=== PATIENT | male | born 1990 | race Caucasian/White ===

== ENCOUNTER → 2020-01-04 11:13 | Outpatient (BNVA) | payer OTHER, SELFPAY | PROVIDERS: Visit Provider Internal Medicine | DX: F11.20 Opioid dependence, uncomplicated (principal); F14.90 Cocaine use, unspecified, uncomplicated | CPT/HCPCS: 80305; 99212 ==

== ENCOUNTER 2020-01-07 09:15 | Outpatient (REF) | payer OTHER, SELFPAY | END 2020-01-07 09:16 | disposition home or self-care (01) | LOC: HO.LAB 09:15 | PROVIDERS: PCP Internal Medicine; Visit Provider Internal Medicine | DX: Z20.828 Contact with and (suspected) exposure to other viral communicable diseases (principal) | CPT/HCPCS: 87635 ==

== ENCOUNTER → 2020-01-11 14:03 | Outpatient (BNVA) | payer OTHER, SELFPAY | PROVIDERS: Visit Provider Internal Medicine | DX: F11.99 Opioid use, unspecified with unspecified opioid-induced disorder (principal) | CPT/HCPCS: 99211 ==

== ENCOUNTER → 2020-01-27 13:25 | Outpatient (BNVA) | payer OTHER, SELFPAY | PROVIDERS: Visit Provider Internal Medicine | DX: F11.99 Opioid use, unspecified with unspecified opioid-induced disorder (principal) | CPT/HCPCS: 80305; 99211; Q9992 ==

== ENCOUNTER → 2020-02-24 11:02 | Outpatient (BNVA) | payer OTHER, SELFPAY | PROVIDERS: Visit Provider Internal Medicine | DX: F11.99 Opioid use, unspecified with unspecified opioid-induced disorder (principal) | CPT/HCPCS: 80305; 96372; 99211; Q9992 ==

== ENCOUNTER 2020-03-09 15:05 | Outpatient (REF) | payer OTHER, SELFPAY | END 2020-03-09 15:06 | disposition home or self-care (01) | LOC: HO.LAB 15:05 | PROVIDERS: Visit Provider Internal Medicine | DX: Z20.828 Contact with and (suspected) exposure to other viral communicable diseases (principal) | CPT/HCPCS: C9803; U0003 ==

== ENCOUNTER → 2020-03-19 11:03 | Outpatient (BNVA) | payer OTHER, SELFPAY | PROVIDERS: Visit Provider Internal Medicine | DX: F11.99 Opioid use, unspecified with unspecified opioid-induced disorder (principal); M54.9 Dorsalgia, unspecified | CPT/HCPCS: 99211 ==

== ENCOUNTER → 2020-03-22 11:44 | Outpatient (BNVA) | payer OTHER, SELFPAY | PROVIDERS: Visit Provider Internal Medicine | DX: F11.99 Opioid use, unspecified with unspecified opioid-induced disorder (principal); Z51.81 Encounter for therapeutic drug level monitoring | CPT/HCPCS: 80305; 96372; Q9991 ==

== ENCOUNTER → 2020-04-17 11:25 | Outpatient (BNVA) | payer OTHER, SELFPAY | PROVIDERS: PCP Internal Medicine; Visit Provider Internal Medicine | DX: F11.99 Opioid use, unspecified with unspecified opioid-induced disorder (principal) | CPT/HCPCS: 80305; 96372; 99212 ==

== ENCOUNTER 2020-04-23 12:41 | Outpatient (REF) | payer OTHER, SELFPAY | END 2020-04-23 12:42 | disposition home or self-care (01) | LOC: HO.LAB 12:41 | PROVIDERS: Visit Provider Internal Medicine | DX: Z20.822 Contact with and (suspected) exposure to COVID-19 (principal) | CPT/HCPCS: 36415; C9803; U0003; U0005 ==

== ENCOUNTER → 2020-05-17 15:46 | Outpatient (BNVA) | payer OTHER, SELFPAY | PROVIDERS: Visit Provider Nurse Practitioner Psychiatric/Mental Health | DX: F11.99 Opioid use, unspecified with unspecified opioid-induced disorder (principal); Z51.81 Encounter for therapeutic drug level monitoring | CPT/HCPCS: 80305; 96372; 99211; Q9991 ==

== ENCOUNTER → 2020-06-14 15:44 | Outpatient (BNVA) | payer OTHER, SELFPAY | PROVIDERS: Visit Provider Nurse Practitioner Psychiatric/Mental Health | DX: F11.99 Opioid use, unspecified with unspecified opioid-induced disorder (principal); Z51.81 Encounter for therapeutic drug level monitoring | CPT/HCPCS: 80305; 96372; 99212; Q9991 ==

== ENCOUNTER → 2020-07-16 15:51 | Outpatient (BNVA) | payer OTHER, SELFPAY | PROVIDERS: Visit Provider Internal Medicine | DX: F11.99 Opioid use, unspecified with unspecified opioid-induced disorder (principal); Z51.81 Encounter for therapeutic drug level monitoring | CPT/HCPCS: 80305; 96372; 99212 ==

== ENCOUNTER 2020-09-22 03:50 | Emergency (ER) | payer OTHER, SELFPAY ==
[2020-09-22 03:52] VITALS: BP 150/72; PULSE 110; RESP 16; TEMP 36.4; O2SAT 95; BMI 24.3
[2020-09-22 05:50] VITALS: BP 112/79; PULSE 81; RESP 18; TEMP 36.5; O2SAT 97
--- NOTE | 2020-09-22 06:14 | ED.EAR ---
HPI - Ear Problem General Chief complaint: Ear Problems Stated complaint: ear infection Time Seen by Provider: 09/22/20 06:14 Source: patient Mode of arrival: ambulatory History of Present Illness HPI Narrative: 30-year-old male who presents with complaints of right ear pain that started yesterday morning and are not associated with fever, chills, but patient is having a mild headache but denies any sore throat. He states he does clean his ears with Q-tips but otherwise denies any trauma or swimming. Related Data Previous Rx's Medication Instructions Recorded nicotine 14 mg/24 hr daily 1 patch TRANSDERMAL Q24H #28 ea 03/22/20 transdermal patch buprenorphine 100 mg/0.5 mL 100 mg SUBCUT Q4W 28 Days #0.5 ml 07/16/20 solution,exten.rel.subcutaneous syringe Allergies Allergy/AdvReac Type Severity Reaction Status Date / Time No Known Allergies Allergy Verified 09/22/20 03:52 [No Known Allergies*] Review of Systems Review of Systems: Pertinent positives and negatives as stated in HPI 10 point review of systems is otherwise negative. PMFSH Past Medical History Source: nursing notes reviewed Medical History Opioid use disorder Social History Social History Advance Directives: No Advance Directives Information Provided: No Physical Exam Vital Signs: Vital Signs: Last Vital Signs Temp 97.7 F 09/22/20 05:50 Pulse 81 09/22/20 05:50 Resp 18 09/22/20 05:50 BP 112/79 09/22/20 05:50 Pulse Ox 97 09/22/20 05:50 Body Mass Index 24.3 VITAL SIGNS: Reviewed. GENERAL: Well developed, well nourished, in no acute distress. HEAD: Normocephalic/atraumatic EYES: PERRLA, EOMI intact without pain, no nystagmus EARS: Ext canals without abnormality, LEFT TM non-bulging and non-erythematous, RIGHT - clearly soft cerumen within the canal likely abutting TM no erythema or purulence noted NOSE: Nares patent bilateral OROPHARYNX: no oral lesions noted, posterior pharynx clear and non-erythematous without noted tonsillar enlargement/erythema/exudates NECK: Supple, no adenopathy LUNGS: Normal breath sounds. No adventitious sounds or accessory muscle use. SpO2<97> CARDIOVASCULAR: Regular rate and rhythm without noted murmurs ABDOMEN: Soft, non-tender, non-distended with bowel sounds. SKIN: Inspection of the skin reveals no rashes NEUROLOGIC: Alert and oriented x 4. Course Course Course Narrative: 30-year-old male with history and clinical presentation consistent with mild cerumen impaction of the right ear. Patient discharged with instructions to aggressively utilize [id number] Debrox and to stop using Q-tips. Discharge Plan Discharge Clinical Impression: Impacted cerumen of right ear Patient Disposition: Home, Self-Care Additional Instructions: 1. recommend [id number] Debrox, this is available in every [facility], please use as directed on the outside packaging for earwax removal on the right. 2. please avoid using Q-tips when possible. Return to the ER for acute worsening of symptoms. Prescriptions: No Action nicotine 14 mg/24 hr patch 24 hour 1 patch transdermal Q24H Qty: 28 RF: 2 Sublocade 100 mg/0.5 mL solution, extended rel syringe 100 mg subcut Q4W 28 Days Qty: 0.5 RF: 5 Referrals: Leonel Romero MD [Primary Care Provider] - 2 days
== END 2020-09-22 06:29 | disposition home or self-care (01) ==
PROVIDERS: Emergency Provider Student in an Organized Health Care Education/Training Program; PCP Internal Medicine
DX: H61.21 Impacted cerumen, right ear (principal)
CPT/HCPCS: 99282; 99283

== ENCOUNTER 2020-09-27 21:59 | Emergency (ER) | payer OTHER, SELFPAY ==
[2020-09-27 22:13] VITALS: BP 115/75; PULSE 117; RESP 16; TEMP 36.4; O2SAT 97; BMI 24.3
--- NOTE | 2020-09-27 23:34 | ED_ITS ---
HPI - Ear Problem General Chief complaint: Ear Problems Stated complaint: ear pain Time Seen by Provider: 09/27/20 22:47 Source: patient Mode of arrival: ambulatory History of Present Illness HPI Narrative: 30-year-old male with a past medical history of opiate abuse disorder presenting to the ED complaining of continued right-sided ear pain /muffling x5 days. Patient admits was recently seen and treated in the ED on 09/22 diagnosed with cerumen impaction has been using OTC medication without relief. Denies fever, chills, drainage from the ear, sore throat Complaint: ear pain Location: right ear Related Data Previous Rx's Medication Instructions Recorded nicotine 14 mg/24 hr daily 1 patch TRANSDERMAL Q24H #28 ea 03/22/20 transdermal patch buprenorphine 100 mg/0.5 mL 100 mg SUBCUT Q4W 28 Days #0.5 ml 07/16/20 solution,exten.rel.subcutaneous syringe Allergies Allergy/AdvReac Type Severity Reaction Status Date / Time No Known Allergies Allergy Verified 09/27/20 22:13 [No Known Allergies*] Review of Systems Review of Systems: Constitutional: No Fever, No Chills ENT/Mouth: + Ear Pain, No Nasal Congestion, No Sinus Pain, No Hoarseness, No sore throat, No Rhinorrhea Cardiovascular: No Chest Pain, No SOB Respiratory: No Cough, No Wheezing Gastrointestinal: No Nausea, No Vomiting Musculoskeletal: No joint pain Skin: No Skin Lesions, No rash Yes all other systems are reviewed and are negative PMFSH Past Medical History Attestation statement: The following information was validated with the patient. Medical History Opioid use disorder Social History Social History Advance Directives: No Advance Directives Information Provided: No Physical Exam Vital Signs: Vital Signs: Last Vital Signs Temp 97.6 F 09/27/20 22:13 Pulse 117 H 09/27/20 22:13 Resp 16 09/27/20 22:13 BP 115/75 09/27/20 22:13 Pulse Ox 97 09/27/20 22:13 Body Mass Index 24.3 Const: General: cooperative, healthy appearing and no acute distress Orientation/consciousness: patient oriented x3 Limitations: no limitations HENMT: Other: cerumen cleared with irrigation, TM WNL Head: Yes normal to inspection Ears: hearing grossly normal bilaterally, TM's normal bilaterally, mastoids normal and unable to visualize TM on the right ( due to cerumen impaction) General nose exam: Normal external nose present and Normal nares present Face and sinus: Yes normal facial exam Mouth: Normal oral and pal atal mucosa present Throat: Yes posterior oropharynx normal, Yes tonsils normal, Yes uvula midline, No peritonsillar mass and No uvular edema Eyes: General: appearance normal, both eyes and all related structures EOM: EOMs intact bilaterally Neck: Neck: Yes normal visual inspection and Yes no lymphadenopathy Resp: Effort & Inspection: normal respiratory effort and not labored Cardio: Rate: regular rate Skin: Rashes: no rashes Wounds: no wounds Neuro: General: patient oriented x3 Gait exam (Neuro): Normal gait present Extrem: General: Yes normal to inspection Procedures Ear Wax Removal Right Ear: Cerumenolytic Used: 5-10% Sodium Bicarb solution Results: Re-examined: cerumen removed completely TM Examination: TM(s) intact, normal appearance Ear Canal Exam: atraumatic Patient Tolerated Procedure: well Complications: no problems Technique: ear canal irrigated MDM - Ear MDM Narrative Medical decision making narrative: 30-year-old male with a past medical history of opiate abuse disorder presenting to the ED complaining of continued right- sided ear pain /muffling x5 days. On exam cerumen impaction noted and cleared with irrigation, patient is nontoxic appearing, reports symptomatic improvement, TM without active infection Discharge Plan Discharge Clinical Impression: Cerumen impaction Qualifiers: Laterality: right Qualified Code(s): H61.21 - Impacted cerumen, right ear Patient Disposition: Home, Self-Care Instructions: Earache (ED) Additional Instructions: you had ear wax impacted in her ear that was removed with irrigation today follow-up with her primary care doctor If her symptoms persist or worsen, he developed drainage from the ear, fever, hearing loss please return to the ED take Tylenol and Motrin for pain Prescriptions: No Action nicotine 14 mg/24 hr patch 24 hour 1 patch transdermal Q24H Qty: 28 RF: 2 Sublocade 100 mg/0.5 mL solution, extended rel syringe 100 mg subcut Q4W 28 Days Qty: 0.5 RF: 5 Referrals: Leonel Romero MD [Primary Care Provider] - 2 days Stand Alone Forms: Work/School Release
[2020-09-27 23:41] VITALS: PULSE 90; RESP 18; O2SAT 100
--- NOTE | 2020-09-27 23:41 | PC.NURSE ---
PT EAR FLUSHED OUT PER MIRNA BEST LARGE BALL OF WAX REMOVED. PT STATES HE CAN HEAR AFTER EAR FLUSHED.
== END 2020-09-27 23:43 | disposition home or self-care (01) ==
PROVIDERS: Emergency Provider Emergency Medicine; PCP Internal Medicine
DX: H61.21 Impacted cerumen, right ear (principal); H92.01 Otalgia, right ear; F11.10 Opioid abuse, uncomplicated
CPT/HCPCS: 99282; 99283

== ENCOUNTER 2020-11-18 21:02 | Emergency (ER) | payer OTHER, SELFPAY ==
[2020-11-18 21:54] VITALS: BP 126/73; PULSE 78; RESP 18; TEMP 36.6; O2SAT 98; BMI 24.3
--- NOTE | 2020-11-18 23:45 | ED.GENADULT ---
HPI - General Adult General Chief complaint: General Medical Stated complaint: shoulder and back pain Time Seen by Provider: 11/18/20 23:45 Source: patient Mode of arrival: ambulatory History of Present Illness HPI narrative: 30-year-old male who reports that he was lifting a heavy item and strained his lower back. He denies any urinary symptoms and denies any radiation of pain into either lower extremity, groin numbness, or bowel/bladder dysfunction. In addition, he denies any fevers, chills. Related Data Previous Rx's Medication Instructions Recorded nicotine 14 mg/24 hr daily 1 patch TRANSDERMAL Q24H #28 ea 03/22/20 transdermal patch buprenorphine 100 mg/0.5 mL 100 mg SUBCUT Q4W 28 Days #0.5 ml 07/16/20 solution,exten.rel.subcutaneous syringe (Sublocade) Allergies Allergy/AdvReac Type Severity Reaction Status Date / Time No Known Allergies Allergy Verified 11/18/20 21:53 [No Known Allergies*] Review of Systems Review of Systems: Pertinent positives and negatives as stated in HPI 10 point review systems otherwise negative. PMFSH Past Medical History Source: nursing notes reviewed Medical History Opioid use disorder Social History Social History Advance Directives: No Advance Directives Information Provided: No Physical Exam Vital Signs: Vital Signs: Last Vital Signs Temp 97.9 F 11/18/20 21:54 Pulse 78 11/18/20 21:54 Resp 18 11/18/20 21:54 BP 126/73 11/18/20 21:54 Pulse Ox 98 11/18/20 21:54 Body Mass Index 24.3 VITAL SIGNS: Reviewed. GENERAL: Well developed, well nourished, in no acute distress. HEAD: Normocephalic/atraumatic EYES: PERRLA, EOMI OROPHARYNX: no oral lesions noted, posterior pharynx clear LUNGS: Normal breath sounds. No adventitious sounds or accessory muscle use. SpO2<98> CARDIOVASCULAR: Regular rate and rhythm without noted murmurs ABDOMEN: Soft, non-tender, non-distended with bowel sounds. MUSCULOSKELETAL: No tenderness, deformities, or effusions noted on gross inspection, no midline vertebral tenderness EXTREMITIES: No cyanosis, clubbing or edema. SKIN: Inspection of the skin reveals no rashes NEUROLOGIC: Alert and oriented x 4. Strength and sensation to light touch were grossly intact x 4. Course Course Course Narrative: 30-year-old male with back strain without evidence of neurologic defects and no suspicion for infection. Patient was provided with combination analgesics as well as a lidocaine patch. Discharge Plan Discharge Clinical Impression: Back pain Patient Disposition: Home, Self-Care Instructions: Lower Back Exercises (ED), Back Pain (ED) Additional Instructions: 1. Tylenol 1000 mg, orally, every 6 hours as needed for pain control. Do not exceed 4000 mg within 24 hours. 2. Ibuprofen 400 mg, orally with milk or food, every 6 hours as needed for pain control. 3. Lidocaine patch, these are available [id number] at every [employer] and should be applied to maximal area of tenderness as directed on the outside packaging. 4. Follow-up with your primary care provider in the next 2-3 days for re-evaluation. Return to the ER for acute worsening of symptoms. Prescriptions: No Action nicotine 14 mg/24 hr patch 24 hour 1 patch transdermal Q24H Qty: 28 RF: 2 Sublocade 100 mg/0.5 mL solution, extended rel syringe 100 mg subcut Q4W 28 Days Qty: 0.5 RF: 5 Referrals: Leonel Romero MD [Primary Care Provider] - 2 days Stand Alone Forms: Work/School Release
[2020-11-18] MEDS: Acetaminophen 325 MG TABLET 975 MG PO (23:59)
[2020-11-18] MEDS: Ibuprofen 400 MG TABLET PO (23:59)
[2020-11-19] MEDS: Lidocaine 4 % Patch ADH..PATCH 1 PATCH TRANSDERMA (00:02)
== END 2020-11-19 00:04 | disposition home or self-care (01) ==
PROVIDERS: Emergency Provider Student in an Organized Health Care Education/Training Program; PCP Internal Medicine
DX: M54.5 Low back pain (principal)
CPT/HCPCS: 99283

== ENCOUNTER → 2020-12-20 15:32 | Outpatient (BNVA) | payer OTHER, SELFPAY | PROVIDERS: Visit Provider Nurse Practitioner Psychiatric/Mental Health | DX: F11.90 Opioid use, unspecified, uncomplicated (principal) | CPT/HCPCS: 80305; 99212 ==

== ENCOUNTER → 2020-12-27 16:01 | Outpatient (BNVA) | payer OTHER, SELFPAY | PROVIDERS: Visit Provider Nurse Practitioner Psychiatric/Mental Health | DX: Z51.81 Encounter for therapeutic drug level monitoring (principal); F11.90 Opioid use, unspecified, uncomplicated | CPT/HCPCS: 80305; 99212 ==

== ENCOUNTER 2021-01-07 13:47 | Emergency (ER) | payer OTHER, SELFPAY ==
[2021-01-07 13:55] VITALS: BP 114/73; PULSE 87; RESP 18; TEMP 36.7; O2SAT 99; BMI 24.3
--- NOTE | 2021-01-07 13:55 | ED.BACK ---
HPI - Back Pain/Injury General Chief Complaint: Back Pain/Injury Stated Complaint: back inj (work related) Time Seen by Provider: 01/07/21 13:54 Source: patient Mode of arrival: ambulatory Limitations: no limitations History of Present Illness HPI Narrative: 31 yo male previously healthy here with low back pain after lifting some heavy today. NO radiation. No numbness in the groin. No bowel or bladder incontinence. No previous injury. Ambulatory. No fevers, chills. This occurred at work. Related Data Previous Rx's Medication Instructions Recorded nicotine 14 mg/24 hr daily 1 patch TRANSDERMAL Q24H #28 ea 03/22/20 transdermal patch buprenorphine 8 mg-naloxone 2 mg 1 film SUBLINGUAL BID #28 ea 12/27/20 sublingual film (Suboxone) cyclobenzaprine 10 mg tablet 10 mg PO TID PRN #10 tab 01/07/21 ibuprofen 600 mg tablet 600 mg PO Q8H PRN #20 tab 01/07/21 lidocaine 5 % topical patch 1 patch TOPICAL DAILY #15 ea 01/07/21 (Lidoderm) Allergies Allergy/AdvReac Type Severity Reaction Status Date / Time No Known Allergies Allergy Verified 12/27/20 16:13 [No Known Allergies*] Review of Systems Review of Systems: Yes all other systems are reviewed and are negative Constitutional: Constitutional: Reports no additional constitutional complaints, Denies body ache(s), Denies chills, Denies fever(s), Denies headache(s) and Denies weakness Eyes: Eyes: Reports no additional eye complaints and Denies change in vision ENT: Reports system reviewed and no additional complaints, except as documented, Denies dizziness, Denies headache(s), Denies nasal congestion, Denies nasal discharge and Denies neck pain Cardiovascular: Cardiovascular: Reports no additional cardiovascular complaints, Denies chest pain, Denies leg edema and Denies dyspnea Respiratory: Respiratory: Reports no additional respiratory complaints, Denies cough and Denies dyspnea Gastrointestinal: Gastrointestinal: Reports no additional gastrointestinal complaints, Denies abdominal pain, Denies diarrhea, Denies nausea and Denies vomiting Genitourinary: Genitourinary: Denies urinary incontinence Musculoskeletal: Musculoskeletal: Reports no additional musculoskeletal complaints, Reports back pain, Denies arthralgias, Denies joint swelling, Denies neck pain, Denies numbness and Denies tingling Integumentary/Breasts: Skin/Breast: Reports system reviewed and no additional complaints, except as docu and Denies rash Neurologic: Denies Abnormal speech present, Denies dizziness, Denies headache(s), Denies numbness, Denies tingling and Denies weakness PMFSH Past Medical History Attestation statement: The following information was validated with the patient. Source: old records reviewed and nursing notes reviewed Medical History Opioid use disorder Social History Social History Advance Directives: No Advance Directives Information Provided: Yes Physical Exam Vital Signs: Vital Signs: Last Vital Signs Temp 98.1 F 01/07/21 13:55 Pulse 87 01/07/21 13:55 Resp 18 01/07/21 13:55 BP 114/73 01/07/21 13:55 Pulse Ox 99 01/07/21 13:55 Body Mass Index 24.3 Const: General: cooperative, healthy appearing, comfortable and no acute distress Orientation/consciousness: patient oriented x3 Limitations: no limitations HENMT: Head: Yes normal to inspection Ears: hearing grossly normal bilaterally General nose exam: Normal external nose present Face and sinus: Yes normal facial exam Mouth: Normal oral and palatal mucosa present Throat: Yes posterior oropharynx normal Eyes: General: appearance normal, both eyes and all related structures Pupils: Equal, round and reactive pupils present Neck: Neck: Yes normal visual inspection Chest: Chest palpation & inspection: normal inspection of the chest Resp: Effort & Inspection: normal respiratory effort Auscultation: clear to auscultation bilaterally Cardio: Rate: regular rate Rhythm: regular rhythm Peripheral pulses: Peripheral pulses 2+ throughout GI: Inspection: Yes normal to inspection Palpation (GI): Soft to palpation and nontender Auscultation: normal bowel sounds Back/Spine/Pelvis: Other: NO midline tenderness/step off or deformities Pain to bilateral lumbar paraspinal area, worsened with flexion/extension of lumbar spine. Thoracic/Lumbar Spine: thoracic and lumbar spine normal to inspection Skin: General skin exam: no rashes or lesions noted Neuro: General: patient oriented x3, no focal motor deficits and normal sensation to monofilament Cranial nerves: Yes CN's II-XII intact bilaterally and Yes Equal, round and reactive pupils present Cognition (Neuro): normal cognition Speech: No Abnormal speech present Gait exam (Neuro): Normal gait present Motor exam (neuro): 5/5 motor strength present throughout Sensory Exam: Normal double simultaneous stimulation for sensation Deep tendon reflexes (DTR's): Right patellar reflex intensity grade: 2+ and Left patellar reflex intensity grade: 2+ Extrem: General: Yes normal to inspection and Yes full ROM Course Course Course Narrative: Low BP after lifting a heavy object at work. No neuro deficits or red flag symptoms. NO midline tenderness no imaging not needed. Likely strain. Will send patient home with NSAID, low dose muscle relaxant and lidoderm patches with follow up with work connection. Reviewed worrisome signs.symptoms with patient and when to seek additional care. comfortable with discharge home. MDM - Back Pain/Injury Medical Records Attestation: I reviewed the patient's medical records. Lab Data Attestation: I reviewed the patient's lab results. Discharge Plan Discharge Clinical Impression: Lumbar strain Patient Disposition: Home, Self-Care Instructions: Low Back Strain (ED), Acute Low Back Pain (ED), Lower Back Exercises (ED) Additional Instructions: Heat or ice Gentle stretching Follow-up with work connection [phone] NO heavy lifting or bending Prescriptions: New lidocaine [Lidoderm] 5 % adhesive patch,medicated 1 patch topical DAILY Qty: 15 RF: 0 cyclobenzaprine 10 mg tablet 10 mg PO TID PRN (Reason: muscle spasm) Qty: 10 RF: 0 ibuprofen 600 mg tablet 600 mg PO Q8H PRN (Reason: pain) Qty: 20 RF: 0 No Action nicotine 14 mg/24 hr patch 24 hour 1 patch transdermal Q24H Qty: 28 RF: 2 buprenorphine-naloxone [Suboxone] 8-2 mg film 1 film sublingual BID Qty: 28 RF: 0 Referrals: ED Physician,Generic [Physician] - 2 days Stand Alone Forms: Work/School Release Interventions: ED Discharge Assessment Last Done: 01/07/21 14:01
== END 2021-01-07 14:12 | disposition home or self-care (01) ==
LOC: HO.ED 14:04
PROVIDERS: Emergency Provider Student in an Organized Health Care Education/Training Program; PCP Internal Medicine
DX: M54.50 Low back pain, unspecified (principal); Z79.899 Other long term (current) drug therapy
CPT/HCPCS: 99282

== ENCOUNTER → 2021-01-11 10:35 | Outpatient (BNVA) | payer OTHER, SELFPAY | PROVIDERS: PCP Internal Medicine; Visit Provider Physician Assistant | DX: S39.012A Strain of muscle, fascia and tendon of lower back, initial encounter (principal); X58.XXXA Exposure to other specified factors, initial encounter | CPT/HCPCS: 99203 ==

== ENCOUNTER → 2021-01-14 13:33 | Outpatient (BNVA) | payer OTHER, SELFPAY | PROVIDERS: PCP Internal Medicine; Visit Provider Physician Assistant Medical | DX: S39.012A Strain of muscle, fascia and tendon of lower back, initial encounter (principal); X58.XXXA Exposure to other specified factors, initial encounter | CPT/HCPCS: 99213 ==

== ENCOUNTER → 2021-01-31 14:35 | Outpatient (BNVA) | payer OTHER, SELFPAY | PROVIDERS: PCP Internal Medicine; Visit Provider Physician Assistant | DX: S39.012D Strain of muscle, fascia and tendon of lower back, subsequent encounter (principal); X58.XXXD Exposure to other specified factors, subsequent encounter | CPT/HCPCS: 99213 ==

== ENCOUNTER → 2021-02-18 10:13 | Outpatient (BNVA) | payer OTHER, SELFPAY | PROVIDERS: PCP Internal Medicine; Visit Provider Internal Medicine | DX: Z51.81 Encounter for therapeutic drug level monitoring (principal); F11.90 Opioid use, unspecified, uncomplicated | CPT/HCPCS: 80305; 99212 ==

== ENCOUNTER → 2021-02-21 10:23 | Outpatient (BNVA) | payer OTHER, SELFPAY | PROVIDERS: PCP Internal Medicine; Visit Provider Nurse Practitioner Psychiatric/Mental Health | DX: Z51.81 Encounter for therapeutic drug level monitoring (principal); F11.90 Opioid use, unspecified, uncomplicated | CPT/HCPCS: 80305; 99212 ==

== ENCOUNTER 2021-03-06 07:00 | Outpatient (REF) | payer OTHER, SELFPAY ==
[2021-03-06 09:09] LABS: Alanine Aminotransferase 15 U/L (0-40); Albumin Level 4.2 g/dL (3.5-5.0); Alkaline Phosphatase 53 U/L (39-117); Anion Gap 11 (12-20); Aspartate Amino Transferase 19 U/L (5-37); Bilirubin Total 0.5 mg/dL (0.0-1.0); Blood Urea Nitrogen 17 mg/dL (9-16); Calcium 9.6 mg/dL (8.4-10.2); Carbon Dioxide 30 mmol/L (22-29); Chloride 104 mmol/L (96-108); Estimated Glomerular Filt Rate > 60; Glucose Random 91 mg/dL (60-115); Potassium 3.9 mmol/L (3.3-5.1); Sodium 141 mmol/L (135-145); Total Protein 6.7 g/dL (6.5-8.0)
== END 2021-03-06 07:01 | disposition home or self-care (01) ==
LOC: HO.LAB 07:00
PROVIDERS: PCP Internal Medicine; Visit Provider Nurse Practitioner Psychiatric/Mental Health
DX: Z79.899 Other long term (current) drug therapy (principal)
CPT/HCPCS: 36415; 80053

== ENCOUNTER → 2021-03-07 16:23 | Outpatient (BNVA) | payer OTHER, SELFPAY | PROVIDERS: PCP Internal Medicine; Visit Provider Nurse Practitioner Psychiatric/Mental Health | DX: Z51.81 Encounter for therapeutic drug level monitoring (principal); F11.288 Opioid dependence with other opioid-induced disorder | CPT/HCPCS: 80305; 99211 ==

== ENCOUNTER 2021-03-18 08:22 | Inpatient (IN) | payer OTHER, SELFPAY ==
[2021-03-18 08:33] VITALS: BP 121/77; PULSE 70; RESP 16; TEMP 36.9; O2SAT 98; BMI 24.2
--- NOTE | 2021-03-18 08:52 | ED_ITS ---
HPI - Psych General Chief Complaint: Psychiatric Symptoms Stated Complaint: Crisis Time Seen by Provider: 03/18/21 08:47 Source: patient Mode of arrival: ambulatory Limitations: no limitations History of Present Illness MD complaint: suicidal ideation and feels depressed Onset (ago): day(s) (few) Duration: getting worse History of same: Yes Relieving factors: none Exacerbating factors: drug use Context: recent drug abuse Associated psychiatric symptoms: depression and suicidal ideation Associated symptoms: denies other symptoms Treatments prior to arrival: none If self harm: admits thoughts of self harm Related Data Previous Rx's Medication Instructions Recorded nicotine 14 mg/24 hr daily 1 patch TRANSDERMAL Q24H #28 ea 03/22/20 transdermal patch cyclobenzaprine 10 mg tablet 10 mg PO TID PRN #10 tab 01/07/21 ibuprofen 600 mg tablet 600 mg PO Q8H PRN #20 tab 01/07/21 lidocaine 5 % topical patch 1 patch TOPICAL DAILY #15 ea 01/07/21 (Lidoderm) sennosides 8.6 mg tablet (senna) 8.6 mg PO DAILY PRN #30 tab 02/21/21 buprenorphine 8 mg-naloxone 2 mg 2 film SUBLINGUAL DAILY 14 Days 03/07/21 sublingual film (Suboxone) #28 ea clonidine HCl 0.1 mg tablet 0.1 mg PO BID PRN #30 tab 03/07/21 Allergies Allergy/AdvReac Type Severity Reaction Status Date / Time No Known Allergies Allergy Verified 02/18/21 10:31 [No Known Allergies*] Review of Systems Review of Systems: Constitutional : No Fever, No Chills ENT/Mouth : No Ear Pain, No Nasal Congestion, No sore throat Eyes: No Eye Pain, No Swelling, No Redness Cardiovascular : No Chest Pain, No SOB Respiratory : No Cough, No Sputum, No Dyspnea Gastrointestinal : No Nausea, No Vomiting, No Diarrhea, No Hematochezia, No Melena Genitourinary : No Dysuria, No Urinary Frequency, No Hematuria Musculoskeletal : No Myalgias Skin : No Skin Lesions, No rash Neuro : No Weakness, No Numbness, No Paresthesias, No Dizziness, No Headache Psych : positive Anxiety, positive Depression, positive SI no HI Heme/Lymph: No Lymphadenopathy Endocrine : No Polyuria, No Polydipsia All other systems reviewed and are negative [facility] Past Medical History Attestation statement: The following information was validated with the patient. Medical History Opioid use disorder Social History Social History (Updated 03/18/21 @ 09:36 by Marguerite Gutiérrez DO) Patient Tobacco Use Status: Current everyday Tobacco user Use of substances other than those prescribed or required for medical reasons: Yes Substance Use Type: Crack/Cocaine, Marijuana and Opiates Substance Use Frequency: Chronic Longstanding Last Used Substance: Hours (ago) Advance Directives: No Advance Directives Information Provided: No Physical Exam Vital Signs: Vital Signs: Last Vital Signs Temp 98.4 F 03/18/21 08:33 Pulse 70 03/18/21 08:33 Resp 16 03/18/21 08:33 BP 121/77 03/18/21 08:33 Pulse Ox 98 03/18/21 08:33 BMI result Body Mass Index 24.2 Appearance: Alert. Oriented X3. No acute distress. Tearful Eyes: Pupils equal, round and reactive to light. ENT: Pharynx normal. Neck: Normal inspection. Neck supple. CVS: Normal heart rate and rhythm. Pulses normal. Respiratory: No respiratory distress. Breath sounds normal. Abdomen: Soft and nontender. Skin: Skin warm and dry. Normal skin color. Normal skin turgor. Extremities: No lower extremity edema. No calf ttp Neuro: Oriented X 3. No motor deficit. No sensory deficit. CN2-12 intact. Course Course Course Narrative: Physician observation started at 1011am Patient placed in physician observation because the patient needed more time for BHN to assess him and determine need for inpatient care. At the time observation was started the patient's vitals were stable, patient is alert and oriented but slightly anxious, Neuro: nonfocal, CV RRR, Lungs clear admit to inpatient MDM - Psych MDM Narrative Medical decision making narrative: 31 yo male with hx of substance abuse just relapsed - at this time reports SI will need labs, BHN consult Lab Data Result diagrams: 03/18/21 09:07 03/18/21 09:07 Labs: Lab Results 03/18/21 03/18/21 03/18/21 Range/Units 09:07 09:07 09:07 WBC 10.6 (4.8-10.8) X10*3/uL RBC 3.75 L (4.60-5.80) X10*6/uL Hgb 11.6 L (14.0-18.0) g/dl Hct 34.8 L (42.0-52.0) % MCV 92.8 (80.0-98.0) fL MCH 30.9 (27.0-33.0) pg MCHC 33.3 (31.0-36.0) g/dl RDW 13.0 (11.0-16.0) % Plt Count 228 (160-400) X10*3/uL MPV 9.6 (9.4-12.4) fL Immature Gran % (Auto) 0.3 (0.0-0.4) % Neut % (Auto) 63.1 (45-73) % Lymph % (Auto) 28.8 (20-40) % [place] % (Auto) 6.5 (2-11) % Eos % (Auto) 0.9 (0-4) % Baso % (Auto) 0.4 (0-2) % Lymph # (Auto) 3.1 (1.2-4.9) X10*3/uL [place] # (Auto) 0.7 (0.1-1.2) X10*3/uL Eos # (Auto) 0.1 (0.0-0.4) X10*3/uL Baso # (Auto) 0.0 (0.0-0.2) X10*3/uL Abs Immat Gran (auto) 0.03 (0.00-0.03) X10*3/uL Absolute Neuts (auto) 6.7 (2.0-8.3) x10*3/uL Absolute Nucleated RBC 0.000 (0.0-0.012) X10*3/uL Nucleated RBC % (auto) 0.0 (0.0-0.2) /100WBC Sodium 139 (135-145) mmol/L Potassium 3.3 (3.3-5.1) mmol/L Chloride 102 (96-108) mmol/L Carbon Dioxide 30 H (22-29) mmol/L Anion Gap 10 L (12-20) BUN 14 (9-16) mg/dL Creatinine 0.80 (0.5-1.4) mg/dL Estim Creat Clear Calc 118.5 Estimated GFR > 60 Random Glucose 170 H D (60-115) mg/dL Calcium 9.4 (8.4-10.2) mg/dL Total Bilirubin 0.7 (0.0-1.0) mg/dL Direct Bilirubin 0.5 (0.0-0.5) mg/dL AST 18 (5-37) U/L ALT 15 (0-40) U/L Alkaline Phosphatase 48 (39-117) U/L Total Protein 6.8 (6.5-8.0) g/dL Albumin 4.3 (3.5-5.0) g/dL Urine Opiates Screen (Not Detect) Urine Fentanyl Screen (Not Detect) Ur Barbiturates Screen (Not Detect) Ur Phencyclidine Scrn (Not Detect) Ur Amphetamines Screen (Not Detect) U Benzodiazepines Scrn (Not Detect) Urine Cocaine Screen (Not Detect) U Marijuana (THC) Screen (Not Detect) COVID-19 (TIKA) Negative (Negative) COVID-19 Clin Com See Note 03/18/21 Range/Units 09:16 WBC (4.8-10.8) X10*3/uL RBC (4.60-5.80) X10*6/uL Hgb (14.0-18.0) g/dl Hct (42.0-52.0) % MCV (80.0-98.0) fL MCH (27.0-33.0) pg MCHC (31.0-36.0) g/dl RDW (11.0-16.0) % Plt Count (160-400) X10*3/uL MPV (9.4-12.4) fL Immature Gran % (Auto) (0.0-0.4) % Neut % (Auto) (45-73) % Lymph % (Auto) (20-40) % [place] % (Auto) (2-11) % Eos % (Auto) (0-4) % Baso % (Auto) (0-2) % Lymph # (Auto) (1.2-4.9) X10*3/uL [place] # (Auto) (0.1-1.2) X10*3/uL Eos # (Auto) (0.0-0.4) X10*3/uL Baso # (Auto) (0.0-0.2) X10*3/uL Abs Immat Gran (auto) (0.00-0.03) X10*3/uL Absolute Neuts (auto) (2.0-8.3) x10*3/uL Absolute Nucleated RBC (0.0-0.012) X10*3/uL Nucleated RBC % (auto) (0.0-0.2) /100WBC Sodium (135-145) mmol/L Potassium (3.3-5.1) mmol/L Chloride (96-108) mmol/L Carbon Dioxide (22-29) mmol/L Anion Gap (12-20) BUN (9-16) mg/dL Creatinine (0.5-1.4) mg/dL Estim Creat Clear Calc Estimated GFR Random Glucose (60-115) mg/dL Calcium (8.4-10.2) mg/dL Total Bilirubin (0.0-1.0) mg/dL Direct Bilirubin (0.0-0.5) mg/dL AST (5-37) U/L ALT (0-40) U/L Alkaline Phosphatase (39-117) U/L Total Protein (6.5-8.0) g/dL Albumin (3.5-5.0) g/dL Urine Opiates Screen POSITIVE H (Not Detect) Urine Fentanyl Screen POSITIVE H (Not Detect) Ur Barbiturates Screen Not Detected (Not Detect) Ur Phencyclidine Scrn Not Detected (Not Detect) Ur Amphetamines Screen Not Detected (Not Detect) U Benzodiazepines Scrn Not Detected (Not Detect) Urine Cocaine Screen POSITIVE H (Not Detect) U Marijuana (THC) Screen POSITIVE H (Not Detect) COVID-19 (TIKA) (Negative) COVID-19 Clin Com Discharge Plan Discharge Clinical Impression: Depression Qualifiers: Depression Type: unspecified Qualified Code(s): F32.A - Depression, unspecified Prescriptions: No Action buprenorphine-naloxone [Suboxone] 8-2 mg film 2 film sublingual DAILY 14 Days Qty: 28 RF: 0 clonidine HCl 0.1 mg tablet 0.1 mg PO BID PRN (Reason: anxiety) Qty: 30 RF: 0 lidocaine [Lidoderm] 5 % adhesive patch,medicated 1 patch topical DAILY Qty: 15 RF: 0 cyclobenzaprine 10 mg tablet 10 mg PO TID PRN (Reason: muscle spasm) Qty: 10 RF: 0 ibuprofen 600 mg tablet 600 mg PO Q8H PRN (Reason: pain) Qty: 20 RF: 0 nicotine 14 mg/24 hr patch 24 hour 1 patch transdermal Q24H Qty: 28 RF: 2 sennosides [senna] 8.6 mg tablet 8.6 mg PO DAILY PRN (Reason: constipation) Qty: 30 RF: 1
[2021-03-18 09:12] LABS: MANUAL DIFF FLAG NO
[2021-03-18 09:13] LABS: Basophils Percent Auto 0.4 % (0-2); Eosinophils Absolute Auto 0.1 X10*3/uL (0.0-0.4); Eosinophils Percent Auto 0.9 % (0-4); Hematocrit 34.8 % (42.0-52.0); Hemoglobin 11.6 g/dl (14.0-18.0); Imm Gran Abs Auto 0.03 X10*3/uL (0.00-0.03); Imm Gran Pct Auto 0.3 % (0.0-0.4); Lymphocytes Absolute Auto 3.1 X10*3/uL (1.2-4.9); Lymphocytes Percent Auto 28.8 % (20-40); Mean Corpuscular HGB Conc 33.3 g/dl (31.0-36.0); Mean Corpuscular Hemoglobin 30.9 pg (27.0-33.0); Mean Corpuscular Volume 92.8 fL (80.0-98.0); Mean Platelet Volume 9.6 fL (9.4-12.4); Monocytes Absolute Auto 0.7 X10*3/uL (0.1-1.2); Monocytes Percent Auto 6.5 % (2-11); Neutrophils Absolute Auto 6.7 x10*3/uL (2.0-8.3); Neutrophils Percent Auto 63.1 % (45-73); Platelet Count 228 X10*3/uL (160-400); Red Blood Count 3.75 X10*6/uL (4.60-5.80); White Blood Count 10.6 X10*3/uL (4.8-10.8)
--- NOTE | 2021-03-18 09:24 | PC.NURSE ---
pt states he lives with his girlfriend, things have been getting more stressful day by day and he cannot deal with it anymore. he reports having SI but no plan, he denies HI. pt states he came in to the ED to get help. he reports he went through the same thing about 2 years ago. N consult submitted. [place] continue to monitor.
[2021-03-18 09:27] LABS: Alanine Aminotransferase 15 U/L (0-40); Albumin Level 4.3 g/dL (3.5-5.0); Alkaline Phosphatase 48 U/L (39-117); Anion Gap 10 (12-20); Aspartate Amino Transferase 18 U/L (5-37); Bilirubin Direct 0.5 mg/dL (0.0-0.5); Bilirubin Total 0.7 mg/dL (0.0-1.0); Blood Urea Nitrogen 14 mg/dL (9-16); Calcium 9.4 mg/dL (8.4-10.2); Carbon Dioxide 30 mmol/L (22-29); Chloride 102 mmol/L (96-108); Creatinine Clr Calc Pharmacy 118.5; Estimated Glomerular Filt Rate > 60; Glucose Random 170 mg/dL (60-115); Potassium 3.3 mmol/L (3.3-5.1); Sodium 139 mmol/L (135-145); Total Protein 6.8 g/dL (6.5-8.0)
[2021-03-18 09:30] LABS: COVID-19 Test Negative (Negative)
[2021-03-18 09:47] LABS: Amphetamine Screen Urine Not Detected (Not Detect); Barbiturates, Urine Not Detected (Not Detect); Benzodiazepines Screen Urine Not Detected (Not Detect); Cannabinoid Screen Urine POSITIVE (Not Detect); Cocaine Screen Urine POSITIVE (Not Detect); Fentanyl, urine POSITIVE (Not Detect); Opiate Screen Urine POSITIVE (Not Detect); Phencyclidine Screen Urine Not Detected (Not Detect)
--- NOTE | 2021-03-18 10:24 | PC.NURSE ---
BHN currently at bedside. pt noted to be interacting with N personnel. will continue to monitor.
[2021-03-18] MEDS: LORazepam 1 MG TABLET 2 MG PO (11:06)
--- NOTE | 2021-03-18 11:14 | PC.NURSE ---
pt in room crying. offered med for anxiety. med given as documented. pt's sister (Keturah [phone]) called to check on pt, pt aware. sister's number shared with [facility] personnel per pt and sister's requests. will continue to monitor.
--- NOTE | 2021-03-18 12:50 | PC.NURSE ---
pt in room resting quietly, no complaints. will continue to monitor with frequent check-in.
[2021-03-18 17:00] VITALS: BP 104/68; PULSE 55; RESP 16; TEMP 36.8; O2SAT 100
--- NOTE | 2021-03-18 23:10 | PC.NURSE ---
Patient currently in his room, calm and quiet, snacking and hydrating, RN to RN report completed with M5, EKG completed result unremarkable pending M5 admission, will continue to monitor.
[2021-03-19 00:30] VITALS: BP 123/68; PULSE 76; RESP 16; TEMP 36.6; O2SAT 99
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
[2021-03-19 06:41] VITALS: BP 108/71; PULSE 60; RESP 16; TEMP 36.6; O2SAT 99
[2021-03-19 08:44] LABS: MANUAL DIFF FLAG NO
[2021-03-19 08:47] LABS: Basophils Percent Auto 0.6 % (0-2); Eosinophils Absolute Auto 0.2 X10*3/uL (0.0-0.4); Eosinophils Percent Auto 2.5 % (0-4); Hematocrit 33.6 % (42.0-52.0); Hemoglobin 11.4 g/dl (14.0-18.0); Imm Gran Abs Auto 0.03 X10*3/uL (0.00-0.03); Imm Gran Pct Auto 0.4 % (0.0-0.4); Lymphocytes Absolute Auto 2.4 X10*3/uL (1.2-4.9); Lymphocytes Percent Auto 35.1 % (20-40); Mean Corpuscular HGB Conc 33.9 g/dl (31.0-36.0); Mean Corpuscular Hemoglobin 31.6 pg (27.0-33.0); Mean Corpuscular Volume 93.1 fL (80.0-98.0); Mean Platelet Volume 10.1 fL (9.4-12.4); Monocytes Absolute Auto 0.5 X10*3/uL (0.1-1.2); Monocytes Percent Auto 7.6 % (2-11); Neutrophils Absolute Auto 3.7 x10*3/uL (2.0-8.3); Neutrophils Percent Auto 53.8 % (45-73); Platelet Count 223 X10*3/uL (160-400); Red Blood Count 3.61 X10*6/uL (4.60-5.80); Red Cell Distribution Width 13.2 % (11.0-16.0); White Blood Count 6.8 X10*3/uL (4.8-10.8)
[2021-03-19] MEDS: Nicotine 14 MG PATCH.TD24 TRANSDERMA (09:04)
[2021-03-19 09:16] LABS: Alanine Aminotransferase 11 U/L (0-40); Albumin Level 3.6 g/dL (3.5-5.0); Alkaline Phosphatase 39 U/L (39-117); Anion Gap 9 (12-20); Aspartate Amino Transferase 12 U/L (5-37); Bilirubin Total 0.5 mg/dL (0.0-1.0); Blood Urea Nitrogen 14 mg/dL (9-16); Calcium 9.2 mg/dL (8.4-10.2); Carbon Dioxide 29 mmol/L (22-29); Chloride 108 mmol/L (96-108); Creatinine Clr Calc Pharmacy 128.1; Estimated Glomerular Filt Rate > 60; Glucose Fasting 106 mg/dL (60-99); Potassium 3.9 mmol/L (3.3-5.1); Sodium 142 mmol/L (135-145); Total Protein 5.6 g/dL (6.5-8.0)
[2021-03-19] MEDS: LORazepam 1 MG TABLET 2 MG PO ×3 (09:24→22:07)
[2021-03-19 09:31] LABS: TSH reflex Free T4 0.08 uIU/mL (0.32-4.0)
[2021-03-19 09:56] LABS: Folate 11.9 ng/mL (> or = 4.0); Vitamin B12 246 pg/mL (200-900)
[2021-03-19 10:11] LABS: Free T4 (Free Thyroxine) 1.05 ng/dL (0.71-1.85)
[2021-03-19 12:00] VITALS: BP 134/82; PULSE 105
[2021-03-19 16:00] VITALS: BP 137/78; PULSE 111
[2021-03-19 16:21] VITALS: BP 137/78; PULSE 111
[2021-03-19] MEDS: cloNIDine HCL 0.1 MG TABLET PO (16:21)
--- NOTE | 2021-03-19 16:46 | PC.NURSE ---
Pt submitted a Three Day Notice on Thursday03/19/2021 up on Thursday03/25/2021.
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
[2021-03-19 20:00] VITALS: BP 113/59; PULSE 76; RESP 17; TEMP 36.6; O2SAT 97
[2021-03-19] MEDS: Mirtazapine 15 MG TABLET PO (20:02)
[2021-03-19] MEDS: traZODone HCL 50 MG TABLET PO ×2 (20:02→22:07)
[2021-03-19] MEDS: Sennosides 8.6 MG TABLET PO (20:02)
[2021-03-19] MEDS: QUEtiapine Fumarate 50 MG TABLET PO (22:47)
[2021-03-20] MEDS: hydrOXYzine HCL 25 MG TABLET PO (00:33)
[2021-03-20 01:22] VITALS: BP 117/67; PULSE 117
[2021-03-20] MEDS: cloNIDine HCL 0.1 MG TABLET PO ×2 (01:22→20:49)
[2021-03-20 01:24] VITALS: BP 117/67; PULSE 117; RESP 20
[2021-03-20] MEDS: methADONE HCl 5 MG TABLET 10 MG PO (02:55)
--- NOTE | 2021-03-20 05:13 | PC.NURSE ---
Pt. took HS medications at 2001 including trazodone 50mg PRN. Pt. got out of bed at 2199 and reported feeling anxious and restless legs. Pt. requested and received repeat trazodone 50mg and ativan 2mg at 2206. Pt. was visible in hallway pacing. He was tearful at times. Pt. reported increased anxiety due to inability to sleep. Pt. took seroquel 50mg at 2246. Pt. was allowed to sit in kitchen until 2344. Pt. continue to complain that he wouldn't be able to sleep. Pt. requested and received hydroxyzine 25mg at 003. Pt. in and out of room and pacing in hallway. Around 19 pt. became agitated and slapped the wall at the end of the hallway with his hand and slammed the door of his room. Pt. took clonidine 0.1mg at 0122. Pt. was encouraged to lie down and allow medications to take effect. Pt. came back out around 020. He reported frustration and difficulty coping with withdrawal. Symptoms include anxiety, agitation, elevated HR (125, 117), and restless legs. Pt. reported the only thing that would help is methadone. Dr. Baig was notified at 0226. Pt. received a one time dose of methadone 10mg at 0255. Prior to the medication pt. took a shower. Pt. was allowed to sleep in room 505 after taking methadone. Pt. appears to be asleep on safety checks since about 309.
[2021-03-20 08:49] LABS: Estimated Average Glucose 105 mg/dL; Hemoglobin A1C 104.7439 umol/L; Hemoglobin A1c % 5.3 %
--- NOTE | 2021-03-20 09:00 | ECG_ITS ---
Test Reason : med prep Blood Pressure : / mmHG Vent. Rate : 080 BPM Atrial Rate : 080 BPM P-R Int : 122 ms QRS Dur : 104 ms QT Int : 384 ms P-R-T Axes : 067 076 045 degrees QTc Int : 442 ms Normal sinus rhythm Nonspecific T wave abnormality Abnormal ECG When compared with ECG of 18-MAR-2021 23:01, Nonspecific T wave abnormality now evident in Inferior leads Referred By: Noemi Gamez Electronically Signed By:Silvano Fry
[2021-03-20 09:12] LABS: Cholesterol 117 mg/dL; HDL Cholesterol 36 mg/dL; LDL Cholesterol Calculated 67 mg/dl; Triglycerides 73 mg/dL
[2021-03-20] MEDS: Ferrous Sulfate 324 MG TABLET.DR PO (09:24)
[2021-03-20] MEDS: Multivitamin TABLET 1 TAB PO (09:24)
[2021-03-20] MEDS: Nicotine 14 MG PATCH.TD24 TRANSDERMA (09:24)
[2021-03-20 09:35] LABS: Thyroid Stimulating Hormone 0.05 uIU/mL (0.32-4.0)
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
[2021-03-20] MEDS: LORazepam 1 MG TABLET 2 MG PO (14:27)
[2021-03-20] MEDS: QUEtiapine Fumarate 50 MG TABLET PO ×2 (14:27→20:42)
[2021-03-20] MEDS: Buprenorphine/Naloxone 2/0.5mg FILM 1 FILM SUBLINGUAL ×2 (14:27→20:25)
[2021-03-20] MEDS: Nicotine Polacrilex 2 MG GUM 4 MG BUCCAL ×2 (16:11→20:43)
[2021-03-20 20:00] VITALS: BP 138/64; PULSE 124; TEMP 37.1; O2SAT 99
[2021-03-20 20:49] VITALS: BP 111/67; PULSE 99
[2021-03-21 06:24] VITALS: BP 106/59; PULSE 66; RESP 18; TEMP 36.4; O2SAT 100
[2021-03-21] MEDS: Ferrous Sulfate 324 MG TABLET.DR PO (09:10)
[2021-03-21] MEDS: Multivitamin TABLET 1 TAB PO (09:10)
[2021-03-21] MEDS: Nicotine 14 MG PATCH.TD24 TRANSDERMA (09:10)
[2021-03-21] MEDS: LORazepam 1 MG TABLET 2 MG PO (09:16)
--- NOTE | 2021-03-21 11:26 | PM.PSYDC ---
DS: Providers Provider Date of Service: 03/18/21 Date of admission: 03/18/21 23:08 Date of discharge: 03/18/21 Primary care physician: Leonel Romero MD Admitting clinician: Noemi Gamez Attending physician on admission: Raman aBig Consults: 03/19/21 11:55 Addiction Medicine Routine Consulting Provider: Cara Moss Reason for consultation: Pt wanting to re-start Suboxone Rx. Hx [facility] pt. he reports Has provider been notified: No Attending physician on discharge: Raman Baig Discharging clinician: Noemi Gamez DS: Diagnosis Discharge Diagnosis (1) Severe recurrent major depression with psychotic features: (2) Opioid use disorder, severe, dependence: Status: Acute (3) Cocaine use disorder: Status: Acute (4) Cannabis use disorder, severe, dependence: Status: Acute DS: Medications Discharge Medications Home Medications: Home Medications Medication Instructions Recorded Confirmed buprenorphine 8 mg-naloxone 2 mg 1 strip SUBLINGUAL BID 03/18/21 03/18/21 sublingual film (Suboxone) clonidine HCl 0.1 mg tablet 1 tab PO BID 03/18/21 03/18/21 sennosides 8.6 mg tablet (senna) 8.6 mg PO BEDTIME 03/18/21 03/18/21 Previous Rx's Medication Instructions Recorded ferrous sulfate 324 mg (65 mg 324 mg PO DAILY #30 tab 03/21/21 iron) tablet,delayed release multivitamin (Daily-Echo) 1 tab PO DAILY #30 tab 03/21/21 quetiapine 50 mg tablet 50 mg PO BEDTIME #30 tab 03/21/21 Mental Status Exam Mental Status Exam Patient Appearance: Appropriate Patient Orientation: Person, Place, Time and Situation Level of Consciousness: Alert Patient Behavior: Appropriate, Talkative, Cooperative and Good Eye Contact Mood Description: Calm Affect Description: Calm Patient Cognition Impaired: No Ability to Follow Directions: Good Speech Pattern: Spontaneous Speech Memory Description: Intact Hallucinations: None Delusions: Not Present Thought Process: Intact and Goal Oriented Thought Content: positive for Intact and positive for Goal Oriented Depressive Symptoms: Thoughts of /Suicide (denies) Judgement: Good Data Data Completed and Pending Completed studies during hospitalization [Text1]: 03/18/21 03/18/21 03/18/21 09:07 09:07 09:07 WBC 10.6 RBC 3.75 L Hgb 11.6 L Hct 34.8 L MCV 92.8 MCH 30.9 MCHC 33.3 RDW 13.0 Plt Count 228 MPV 9.6 Immature Gran % (Auto) 0.3 Neut % (Auto) 63.1 Lymph % (Auto) 28.8 [place] % (Auto) 6.5 Eos % (Auto) 0.9 Baso % (Auto) 0.4 Lymph # (Auto) 3.1 [place] # (Auto) 0.7 Eos # (Auto) 0.1 Baso # (Auto) 0.0 Abs Immat Gran (auto) 0.03 Absolute Neuts (auto) 6.7 Absolute Nucleated RBC 0.000 Nucleated RBC % (auto) 0.0 Sodium 139 Potassium 3.3 Chloride 102 Carbon Dioxide 30 H Anion Gap 10 L BUN 14 Creatinine 0.80 Estim Creat Clear Calc 118.5 Estimated GFR > 60 Random Glucose 170 H D Fasting Glucose Estimat Average Glucose Hemoglobin A1c % Calcium 9.4 Total Bilirubin 0.7 Direct Bilirubin 0.5 AST 18 ALT 15 Alkaline Phosphatase 48 Total Protein 6.8 Albumin 4.3 Triglycerides Cholesterol LDL Cholesterol, Calc HDL Cholesterol Vitamin B12 Folate TSH Free T4 Urine Opiates Screen Urine Fentanyl Screen Ur Barbiturates Screen Ur Phencyclidine Scrn Ur Amphetamines Screen U Benzodiazepines Scrn Urine Cocaine Screen U Marijuana (THC) Screen COVID-19 (TIKA) Negative COVID-19 Clin Com See Note 03/18/21 03/19/21 03/19/21 09:16 08:10 08:10 WBC 6.8 RBC 3.61 L Hgb 11.4 L Hct 33.6 L MCV 93.1 MCH 31.6 MCHC 33.9 RDW 13.2 Plt Count 223 MPV 10.1 Immature Gran % (Auto) 0.4 Neut % (Auto) 53.8 Lymph % (Auto) 35.1 [place] % (Auto) 7.6 Eos % (Auto) 2.5 Baso % (Auto) 0.6 Lymph # (Auto) 2.4 [place] # (Auto) 0.5 Eos # (Auto) 0.2 Baso # (Auto) 0.0 Abs Immat Gran (auto) 0.03 Absolute Neuts (auto) 3.7 Absolute Nucleated RBC 0.000 Nucleated RBC % (auto) 0.0 Sodium 142 Potassium 3.9 Chloride 108 Carbon Dioxide 29 Anion Gap 9 L BUN 14 Creatinine 0.74 Estim Creat Clear Calc 128.1 Estimated GFR > 60 Random Glucose Fasting Glucose 106 H Estimat Average Glucose Hemoglobin A1c % Calcium 9.2 Total Bilirubin 0.5 Direct Bilirubin AST 12 ALT 11 Alkaline Phosphatase 39 Total Protein 5.6 L Albumin 3.6 Triglycerides Cholesterol LDL Cholesterol, Calc HDL Cholesterol Vitamin B12 Folate TSH 0.08 L Free T4 1.05 Urine Opiates Screen POSITIVE H Urine Fentanyl Screen POSITIVE H Ur Barbiturates Screen Not Detected Ur Phencyclidine Scrn Not Detected Ur Amphetamines Screen Not Detected U Benzodiazepines Scrn Not Detected Urine Cocaine Screen POSITIVE H U Marijuana (THC) Screen POSITIVE H COVID-19 (TIKA) COVID-19 [employer] Com 03/19/21 03/20/21 03/20/21 08:10 08:04 08:04 WBC RBC Hgb Hct MCV MCH MCHC RDW Plt Count MPV Immature Gran % (Auto) Neut % (Auto) Lymph % (Auto) [place] % (Auto) Eos % (Auto) Baso % (Auto) Lymph # (Auto) [place] # (Auto) Eos # (Auto) Baso # (Auto) Abs Immat Gran (auto) Absolute Neuts (auto) Absolute Nucleated RBC Nucleated RBC % (auto) Sodium Potassium Chloride Carbon Dioxide Anion Gap BUN Creatinine Estim Creat Clear Calc Estimated GFR Random Glucose Fasting Glucose Estimat Average Glucose 105 Hemoglobin A1c % 5.3 Calcium Total Bilirubin Direct Bilirubin AST ALT Alkaline Phosphatase Total Protein Albumin Triglycerides 73 Cholesterol 117 LDL Cholesterol, Calc 67 HDL Cholesterol 36 Vitamin B12 246 Folate 11.9 TSH 0.05 L Free T4 Urine Opiates Screen Urine Fentanyl Screen Ur Barbiturates Screen Ur Phencyclidine Scrn Ur Amphetamines Screen U Benzodiazepines Scrn Urine Cocaine Screen U Marijuana (THC) Screen COVID-19 (TIKA) COVID-19 Clin Com DS: Summary Hospital Course Hospital Course: Admission to adult psychiatry to address symptoms of mood disorder, PTSD, Opiate and Cocaine use disorders. Care plan, medication regime and out patient plan of care prior to admission were reviewed. Education was provided regarding management of symptoms, medications and side effects. Nursing, addiction medicine and social service worked with Solomon on collateral contacts, care planning, education regarding symptom management, medications and discharge planning. Seroquel was initiated. Remeron was trialed, however, pt did not find it helpful so it was discontinued. Solomon will return to the [facility] for medication monitoring Time spent discussing smoking cessation with patient: 3 to 10 minutes Status at Discharge Functional status at discharge: independent ambulation Overall status at discharge: patient is back to baseline Time Spent with Patient Time attestation: Total time spent providing and/or coordinating discharge services: 35 Time spent: Greater than 30 minutes Discharge Plan Discharge Patient Disposition: Home, Self-Care Discharge Diagnosis: Recurrent major depression with psychosis Opioid, Cocaine, Cannabis Use Disorder Suboxone Maintenance Therapy Referrals: Suboxone: Cara Moss ([facility]) [Other] - 03/21/21 4:15 pm () Liang Singh (therapy) [Other] - 03/25/21 2:00 pm (This appointment is in-office at the above location. If you miss the appointment, your future appointments will be cancelled) Wilda Fuentes (psychiatric medication evaluation) [Other] - 04/16/21 2:20 pm (This appointment is in-office) Wilda Fuentes (psychiatric medication management) [Other] - 05/16/21 1:40 pm (This appointment is in-office) Leonel Romero MD [Primary Care Provider] - 1 Week Discharge Medications: New multivitamin [Daily-Echo] Tablet 1 tab PO DAILY Qty: 30 0RF quetiapine 50 mg Tablet 50 mg PO BEDTIME Qty: 30 0RF ferrous sulfate 324 mg (65 mg iron) Tablet,Delayed Release (Dr/Ec) 324 mg PO DAILY Qty: 30 0RF Continued sennosides [senna] 8.6 mg tablet 8.6 mg PO BEDTIME 0RF clonidine HCl 0.1 mg tablet 1 tab PO BID 0RF No Action nicotine (polacrilex) 2 mg Gum 4 mg buccal Q2H PRN (Reason: Nicotine Cravings) 30 Days Qty: 300 0RF sertraline 100 mg Tablet 100 mg PO DAILY 30 Days Qty: 30 0RF trazodone 100 mg Tablet 100 mg PO BEDTIME 30 Days Qty: 30 0RF buprenorphine-naloxone [Suboxone] 8-2 mg film 1 film sublingual BID 14 Days Qty: 28 0RF Discharge Orders: Discharge Order (Routine); Ordered 03/21/21 Ordered By: Noemi Gamez Diet: advance to usual diet Activity on Discharge: As tolerated Stand Alone Forms: Patient Portal Discharge page, Community Support Care Plan Goals: Mood stabilization Sobriety Health Concerns: Recurrent major depression with psychotic features Opioid Use Disorder-currently on Suboxone therapy Cocaine Use Disorder Cannabis Use Disorder Plan of Treatment: Attend scheduled appointments Take medications as directed Assessment: non-suicidal, non-psychotic Solomon has declined antidepressant therapy. He will meet with [facility] Team for medication mgt on 04/16/21. We will continue Seroquel 50 mg at bedtime. Discharge Date/Time: 03/21/21 13:15
[2021-03-21] MEDS: Nicotine Polacrilex 2 MG GUM 4 MG BUCCAL (12:05)
[2021-03-21] MEDS: QUEtiapine Fumarate 50 MG TABLET PO (12:05)
== END 2021-03-21 13:15 | disposition home or self-care (01) | DRG 751 ==
LOC: HO.ED 21:27 → HO.PM5 23:11
PROVIDERS: Admitting Provider Psychiatry & Neurology Psychiatry; Emergency Provider Emergency Medicine; PCP Internal Medicine; Visit Provider Clinical Nurse Specialist Psychiatric/Mental Health, Adult
DX: F33.3 Major depressive disorder, recurrent, severe with psychotic symptoms (principal); R45.851 Suicidal ideations; F11.20 Opioid dependence, uncomplicated; F17.210 Nicotine dependence, cigarettes, uncomplicated; Z71.6 Tobacco abuse counseling; F14.10 Cocaine abuse, uncomplicated; F12.20 Cannabis dependence, uncomplicated; Z20.822 Contact with and (suspected) exposure to COVID-19; Z79.899 Other long term (current) drug therapy
CPT/HCPCS: 36415; 80048; 80053; 80061; 80076; 80307; 82607; 82746; 83036; 84439; 84443; 85025; 87635; 93005; 99285

== ENCOUNTER → 2021-03-21 13:17 | Outpatient (BNVA) | payer OTHER, SELFPAY | PROVIDERS: Visit Provider Nurse Practitioner Psychiatric/Mental Health | DX: Z51.81 Encounter for therapeutic drug level monitoring (principal); F11.20 Opioid dependence, uncomplicated | CPT/HCPCS: 80305; 99212 ==

== ENCOUNTER 2021-03-30 04:15 | Inpatient (IN) | payer OTHER, SELFPAY ==
--- NOTE | 2021-03-30 | ECG_ITS ---
Test Reason : medical clearance Blood Pressure : / mmHG Vent. Rate : 062 BPM Atrial Rate : 062 BPM P-R Int : 110 ms QRS Dur : 102 ms QT Int : 410 ms P-R-T Axes : 052 057 029 degrees QTc Int : 416 ms Sinus rhythm with short UT Otherwise normal ECG When compared with ECG of 20-MAR-2021 11:49, Nonspecific T wave abnormality no longer evident in Lateral leads Referred By: Meagan Reeves Electronically Signed By:SONAL MARTÍNEZ MD
[2021-03-30 04:27] VITALS: BP 128/71; PULSE 87; RESP 16; TEMP 36.1; O2SAT 98; BMI 21.2
--- NOTE | 2021-03-30 05:18 | PC.NURSE ---
[facility] referral completed/confirmed, patient will be evaluated in the first shift, patient calm and quiet, no distress observed/reported, will continue to monitor
[2021-03-30 05:20] LABS: COVID-19 Test Negative (Negative)
[2021-03-30 05:21] LABS: Amphetamine Screen Urine Not Detected (Not Detect); Barbiturates, Urine Not Detected (Not Detect); Benzodiazepines Screen Urine Not Detected (Not Detect); Cannabinoid Screen Urine POSITIVE (Not Detect); Cocaine Screen Urine POSITIVE (Not Detect); Fentanyl, urine POSITIVE (Not Detect); Opiate Screen Urine POSITIVE (Not Detect); Phencyclidine Screen Urine Not Detected (Not Detect)
--- NOTE | 2021-03-30 05:48 | ED_ITS ---
HPI - Psych General Chief Complaint: Psychiatric Symptoms Stated Complaint: Crisis Time Seen by Provider: 03/30/21 05:48 Source: patient Mode of arrival: ambulatory History of Present Illness HPI Narrative: 31-year-old male with history of recurrent major depressive with psychotic features, but also polysubstance use and states that he last use illicit drugs approximately 2 hours ago. Patient states that he has plans to kill himself by using a knife and cutting his jugular. Related Data Home Medications Medication Instructions Recorded Confirmed clonidine HCl 0.1 mg tablet 1 tab PO BID 03/18/21 03/30/21 sennosides 8.6 mg tablet (senna) 8.6 mg PO BEDTIME 03/18/21 03/30/21 Previous Rx's Medication Instructions Recorded buprenorphine 8 mg-naloxone 2 mg 1 film SUBLINGUAL BID #28 ea 03/21/21 sublingual film (Suboxone) ferrous sulfate 324 mg (65 mg 324 mg PO DAILY #30 tab 03/21/21 iron) tablet,delayed release multivitamin (Daily-Echo) 1 tab PO DAILY #30 tab 03/21/21 quetiapine 50 mg tablet 50 mg PO BEDTIME #30 tab 03/21/21 Allergies Allergy/AdvReac Type Severity Reaction Status Date / Time No Known Allergies Allergy Verified 02/18/21 10:31 [No Known Allergies*] Review of Systems Review of Systems: Pertinent positives and negatives as stated in HPI 10 point review systems is otherwise negative. [facility] Past Medical History Source: nursing notes reviewed Medical History Opioid use disorder Social History Social History Household Members: Family Household Members Other:: Mother and Sister Housing: Apartment Do you presently have visiting nurse or other home services: No Unable to assess alcohol history related to: Unknown Patient Tobacco Use Status: Current everyday Tobacco user Tobacco use type: Cigarette Cigarettes Per Day: 12 Second Hand Smoke Exposure: Yes Substance Use Type: Crack/Cocaine, Heroin, Marijuana, Opiates, Painkillers and Prescription Drugs Advance Directives: No service: No Sexual orientation: Did not discuss Physical Exam Vital Signs: Vital Signs: Last Vital Signs Temp 97.0 F 03/30/21 04:27 Pulse 87 03/30/21 04:27 Resp 16 03/30/21 04:27 BP 128/71 03/30/21 04:27 Pulse Ox 98 03/30/21 04:27 BMI result Body Mass Index 21.2 VITAL SIGNS: Reviewed. GENERAL: Well developed, well nourished, in no acute distress. HEAD: Normocephalic/atraumatic EYES: PERRLA, EOMI LUNGS: Normal breath sounds. No adventitious sounds or accessory muscle use. SpO2<98> CARDIOVASCULAR: Regular rate and rhythm without noted murmurs ABDOMEN: Soft, non-tender, non-distended with bowel sounds. MUSCULOSKELETAL: No tenderness, deformities, or effusions noted on gross inspection. EXTREMITIES: No cyanosis, clubbing or edema. SKIN: Inspection of the skin reveals no rashes NEUROLOGIC: Alert and oriented x 4. Strength and sensation to light touch were grossly intact x 4, cranial nerves 2-12 grossly intact. PSYCH: Depressed affect Course Course Course Narrative: 31-year-old male with history and clinical presentation consistent with suicidal ideation with history of major depressive disorder and also under the influence of illicit drugs. Patient is otherwise medically cleared for evaluation by [facility]. Physician observation started at [ [id number] ]. Patient placed in physician observation because the patient needed more time for evaluation by the be havioral team. At the time observation was started the patient's vital signs were stable, patient is alert and oriented but slightly agitated, neuro: Nonfocal, CV RRR, lungs clear MDM - Psych Lab Data Labs: Lab Results 03/30/21 03/30/21 Range/Units 04:44 04:58 Urine Opiates Screen POSITIVE H (Not Detect) Urine Fentanyl Screen POSITIVE H (Not Detect) Ur Barbiturates Screen Not Detected (Not Detect) Ur Phencyclidine Scrn Not Detected (Not Detect) Ur Amphetamines Screen Not Detected (Not Detect) U Benzodiazepines Scrn Not Detected (Not Detect) Urine Cocaine Screen POSITIVE H (Not Detect) U Marijuana (THC) Screen POSITIVE H (Not Detect) COVID-19 (TIKA) Negative (Negative) COVID-19 Clin Com See Note Discharge Plan Discharge Clinical Impression: Opioid use disorder, Cocaine use disorder, Suicidal ideation, Depression Patient Disposition: Still a Patient Prescriptions: No Action sennosides [senna] 8.6 mg tablet 8.6 mg PO BEDTIME RF: 0 clonidine HCl 0.1 mg tablet 1 tab PO BID RF: 0 multivitamin [Daily-Echo] Tablet 1 tab PO DAILY Qty: 30 RF: 0 quetiapine 50 mg Tablet 50 mg PO BEDTIME Qty: 30 RF: 0 ferrous sulfate 324 mg (65 mg iron) Tablet,Delayed Release (Dr/Ec) 324 mg PO DAILY Qty: 30 RF: 0 buprenorphine-naloxone [Suboxone] 8-2 mg film 1 film sublingual BID Qty: 28 RF: 0
--- NOTE | 2021-03-30 07:09 | PC.NURSE ---
patient appears to remain at rest at present respirations are even and unlabored, patient appears in no distress
[2021-03-30 13:37] LABS: MANUAL DIFF FLAG NO
[2021-03-30 13:39] LABS: Basophils Percent Auto 0.4 % (0-2); Eosinophils Absolute Auto 0.1 X10*3/uL (0.0-0.4); Eosinophils Percent Auto 1.9 % (0-4); Hematocrit 38.9 % (42.0-52.0); Imm Gran Abs Auto 0.02 X10*3/uL (0.00-0.03); Imm Gran Pct Auto 0.3 % (0.0-0.4); Lymphocytes Absolute Auto 2.2 X10*3/uL (1.2-4.9); Lymphocytes Percent Auto 29.1 % (20-40); Mean Corpuscular HGB Conc 33.4 g/dl (31.0-36.0); Mean Corpuscular Hemoglobin 30.9 pg (27.0-33.0); Mean Corpuscular Volume 92.4 fL (80.0-98.0); Mean Platelet Volume 9.7 fL (9.4-12.4); Monocytes Absolute Auto 0.6 X10*3/uL (0.1-1.2); Monocytes Percent Auto 8.5 % (2-11); Neutrophils Absolute Auto 4.5 x10*3/uL (2.0-8.3); Neutrophils Percent Auto 59.8 % (45-73); Platelet Count 229 X10*3/uL (160-400); Red Blood Count 4.21 X10*6/uL (4.60-5.80); Red Cell Distribution Width 13.1 % (11.0-16.0); White Blood Count 7.4 X10*3/uL (4.8-10.8)
[2021-03-30 13:54] LABS: Alanine Aminotransferase 12 U/L (0-40); Albumin Level 4.3 g/dL (3.5-5.0); Alkaline Phosphatase 57 U/L (39-117); Anion Gap 10 (12-20); Aspartate Amino Transferase 17 U/L (5-37); Bilirubin Total 0.8 mg/dL (0.0-1.0); Blood Urea Nitrogen 14 mg/dL (9-16); Calcium 9.6 mg/dL (8.4-10.2); Carbon Dioxide 28 mmol/L (22-29); Chloride 103 mmol/L (96-108); Creatinine Clr Calc Pharmacy 109.7; Estimated Glomerular Filt Rate > 60; Glucose Random 143 mg/dL (60-115); Potassium 4.1 mmol/L (3.3-5.1); Sodium 137 mmol/L (135-145); Total Protein 7.2 g/dL (6.5-8.0)
[2021-03-30 17:57] VITALS: BP 97/76; PULSE 60; TEMP 37.2; O2SAT 99
--- NOTE | 2021-03-30 22:42 | PC.NURSE ---
Patient resting comfortably in bed. Aware of plan of care to be a bed search.
[2021-03-31 08:35] VITALS: BP 120/75; PULSE 73; TEMP 36.9; O2SAT 97
--- NOTE | 2021-03-31 09:14 | PC.NURSE ---
pt states he is detoxing from herion last used yesterday. pt states he is feeling pain and anxiouse.
--- NOTE | 2021-03-31 09:48 | PC.NURSE ---
care team aware of pts need for medications. pt is known to the care team and he will address the medications with the provider.
[2021-03-31] MEDS: Buprenorphine/Naloxone 2/0.5mg FILM 0.5 FILM SUBLINGUAL (10:00)
[2021-03-31 11:56] LABS: COVID-19 Test Negative (Negative)
--- NOTE | 2021-03-31 12:14 | PC.NURSE ---
Pt alert and oriented x4, cooperative. Pt frustrated at this time, stating he has back pain from the bed he is on in ER [facility]. Report given to Keyla.
[2021-03-31 12:20] VITALS: BP 130/76; PULSE 80; RESP 18; TEMP 36.3; O2SAT 96
[2021-03-31] MEDS: Acetaminophen 325 MG TABLET 650 MG PO (12:37)
--- NOTE | 2021-03-31 12:39 | MHC.RECOVSUP ---
Recovery Support note: Patient is a 31 year old Surinamese speaking male who presented to [facility] ED due to SI. While awaiting an inpatient psychiatric bed, patient began to experience withdrawal symptoms. Patient has been on Suboxone in the recent past and is connected with the [facility]. This advertising writer met with patient to discuss withdrawal symptoms and Suboxone initiation. Patient reports using two hours prior to presenting to [facility] ED. Patient is interested in restarting Suboxone however expressed concern that he would experience precipitated withdrawal. Patient was given 1mg of Suboxone and reported improvement in withdrawal symptoms. Patient has been admitted to [facility]. Discussed case with patient's RN, ED provider and Cara Moss NP.
[2021-03-31] MEDS: LORazepam 1 MG TABLET PO (13:06)
[2021-03-31] MEDS: Buprenorphine/Naloxone 8/2 mg FILM 1 FILM SUBLINGUAL ×2 (13:12→20:41)
[2021-03-31 14:40] VITALS: BP 120/61; PULSE 67
[2021-03-31] MEDS: cloNIDine HCL 0.1 MG TABLET PO ×2 (14:53→20:39)
[2021-03-31] MEDS: QUEtiapine Fumarate 50 MG TABLET PO ×2 (14:54→20:39)
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
[2021-03-31 20:15] VITALS: BP 112/61; PULSE 77; RESP 18; TEMP 37.1; O2SAT 94
[2021-03-31] MEDS: hydrOXYzine HCL 25 MG TABLET PO (20:39)
[2021-04-01] MEDS: Multivitamin TABLET 1 TAB PO (10:08)
[2021-04-01] MEDS: Buprenorphine/Naloxone 8/2 mg FILM 1 FILM SUBLINGUAL ×2 (10:08→20:30)
[2021-04-01] MEDS: Ferrous Sulfate 324 MG TABLET.DR PO (10:08)
[2021-04-01] MEDS: cloNIDine HCL 0.1 MG TABLET PO ×2 (10:08→20:30)
[2021-04-01 10:10] VITALS: BP 107/60; PULSE 84; RESP 15; TEMP 37; O2SAT 99
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
--- NOTE | 2021-04-01 15:01 | MHC.CLN ---
NUTRITION PATIENT REPORTS THAT CURRENT APPETITE IS GOOD. OFFERED ENSURE AND PATIENT WOULD LIKE TID. SUPPLEMENT PROVIDES 1050 KCAL, 60 G PROTEIN. UNSURE OF WEIGHT LOSS. HX OF DRUG ABUSE AND HOMELESSNESS. ANOREXIA PER MEDICAL RECORD. UNABLE TO PHYSICALLY ASSESS FOR MALNUTRITION SINCE PATIENT RESTING.
[2021-04-01 18:00] VITALS: BP 112/62; PULSE 67; RESP 18; TEMP 36.7; O2SAT 98
[2021-04-01] MEDS: hydrOXYzine HCL 50 MG TABLET PO (18:30)
[2021-04-01] MEDS: Nicotine Polacrilex 2 MG GUM 4 MG BUCCAL (18:31)
[2021-04-01] MEDS: QUEtiapine Fumarate 50 MG TABLET PO (20:30)
[2021-04-01] MEDS: traZODone HCL 50 MG TABLET PO (20:30)
[2021-04-01] MEDS: hydrOXYzine HCL 25 MG TABLET PO (20:35)
[2021-04-02] MEDS: Ferrous Sulfate 324 MG TABLET.DR PO (08:31)
[2021-04-02] MEDS: Buprenorphine/Naloxone 8/2 mg FILM 1 FILM SUBLINGUAL ×2 (08:31→21:58)
[2021-04-02] MEDS: Multivitamin TABLET 1 TAB PO (08:31)
[2021-04-02] MEDS: hydrOXYzine HCL 50 MG TABLET PO ×2 (08:31→15:03)
[2021-04-02 08:38] VITALS: BP 91/50; PULSE 50; RESP 16; TEMP 36.6; O2SAT 99
--- NOTE | 2021-04-02 11:29 | P.PNPSI_ITS ---
Subjective Subjective Date of Service: 04/02/21 Reason For Visit: SI Interim History: pt reports that since meeting yesterday his head has been abuzz with thoughts which have been causing him increased anxiety and depression. he attributes that to that he did not sleep well last night. discuss increasing HS seroquel with PRNs moving forward. denies SI. MD encouraged pt to be more act malgorzata in the milieu, to be engaged and keep his mind occupied. pt acknowledges the suggestion. no other complaints or requests. denies being in withdrawal currently. per staff, and and dep 12/30. isolative. sleep and appetite good. out a bit more last evening. BP 91/50 and P 50 so clonidine held this morning. Mental Status Exam Mental Status Exam Narrative: appropriately groomed, in hospital attire in bed. cooperative. no PMA/PMR. speech nml in rate, amount, loudness, tone, latency. thoughts linear and logical. affect constricted, normo-intense, non-labile. mood depressed and anxious. denies SI. no HI/AVH expressed. Diagnostics Vital Signs (24Hr): Vital Signs - 24 hr 04/01/21 18:00 04/02/21 08:38 Temperature 98.0 F 97.9 F Pulse Rate 67 50 Respiratory Rate 18 16 Blood Pressure 112/62 91/50 L Pulse Oximetry 98 99 BMI result Body Mass Index 21.2 Labs Results: 03/30/21 13:33 03/30/21 13:32 Labs: Laboratory Results - last 48 hr 03/31/21 11:38 COVID-19 ([facility]) Negative COVID-19 Clin Com See Note Medications Medications Current Medications Acetaminophen (Acetaminophen 325 Mg Tablet) 650 mg PO Q6H PRN PRN Reason: Headache/Pain Mild Scale (1-3) Last Admin: 03/31/21 12:37 Dose: 650 mg Documented by: Al Hydroxide/Mg Hydroxide (Magnesium Hydrox/Alum Hydrox 30 Ml Oral.Susp) 30 ml PO Q6H PRN PRN Reason: Heartburn/Nausea Buprenorphine/Naloxone (Buprenorphine/Naloxone 8/2 Mg Film) 1 film SUBLINGUAL BID [facility] Last Admin: 04/02/21 08:31 Dose: 1 film Documented by: Clonidine HCl (Clonidine Hcl 0.1 Mg Tablet) 0.1 mg PO BID [facility]; Protocol Last Admin: 04/02/21 10:23 Dose: Not Given Documented by: Clonidine HCl (Clonidine Hcl 0.1 Mg Tablet) 0.1 mg PO Q4H PRN; Protocol PRN Reason: severe anxiety Last Admin: 03/31/21 14:53 Dose: 0.1 mg Documented by: Ferrous Sulfate (Ferrous Sulfate 324 Mg Tablet.) 324 mg PO DAILY [facility] Last Admin: 04/02/21 08:31 Dose: 324 mg Documented by: Hydroxyzine HCl (Hydroxyzine Hcl 25 Mg Tablet) 25 mg PO BEDTIME PRN PRN Reason: Anxiety Last Admin: 04/01/21 20:35 Dose: 25 mg Documented by: Hydroxyzine HCl (Hydroxyzine Hcl 50 Mg Tablet) 50 mg PO Q6H PRN PRN Reason: Anxiety Last Admin: 04/02/21 08:31 Dose: 50 mg Documented by: Magnesium Hydroxide (Milk Of Magnesia 30 Ml Oral.Susp) 30 ml PO DAILY PRN PRN Reason: Constipation Multivitamins/Vitamin C (Multivitamin Tablet) 1 tab PO DAILY [facility] Last Admin: 04/02/21 08:31 Dose: 1 tab Documented by: Nicotine (Nicotine 21 Mg Patch.Td24) 21 mg TRANSDERMA DAILY [facility] Last Admin: 04/02/21 08:32 Dose: Not Given Documented by: Nicotine Polacrilex (Nicotine Polacrilex 2 Mg Gum) 4 mg BUCCAL Q2H PRN PRN Reason: Nicotine Cravings Last Admin: 04/01/21 18:31 Dose: 4 mg Documented by: Quetiapine Fumarate (Quetiapine Fumarate 50 Mg Tablet) 50 mg PO Q4H PRN PRN Reason: severe anxiety Senna (Sennosides 8.6 Mg Tablet) 8.6 mg PO BEDTIME [facility] Last Admin: 04/01/21 23:02 Dose: Not Given Documented by: Trazodone HCl (Trazodone Hcl 50 Mg Tablet) 50 mg PO BEDTIME PRN PRN Reason: Insomnia Last Admin: 04/01/21 20:30 Dose: 50 mg Documented by: Allergies Allergies Allergy/AdvReac Type Severity Reaction Status Date / Time No Known Allergies Allergy Verified 02/18/21 10:31 [No Known Allergies*] Assessment & Plan Assessment & Plan (1) Suicidal ideation: Status: Acute Code(s): R45.851 - Suicidal ideations Assessment and Plan: resolved (2) Opioid use disorder, severe, dependence: Status: Acute Code(s): F11.20 - Opioid dependence, uncomplicated Assessment and Plan: not feeling in withdrawal anymore. continue suboxone. refer to outpt clinic on discharge. (3) Severe recurrent major depression with psychotic features: Status: Acute Code(s): F33.3 - Major depressive disorder, recurrent, severe with psychotic symptoms Assessment and Plan: increase HS seroquel to 100 mg with repeat as of 04/02. no severe mood complaints currently. (4) Cocaine use disorder: Status: Acute Code(s): F14.10 - Cocaine abuse, uncomplicated Assessment and Plan: abstain Assessment and Plan: seroquel dosing at HS increased to 100 mg with repeat x1. begin dispo planning. I spent minutes with the patient and/or on the patient floor today, g reater than?50% of which was spent counseling/coordinating care. Reason for contiued inpatient stay Substantial Risk for: inability to function and rapid decompensation
[2021-04-02] MEDS: QUEtiapine Fumarate 50 MG TABLET PO ×2 (11:40→17:46)
[2021-04-02] MEDS: Nicotine Polacrilex 2 MG GUM 4 MG BUCCAL ×3 (11:41→20:17)
[2021-04-02 21:54] VITALS: BP 127/77; PULSE 80; TEMP 36.9; O2SAT 98
[2021-04-02] MEDS: QUEtiapine Fumarate 100 MG TABLET PO (21:57)
[2021-04-02] MEDS: hydrOXYzine HCL 25 MG TABLET PO (21:57)
[2021-04-02] MEDS: cloNIDine HCL 0.1 MG TABLET PO (21:57)
[2021-04-03 06:00] VITALS: BP 94/62; PULSE 68; RESP 16; TEMP 36.6; O2SAT 100
[2021-04-03] MEDS: Buprenorphine/Naloxone 8/2 mg FILM 1 FILM SUBLINGUAL ×2 (08:08→13:14)
[2021-04-03] MEDS: Ferrous Sulfate 324 MG TABLET.DR PO (08:08)
[2021-04-03] MEDS: cloNIDine HCL 0.1 MG TABLET PO ×2 (08:08→21:52)
[2021-04-03] MEDS: Multivitamin TABLET 1 TAB PO (08:08)
[2021-04-03] MEDS: QUEtiapine Fumarate 50 MG TABLET PO ×2 (11:36→17:37)
[2021-04-03] MEDS: Nicotine Polacrilex 2 MG GUM 4 MG BUCCAL (12:09)
[2021-04-03] MEDS: Sertraline HCL 50 MG TABLET PO (12:11)
[2021-04-03] MEDS: hydrOXYzine HCL 50 MG TABLET PO (13:14)
--- NOTE | 2021-04-03 13:58 | P.PNPSI_ITS ---
Subjective Subjective Date of Service: 04/03/21 Reason For Visit: SI Interim History: pt reports medically and drug withdrawal kelsey he feels fine. no cravings, no withdrawal. he has been having lots of ruminative thoughts about mistakes he's made due to his drug use and has been experiencing a lot of guilt. he relates carla it is his ex-GF's birthday tomorrow, and he has been thinking a lot about her and how he sabotaged the relationship. believes he suffers from depression in general, definitely more so than anxiety. R/B of SSRIs discussed, including delayed ejaculation, and pt agreeable to start zoloft 50 mg daily. no other questions or complaints. per staff, easily engaged. no SI. dep/anx. withdrawn. took seroquel 50 mg PORN yesterday with desired effect. no craving, no urges. more visible in milieu as day progressed. anx/dep 12/30. med and meal compliant. Mental Status Exam Mental Status Exam Narrative: appropriately groomed, in hospital attire seated in milieu. cooperative. no PMA/PMR. speech nml in rate, amount, loudness, tone, latency. thoughts linear and logical. affect constricted, normo-intense, non-labile. mood depressed. no SI/HI/AVH expressed. Diagnostics Vital Signs (24Hr): Vital Signs - 24 hr 04/02/21 21:54 04/03/21 06:00 Temperature 98.4 F 97.8 F Pulse Rate 80 68 Respiratory Rate 16 Blood Pressure 127/77 94/62 Pulse Oximetry 98 100 BMI result Body Mass Index 21.2 Labs Results: 03/30/21 13:33 03/30/21 13:32 Medications Medications Current Medications Acetaminophen (Acetaminophen 325 Mg Tablet) 650 mg PO Q6H PRN PRN Reason: Headache/Pain Mild Scale (1-3) Last Admin: 03/31/21 12:37 Dose: 650 mg Documented by: Al Hydroxide/Mg Hydroxide (Magnesium Hydrox/Alum Hydrox 30 Ml Oral.Susp) 30 ml PO Q6H PRN PRN Reason: Heartburn/Nausea Buprenorphine/Naloxone (Buprenorphine/Naloxone 8/2 Mg Film) 1 film SUBLINGUAL BID@0800,1300 [facility] Last Admin: 04/03/21 13:14 Dose: 1 film Documented by: Clonidine HCl (Clonidine Hcl 0.1 Mg Tablet) 0.1 mg PO BID [facility]; Protocol Last Admin: 04/03/21 08:08 Dose: 0.1 mg Documented by: Clonidine HCl (Clonidine Hcl 0.1 Mg Tablet) 0.1 mg PO Q4H PRN; Protocol PRN Reason: severe anxiety Last Admin: 03/31/21 14:53 Dose: 0.1 mg Documented by: Ferrous Sulfate (Ferrous Sulfate 324 Mg Tablet.) 324 mg PO DAILY [facility] Last Admin: 04/03/21 08:08 Dose: 324 mg Documented by: Hydroxyzine HCl (Hydroxyzine Hcl 25 Mg Tablet) 25 mg PO BEDTIME PRN PRN Reason: Anxiety Last Admin: 04/02/21 21:57 Dose: 25 mg Documented by: Hydroxyzine HCl (Hydroxyzine Hcl 50 Mg Tablet) 50 mg PO Q6H PRN PRN Reason: Anxiety Last Admin: 04/03/21 13:14 Dose: 50 mg Documented by: Magnesium Hydroxide (Milk Of Magnesia 30 Ml Oral.Susp) 30 ml PO DAILY PRN PRN Reason: Constipation Multivitamins/Vitamin C (Multivitamin Tablet) 1 tab PO DAILY [facility] Last Admin: 04/03/21 08:08 Dose: 1 tab Documented by: Nicotine (Nicotine 21 Mg Patch.Td24) 21 mg TRANSDERMA DAILY [facility] Last Admin: 04/03/21 10:38 Dose: Not Given Documented by: Nicotine Polacrilex (Nicotine Polacrilex 2 Mg Gum) 4 mg BUCCAL Q2H PRN PRN Reason: Nicotine Cravings Last Admin: 04/03/21 12:09 Dose: 4 mg Documented by: Quetiapine Fumarate (Quetiapine Fumarate 50 Mg Tablet) 50 mg PO Q4H PRN PRN Reason: severe anxiety Last Admin: 04/03/21 11:36 Dose: 50 mg Documented by: Quetiapine Fumarate (Quetiapine Fumarate 100 Mg Tablet) 100 mg PO BEDTIME [facility] Last Admin: 04/02/21 21:57 Dose: 100 mg Documented by: Quetiapine Fumarate (Quetiapine Fumarate 100 Mg Tablet) 100 mg PO BEDTIME PRN PRN Reason: insomnia Senna (Sennosides 8.6 Mg Tablet) 8.6 mg PO BEDTIME [facility] Last Admin: 04/02/21 22:00 Dose: Not Given Documented by: Sertraline HCl (Sertraline Hcl 50 Mg Tablet) 50 mg PO DAILY [facility] Last Admin: 04/03/21 12:11 Dose: 50 mg Documented by: Allergies Allergies Allergy/AdvReac Type Severity Reaction Status Date / Time No Known Allergies Allergy Verified 02/18/21 10:31 [No Known Allergies*] Assessment & Plan Assessment & Plan (1) Suicidal ideation: Status: Acute Code(s): R45.851 - Suicidal ideations Assessment and Plan: resolved (2) Opioid use disorder, severe, dependence: Status: Acute Code(s): F11.20 - Opioid dependence, uncomplicated Assessment and Plan: not feeling in withdrawal anymore. continue suboxone. refer to outpt clinic on discharge. (3) Severe recurrent major depression with psychotic features: Status: Acute Code(s): F33.3 - Major depressive disorder, recurrent, severe with psychotic symptoms Assessment and Plan: increased HS seroquel to 100 mg with repeat as of 04/02, for insomnia. 04/03 pt c/o prolonged depression, sertraline 50 mg daily started 04/03. (4) Cocaine use disorder: Status: Acute Code(s): F14.10 - Cocaine abuse, uncomplicated Assessment and Plan: abstain Assessment and Plan: seroquel dosing at HS increased to 100 mg with repeat x1. begin dispo planning. I spent minutes with the patient and/or on the patient floor today, greater than?50% of which was spent counseling/coordinating care. Reason for contiued inpatient stay Substantial Risk for: inability to function and rapid decompensation
[2021-04-03] MEDS: QUEtiapine Fumarate 100 MG TABLET PO ×2 (21:51→23:23)
[2021-04-03] MEDS: hydrOXYzine HCL 25 MG TABLET PO (21:51)
[2021-04-03 21:55] VITALS: BP 123/65; PULSE 86; TEMP 36.6; O2SAT 97
[2021-04-04] MEDS: QUEtiapine Fumarate 50 MG TABLET PO ×3 (01:23→23:12)
[2021-04-04] MEDS: hydrOXYzine HCL 50 MG TABLET PO ×2 (01:23→16:08)
[2021-04-04 06:00] VITALS: BP 104/60; PULSE 77; RESP 16; TEMP 36.6; O2SAT 99
[2021-04-04] MEDS: Ferrous Sulfate 324 MG TABLET.DR PO (08:19)
[2021-04-04] MEDS: cloNIDine HCL 0.1 MG TABLET PO ×2 (08:19→21:47)
[2021-04-04] MEDS: Buprenorphine/Naloxone 8/2 mg FILM 1 FILM SUBLINGUAL ×2 (08:19→12:38)
[2021-04-04] MEDS: Sertraline HCL 50 MG TABLET PO (08:19)
[2021-04-04] MEDS: Multivitamin TABLET 1 TAB PO (08:20)
--- NOTE | 2021-04-04 12:58 | P.PNPSI_ITS ---
Subjective Subjective Date of Service: 04/04/21 Reason For Visit: SI Interim History: pt seen in his room late morning, stated he was just waking up. requested to use trazodone at HS rather than the seroquel, as he feels too groggy and sedated in the morning after taking seroquel. pt agrees to trial of trazodone 100 mg [facility] and 100 mg PRN at HS. asks to keep seroquel 50 mg PRN for agitation, as that has been helpful. denies SI, states he is feeling quite depressed. he is wondering when sertraline will start working. pt is educated it could take some weeks. per staff, isolative, withdrawn. eating well. 11/30 anx, 09/01 dep reported yesterday. denies SI/HI/AVH. lots of napping. had seroquel and hydroxyzine and slept after. briefly up at 0200. Mental Status Exam Mental Status Exam Narrative: appropriately groomed, in hospital attire lying in bed cooperative. no PMA/PMR. speech nml in rate, amount, loudness, tone, latency. thoughts linear and logical. affect constricted, normo-intense, non-labile. mood depressed. no SI. no HI/AVH expressed. Diagnostics Vital Signs (24Hr): Vital Signs - 24 hr 04/03/21 21:55 04/04/21 06:00 Temperature 97.8 F 97.9 F Pulse Rate 86 77 Respiratory Rate 16 Blood Pressure 123/65 104/60 Pulse Oximetry 97 99 BMI result Body Mass Index 21.2 Labs Results: 03/30/21 13:33 03/30/21 13:32 Medications Medications Current Medications Acetaminophen (Acetaminophen 325 Mg Tablet) 650 mg PO Q6H PRN PRN Reason: Headache/Pain Mild Scale (1-3) Last Admin: 03/31/21 12:37 Dose: 650 mg Documented by: Al Hydroxide/Mg Hydroxide (Magnesium Hydrox/Alum Hydrox 30 Ml Oral.Susp) 30 ml PO Q6H PRN PRN Reason: Heartburn/Nausea Buprenorphine/Naloxone (Buprenorphine/Naloxone 8/2 Mg Film) 1 film SUBLINGUAL BID@0800,1300 [facility] Last Admin: 04/04/21 12:38 Dose: 1 film Documented by: Clonidine HCl (Clonidine Hcl 0.1 Mg Tablet) 0.1 mg PO BID [facility]; Protocol Last Admin: 04/04/21 08:19 Dose: 0.1 mg Documented by: Clonidine HCl (Clonidine Hcl 0.1 Mg Tablet) 0.1 mg PO Q4H PRN; Protocol PRN Reason: severe anxiety Last Admin: 03/31/21 14:53 Dose: 0.1 mg Documented by: Ferrous Sulfate (Ferrous Sulfate 324 Mg Tablet.) 324 mg PO DAILY [facility] Last Admin: 04/04/21 08:19 Dose: 324 mg Documented by: Hydroxyzine HCl (Hydroxyzine Hcl 25 Mg Tablet) 25 mg PO BEDTIME PRN PRN Reason: Anxiety Last Admin: 04/03/21 21:51 Dose: 25 mg Documented by: Hydroxyzine HCl (Hydroxyzine Hcl 50 Mg Tablet) 50 mg PO Q6H PRN PRN Reason: Anxiety Last Admin: 04/04/21 01:23 Dose: 50 mg Documented by: Magnesium Hydroxide (Milk Of Magnesia 30 Ml Oral.Susp) 30 ml PO DAILY PRN PRN Reason: Constipation Multivitamins/Vitamin C (Multivitamin Tablet) 1 tab PO DAILY [facility] Last Admin: 04/04/21 08:20 Dose: 1 tab Documented by: Nicotine (Nicotine 21 Mg Patch.Td24) 21 mg TRANSDERMA DAILY [facility] Last Admin: 04/04/21 08:20 Dose: Not Given Documented by: Nicotine Polacrilex (Nicotine Polacrilex 2 Mg Gum) 4 mg BUCCAL Q2H PRN PRN Reason: Nicotine Cravings Last Admin: 04/03/21 12:09 Dose: 4 mg Documented by: Quetiapine Fumarate (Quetiapine Fumarate 50 Mg Tablet) 50 mg PO Q4H PRN PRN Reason: severe anxiety Last Admin: 04/04/21 12:38 Dose: 50 mg Documented by: Senna (Sennosides 8.6 Mg Tablet) 8.6 mg PO BEDTIME [facility] Last Admin: 04/03/21 21:53 Dose: Not Given Documented by: Sertraline HCl (Sertraline Hcl 50 Mg Tablet) 50 mg PO DAILY [facility] Last Admin: 04/04/21 08:19 Dose: 50 mg Documented by: Trazodone HCl (Trazodone Hcl 100 Mg Tablet) 100 mg PO BEDTIME [facility] Trazodone HCl (Trazodone Hcl 100 Mg Tablet) 100 mg PO BEDTIME PRN PRN Reason: insomnia Allergies Allergies Allergy/AdvReac Type Severity Reaction Status Date / Time No Known Allergies Allergy Verified 02/18/21 10:31 [No Known Allergies*] Assessment & Plan Assessment & Plan (1) Suicidal ideation: Status: Acute Code(s): R45.851 - Suicidal ideations Assessment and Plan: resolved (2) Opioid use disorder, severe, dependence: Status: Acute Code(s): F11.20 - Opioid dependence, uncomplicated Assessment and Plan: not feeling in withdrawal anymore. continue suboxone. refer to outpt clinic on discharge. (3) Severe recurrent major depression with psychotic features: Status: Acute Code(s): F33.3 - Major depressive disorder, recurrent, severe with psychotic symptoms Assessment and Plan: increased HS seroquel to 100 mg with repeat as of 04/02, for insomnia. 04/03 pt c/o prolonged depression, sertraline 50 mg daily started 04/03. 04/04 c/o oversedation in the morning with seroquel. requesting change to trazodone at HS. trazodone 100 QHS MR x1 ordered. (4) Cocaine use disorder: Status: Acute Code(s): F14.10 - Cocaine abuse, uncomplicated Assessment and Plan: abstain Assessment and Plan: trazodone 100 QHS MR x1 ordered. begin dispo planning. I spent minutes with the patient and/or on the patient floor today, greater than?50% of which was spent counseling/coordinating care. Reason for contiued inpatient stay Substantial Risk for: harm to self
[2021-04-04 13:20] VITALS: BMI 23.9
[2021-04-04 13:28] VITALS: BMI 23.9
--- NOTE | 2021-04-04 13:29 | MHC.CLN ---
requested re-weight due to fluctuating admission weights pt at risk for malnutrition following
[2021-04-04] MEDS: Nicotine Polacrilex 2 MG GUM 4 MG BUCCAL ×2 (16:08→21:47)
[2021-04-04] MEDS: Sennosides 8.6 MG TABLET PO (21:47)
[2021-04-04] MEDS: traZODone HCL 100 MG TABLET PO ×2 (21:47→23:12)
[2021-04-04] MEDS: hydrOXYzine HCL 25 MG TABLET PO (21:47)
[2021-04-04 21:49] VITALS: BP 120/67; PULSE 76; TEMP 36.9; O2SAT 98
[2021-04-05 08:57] VITALS: BP 111/60; PULSE 73; RESP 18; TEMP 36.7; O2SAT 99
[2021-04-05] MEDS: Multivitamin TABLET 1 TAB PO (08:58)
[2021-04-05] MEDS: Sertraline HCL 50 MG TABLET PO (08:58)
[2021-04-05] MEDS: Ferrous Sulfate 324 MG TABLET.DR PO (08:58)
[2021-04-05] MEDS: Buprenorphine/Naloxone 8/2 mg FILM 1 FILM SUBLINGUAL ×2 (08:58→14:33)
[2021-04-05] MEDS: cloNIDine HCL 0.1 MG TABLET PO ×2 (08:59→21:40)
[2021-04-05] MEDS: hydrOXYzine HCL 50 MG TABLET PO (12:20)
[2021-04-05] MEDS: Nicotine Polacrilex 2 MG GUM 4 MG BUCCAL ×3 (12:20→23:07)
--- NOTE | 2021-04-05 12:40 | HO.PSYCHPN ---
Subjective Subjective Date of Service: 04/05/21 Reason For Visit: SI Interim History: pt reports he slept OK with med changes, but he did have to take the second trazodone 100 and then a seroquel 50 on top of that. states his mood and clinical condition haven't really changed appreciable from yesterday. agreeable to increase the zoloft to 100 mg now. he was advised that it may take several weeks for the medication to be terribly helpful and that this was a suitable dose to give some weeks to work. pt reports he is depressed and denies SI. per staff, no SI. pleasant but depressed. c/o insomnia. napping during the day. 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 slept after 11 pm. Mental Status Exam Mental Status Exam Narrative: appropriately groomed, in hospital attire lying in bed cooperative. no PMA/PMR. speech nml in rate, amount, loudness, tone, latency. thoughts linear and logical. affect constricted, normo-intense, non-labile. mood depressed. no SI. no HI/AVH expressed. Diagnostics Vital Signs (24Hr): Vital Signs - 24 hr 04/04/21 21:49 04/05/21 08:57 Temperature 98.5 F 98.0 F Pulse Rate 76 73 Respiratory Rate 18 Blood Pressure 120/67 111/60 Pulse Oximetry 98 99 BMI result Body Mass Index 23.9 Labs Results: 03/30/21 13:33 03/30/21 13:32 Medications Medications Current Medications Acetaminophen (Acetaminophen 325 Mg Tablet) 650 mg PO Q6H PRN PRN Reason: Headache/Pain Mild Scale (1-3) Last Admin: 03/31/21 12:37 Dose: 650 mg Documented by: Al Hydroxide/Mg Hydroxide (Magnesium Hydrox/Alum Hydrox 30 Ml Oral.Susp) 30 ml PO Q6H PRN PRN Reason: Heartburn/Nausea Buprenorphine/Naloxone (Buprenorphine/Naloxone 8/2 Mg Film) 1 film SUBLINGUAL BID@0800,1300 [facility] Last Admin: 04/05/21 08:58 Dose: 1 film Documented by: Clonidine HCl (Clonidine Hcl 0.1 Mg Tablet) 0.1 mg PO BID [facility]; Protocol Last Admin: 04/05/21 08:59 Dose: 0.1 mg Documented by: Clonidine HCl (Clonidine Hcl 0.1 Mg Tablet) 0.1 mg PO Q4H PRN; Protocol PRN Reason: severe anxiety Last Admin: 03/31/21 14:53 Dose: 0.1 mg Documented by: Ferrous Sulfate (Ferrous Sulfate 324 Mg Tablet.) 324 mg PO DAILY [facility] Last Admin: 04/05/21 08:58 Dose: 324 mg Documented by: Hydroxyzine HCl (Hydroxyzine Hcl 25 Mg Tablet) 25 mg PO BEDTIME PRN PRN Reason: Anxiety Last Admin: 04/04/21 21:47 Dose: 25 mg Documented by: Hydroxyzine HCl (Hydroxyzine Hcl 50 Mg Tablet) 50 mg PO Q6H PRN PRN Reason: Anxiety Last Admin: 04/05/21 12:20 Dose: 50 mg Documented by: Magnesium Hydroxide (Milk Of Magnesia 30 Ml Oral.Susp) 30 ml PO DAILY PRN PRN Reason: Constipation Multivitamins/Vitamin C (Multivitamin Tablet) 1 tab PO DAILY [facility] Last Admin: 04/05/21 08:58 Dose: 1 tab Documented by: Nicotine (Nicotine 21 Mg Patch.Td24) 21 mg TRANSDERMA DAILY [facility] Last Admin: 04/05/21 12:22 Dose: Not Given Documented by: Nicotine Polacrilex (Nicotine Polacrilex 2 Mg Gum) 4 mg BUCCAL Q2H PRN PRN Reason: Nicotine Cravings Last Admin: 04/05/21 12:20 Dose: 4 mg Documented by: Quetiapine Fumarate (Quetiapine Fumarate 50 Mg Tablet) 50 mg PO Q4H PRN PRN Reason: severe anxiety Last Admin: 04/04/21 23:12 Dose: 50 mg Documented by: Senna (Sennosides 8.6 Mg Tablet) 8.6 mg PO BEDTIME [facility] Last Admin: 04/04/21 21:47 Dose: 8.6 mg Documented by: Sertraline HCl (Sertraline Hcl 50 Mg Tablet) 50 mg PO DAILY [facility] Last Admin: 04/05/21 08:58 Dose: 50 mg Documented by: Trazodone HCl (Trazodone Hcl 100 Mg Tablet) 100 mg PO BEDTIME [facility] Last Admin: 04/04/21 21:47 Dose: 100 mg Documented by: Trazodone HCl (Trazodone Hcl 100 Mg Tablet) 100 mg PO BEDTIME PRN PRN Reason: insomnia Last Admin: 04/04/21 23:12 Dose: 100 mg Documented by: Allergies Allergies Allergy/AdvReac Type Severity Reaction Status Date / Time No Known Allergies Allergy Verified 02/18/21 10:31 [No Known Allergies*] Assessment & Plan Assessment & Plan (1) Suicidal ideation: Status: Acute Code(s): R45.851 - Suicidal ideations Assessment and Plan: resolved (2) Opioid use disorder, severe, dependence: Status: Acute Code(s): F11.20 - Opioid dependence, uncomplicated Assessment and Plan: not feeling in withdrawal anymore. continue suboxone. refer to outpt clinic on discharge. (3) Severe recurrent major depression with psychotic features: Status: Acute Code(s): F33.3 - Major depressive disorder, recurrent, severe with psychotic symptoms Assessment and Plan: increased HS seroquel to 100 mg with repeat as of 04/02, for insomnia. 04/03 pt c/o prolonged depression, sertraline 50 mg daily started 04/03. 04/04 c/o oversedation in the morning with seroquel. requesting change to trazodone at HS. trazodone 100 QHS MR x1 ordered. 04/06 sertraline increased from 50 mg daily to 100 mg daily. (4) Cocaine use disorder: Status: Acute Code(s): F14.10 - Cocaine abuse, uncomplicated Assessment and Plan: abstain Assessment and Plan: trazodone 100 QHS MR x1 ordered. zoloft 100 mg daily ordered. begin dispo planning. I spent minutes with the patient and/or on the patient floor today, greater than?50% of which was spent counseling/coordinating care. Reason for contiued inpatient stay Substantial Risk for: harm to self, inability to function and rapid decompensation
[2021-04-05] MEDS: QUEtiapine Fumarate 50 MG TABLET PO ×2 (14:59→23:07)
[2021-04-05 18:00] VITALS: BP 114/61; PULSE 79; RESP 18; TEMP 37.2; O2SAT 99
[2021-04-05] MEDS: Sennosides 8.6 MG TABLET PO (21:40)
[2021-04-05] MEDS: traZODone HCL 100 MG TABLET PO ×2 (21:41→23:07)
[2021-04-05] MEDS: hydrOXYzine HCL 25 MG TABLET PO (21:44)
[2021-04-06 06:00] VITALS: BP 101/50; PULSE 67; RESP 16; TEMP 36.4; O2SAT 97
--- NOTE | 2021-04-06 08:18 | P.PNPSI_ITS ---
Subjective Subjective Date of Service: 04/06/21 Reason For Visit: SI Subjective Notes: Conditional Voluntary Interim History: Patient was seen and discussed in rounds. Records and treatment plan and labs were reviewed. He is pleasant and engaged. Eating and sleeping adequately. He is interactive with others. Continues to have some anxiety and depression. No SI. Recent medical changes discussed and he denies any side effects. He is aware that the antidepressant may take a while to show benefits. No changes were made today and current regimen was reviewed and maintained Review of Systems Review of Systems Yes all other systems are reviewed and are negative Mental Status Exam Mental Status Exam Narrative: MSE: He is alert, oriented and pleasant. Normal speech. Moderate eye contact. Appropriate affect. No acute signs. No signs of psychosis. No SI/HI. Cognitively intact. Judgment is intact Diagnostics Vital Signs (24Hr): Vital Signs - 24 hr 04/05/21 08:57 04/05/21 18:00 Temperature 98.0 F 99 F Pulse Rate 73 79 Respiratory Rate 18 18 Blood Pressure 111/60 114/61 Pulse Oximetry 99 99 BMI result Body Mass Index 23.9 Labs Results: 03/30/21 13:33 03/30/21 13:32 Medications Medications Current Medications Acetaminophen (Acetaminophen 325 Mg Tablet) 650 mg PO Q6H PRN PRN Reason: Headache/Pain Mild Scale (1-3) Last Admin: 03/31/21 12:37 Dose: 650 mg Documented by: Al Hydroxide/Mg Hydroxide (Magnesium Hydrox/Alum Hydrox 30 Ml Oral.Susp) 30 ml PO Q6H PRN PRN Reason: Heartburn/Nausea Buprenorphine/Naloxone (Buprenorphine/Naloxone 8/2 Mg Film) 1 film SUBLINGUAL BID@0800,1300 [facility] Last Admin: 04/05/21 14:33 Dose: 1 film Documented by: Clonidine HCl (Clonidine Hcl 0.1 Mg Tablet) 0.1 mg PO BID [facility]; Protocol Last Admin: 04/05/21 21:40 Dose: 0.1 mg Documented by: Clonidine HCl (Clonidine Hcl 0.1 Mg Tablet) 0.1 mg PO Q4H PRN; Protocol PRN Reason: severe anxiety Last Admin: 03/31/21 14:53 Dose: 0.1 mg Documented by: Ferrous Sulfate (Ferrous Sulfate 324 Mg Tablet.) 324 mg PO DAILY [facility] Last Admin: 04/05/21 08:58 Dose: 324 mg Documented by: Hydroxyzine HCl (Hydroxyzine Hcl 25 Mg Tablet) 25 mg PO BEDTIME PRN PRN Reason: Anxiety Last Admin: 04/05/21 21:44 Dose: 25 mg Documented by: Hydroxyzine HCl (Hydroxyzine Hcl 50 Mg Tablet) 50 mg PO Q6H PRN PRN Reason: Anxiety Last Admin: 04/05/21 12:20 Dose: 50 mg Documented by: Magnesium Hydroxide (Milk Of Magnesia 30 Ml Oral.Susp) 30 ml PO DAILY PRN PRN Reason: Constipation Multivitamins/Vitamin C (Multivitamin Tablet) 1 tab PO DAILY [facility] Last Admin: 04/05/21 08:58 Dose: 1 tab Documented by: Nicotine (Nicotine 21 Mg Patch.Td24) 21 mg TRANSDERMA DAILY [facility] Last Admin: 04/05/21 12:22 Dose: Not Given Documented by: Nicotine Polacrilex (Nicotine Polacrilex 2 Mg Gum) 4 mg BUCCAL Q2H PRN PRN Reason: Nicotine Cravings Last Admin: 04/05/21 23:07 Dose: 4 mg Documented by: Quetiapine Fumarate (Quetiapine Fumarate 50 Mg Tablet) 50 mg PO Q4H PRN PRN Reason: severe anxiety Last Admin: 04/05/21 23:07 Dose: 50 mg Documented by: Senna (Sennosides 8.6 Mg Tablet) 8.6 mg PO BEDTIME [facility] Last Admin: 04/05/21 21:40 Dose: 8.6 mg Documented by: Sertraline HCl (Sertraline Hcl 100 Mg Tablet) 100 mg PO DAILY [facility] Trazodone HCl (Trazodone Hcl 100 Mg Tablet) 100 mg PO BEDTIME [facility] Last Admin: 04/05/21 21:41 Dose: 100 mg Documented by: Trazodone HCl (Trazodone Hcl 100 Mg Tablet) 100 mg PO BEDTIME PRN PRN Reason: insomnia Last Admin: 04/05/21 23:07 Dose: 100 mg Documented by: Allergies Allergies Allergy/AdvReac Type Severity Reaction Status Date / Time No Known Allergies Allergy Verified 02/18/21 10:31 [No Known Allergies*] Assessment & Plan Assessment & Plan (1) Suicidal ideation: Status: Acute Code(s): R45.851 - Suicidal ideations Assessment and Plan: resolved (2) Opioid use disorder, severe, dependence: Status: Acute Code(s): F11.20 - Opioid dependence, uncomplicated Assessment and Plan: not feeling in withdrawal anymore. continue suboxone. refer to outpt clinic on discharge. (3) Severe recurrent major depression with psychotic features: Status: Acute Code(s): F33.3 - Major depressive disorder, recurrent, severe with psychotic symptoms Assessment and Plan: increased HS seroquel to 100 mg with repeat as of 04/02, for insomnia. 04/03 pt c/o prolonged depression, sertraline 50 mg daily started 04/03. 04/04 c/o oversedation in the morning with seroquel. requesting change to trazodone at HS. trazodone 100 QHS MR x1 ordered. 04/06 sertraline increased from 50 mg daily to 100 mg daily. 04/06/2021 Continue current regimen and plans with no changes today (4) Cocaine use disorder: Status: Acute Code(s): F14.10 - Cocaine abuse, uncomplicated Assessment and Plan: abstain Assessment and Plan: trazodone 100 QHS MR x1 ordered. zoloft 100 mg daily ordered. begin dispo planning. I spent minutes with the patient and/or on the patient floor today, greater than?50% of which was spent counseling/coordinating care. Reason for contiued inpatient stay Substantial Risk for: other
[2021-04-06] MEDS: Ferrous Sulfate 324 MG TABLET.DR PO (09:36)
[2021-04-06] MEDS: Sertraline HCL 100 MG TABLET PO (09:36)
[2021-04-06] MEDS: Multivitamin TABLET 1 TAB PO (09:36)
[2021-04-06] MEDS: Buprenorphine/Naloxone 8/2 mg FILM 1 FILM SUBLINGUAL ×2 (09:36→13:33)
[2021-04-06] MEDS: cloNIDine HCL 0.1 MG TABLET PO ×2 (09:37→22:43)
[2021-04-06] MEDS: QUEtiapine Fumarate 50 MG TABLET PO ×3 (09:39→23:31)
[2021-04-06] MEDS: Nicotine Polacrilex 2 MG GUM 4 MG BUCCAL ×5 (09:39→23:07)
[2021-04-06] MEDS: Magnesium Hydrox/Alum Hydrox 30 ML ORAL.SUSP PO (11:32)
[2021-04-06] MEDS: hydrOXYzine HCL 50 MG TABLET PO ×2 (13:33→20:27)
[2021-04-06 18:00] VITALS: BP 119/57; PULSE 86; RESP 18; TEMP 37; O2SAT 98
[2021-04-06] MEDS: traZODone HCL 100 MG TABLET PO ×2 (22:42→23:31)
[2021-04-06] MEDS: Sennosides 8.6 MG TABLET PO (22:42)
[2021-04-06] MEDS: hydrOXYzine HCL 25 MG TABLET PO (22:42)
--- NOTE | 2021-04-07 08:41 | HO.PSYCHPN ---
Subjective Subjective Date of Service: 04/07/21 Reason For Visit: SI Subjective Notes: Conditional Voluntary Medical Problems Affecting Mental Status: No Interim History: Patient was seen in rounds and discussed. Records and plans reviewed. He continues to be doing well and has been showing signs of improvement. He has been eating adequately but sleeping has been problematic. Medication Compliance: Yes Side effects from medications: No Diagnostics Vital Signs (24Hr): Vital Signs - 24 hr 04/06/21 18:00 Temperature 98.6 F Pulse Rate 86 Respiratory Rate 18 Blood Pressure 119/57 L Pulse Oximetry 98 BMI result Body Mass Index 23.9 Labs Results: 03/30/21 13:33 03/30/21 13:32 Medications Medications Current Medications Acetaminophen (Acetaminophen 325 Mg Tablet) 650 mg PO Q6H PRN PRN Reason: Headache/Pain Mild Scale (1-3) Last Admin: 03/31/21 12:37 Dose: 650 mg Documented by: Al Hydroxide/Mg Hydroxide (Magnesium Hydrox/Alum Hydrox 30 Ml Oral.Susp) 30 ml PO Q6H PRN PRN Reason: Heartburn/Nausea Last Admin: 04/06/21 11:32 Dose: 30 ml Documented by: Buprenorphine/Naloxone (Buprenorphine/Naloxone 8/2 Mg Film) 1 film SUBLINGUAL BID@0800,1300 [facility] Last Admin: 04/06/21 13:33 Dose: 1 film Documented by: Clonidine HCl (Clonidine Hcl 0.1 Mg Tablet) 0.1 mg PO BID [facility]; Protocol Last Admin: 04/06/21 22:43 Dose: 0.1 mg Documented by: Clonidine HCl (Clonidine Hcl 0.1 Mg Tablet) 0.1 mg PO Q4H PRN; Protocol PRN Reason: severe anxiety Last Admin: 03/31/21 14:53 Dose: 0.1 mg Documented by: Ferrous Sulfate (Ferrous Sulfate 324 Mg Tablet.) 324 mg PO DAILY [facility] Last Admin: 04/06/21 09:36 Dose: 324 mg Documented by: Hydroxyzine HCl (Hydroxyzine Hcl 25 Mg Tablet) 25 mg PO BEDTIME PRN PRN Reason: Anxiety Last Admin: 04/06/21 22:42 Dose: 25 mg Documented by: Hydroxyzine HCl (Hydroxyzine Hcl 50 Mg Tablet) 50 mg PO Q6H PRN PRN Reason: Anxiety Last Admin: 04/06/21 20:27 Dose: 50 mg Documented by: Magnesium Hydroxide (Milk Of Magnesia 30 Ml Oral.Susp) 30 ml PO DAILY PRN PRN Reason: Constipation Multivitamins/Vitamin C (Multivitamin Tablet) 1 tab PO DAILY [facility] Last Admin: 04/06/21 09:36 Dose: 1 tab Documented by: Nicotine (Nicotine 21 Mg Patch.Td24) 21 mg TRANSDERMA DAILY [facility] Last Admin: 04/06/21 10:26 Dose: Not Given Documented by: Nicotine Polacrilex (Nicotine Polacrilex 2 Mg Gum) 4 mg BUCCAL Q2H PRN PRN Reason: Nicotine Cravings Last Admin: 04/06/21 23:07 Dose: 4 mg Documented by: Quetiapine Fumarate (Quetiapine Fumarate 50 Mg Tablet) 50 mg PO Q4H PRN PRN Reason: severe anxiety Last Admin: 04/06/21 23:31 Dose: 50 mg Documented by: Senna (Sennosides 8.6 Mg Tablet) 8.6 mg PO BEDTIME [facility] Last Admin: 04/06/21 22:42 Dose: 8.6 mg Documented by: Sertraline HCl (Sertraline Hcl 100 Mg Tablet) 100 mg PO DAILY [facility] Last Admin: 04/06/21 09:36 Dose: 100 mg Documented by: Trazodone HCl (Trazodone Hcl 100 Mg Tablet) 100 mg PO BEDTIME [facility] Last Admin: 04/06/21 22:42 Dose: 100 mg Documented by: Trazodone HCl (Trazodone Hcl 100 Mg Tablet) 100 mg PO BEDTIME PRN PRN Reason: insomnia Last Admin: 04/06/21 23:31 Dose: 100 mg Documented by: Allergies Allergies Allergy/AdvReac Type Severity Reaction Status Date / Time No Known Allergies Allergy Verified 02/18/21 10:31 [No Known Allergies*] Assessment & Plan Assessment & Plan (1) Suicidal ideation: Status: Acute Code(s): R45.851 - Suicidal ideations Assessment and Plan: resolved (2) Opioid use disorder, severe, dependence: Status: Acute Code(s): F11.20 - Opioid dependence, uncomplicated Assessment and Plan: not feeling in withdrawal anymore. continue suboxone. refer to outpt clinic on discharge. (3) Severe recurrent major depression with psychotic features: Status: Acute Code(s): F33.3 - Major depressive disorder, recurrent, severe with psychotic symptoms Assessment and Plan: increased HS seroquel to 100 mg with repeat as of 04/02, for insomnia. 04/03 pt c/o prolonged depression, sertraline 50 mg daily started 04/03. 04/04 c/o oversedation in the morning with seroquel. requesting change to trazodone at HS. trazodone 100 QHS MR x1 ordered. 04/06 sertraline increased from 50 mg daily to 100 mg daily. 04/06/2021 Continue current regimen and plans with no changes today (4) Cocaine use disorder: Status: Acute Code(s): F14.10 - Cocaine abuse, uncomplicated Assessment and Plan: abstain Assessment and Plan: trazodone 100 QHS MR x1 ordered. zoloft 100 mg daily ordered. begin dispo planning. I spent minutes with the patient and/or on the patient floor today, greater than?50% of which was spent counseling/coordinating care.
--- NOTE | 2021-04-07 08:46 | HO.PSYCHPN ---
Subjective Subjective Reason For Visit: SI Diagnostics Vital Signs (24Hr): Vital Signs - 24 hr 04/06/21 18:00 Temperature 98.6 F Pulse Rate 86 Respiratory Rate 18 Blood Pressure 119/57 L Pulse Oximetry 98 BMI result Body Mass Index 23.9 Labs Results: 03/30/21 13:33 03/30/21 13:32 Medications Medications Current Medications Acetaminophen (Acetaminophen 325 Mg Tablet) 650 mg PO Q6H PRN PRN Reason: Headache/Pain Mild Scale (1-3) Last Admin: 03/31/21 12:37 Dose: 650 mg Documented by: Al Hydroxide/Mg Hydroxide (Magnesium Hydrox/Alum Hydrox 30 Ml Oral.Susp) 30 ml PO Q6H PRN PRN Reason: Heartburn/Nausea Last Admin: 04/06/21 11:32 Dose: 30 ml Documented by: Buprenorphine/Naloxone (Buprenorphine/Naloxone 8/2 Mg Film) 1 film SUBLINGUAL BID@0800,1300 [facility] Last Admin: 04/06/21 13:33 Dose: 1 film Documented by: Clonidine HCl (Clonidine Hcl 0.1 Mg Tablet) 0.1 mg PO BID [facility]; Protocol Last Admin: 04/06/21 22:43 Dose: 0.1 mg Documented by: Clonidine HCl (Clonidine Hcl 0.1 Mg Tablet) 0.1 mg PO Q4H PRN; Protocol PRN Reason: severe anxiety Last Admin: 03/31/21 14:53 Dose: 0.1 mg Documented by: Ferrous Sulfate (Ferrous Sulfate 324 Mg Tablet.) 324 mg PO DAILY [facility] Last Admin: 04/06/21 09:36 Dose: 324 mg Documented by: Hydroxyzine HCl (Hydroxyzine Hcl 25 Mg Tablet) 25 mg PO BEDTIME PRN PRN Reason: Anxiety Last Admin: 04/06/21 22:42 Dose: 25 mg Documented by: Hydroxyzine HCl (Hydroxyzine Hcl 50 Mg Tablet) 50 mg PO Q6H PRN PRN Reason: Anxiety Last Admin: 04/06/21 20:27 Dose: 50 mg Documented by: Magnesium Hydroxide (Milk Of Magnesia 30 Ml Oral.Susp) 30 ml PO DAILY PRN PRN Reason: Constipation Multivitamins/Vitamin C (Multivitamin Tablet) 1 tab PO DAILY [facility] Last Admin: 04/06/21 09:36 Dose: 1 tab Documented by: Nicotine (Nicotine 21 Mg Patch.Td24) 21 mg TRANSDERMA DAILY [facility] Last Admin: 04/06/21 10:26 Dose: Not Given Documented by: Nicotine Polacrilex (Nicotine Polacrilex 2 Mg Gum) 4 mg BUCCAL Q2H PRN PRN Reason: Nicotine Cravings Last Admin: 04/06/21 23:07 Dose: 4 mg Documented by: Quetiapine Fumarate (Quetiapine Fumarate 50 Mg Tablet) 50 mg PO Q4H PRN PRN Reason: severe anxiety Last Admin: 04/06/21 23:31 Dose: 50 mg Documented by: Senna (Sennosides 8.6 Mg Tablet) 8.6 mg PO BEDTIME [facility] Last Admin: 04/06/21 22:42 Dose: 8.6 mg Documented by: Sertraline HCl (Sertraline Hcl 100 Mg Tablet) 100 mg PO DAILY [facility] Last Admin: 04/06/21 09:36 Dose: 100 mg Documented by: Trazodone HCl (Trazodone Hcl 100 Mg Tablet) 100 mg PO BEDTIME [facility] Last Admin: 04/06/21 22:42 Dose: 100 mg Documented by: Trazodone HCl (Trazodone Hcl 100 Mg Tablet) 100 mg PO BEDTIME PRN PRN Reason: insomnia Last Admin: 04/06/21 23:31 Dose: 100 mg Documented by: Allergies Allergies Allergy/AdvReac Type Severity Reaction Status Date / Time No Known Allergies Allergy Verified 02/18/21 10:31 [No Known Allergies*] Assessment & Plan Assessment & Plan (1) Suicidal ideation: Status: Acute Code(s): R45.851 - Suicidal ideations Assessment and Plan: resolved (2) Opioid use disorder, severe, dependence: Status: Acute Code(s): F11.20 - Opioid dependence, uncomplicated Assessment and Plan: not feeling in withdrawal anymore. continue suboxone. refer to outpt clinic on discharge. (3) Severe recurrent major depression with psychotic features: Status: Acute Code(s): F33.3 - Major depressive disorder, recurrent, severe with psychotic symptoms Assessment and Plan: increased HS seroquel to 100 mg with repeat as of 04/02, for insomnia. 04/03 pt c/o prolonged depression, sertraline 50 mg daily started 04/03. 04/04 c/o oversedation in the morning with seroquel. requesting change to trazodone at HS. trazodone 100 QHS MR x1 ordered. 04/06 sertraline increased from 50 mg daily to 100 mg daily. 04/06/2021 Continue current regimen and plans with no changes today (4) Cocaine use disorder: Status: Acute Code(s): F14.10 - Cocaine abuse, uncomplicated Assessment and Plan: abstain Assessment and Plan: trazodone 100 QHS MR x1 ordered. zoloft 100 mg daily ordered. begin dispo planning. I spent minutes with the patient and/or on the patient floor today, greater than?50% of which was spent counseling/coordinating care.
--- NOTE | 2021-04-07 08:48 | HO.PSYCHPN ---
Subjective Subjective Date of Service: 04/07/21 Reason For Visit: SI Subjective Notes: Conditional Voluntary Medical Problems Affecting Mental Status: No Interim History: Patient was seen and discussed in rounds today. Records were reviewed. He has been doing much better in showing signs of improvement. He is awaiting for program to be discharged to. Eating adequately but sleeping has been problematic even with medications including, Seroquel, trazodone. I will increase his Seroquel to 150 mg q.h.s.. I initially wanted to stop the nighttime trazodone but he would like to stay with it for now and to review it tomorrow with Dr. Armendariz. No complaints or side effects otherwise. No other changes were made Medication Compliance: Yes Side effects from medications: No Review of Systems Review of Systems Except for sleep Yes all other systems are reviewed and are negative Diagnostics Vital Signs (24Hr): Vital Signs - 24 hr 04/06/21 18:00 Temperature 98.6 F Pulse Rate 86 Respiratory Rate 18 Blood Pressure 119/57 L Pulse Oximetry 98 BMI result Body Mass Index 23.9 Labs Results: 03/30/21 13:33 03/30/21 13:32 Medications Medications Current Medications Acetaminophen (Acetaminophen 325 Mg Tablet) 650 mg PO Q6H PRN PRN Reason: Headache/Pain Mild Scale (1-3) Last Admin: 03/31/21 12:37 Dose: 650 mg Documented by: Al Hydroxide/Mg Hydroxide (Magnesium Hydrox/Alum Hydrox 30 Ml Oral.Susp) 30 ml PO Q6H PRN PRN Reason: Heartburn/Nausea Last Admin: 04/06/21 11:32 Dose: 30 ml Documented by: Buprenorphine/Naloxone (Buprenorphine/Naloxone 8/2 Mg Film) 1 film SUBLINGUAL BID@0800,1300 [facility] Last Admin: 04/06/21 13:33 Dose: 1 film Documented by: Clonidine HCl (Clonidine Hcl 0.1 Mg Tablet) 0.1 mg PO BID [facility]; Protocol Last Admin: 04/06/21 22:43 Dose: 0.1 mg Documented by: Clonidine HCl (Clonidine Hcl 0.1 Mg Tablet) 0.1 mg PO Q4H PRN; Protocol PRN Reason: severe anxiety Last Admin: 03/31/21 14:53 Dose: 0.1 mg Documented by: Ferrous Sulfate (Ferrous Sulfate 324 Mg Tablet.) 324 mg PO DAILY [facility] Last Admin: 04/06/21 09:36 Dose: 324 mg Documented by: Hydroxyzine HCl (Hydroxyzine Hcl 25 Mg Tablet) 25 mg PO BEDTIME PRN PRN Reason: Anxiety Last Admin: 04/06/21 22:42 Dose: 25 mg Documented by: Hydroxyzine HCl (Hydroxyzine Hcl 50 Mg Tablet) 50 mg PO Q6H PRN PRN Reason: Anxiety Last Admin: 04/06/21 20:27 Dose: 50 mg Documented by: Magnesium Hydroxide (Milk Of Magnesia 30 Ml Oral.Susp) 30 ml PO DAILY PRN PRN Reason: Constipation Multivitamins/Vitamin C (Multivitamin Tablet) 1 tab PO DAILY [facility] Last Admin: 04/06/21 09:36 Dose: 1 tab Documented by: Nicotine (Nicotine 21 Mg Patch.Td24) 21 mg TRANSDERMA DAILY [facility] Last Admin: 04/06/21 10:26 Dose: Not Given Documented by: Nicotine Polacrilex (Nicotine Polacrilex 2 Mg Gum) 4 mg BUCCAL Q2H PRN PRN Reason: Nicotine Cravings Last Admin: 04/06/21 23:07 Dose: 4 mg Documented by: Quetiapine Fumarate (Quetiapine Fumarate 50 Mg Tablet) 50 mg PO Q4H PRN PRN Reason: severe anxiety Last Admin: 04/06/21 23:31 Dose: 50 mg Documented by: Senna (Sennosides 8.6 Mg Tablet) 8.6 mg PO BEDTIME [facility] Last Admin: 04/06/21 22:42 Dose: 8.6 mg Documented by: Sertraline HCl (Sertraline Hcl 100 Mg Tablet) 100 mg PO DAILY [facility] Last Admin: 04/06/21 09:36 Dose: 100 mg Documented by: Trazodone HCl (Trazodone Hcl 100 Mg Tablet) 100 mg PO BEDTIME [facility] Last Admin: 04/06/21 22:42 Dose: 100 mg Documented by: Trazodone HCl (Trazodone Hcl 100 Mg Tablet) 100 mg PO BEDTIME PRN PRN Reason: insomnia Last Admin: 04/06/21 23:31 Dose: 100 mg Documented by: Allergies Allergies Allergy/AdvReac Type Severity Reaction Status Date / Time No Known Allergies Allergy Verified 02/18/21 10:31 [No Known Allergies*] Assessment & Plan Assessment & Plan (1) Suicidal ideation: Status: Acute Code(s): R45.851 - Suicidal ideations Assessment and Plan: resolved (2) Opioid use disorder, severe, dependence: Status: Acute Code(s): F11.20 - Opioid dependence, uncomplicated Assessment and Plan: not feeling in withdrawal anymore. continue suboxone. refer to outpt clinic on discharge. (3) Severe recurrent major depression with psychotic features: Status: Acute Code(s): F33.3 - Major depressive disorder, recurrent, severe with psychotic symptoms Assessment and Plan: increased HS seroquel to 100 mg with repeat as of 04/02, for insomnia. 04/03 pt c/o prolonged depression, sertraline 50 mg daily started 04/03. 04/04 c/o oversedation in the morning with seroquel. requesting change to trazodone at HS. trazodone 100 QHS MR x1 ordered. 04/06 sertraline increased from 50 mg daily to 100 mg daily. 04/06/2021 Continue current regimen and plans with no changes today 04/07/21 Continue current regimen and plans with Seroquel 150 mg q.h.s. (4) Cocaine use disorder: Status: Acute Code(s): F14.10 - Cocaine abuse, uncomplicated Assessment and Plan: abstain Assessment and Plan: trazodone 100 QHS MR x1 ordered. zoloft 100 mg daily ordered. begin dispo planning. I spent minutes with the patient and/or on the patient floor today, greater than?50% of which was spent counseling/coordinating care. Reason for contiued inpatient stay Substantial Risk for: other
[2021-04-07 09:00] VITALS: BP 119/64; PULSE 80; RESP 16; TEMP 36.8; O2SAT 98
[2021-04-07] MEDS: Nicotine Polacrilex 2 MG GUM 4 MG BUCCAL ×7 (09:33→23:01)
[2021-04-07] MEDS: Sertraline HCL 100 MG TABLET PO (09:34)
[2021-04-07] MEDS: hydrOXYzine HCL 50 MG TABLET PO ×3 (09:34→22:50)
[2021-04-07] MEDS: Multivitamin TABLET 1 TAB PO (09:34)
[2021-04-07] MEDS: Ferrous Sulfate 324 MG TABLET.DR PO (09:34)
[2021-04-07] MEDS: Buprenorphine/Naloxone 8/2 mg FILM 1 FILM SUBLINGUAL ×2 (09:34→13:58)
[2021-04-07] MEDS: cloNIDine HCL 0.1 MG TABLET PO ×2 (09:41→22:44)
[2021-04-07 10:58] LABS: IDNOW Serial# 55D5AD1C
[2021-04-07 10:59] LABS: COVID-19 Test Negative (Negative)
[2021-04-07] MEDS: QUEtiapine Fumarate 50 MG TABLET PO ×2 (11:21→18:47)
[2021-04-07] MEDS: Throat Lozenge, Medicated LOZENGE 1 LOZENGE MUCOUS MEM (15:41)
[2021-04-07 18:00] VITALS: BP 132/60; PULSE 85; RESP 18; TEMP 36.6; O2SAT 98
[2021-04-07] MEDS: traZODone HCL 100 MG TABLET PO (22:43)
[2021-04-07] MEDS: Sennosides 8.6 MG TABLET PO (22:43)
[2021-04-07] MEDS: QUEtiapine Fumarate 50 MG TABLET 150 MG PO (22:43)
[2021-04-07] MEDS: hydrOXYzine HCL 25 MG TABLET PO (22:50)
--- NOTE | 2021-04-08 11:14 | HO.PSYCHPN ---
Subjective Subjective Date of Service: 04/08/21 Reason For Visit: SI Subjective Notes: Conditional Voluntary Interim History: Pt reports feeling depressed. He denies SI/HI. He reports not wanting to use substances anymore. He reports fiance gave him tough love and he was homeless for 2 weeks. He reports he wants to continue suboxone, no residential substance use treatment programs as he reports I have other things to do. He reports improved sleep with higher dose of seroquel and trazodone. Per nursing, pt visible in the unit, social with select peers, no behavioral concerns. Medication Compliance: Yes Side effects from medications: No Diagnostics Vital Signs (24Hr): Vital Signs - 24 hr 04/07/21 18:00 04/08/21 11:34 04/08/21 12:24 Temperature 97.9 F 98.3 F Pulse Rate 85 84 105 H Respiratory Rate 18 16 Blood Pressure 132/60 105/51 L 102/61 Pulse Oximetry 98 95 BMI result Body Mass Index 23.9 Labs Results: 03/30/21 13:33 03/30/21 13:32 Labs: Laboratory Results - last 48 hr 04/07/21 10:12 COVID-19 ([facility]) Negative COVID-19 Clin Com See Note Medications Medications Current Medications Acetaminophen (Acetaminophen 325 Mg Tablet) 650 mg PO Q6H PRN PRN Reason: Headache/Pain Mild Scale (1-3) Last Admin: 03/31/21 12:37 Dose: 650 mg Documented by: Al Hydroxide/Mg Hydroxide (Magnesium Hydrox/Alum Hydrox 30 Ml Oral.Susp) 30 ml PO Q6H PRN PRN Reason: Heartburn/Nausea Last Admin: 04/06/21 11:32 Dose: 30 ml Documented by: Benzocaine (Throat Lozenge, Medicated Lozenge) 1 lozenge MUCOUS MEM Q2H PRN PRN Reason: Sore Throat Last Admin: 04/07/21 15:41 Dose: 1 lozenge Documented by: Buprenorphine/Naloxone (Buprenorphine/Naloxone 8/2 Mg Film) 1 film SUBLINGUAL BID@0800,1300 [facility] Last Admin: 04/08/21 11:37 Dose: 1 film Documented by: Clonidine HCl (Clonidine Hcl 0.1 Mg Tablet) 0.1 mg PO BID [facility]; Protocol Last Admin: 04/08/21 11:40 Dose: Not Given Documented by: Clonidine HCl (Clonidine Hcl 0.1 Mg Tablet) 0.1 mg PO Q4H PRN; Protocol PRN Reason: severe anxiety Last Admin: 04/08/21 12:29 Dose: 0.1 mg Documented by: Ferrous Sulfate (Ferrous Sulfate 324 Mg Tablet.) 324 mg PO DAILY [facility] Last Admin: 04/08/21 11:37 Dose: 324 mg Documented by: Hydroxyzine HCl (Hydroxyzine Hcl 25 Mg Tablet) 25 mg PO BEDTIME PRN PRN Reason: Anxiety Last Admin: 04/07/21 22:50 Dose: 25 mg Documented by: Hydroxyzine HCl (Hydroxyzine Hcl 50 Mg Tablet) 50 mg PO Q6H PRN PRN Reason: Anxiety Last Admin: 04/08/21 12:29 Dose: 50 mg Documented by: Magnesium Hydroxide (Milk Of Magnesia 30 Ml Oral.Susp) 30 ml PO DAILY PRN PRN Reason: Constipation Multivitamins/Vitamin C (Multivitamin Tablet) 1 tab PO DAILY [facility] Last Admin: 04/08/21 11:35 Dose: 1 tab Documented by: Nicotine (Nicotine 21 Mg Patch.Td24) 21 mg TRANSDERMA DAILY [facility] Last Admin: 04/08/21 11:38 Dose: Not Given Documented by: Nicotine Polacrilex (Nicotine Polacrilex 2 Mg Gum) 4 mg BUCCAL Q2H PRN PRN Reason: Nicotine Cravings Last Admin: 04/08/21 12:35 Dose: 4 mg Documented by: Quetiapine Fumarate (Quetiapine Fumarate 50 Mg Tablet) 50 mg PO Q4H PRN PRN Reason: severe anxiety Last Admin: 04/07/21 18:47 Dose: 50 mg Documented by: Quetiapine Fumarate (Quetiapine Fumarate 50 Mg Tablet) 150 mg PO BEDTIME [facility] Last Admin: 04/07/21 22:43 Dose: 150 mg Documented by: Senna (Sennosides 8.6 Mg Tablet) 8.6 mg PO BEDTIME [facility] Last Admin: 04/07/21 22:43 Dose: 8.6 mg Documented by: Sertraline HCl (Sertraline Hcl 100 Mg Tablet) 100 mg PO DAILY [facility] Last Admin: 04/08/21 11:35 Dose: 100 mg Documented by: Trazodone HCl (Trazodone Hcl 100 Mg Tablet) 100 mg PO BEDTIME [facility] Last Admin: 04/07/21 22:43 Dose: 100 mg Documented by: Trazodone HCl (Trazodone Hcl 100 Mg Tablet) 100 mg PO BEDTIME PRN PRN Reason: insomnia Last Admin: 04/06/21 23:31 Dose: 100 mg Documented by: Allergies Allergies Allergy/AdvReac Type Severity Reaction Status Date / Time No Known Allergies Allergy Verified 02/18/21 10:31 [No Known Allergies*] Assessment & Plan Assessment & Plan (1) Suicidal ideation: Status: Acute Code(s): R45.851 - Suicidal ideations Assessment and Plan: resolved (2) Opioid use disorder, severe, dependence: Status: Acute Code(s): F11.20 - Opioid dependence, uncomplicated Assessment and Plan: not feeling in withdrawal anymore. continue suboxone. refer to outpt clinic on discharge. (3) Severe recurrent major depression with psychotic features: Status: Acute Code(s): F33.3 - Major depressive disorder, recurrent, severe with psychotic symptoms Assessment and Plan: increased HS seroquel to 100 mg with repeat as of 04/02, for insomnia. 04/03 pt c/o prolonged depression, sertraline 50 mg daily started 04/03. 04/04 c/o oversedation in the morning with seroquel. requesting change to trazodone at HS. trazodone 100 QHS MR x1 ordered. 04/06 sertraline increased from 50 mg daily to 100 mg daily. 04/06/2021 Continue current regimen and plans with no changes today 04/07/21 Continue current regimen and plans with Seroquel 150 mg q.h.s. 04/08- continue current medications, depressed, no SI/HI. improved sleep with seroquel and trazodone. (4) Cocaine use disorder: Status: Acute Code(s): F14.10 - Cocaine abuse, uncomplicated Assessment and Plan: abstain Assessment and Plan: trazodone 100 QHS MR x1 ordered. zoloft 100 mg daily ordered. begin dispo planning. I spent minutes with the patient and/or on the patient floor today, greater than?50% of which was spent counseling/coordinating care. Reason for contiued inpatient stay Substantial Risk for: harm to self
[2021-04-08 11:34] VITALS: BP 105/51; PULSE 84; RESP 16; TEMP 36.8; O2SAT 95
[2021-04-08] MEDS: Sertraline HCL 100 MG TABLET PO (11:35)
[2021-04-08] MEDS: Multivitamin TABLET 1 TAB PO (11:35)
[2021-04-08] MEDS: Buprenorphine/Naloxone 8/2 mg FILM 1 FILM SUBLINGUAL ×2 (11:37→15:55)
[2021-04-08] MEDS: Ferrous Sulfate 324 MG TABLET.DR PO (11:37)
[2021-04-08 12:24] VITALS: BP 102/61; PULSE 105
[2021-04-08] MEDS: hydrOXYzine HCL 50 MG TABLET PO ×2 (12:29→19:33)
[2021-04-08] MEDS: cloNIDine HCL 0.1 MG TABLET PO ×2 (12:29→22:32)
[2021-04-08] MEDS: Nicotine Polacrilex 2 MG GUM 4 MG BUCCAL ×5 (12:35→22:09)
[2021-04-08] MEDS: QUEtiapine Fumarate 50 MG TABLET PO ×2 (14:59→19:33)
[2021-04-08 18:00] VITALS: BP 110/56; PULSE 96; RESP 16; TEMP 36.7; O2SAT 97
[2021-04-08] MEDS: traZODone HCL 100 MG TABLET PO (22:32)
[2021-04-08] MEDS: QUEtiapine Fumarate 50 MG TABLET 150 MG PO (22:32)
[2021-04-08] MEDS: Sennosides 8.6 MG TABLET PO (22:33)
[2021-04-09 10:17] VITALS: BP 116/64; PULSE 82; RESP 16; TEMP 36.8; O2SAT 98
[2021-04-09] MEDS: Multivitamin TABLET 1 TAB PO (10:17)
[2021-04-09] MEDS: Ferrous Sulfate 324 MG TABLET.DR PO (10:18)
[2021-04-09] MEDS: Sertraline HCL 100 MG TABLET PO (10:18)
[2021-04-09] MEDS: cloNIDine HCL 0.1 MG TABLET PO ×2 (10:18→23:09)
[2021-04-09] MEDS: Buprenorphine/Naloxone 8/2 mg FILM 1 FILM SUBLINGUAL ×2 (10:18→15:33)
[2021-04-09] MEDS: Nicotine Polacrilex 2 MG GUM 4 MG BUCCAL ×6 (11:11→23:08)
[2021-04-09] MEDS: hydrOXYzine HCL 50 MG TABLET PO ×2 (11:13→19:02)
[2021-04-09] MEDS: QUEtiapine Fumarate 50 MG TABLET PO ×3 (11:13→20:22)
--- NOTE | 2021-04-09 17:51 | P.PNPSI_ITS ---
Subjective Subjective Date of Service: 04/09/21 Reason For Visit: SI Interim History: pt states he is feeling kind of suicidal. he adds, i heard y'all trying to discharge me this week. i'm not ready. he reports he is having drug dreams and he is concerned about what will happen if he leaves the hospital. [facility] today and states he will pursue trying to get into their program. he reports he is depressed. he woke up suicidal today. per staff, anx 3, dep3 yesterday. sad re not seeing his kids. not ready to discharge. future-oriented. concerned about relapse. pleasant. visible in milieu. slept about 8 hours. doesn't want rehab. Mental Status Exam Mental Status Exam Narrative: appropriately groomed, in hospital attire seated milieu. no PMA/PMR. speech nml in rate, amount, loudness, tone, latency. thoughts linear and logical. affect constricted, normo-intense, non-labile. mood depressed. + SI. no HI/AVH expressed. Diagnostics Vital Signs (24Hr): Vital Signs - 24 hr 04/08/21 18:00 04/09/21 10:17 Temperature 98.0 F 98.3 F Pulse Rate 96 82 Respiratory Rate 16 16 Blood Pressure 110/56 L 116/64 Pulse Oximetry 97 98 BMI result Body Mass Index 23.9 Labs Results: 03/30/21 13:33 03/30/21 13:32 Medications Medications Current Medications Acetaminophen (Acetaminophen 325 Mg Tablet) 650 mg PO Q6H PRN PRN Reason: Headache/Pain Mild Scale (1-3) Last Admin: 03/31/21 12:37 Dose: 650 mg Documented by: Al Hydroxide/Mg Hydroxide (Magnesium Hydrox/Alum Hydrox 30 Ml Oral.Susp) 30 ml PO Q6H PRN PRN Reason: Heartburn/Nausea Last Admin: 04/06/21 11:32 Dose: 30 ml Documented by: Benzocaine (Throat Lozenge, Medicated Lozenge) 1 lozenge MUCOUS MEM Q2H PRN PRN Reason: Sore Throat Last Admin: 04/07/21 15:41 Dose: 1 lozenge Documented by: Buprenorphine/Naloxone (Buprenorphine/Naloxone 8/2 Mg Film) 1 film SUBLINGUAL BID@0800,1300 [facility] Last Admin: 04/09/21 15:33 Dose: 1 film Documented by: Clonidine HCl (Clonidine Hcl 0.1 Mg Tablet) 0.1 mg PO BID [facility]; Protocol Last Admin: 04/09/21 10:18 Dose: 0.1 mg Documented by: Clonidine HCl (Clonidine Hcl 0.1 Mg Tablet) 0.1 mg PO Q4H PRN; Protocol PRN Reason: severe anxiety Last Admin: 04/08/21 12:29 Dose: 0.1 mg Documented by: Ferrous Sulfate (Ferrous Sulfate 324 Mg Tablet.) 324 mg PO DAILY [facility] Last Admin: 04/09/21 10:18 Dose: 324 mg Documented by: Hydroxyzine HCl (Hydroxyzine Hcl 25 Mg Tablet) 25 mg PO BEDTIME PRN PRN Reason: Anxiety Last Admin: 04/07/21 22:50 Dose: 25 mg Documented by: Hydroxyzine HCl (Hydroxyzine Hcl 50 Mg Tablet) 50 mg PO Q6H PRN PRN Reason: Anxiety Last Admin: 04/09/21 11:13 Dose: 50 mg Documented by: Magnesium Hydroxide (Milk Of Magnesia 30 Ml Oral.Susp) 30 ml PO DAILY PRN PRN Reason: Constipation Multivitamins/Vitamin C (Multivitamin Tablet) 1 tab PO DAILY [facility] Last Admin: 04/09/21 10:17 Dose: 1 tab Documented by: Nicotine (Nicotine 21 Mg Patch.Td24) 21 mg TRANSDERMA DAILY [facility] Last Admin: 04/09/21 10:20 Dose: Not Given Documented by: Nicotine Polacrilex (Nicotine Polacrilex 2 Mg Gum) 4 mg BUCCAL Q2H PRN PRN Reason: Nicotine Cravings Last Admin: 04/09/21 16:16 Dose: 4 mg Documented by: Quetiapine Fumarate (Quetiapine Fumarate 50 Mg Tablet) 50 mg PO Q4H PRN PRN Reason: severe anxiety Last Admin: 04/09/21 16:16 Dose: 50 mg Documented by: Quetiapine Fumarate (Quetiapine Fumarate 50 Mg Tablet) 150 mg PO BEDTIME [facility] Last Admin: 04/08/21 22:32 Dose: 150 mg Documented by: Senna (Sennosides 8.6 Mg Tablet) 8.6 mg PO BEDTIME [facility] Last Admin: 04/08/21 22:33 Dose: 8.6 mg Documented by: Sertraline HCl (Sertraline Hcl 100 Mg Tablet) 100 mg PO DAILY [facility] Last Admin: 04/09/21 10:18 Dose: 100 mg Documented by: Trazodone HCl (Trazodone Hcl 100 Mg Tablet) 100 mg PO BEDTIME [facility] Last Admin: 04/08/21 22:32 Dose: 100 mg Documented by: Trazodone HCl (Trazodone Hcl 100 Mg Tablet) 100 mg PO BEDTIME PRN PRN Reason: insomnia Last Admin: 04/06/21 23:31 Dose: 100 mg Documented by: Allergies Allergies Allergy/AdvReac Type Severity Reaction Status Date / Time No Known Allergies Allergy Verified 02/18/21 10:31 [No Known Allergies*] Assessment & Plan Assessment & Plan (1) Suicidal ideation: Status: Acute Code(s): R45.851 - Suicidal ideations Assessment and Plan: resolved (2) Opioid use disorder, severe, dependence: Status: Acute Code(s): F11.20 - Opioid dependence, uncomplicated Assessment and Plan: not feeling in withdrawal anymore. continue suboxone. refer to outpt clinic on discharge. (3) Severe recurrent major depression with psychotic features: Status: Acute Code(s): F33.3 - Major depressive disorder, recurrent, severe with psychotic symptoms Assessment and Plan: increased HS seroquel to 100 mg with repeat as of 04/02, for insomnia. 04/03 pt c/o prolonged depression, sertraline 50 mg daily started 04/03. 04/04 c/o oversedation in the morning with seroquel. requesting change to tra zodone at HS. trazodone 100 QHS MR x1 ordered. 04/06 sertraline increased from 50 mg daily to 100 mg daily. 04/06/2021 Continue current regimen and plans with no changes today 04/07/21 Continue current regimen and plans with Seroquel 150 mg q.h.s. 04/08- continue current medications, depressed, no SI/HI. improved sleep with seroquel and trazodone. 04/09 - SI returns. looking into [facility] options. (4) Cocaine use disorder: Status: Acute Code(s): F14.10 - Cocaine abuse, uncomplicated Assessment and Plan: abstain Assessment and Plan: trazodone 100 QHS MR x1 ordered. seroquel 150 QHS. zoloft 100 mg daily ordered. begin dispo planning. I spent minutes with the patient and/or on the patient floor today, greater than?50% of which was spent counseling/coordinating care. Reason for contiued inpatient stay Substantial Risk for: harm to self and rapid decompensation
[2021-04-09 23:03] VITALS: BP 118/60; PULSE 74; RESP 14; TEMP 37.1; O2SAT 96
[2021-04-09] MEDS: QUEtiapine Fumarate 50 MG TABLET 150 MG PO (23:08)
[2021-04-09] MEDS: traZODone HCL 100 MG TABLET PO (23:09)
[2021-04-09] MEDS: Sennosides 8.6 MG TABLET PO (23:09)
[2021-04-10] MEDS: hydrOXYzine HCL 25 MG TABLET PO ×2 (00:08→20:56)
[2021-04-10 09:20] VITALS: BP 101/54; PULSE 79; RESP 16; TEMP 36.7; O2SAT 97
[2021-04-10] MEDS: cloNIDine HCL 0.1 MG TABLET PO ×2 (10:02→22:48)
[2021-04-10] MEDS: Sertraline HCL 100 MG TABLET PO (10:02)
[2021-04-10] MEDS: Ferrous Sulfate 324 MG TABLET.DR PO (10:02)
[2021-04-10] MEDS: Multivitamin TABLET 1 TAB PO (10:03)
[2021-04-10] MEDS: Buprenorphine/Naloxone 8/2 mg FILM 1 FILM SUBLINGUAL ×2 (10:03→13:48)
[2021-04-10] MEDS: hydrOXYzine HCL 50 MG TABLET PO (13:47)
[2021-04-10] MEDS: QUEtiapine Fumarate 50 MG TABLET PO ×3 (13:47→23:39)
[2021-04-10] MEDS: Nicotine Polacrilex 2 MG GUM 4 MG BUCCAL ×4 (14:52→22:53)
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
[2021-04-10 18:00] VITALS: BP 104/58; PULSE 87; RESP 18; TEMP 36.7; O2SAT 97
[2021-04-10] MEDS: QUEtiapine Fumarate 50 MG TABLET 150 MG PO (22:48)
[2021-04-10] MEDS: traZODone HCL 100 MG TABLET PO (22:48)
[2021-04-10] MEDS: Sennosides 8.6 MG TABLET PO (22:49)
[2021-04-11 11:00] VITALS: BP 113/55; PULSE 80; RESP 16; TEMP 36.7; O2SAT 98
[2021-04-11] MEDS: Multivitamin TABLET 1 TAB PO (11:11)
[2021-04-11] MEDS: cloNIDine HCL 0.1 MG TABLET PO ×2 (11:11→22:46)
[2021-04-11] MEDS: Sertraline HCL 100 MG TABLET PO (11:11)
[2021-04-11] MEDS: Ferrous Sulfate 324 MG TABLET.DR PO (11:11)
[2021-04-11] MEDS: QUEtiapine Fumarate 50 MG TABLET PO ×2 (11:48→16:59)
[2021-04-11] MEDS: hydrOXYzine HCL 50 MG TABLET PO (11:48)
[2021-04-11] MEDS: Buprenorphine/Naloxone 8/2 mg FILM 1 FILM SUBLINGUAL ×2 (11:48→15:33)
[2021-04-11] MEDS: Nicotine Polacrilex 2 MG GUM 4 MG BUCCAL ×4 (12:04→22:50)
--- NOTE | 2021-04-11 14:45 | PC.NURSE ---
Dr. Armendariz authorized late administration of Suboxone due to late administration this morning.
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
[2021-04-11] MEDS: Benzocaine 20 % Oral Gel 9 GM TUBE 1 APPL MUCOUS MEM (16:10)
[2021-04-11 22:30] VITALS: BP 108/62; PULSE 100; TEMP 36.7; O2SAT 95
[2021-04-11] MEDS: QUEtiapine Fumarate 100 MG TABLET PO (22:47)
[2021-04-11] MEDS: traZODone HCL 100 MG TABLET PO (22:47)
[2021-04-11] MEDS: Sennosides 8.6 MG TABLET PO (22:47)
[2021-04-12 10:28] VITALS: BP 112/73; PULSE 95; RESP 16; TEMP 36.9; O2SAT 97
[2021-04-12] MEDS: Ferrous Sulfate 324 MG TABLET.DR PO (10:29)
[2021-04-12] MEDS: cloNIDine HCL 0.1 MG TABLET PO ×2 (10:29→22:38)
[2021-04-12] MEDS: Sertraline HCL 100 MG TABLET PO (10:29)
[2021-04-12] MEDS: Multivitamin TABLET 1 TAB PO (10:29)
[2021-04-12] MEDS: Buprenorphine/Naloxone 8/2 mg FILM 1 FILM SUBLINGUAL ×2 (10:30→14:53)
[2021-04-12] MEDS: Nicotine Polacrilex 2 MG GUM 4 MG BUCCAL ×6 (11:01→22:39)
[2021-04-12] MEDS: hydrOXYzine HCL 50 MG TABLET PO (12:11)
[2021-04-12] MEDS: QUEtiapine Fumarate 50 MG TABLET PO ×2 (12:11→16:41)
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
[2021-04-12] MEDS: QUEtiapine Fumarate 100 MG TABLET PO (22:38)
[2021-04-12] MEDS: Sennosides 8.6 MG TABLET PO (22:38)
[2021-04-12] MEDS: traZODone HCL 100 MG TABLET PO (22:38)
[2021-04-12] MEDS: hydrOXYzine HCL 25 MG TABLET PO (22:38)
[2021-04-12 22:40] VITALS: BP 106/57; PULSE 89; TEMP 37.2; O2SAT 97
[2021-04-13] MEDS: QUEtiapine Fumarate 50 MG TABLET PO ×4 (00:01→23:52)
[2021-04-13 09:08] VITALS: BP 118/63; PULSE 73; RESP 18; TEMP 36.4; O2SAT 98
[2021-04-13] MEDS: cloNIDine HCL 0.1 MG TABLET PO ×2 (10:19→22:23)
[2021-04-13] MEDS: Multivitamin TABLET 1 TAB PO (10:20)
[2021-04-13] MEDS: Sertraline HCL 100 MG TABLET PO (10:20)
[2021-04-13] MEDS: Buprenorphine/Naloxone 8/2 mg FILM 1 FILM SUBLINGUAL ×2 (10:20→13:24)
[2021-04-13] MEDS: Ferrous Sulfate 324 MG TABLET.DR PO (10:20)
[2021-04-13] MEDS: Nicotine Polacrilex 2 MG GUM 4 MG BUCCAL ×4 (11:08→22:24)
[2021-04-13] MEDS: hydrOXYzine HCL 50 MG TABLET PO (12:12)
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
[2021-04-13 20:17] VITALS: BP 100/60; PULSE 86; TEMP 36.7; O2SAT 98
[2021-04-13] MEDS: traZODone HCL 100 MG TABLET PO (22:23)
[2021-04-13] MEDS: Sennosides 8.6 MG TABLET PO (22:23)
[2021-04-13] MEDS: hydrOXYzine HCL 25 MG TABLET PO (22:23)
[2021-04-13] MEDS: QUEtiapine Fumarate 100 MG TABLET PO (22:25)
[2021-04-13 22:27] VITALS: BP 106/63; PULSE 77; O2SAT 98
[2021-04-14 10:35] VITALS: BP 108/61; PULSE 86; RESP 15; TEMP 36.6; O2SAT 99
[2021-04-14] MEDS: Multivitamin TABLET 1 TAB PO (10:37)
[2021-04-14] MEDS: cloNIDine HCL 0.1 MG TABLET PO ×2 (10:37→21:34)
[2021-04-14] MEDS: Buprenorphine/Naloxone 8/2 mg FILM 1 FILM SUBLINGUAL ×2 (10:37→14:58)
[2021-04-14] MEDS: Ferrous Sulfate 324 MG TABLET.DR PO (10:38)
[2021-04-14] MEDS: Sertraline HCL 100 MG TABLET PO (10:38)
[2021-04-14] MEDS: Nicotine Polacrilex 2 MG GUM 4 MG BUCCAL ×5 (11:11→21:34)
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
[2021-04-14] MEDS: hydrOXYzine HCL 50 MG TABLET PO ×2 (12:03→18:40)
[2021-04-14] MEDS: QUEtiapine Fumarate 50 MG TABLET PO ×2 (12:03→16:36)
[2021-04-14 18:00] VITALS: BP 101/70; PULSE 101; RESP 18; TEMP 36.6; O2SAT 96
[2021-04-14] MEDS: traZODone HCL 100 MG TABLET PO (21:34)
[2021-04-14] MEDS: QUEtiapine Fumarate 100 MG TABLET PO (21:34)
[2021-04-14] MEDS: Sennosides 8.6 MG TABLET PO (21:34)
[2021-04-15 06:00] VITALS: BP 106/56; PULSE 63; TEMP 36.5; O2SAT 99
[2021-04-15] MEDS: Sertraline HCL 100 MG TABLET PO (09:50)
[2021-04-15] MEDS: Multivitamin TABLET 1 TAB PO (09:50)
[2021-04-15] MEDS: cloNIDine HCL 0.1 MG TABLET PO ×2 (09:50→22:28)
[2021-04-15] MEDS: Buprenorphine/Naloxone 8/2 mg FILM 1 FILM SUBLINGUAL ×2 (09:50→14:18)
[2021-04-15] MEDS: Ferrous Sulfate 324 MG TABLET.DR PO (09:50)
[2021-04-15] MEDS: Nicotine Polacrilex 2 MG GUM 4 MG BUCCAL ×6 (10:45→21:19)
[2021-04-15] MEDS: hydrOXYzine HCL 50 MG TABLET PO ×2 (12:19→18:22)
[2021-04-15] MEDS: QUEtiapine Fumarate 50 MG TABLET PO ×3 (12:19→23:34)
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
[2021-04-15 18:00] VITALS: BP 106/56; PULSE 93; TEMP 36.8; O2SAT 93
[2021-04-15] MEDS: traZODone HCL 100 MG TABLET PO ×2 (22:28→23:34)
[2021-04-15] MEDS: Sennosides 8.6 MG TABLET PO (22:28)
[2021-04-15] MEDS: QUEtiapine Fumarate 100 MG TABLET PO (22:28)
[2021-04-15 22:30] VITALS: BP 112/60; PULSE 85; RESP 16; TEMP 37; O2SAT 95
[2021-04-16 10:00] VITALS: BP 95/54; PULSE 73; RESP 16; TEMP 36.8; O2SAT 97
[2021-04-16] MEDS: Multivitamin TABLET 1 TAB PO (11:06)
[2021-04-16] MEDS: Sertraline HCL 100 MG TABLET PO (11:06)
[2021-04-16] MEDS: cloNIDine HCL 0.1 MG TABLET PO ×2 (11:06→22:25)
[2021-04-16] MEDS: Ferrous Sulfate 324 MG TABLET.DR PO (11:06)
[2021-04-16] MEDS: Buprenorphine/Naloxone 8/2 mg FILM 1 FILM SUBLINGUAL ×2 (11:06→15:29)
[2021-04-16] MEDS: Nicotine Polacrilex 2 MG GUM 4 MG BUCCAL ×4 (11:59→18:27)
[2021-04-16] MEDS: QUEtiapine Fumarate 50 MG TABLET PO ×3 (12:00→22:25)
[2021-04-16] MEDS: hydrOXYzine HCL 50 MG TABLET PO ×2 (12:00→18:26)
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
[2021-04-16 22:20] VITALS: BP 109/60; PULSE 98; TEMP 36.8; O2SAT 97
[2021-04-16] MEDS: Sennosides 8.6 MG TABLET PO (22:24)
[2021-04-16] MEDS: traZODone HCL 100 MG TABLET PO (22:25)
[2021-04-17 09:13] VITALS: BP 110/57; PULSE 76; RESP 16; TEMP 36.7; O2SAT 98
[2021-04-17] MEDS: cloNIDine HCL 0.1 MG TABLET PO (09:15)
[2021-04-17] MEDS: Multivitamin TABLET 1 TAB PO (09:15)
[2021-04-17] MEDS: Sertraline HCL 100 MG TABLET PO (09:15)
[2021-04-17] MEDS: Ferrous Sulfate 324 MG TABLET.DR PO (09:15)
[2021-04-17] MEDS: Buprenorphine/Naloxone 8/2 mg FILM 1 FILM SUBLINGUAL (10:09)
[2021-04-17] MEDS: Nicotine Polacrilex 2 MG GUM 4 MG BUCCAL ×2 (10:43→12:40)
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
[2021-04-17] MEDS: QUEtiapine Fumarate 50 MG TABLET PO (12:07)
[2021-04-17] MEDS: hydrOXYzine HCL 50 MG TABLET PO (12:07)
--- NOTE | 2021-04-17 12:29 | PC.NURSE ---
PT asked to speak with RN, states that he feels very unsafe with discharge plan reporting that he would feel safer if discharged on thursday due to his cousin being home at that time. PT states that he hid a knife outside the hospital and will slash himself right outside . PT states he has spoken with his insurance company and does not believe that insurance is the reason he is being discharged. PT states he feels like if discharged he will harm himself. PT unable to think of anything that would keep him safe at this time. Provider aware of pt's statements.
--- NOTE | 2021-04-17 13:37 | PC.NURSE ---
Pt aware of discharge. Pt coninutes to report SI with plan, provider and administration aware. States he wants his suboxone appointment in two weeks instead of tomorrow due to his work schedule. All discharge instructions discussed, al questions answered. PT aware of therapy appointment today and all other follow up appointments. PT declined lyft to appointment today stating he will walk. Belongings returned. PT ambulated off unit with steady gait.
== END 2021-04-17 13:39 | disposition home or self-care (01) | DRG 751 ==
LOC: HO.ED 07:15 → HO.PADLT16 03-31 11:23
PROVIDERS: Physician Assistant; Psychiatry & Neurology Psychiatry; Admitting Provider Psychiatry & Neurology Psychiatry; Emergency Provider Student in an Organized Health Care Education/Training Program; PCP Family Medicine; Visit Provider Psychiatry & Neurology Psychiatry
DX: F33.3 Major depressive disorder, recurrent, severe with psychotic symptoms (principal); R45.851 Suicidal ideations; F11.20 Opioid dependence, uncomplicated; F14.10 Cocaine abuse, uncomplicated; F17.210 Nicotine dependence, cigarettes, uncomplicated; Z20.822 Contact with and (suspected) exposure to COVID-19; Z71.6 Tobacco abuse counseling; Z79.899 Other long term (current) drug therapy
CPT/HCPCS: 36415; 80053; 80307; 85025; 87635; 93005; 99285

== ENCOUNTER 2021-04-17 14:34 | Emergency (ER) | payer OTHER, SELFPAY ==
[2021-04-17 14:37] VITALS: BP 134/68; PULSE 98; RESP 16; TEMP 37.4; O2SAT 98; BMI 22.8
--- NOTE | 2021-04-17 15:02 | ED_ITS ---
HPI - Psych General Chief Complaint: Psychiatric Symptoms Stated Complaint: crisis Time Seen by Provider: 04/17/21 15:02 Source: patient Mode of arrival: ambulatory Limitations: no limitations History of Present Illness HPI Narrative: 31-year-old male past medical history significant for major depression, opiate use disorder, cocaine use disorder presenting to the emergency department with suicidal ideation without a plan. Patient tells me that he was recently discharged from here to a friend's house and he does not feel like he is safe at his friend's house. He tells me that he would feel safe going to his cousin's house however his cousin is not home until tomorrow. Patient tells me the reason why he does not feel safe is because all his friends use drugs and he does not want to use drugs. Patient denies visual, auditory and tactile hallucinations. Patient tells me that since he has been discharge she has not had any drugs, alcohol or tobacco. He tells me he feels unsafe and suicidal at his friend's house however, at this time he is feeling a little bit better because he feels safe here. He denies medical complaints at this time. MD complaint: suicidal ideation Onset (ago): day(s) (1) Duration: constant History of same: Yes Relieving factors: none Exacerbating factors: none Associated psychiatric symptoms: depression and suicidal ideation Associated symptoms: denies other symptoms Treatments prior to arrival: none If self harm: admits thoughts of self harm Related Data Home Medications Medication Instructions Recorded Confirmed clonidine HCl 0.1 mg tablet 1 tab PO BID 03/18/21 03/30/21 sennosides 8.6 mg tablet (senna) 8.6 mg PO BEDTIME 03/18/21 03/30/21 Previous Rx's Medication Instructions Recorded ferrous sulfate 324 mg (65 mg 324 mg PO DAILY #30 tab 03/21/21 iron) tablet,delayed release multivitamin (Daily-Echo) 1 tab PO DAILY #30 tab 03/21/21 quetiapine 50 mg tablet 50 mg PO BEDTIME #30 tab 03/21/21 buprenorphine 8 mg-naloxone 2 mg 1 film SUBLINGUAL BID 1 Days #2 ea 04/17/21 sublingual film (Suboxone) nicotine (polacrilex) 2 mg gum 4 mg BUCCAL Q2H PRN 30 Days #300 ea 04/17/21 sertraline 100 mg tablet 100 mg PO DAILY 30 Days #30 tab 04/17/21 trazodone 100 mg tablet 100 mg PO BEDTIME 30 Days #30 tab 04/17/21 Allergies Allergy/AdvReac Type Severity Reaction Status Date / Time No Known Allergies Allergy Verified 04/17/21 14:39 [No Known Allergies*] Review of Systems Verdana 4l Review of Systems: Verdana 4d Verdana 4d Constitutional : No Fever, No Chills ENT/Mouth : No sore throat, No Rhinorrhea Eyes: No Eye Pain, No Swelling, No Redness Cardiovascular : No Chest Pain, No SOB Respiratory : No Cough, No Sputum Gastrointestinal : No Nausea, No Vomiting,, No Diarrhea, No abdominal Pain Genitourinary : No Dysuria, No Hematuria Musculoskeletal : No joint pain, No Myalgias, No Joint Swelling Skin : No Skin Lesions, No rash Neuro : No Weakness, No Numbness Psych : No Anxiety, No Depression, + SI No HI/AH/VH All other systems reviewed and are negative Yes all other systems are reviewed and are negative [facility] Past Medical History Attestation statement: The following information was validated with the patient. Source: old records reviewed and nursing notes reviewed Medical History Opioid use disorder Social History Social History Household Members: Family Household Members Other:: Mother and Sister Housing: Apartment Do you presently have visiting nurse or other home services: No Unable to assess alcohol history related to: Refusing to respond Patient Tobacco Use Status: Current everyday Tobacco user Tobacco use type: Cigarette Cigarette Packs Per Day: 1 Cigarettes Per Day: 20.0 Second Hand Smoke Exposure: No Substance Use Type: Crack/Cocaine, Heroin, Marijuana and Opiates Advance Directives: No Advance Directives Information Provided: No service: No Sexual orientation: Straight/Heterosexual Physical Exam Verdana 4l Vital Signs: Verdana 4d Verdana 4d Vital Signs: Verdana 4d Verdana 4Bd Last Vital Signs Verdana 4d 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 Oriented X3.? No acute distress.? Head: Normocephalic, atraumatic, no step-offs or deformities Eyes: Pupils equal, round and reactive to light.? ENT: Pharynx normal.? Neck: Normal inspection.? Neck supple.? CVS: Normal heart rate and rhythm.? Pulses normal.? Respiratory: No respiratory distress.? Breath sounds normal.? Abdomen: Soft and nontender.? Skin: Skin warm and dry.? Normal skin color.? Normal skin turgor.? Extremities: No lower extremity edema.? No calf ttp. 5/5 strength to bilateral upper and lower extremities Back: No midline tenderness, no C-spine tenderness, full range of motion, no CVA tenderness bilaterally Neuro: Oriented X 3.? No motor deficit.? No sensory deficit. CN 2 -12 intact Course Reevaluation(s) Reevaluation #1: No acute changes on laboratory studies. Clara from the care team tells me patient will be discharged to the living room, he should follow up with all his outpatient providers. I agree with this plan. Comfortable with discharge. Time: 16:17 MDM - Psych MDM Narrative Medical decision making narrative: 1504 31 yo m pmhx opiate use d/o, MDD presents to ED w/ suicidal ideation w/o a plan. D/c from [facility] today he was there from 03/19/22- today at 11:52am. It looks like patient was discharged home on nicotine patches, sertraline and trazodone. He feels unsafe at his friend's house because they all use drugs any feel suicidal there. No medical complaints. PE benign Plan- basic labs, covid, ballard, ethanol Medical Records Attestation: I reviewed the patient's medical records. Lab Data Attestation: I reviewed the patient's lab results. Result diagrams: 04/17/21 15:36 04/17/21 15:36 Labs: Lab Results 04/17/21 04/17/21 04/17/21 Range/Units 15:36 15:36 15:36 WBC 10.2 (4.8-10.8) X10*3/uL RBC 3.80 L (4.60-5.80) X10*6/uL Hgb 12.0 L (14.0-18.0) g/dl Hct 35.3 L (42.0-52.0) % MCV 92.9 (80.0-98.0) fL MCH 31.6 (27.0-33.0) pg MCHC 34.0 (31.0-36.0) g/dl RDW 13.4 (11.0-16.0) % Plt Count 234 (160-400) X10*3/uL MPV 9.8 (9.4-12.4) fL Immature Gran % (Auto) 0.3 (0.0-0.4) % Neut % (Auto) 73.5 H (45-73) % Lymph % (Auto) 18.1 L (20-40) % [place] % (Auto) 6.4 (2-11) % Eos % (Auto) 1.4 (0-4) % Baso % (Auto) 0.3 (0-2) % Lymph # (Auto) 1.8 (1.2-4.9) X10*3/uL [place] # (Auto) 0.7 (0.1-1.2) X10*3/uL Eos # (Auto) 0.1 (0.0-0.4) X10*3/uL Baso # (Auto) 0.0 (0.0-0.2) X10*3/uL Abs Immat Gran (auto) 0.03 (0.00-0.03) X10*3/uL Absolute Neuts (auto) 7.5 (2.0-8.3) x10*3/uL Absolute Nucleated RBC 0.000 (0.0-0.012) X10*3/uL Nucleated RBC % (auto) 0.0 (0.0-0.2) /100WBC Sodium 138 (135-145) mmol/L Potassium 3.8 (3.3-5.1) mmol/L Chloride 101 (96-108) mmol/L Carbon Dioxide 28 (22-29) mmol/L Anion Gap 13 (12-20) BUN 21 H (9-16) mg/dL Creatinine 0.76 (0.5-1.4) mg/dL Estim Creat Clear Calc 133.0 Estimated GFR > 60 Random Glucose 122 H (60-115) mg/dL Calcium 9.8 (8.4-10.2) mg/dL Magnesium 1.8 (1.6-2.6) mg/dL Total Bilirubin 0.2 (0.0-1.0) mg/dL AST 26 D (5-37) U/L ALT 47 H (0-40) U/L Alkaline Phosphatase 59 (39-117) U/L Total Protein 6.9 (6.5-8.0) g/dL Albumin 4.0 (3.5-5.0) g/dL Urine Opiates Screen (Not Detect) Urine Fentanyl Screen (Not Detect) Ur Barbiturates Screen (Not Detect) Ur Phencyclidine Scrn (Not Detect) Ur Amphetamines Screen (Not Detect) U Benzodiazepines Scrn (Not Detect) Urine Cocaine Screen (Not Detect) U Marijuana (THC) Screen (Not Detect) Ethyl Alcohol mg/dL COVID-19 (TIKA) Negative (Negative) COVID-19 Clin Com See Note 04/17/21 04/17/21 Range/Units 15:36 15:49 WBC (4.8-10.8) X10*3/uL RBC (4.60-5.80) X10*6/uL Hgb (14.0-18.0) g/dl Hct (42.0-52.0) % MCV (80.0-98.0) fL MCH (27.0-33.0) pg MCHC (31.0-36.0) g/dl RDW (11.0-16.0) % Plt Count (160-400) X10*3/uL MPV (9.4-12.4) fL Immature Gran % (Auto) (0.0-0.4) % Neut % (Auto) (45-73) % Lymph % (Auto) (20-40) % [place] % (Auto) (2-11) % Eos % (Auto) (0-4) % Baso % (Auto) (0-2) % Lymph # (Auto) (1.2-4.9) X10*3/uL [place] # (Auto) (0.1-1.2) X10*3/uL Eos # (Auto) (0.0-0.4) X10*3/uL Baso # (Auto) (0.0-0.2) X10*3/uL Abs Immat Gran (auto) (0.00-0.03) X10*3/uL Absolute Neuts (auto) (2.0-8.3) x10*3/uL Absolute Nucleated RBC (0.0-0.012) X10*3/uL Nucleated RBC % (auto) (0.0-0.2) /100WBC Sodium (135-145) mmol/L Potassium (3.3-5.1) mmol/L Chloride (96-108) mmol/L Carbon Dioxide (22-29) mmol/L Anion Gap (12-20) BUN (9-16) mg/dL Creatinine (0.5-1.4) mg/dL Estim Creat Clear Calc Estimated GFR Random Glucose (60-115) mg/dL Calcium (8.4-10.2) mg/dL Magnesium (1.6-2.6) mg/dL Total Bilirubin (0.0-1.0) mg/dL AST (5-37) U/L ALT (0-40) U/L Alkaline Phosphatase (39-117) U/L Total Protein (6.5-8.0) g/dL Albumin (3.5-5.0) g/dL Urine Opiates Screen Not Detected (Not Detect) Urine Fentanyl Screen POSITIVE H (Not Detect) Ur Barbiturates Screen Not Detected (Not Detect) Ur Phencyclidine Scrn Not Detected (Not Detect) Ur Amphetamines Screen Not Detected (Not Detect) U Benzodiazepines Scrn Not Detected (Not Detect) Urine Cocaine Screen Not Detected (Not Detect) U Marijuana (THC) Screen Not Detected (Not Detect) Ethyl Alcohol < 10 mg/dL COVID-19 (TIKA) (Negative) COVID-19 Clin Com Critical Care Time Critical Care Time Critical Care Time: No Discharge Plan Discharge Clinical Impression: Acute anxiety, Depression Patient Disposition: Xfer Other Transfer Details: Patient will be going to the living room. Additional Instructions: Take your medications as prescribed. If you were prescribed antibiotics today, it is important that you take your medication to their entirety, do not skip any doses, do not finish them early. Follow-up with your primary care provider this week. Return to the emergency department with new or worsening symptoms. In case of emergency call 911 Prescriptions: No Action nicotine (polacrilex) 2 mg Gum 4 mg buccal Q2H PRN (Reason: Nicotine Cravings) 30 Days Qty: 300 0RF sertraline 100 mg Tablet 100 mg PO DAILY 30 Days Qty: 30 0RF trazodone 100 mg Tablet 100 mg PO BEDTIME 30 Days Qty: 30 0RF buprenorphine-naloxone [Suboxone] 8-2 mg film 1 film sublingual BID 1 Days Qty: 2 0RF sennosides [senna] 8.6 mg tablet 8.6 mg PO BEDTIME 0RF clonidine HCl 0.1 mg tablet 1 tab PO BID 0RF multivitamin [Daily-Echo] Tablet 1 tab PO DAILY Qty: 30 0RF quetiapine 50 mg Tablet 50 mg PO BEDTIME Qty: 30 0RF ferrous sulfate 324 mg (65 mg iron) Tablet,Delayed Release (Dr/Ec) 324 mg PO DAILY Qty: 30 0RF Referrals: Dilma Queen MD [Primary Care Provider] - 2 days Stand Alone Forms: Work/School Release
[2021-04-17 15:43] LABS: MANUAL DIFF FLAG NO
[2021-04-17 15:44] LABS: Basophils Percent Auto 0.3 % (0-2); Eosinophils Absolute Auto 0.1 X10*3/uL (0.0-0.4); Eosinophils Percent Auto 1.4 % (0-4); Hematocrit 35.3 % (42.0-52.0); Imm Gran Abs Auto 0.03 X10*3/uL (0.00-0.03); Imm Gran Pct Auto 0.3 % (0.0-0.4); Lymphocytes Absolute Auto 1.8 X10*3/uL (1.2-4.9); Lymphocytes Percent Auto 18.1 % (20-40); Mean Corpuscular Hemoglobin 31.6 pg (27.0-33.0); Mean Corpuscular Volume 92.9 fL (80.0-98.0); Mean Platelet Volume 9.8 fL (9.4-12.4); Monocytes Absolute Auto 0.7 X10*3/uL (0.1-1.2); Monocytes Percent Auto 6.4 % (2-11); Neutrophils Absolute Auto 7.5 x10*3/uL (2.0-8.3); Neutrophils Percent Auto 73.5 % (45-73); Platelet Count 234 X10*3/uL (160-400); Red Cell Distribution Width 13.4 % (11.0-16.0); White Blood Count 10.2 X10*3/uL (4.8-10.8)
[2021-04-17 15:59] LABS: COVID-19 Test Negative (Negative); Ethanol < 10 mg/dL; IDNOW Serial# 9DD0AD1C
[2021-04-17 16:01] LABS: Alanine Aminotransferase 47 U/L (0-40); Alkaline Phosphatase 59 U/L (39-117); Anion Gap 13 (12-20); Aspartate Amino Transferase 26 U/L (5-37); Bilirubin Total 0.2 mg/dL (0.0-1.0); Blood Urea Nitrogen 21 mg/dL (9-16); Calcium 9.8 mg/dL (8.4-10.2); Carbon Dioxide 28 mmol/L (22-29); Chloride 101 mmol/L (96-108); Estimated Glomerular Filt Rate > 60; Glucose Random 122 mg/dL (60-115); Magnesium 1.8 mg/dL (1.6-2.6); Potassium 3.8 mmol/L (3.3-5.1); Sodium 138 mmol/L (135-145); Total Protein 6.9 g/dL (6.5-8.0)
[2021-04-17 16:14] LABS: Amphetamine Screen Urine Not Detected (Not Detect); Appearance Urine CLEAR; Barbiturates, Urine Not Detected (Not Detect); Benzodiazepines Screen Urine Not Detected (Not Detect); Cannabinoid Screen Urine Not Detected (Not Detect); Cocaine Screen Urine Not Detected (Not Detect); Color Urine YELLOW; Fentanyl, urine POSITIVE (Not Detect); Glucose Urine UA NEG (NEG); Leukocyte Esterase Urine NEG (NEG); Nitrite Urine NEG (NEG); Opiate Screen Urine Not Detected (Not Detect); Phencyclidine Screen Urine Not Detected (Not Detect); Specific Gravity - Urine <= 1.005 (1.005-1.025); UACC Culture Trigger NO; Urine Blood 3+ (NEG); Urine Ketones NEG (NEG); Urine Protein NEG (NEG-TRACE)
--- NOTE | 2021-04-17 16:22 | MHC.CARE ---
CARE Team spoke with Dr. Armendariz regarding Pt being discharged today from [facility]. Dr. Armendariz is agreement with plan for Pt to be discharged from the ED and would not benefit from a IPL[facility] admission. CARE Team spoke with MIRNA Hernandez who is in agreement with plan for discharge.
[2021-04-17 17:09] LABS: Squamous Epithelial Cell Urine 1+ /LPF; WBC Urine 0-2 /HPF (0-4)
== END 2021-04-17 17:42 | disposition other institution (70) ==
PROVIDERS: Physician Assistant; Emergency Provider Emergency Medicine; PCP Family Medicine
DX: F41.9 Anxiety disorder, unspecified (principal); F32.9 Major depressive disorder, single episode, unspecified; R45.851 Suicidal ideations; Z20.822 Contact with and (suspected) exposure to COVID-19; F17.200 Nicotine dependence, unspecified, uncomplicated; F11.20 Opioid dependence, uncomplicated; Z79.899 Other long term (current) drug therapy
CPT/HCPCS: 36415; 80053; 80307; 81001; 81003; 82077; 83735; 85025; 87635; 99283; 99284

== ENCOUNTER → 2021-04-18 10:19 | Outpatient (BNVA) | payer OTHER, SELFPAY | PROVIDERS: PCP Family Medicine; Visit Provider Nurse Practitioner Psychiatric/Mental Health | DX: F11.20 Opioid dependence, uncomplicated (principal) | CPT/HCPCS: 80305; 99212 ==

== ENCOUNTER → 2021-05-02 11:47 | Outpatient (BNVA) | payer OTHER, SELFPAY | PROVIDERS: PCP Family Medicine; Visit Provider Nurse Practitioner Psychiatric/Mental Health | DX: Z51.81 Encounter for therapeutic drug level monitoring (principal); F11.20 Opioid dependence, uncomplicated | CPT/HCPCS: 80305; 99212 ==

== ENCOUNTER 2021-05-07 05:45 | Inpatient (IN) | payer OTHER, SELFPAY ==
[2021-05-07 05:55] VITALS: BP 110/57; PULSE 82; RESP 16; TEMP 36.9; O2SAT 98; BMI 22.0
[2021-05-07 06:00] VITALS: BP 120/71; PULSE 80; RESP 16; TEMP 35.4; O2SAT 99
--- NOTE | 2021-05-07 06:33 | ED_ITS ---
HPI - Psych General Chief Complaint: Psychiatric Symptoms Stated Complaint: crisis Time Seen by Provider: 05/07/21 06:33 Source: patient and old records reviewed Mode of arrival: ambulatory Limitations: no limitations History of Present Illness MD complaint: suicidal ideation and feels depressed Onset (ago): day(s) Duration: getting worse History of same: Yes Relieving factors: none Exacerbating factors: drug use Context: recent drug abuse, not taking psychiatric medications and significant life stressor (homeless) Associated psychiatric symptoms: depression and suicidal ideation Associated symptoms: denies other symptoms Treatments prior to arrival: none If self harm: admits thoughts of self harm and has plan Related Data Home Medications Medication Instructions Recorded Confirmed clonidine HCl 0.1 mg tablet 1 tab PO BID 03/18/21 03/30/21 sennosides 8.6 mg tablet (senna) 8.6 mg PO BEDTIME 03/18/21 03/30/21 Previous Rx's Medication Instructions Recorded ferrous sulfate 324 mg (65 mg 324 mg PO DAILY #30 tab 03/21/21 iron) tablet,delayed release multivitamin (Daily-Echo) 1 tab PO DAILY #30 tab 03/21/21 quetiapine 50 mg tablet 50 mg PO BEDTIME #30 tab 03/21/21 nicotine (polacrilex) 2 mg gum 4 mg BUCCAL Q2H PRN 30 Days #300 ea 04/17/21 sertraline 100 mg tablet 100 mg PO DAILY 30 Days #30 tab 04/17/21 trazodone 100 mg tablet 100 mg PO BEDTIME 30 Days #30 tab 04/17/21 buprenorphine 8 mg-naloxone 2 mg 1 film SUBLINGUAL BID 21 Days #42 05/02/21 sublingual film (Suboxone) ea Allergies Allergy/AdvReac Type Severity Reaction Status Date / Time No Known Allergies Allergy Verified 05/02/21 11:48 [No Known Allergies*] Review of Systems Review of Systems: Constitutional : No Fever, No Chills ENT/Mouth : No Ear Pain, No Nasal Congestion, No sore throat Eyes: No Eye Pain, No Swelling, No Redness Cardiovascular : No Chest Pain, No SOB Respiratory : No Cough, No Sputum, No Dyspnea Gastrointestinal : No Nausea, No Vomiting, No Diarrhea, No Hematochezia, No Melena Genitourinary : No Dysuria, No Urinary Frequency, No Hematuria Musculoskeletal : No Myalgias Skin : No Skin Lesions, No rash Neuro : No Weakness, No Numbness, No Paresthesias, No Dizziness, No Headache Psych : positive Anxiety, positive Depression, positive SI no HI Heme/Lymph: No Lymphadenopathy Endocrine : No Polyuria, No Polydipsia All other systems reviewed and are negative [facility] Past Medical History Attestation statement: The following information was validated with the patient. Medical History Opioid use disorder Severe recurrent major depression with psychotic features Suicidal ideation Social History Social History Household Members: Family Household Members Other:: Mother and Sister Housing: Apartment Do you presently have visiting nurse or other home services: No Unable to assess alcohol history related to: Refusing to respond Patient Tobacco Use Status: Current everyday Tobacco user Tobacco use type: Cigarette Cigarette Packs Per Day: 1 Cigarettes Per Day: 20.0 Second Hand Smoke Exposure: No Substance Use Type: Crack/Cocaine, Heroin, Marijuana and Opiates Advance Directives: No service: No Sexual orientation: Straight/Heterosexual Physical Exam Vital Signs: Vital Signs: Last Vital Signs Temp 95.7 F L 05/07/21 06:00 Pulse 80 05/07/21 06:00 Resp 16 05/07/21 06:00 BP 120/71 05/07/21 06:00 Pulse Ox 99 05/07/21 06:00 BMI result Body Mass Index 22.0 Appearance: Alert. Oriented X3. No acute distress. Calm and cooperative, but appears slightly under the influence Eyes: Pupils equal, round and reactive to light. ENT: Pharynx normal. Neck: Normal inspection. Neck supple. CVS: Normal heart rate and rhythm. Pulses normal. Respiratory: No respiratory distress. Breath sounds normal. Abdomen: Soft and nontender. Skin: Skin warm and dry. Normal skin color. Normal skin turgor. Extremities: No lower extremity edema. No calf ttp Neuro: Oriented X 3. No motor deficit. No sensory deficit. Cn2-12 intact Course Course Course Narrative: Physician observation started at 1036am Patient placed in physician observation because the patient needed more time for BHN to assess the need for psych admission. At the time observation was started the patient's vitals were stab le, patient is alert and oriented but slightly agitated, Neuro: nonfocal, CV RRR, Lungs clear MDM - Psych MDM Narrative Medical decision making narrative: 31 yo male with substance abuse and mental health issues here with c/o depression and SI at this time no medical complaints will obtain labs and N consult. Lab Data Result diagrams: 05/07/21 07:35 05/07/21 07:35 Labs: Lab Results 05/07/21 05/07/21 05/07/21 Range/Units 06:03 07:35 07:35 WBC 14.6 H (4.8-10.8) X10*3/uL RBC 3.95 L (4.60-5.80) X10*6/uL Hgb 12.3 L (14.0-18.0) g/dl Hct 36.2 L (42.0-52.0) % MCV 91.6 (80.0-98.0) fL MCH 31.1 (27.0-33.0) pg MCHC 34.0 (31.0-36.0) g/dl RDW 13.2 (11.0-16.0) % Plt Count 195 (160-400) X10*3/uL MPV 9.7 (9.4-12.4) fL Immature Gran % (Auto) 0.2 (0.0-0.4) % Neut % (Auto) 81.1 H (45-73) % Lymph % (Auto) 11.8 L (20-40) % [place] % (Auto) 6.1 (2-11) % Eos % (Auto) 0.5 (0-4) % Baso % (Auto) 0.3 (0-2) % Lymph # (Auto) 1.7 (1.2-4.9) X10*3/uL [place] # (Auto) 0.9 (0.1-1.2) X10*3/uL Eos # (Auto) 0.1 (0.0-0.4) X10*3/uL Baso # (Auto) 0.0 (0.0-0.2) X10*3/uL Abs Immat Gran (auto) 0.03 (0.00-0.03) X10*3/uL Absolute Neuts (auto) 11.9 H (2.0-8.3) x10*3/uL Absolute Nucleated RBC 0.000 (0.0-0.012) X10*3/uL Nucleated RBC % (auto) 0.0 (0.0-0.2) /100WBC Sodium 136 (135-145) mmol/L Potassium 3.4 (3.3-5.1) mmol/L Chloride 97 (96-108) mmol/L Carbon Dioxide 32 H (22-29) mmol/L Anion Gap 10 L (12-20) BUN 12 (9-16) mg/dL Creatinine 0.73 (0.5-1.4) mg/dL Estim Creat Clear Calc 133.8 Estimated GFR > 60 Random Glucose 156 H (60-115) mg/dL Calcium 9.8 (8.4-10.2) mg/dL Total Bilirubin 1.2 H (0.0-1.0) mg/dL Direct Bilirubin 0.6 H (0.0-0.5) mg/dL AST 23 (5-37) U/L ALT 12 (0-40) U/L Alkaline Phosphatase 55 (39-117) U/L Total Protein 7.3 (6.5-8.0) g/dL Albumin 4.5 (3.5-5.0) g/dL Urine Opiates Screen (Not Detect) Urine Fentanyl Screen (Not Detect) Ur Barbiturates Screen (Not Detect) Ur Phencyclidine Scrn (Not Detect) Ur Amphetamines Screen (Not Detect) U Benzodiazepines Scrn (Not Detect) Urine Cocaine Screen (Not Detect) U Marijuana (THC) Screen (Not Detect) COVID-19 (TIKA) Negative (Negative) COVID-19 Clin Com See Note 05/07/21 Range/Units 14:23 WBC (4.8-10.8) X10*3/uL RBC (4.60-5.80) X10*6/uL Hgb (14.0-18.0) g/dl Hct (42.0-52.0) % MCV (80.0-98.0) fL MCH (27.0-33.0) pg MCHC (31.0-36.0) g/dl RDW (11.0-16.0) % Plt Count (160-400) X10*3/uL MPV (9.4-12.4) fL Immature Gran % (Auto) (0.0-0.4) % Neut % (Auto) (45-73) % Lymph % (Auto) (20-40) % [place] % (Auto) (2-11) % Eos % (Auto) (0-4) % Baso % (Auto) (0-2) % Lymph # (Auto) (1.2-4.9) X10*3/uL [place] # (Auto) (0.1-1.2) X10*3/uL Eos # (Auto) (0.0-0.4) X10*3/uL Baso # (Auto) (0.0-0.2) X10*3/uL Abs Immat Gran (auto) (0.00-0.03) X10*3/uL Absolute Neuts (auto) (2.0-8.3) x10*3/uL Absolute Nucleated RBC (0.0-0.012) X10*3/uL Nucleated RBC % (auto) (0.0-0.2) /100WBC Sodium (135-145) mmol/L Potassium (3.3-5.1) mmol/L Chloride (96-108) mmol/L Carbon Dioxide (22-29) mmol/L Anion Gap (12-20) BUN (9-16) mg/dL Creatinine (0.5-1.4) mg/dL Estim Creat Clear Calc Estimated GFR Random Glucose (60-115) mg/dL Calcium (8.4-10.2) mg/dL Total Bilirubin (0.0-1.0) mg/dL Direct Bilirubin (0.0-0.5) mg/dL AST (5-37) U/L ALT (0-40) U/L Alkaline Phosphatase (39-117) U/L Total Protein (6.5-8.0) g/dL Albumin (3.5-5.0) g/dL Urine Opiates Screen POSITIVE H (Not Detect) Urine Fentanyl Screen POSITIVE H (Not Detect) Ur Barbiturates Screen Not Detected (Not Detect) Ur Phencyclidine Scrn Not Detected (Not Detect) Ur Amphetamines Screen Not Detected (Not Detect) U Benzodiazepines Scrn Not Detected (Not Detect) Urine Cocaine Screen POSITIVE H (Not Detect) U Marijuana (THC) Screen POSITIVE H (Not Detect) COVID-19 (TIKA) (Negative) COVID-19 Clin Com Discharge Plan Discharge Clinical Impression: Depression Qualifiers: Depression Type: unspecified Qualified Code(s): F32.A - Depression, unspecified Patient Disposition: Still a Patient Prescriptions: No Action nicotine (polacrilex) 2 mg Gum 4 mg buccal Q2H PRN (Reason: Nicotine Cravings) 30 Days Qty: 300 0RF sertraline 100 mg Tablet 100 mg PO DAILY 30 Days Qty: 30 0RF trazodone 100 mg Tablet 100 mg PO BEDTIME 30 Days Qty: 30 0RF sennosides [senna] 8.6 mg tablet 8.6 mg PO BEDTIME 0RF clonidine HCl 0.1 mg tablet 1 tab PO BID 0RF multivitamin [Daily-Echo] Tablet 1 tab PO DAILY Qty: 30 0RF quetiapine 50 mg Tablet 50 mg PO BEDTIME Qty: 30 0RF ferrous sulfate 324 mg (65 mg iron) Tablet,Delayed Release (Dr/Ec) 324 mg PO DAILY Qty: 30 0RF buprenorphine-naloxone [Suboxone] 8-2 mg film 1 film sublingual BID 21 Days Qty: 42 0RF
[2021-05-07 06:42] LABS: COVID-19 Test Negative (Negative); IDNOW Serial# 9DD0AD1C
--- NOTE | 2021-05-07 07:24 | MHC.CARE ---
Smart sheet submitted at 0700
--- NOTE | 2021-05-07 07:37 | PC.NURSE ---
pt responding to internal stimuli
[2021-05-07 07:39] LABS: MANUAL DIFF FLAG NO
[2021-05-07 07:40] LABS: Basophils Percent Auto 0.3 % (0-2); Eosinophils Absolute Auto 0.1 X10*3/uL (0.0-0.4); Eosinophils Percent Auto 0.5 % (0-4); Hematocrit 36.2 % (42.0-52.0); Hemoglobin 12.3 g/dl (14.0-18.0); Imm Gran Abs Auto 0.03 X10*3/uL (0.00-0.03); Imm Gran Pct Auto 0.2 % (0.0-0.4); Lymphocytes Absolute Auto 1.7 X10*3/uL (1.2-4.9); Lymphocytes Percent Auto 11.8 % (20-40); Mean Corpuscular Hemoglobin 31.1 pg (27.0-33.0); Mean Corpuscular Volume 91.6 fL (80.0-98.0); Mean Platelet Volume 9.7 fL (9.4-12.4); Monocytes Absolute Auto 0.9 X10*3/uL (0.1-1.2); Monocytes Percent Auto 6.1 % (2-11); Neutrophils Absolute Auto 11.9 x10*3/uL (2.0-8.3); Neutrophils Percent Auto 81.1 % (45-73); Platelet Count 195 X10*3/uL (160-400); Red Blood Count 3.95 X10*6/uL (4.60-5.80); Red Cell Distribution Width 13.2 % (11.0-16.0); White Blood Count 14.6 X10*3/uL (4.8-10.8)
[2021-05-07 08:03] LABS: Alanine Aminotransferase 12 U/L (0-40); Albumin Level 4.5 g/dL (3.5-5.0); Alkaline Phosphatase 55 U/L (39-117); Anion Gap 10 (12-20); Aspartate Amino Transferase 23 U/L (5-37); Bilirubin Direct 0.6 mg/dL (0.0-0.5); Bilirubin Total 1.2 mg/dL (0.0-1.0); Blood Urea Nitrogen 12 mg/dL (9-16); Calcium 9.8 mg/dL (8.4-10.2); Carbon Dioxide 32 mmol/L (22-29); Chloride 97 mmol/L (96-108); Creatinine Clr Calc Pharmacy 133.8; Estimated Glomerular Filt Rate > 60; Glucose Random 156 mg/dL (60-115); Potassium 3.4 mmol/L (3.3-5.1); Sodium 136 mmol/L (135-145); Total Protein 7.3 g/dL (6.5-8.0)
--- NOTE | 2021-05-07 10:08 | PC.NURSE ---
smart sheet sent to [facility]
[2021-05-07 14:53] LABS: Amphetamine Screen Urine Not Detected (Not Detect); Barbiturates, Urine Not Detected (Not Detect); Benzodiazepines Screen Urine Not Detected (Not Detect); Cannabinoid Screen Urine POSITIVE (Not Detect); Cocaine Screen Urine POSITIVE (Not Detect); Fentanyl, urine POSITIVE (Not Detect); Opiate Screen Urine POSITIVE (Not Detect); Phencyclidine Screen Urine Not Detected (Not Detect)
[2021-05-07 15:40] VITALS: BP 112/55; PULSE 59; RESP 14; TEMP 36.2; O2SAT 97
--- NOTE | 2021-05-08 | ECG_ITS ---
Test Reason : CP Blood Pressure : / mmHG Vent. Rate : 053 BPM Atrial Rate : 053 BPM P-R Int : 114 ms QRS Dur : 116 ms QT Int : 446 ms P-R-T Axes : 072 065 043 degrees QTc Int : 418 ms Sinus bradycardia with occasional Premature ventricular complexes Otherwise normal ECG When compared with ECG of 30-MAR-2021 13:15, Premature ventricular complexes are now Present T wave amplitude has decreased in Anterior leads Referred By: Radha Holt Electronically Signed By:SONAL MARTÍNEZ MD
[2021-05-08 06:04] VITALS: BP 108/63; PULSE 55; TEMP 36.9; O2SAT 98
--- NOTE | 2021-05-08 06:34 | PC.NURSE ---
Patient slept through the night, no distress observed/reported, behavior non concerning at this time, med rec completed/provider approved/Mar updated, VSS, disposition per [facility] is section 12 inpatient bed search, will continue to monitor.
--- NOTE | 2021-05-08 07:27 | PC.NURSE ---
patient appears to remain asleep at present respirations are even and unlabored, patient appears in no distress
[2021-05-08] MEDS: Nicotine Polacrilex 2 MG GUM BUCCAL (08:15)
[2021-05-08] MEDS: Sertraline HCL 100 MG TABLET PO (08:15)
[2021-05-08 11:53] LABS: COVID-19 Test Negative (Negative); IDNOW Serial# 55D5AD1C
--- NOTE | 2021-05-08 13:04 | PHA.MEDREC ---
Pharmacy Consult ? Medication Reconciliation RN has completed the medication reconciliation, pharmacy reviewed
[2021-05-08 15:53] VITALS: BP 124/72; PULSE 50; RESP 16; TEMP 37; O2SAT 97
[2021-05-08 18:57] VITALS: BMI 23.8
[2021-05-08] MEDS: Sennosides 8.6 MG TABLET PO (19:42)
[2021-05-08] MEDS: QUEtiapine Fumarate 50 MG TABLET PO (19:42)
[2021-05-08] MEDS: traZODone HCL 100 MG TABLET PO (19:42)
[2021-05-08] MEDS: cloNIDine HCL 0.1 MG TABLET PO (19:43)
--- NOTE | 2021-05-08 21:38 | PC.ADMIT ---
Pt s a 31y/o male admitted on CV for concerns of Suicidal Ideation and Opiate overdose. Pt is alert and oriented X3. VSS. Covid negative and Tox screen positive for Opiates, Fentanyl, Cocaine, Marijuana. Past medical History includes, pulmonary embolism, asthma. Pt is homeless, multiple arrests for Assault and Battery. Pt presents with flat affect and withdrawn but able to make needs known. speech is normal with regular rate tone and rhythm. Pt reports poor sleep and appetite. He has been struggling with housing insecurity and inability to follow through with treatment recommendations on an outpatient basis as a result of his substance use. Poor insight, poor judgement, and poor impulse control. Admision orders obtained.
[2021-05-09] MEDS: Buprenorphine/Naloxone 4/1 mg FILM 1 FILM SUBLINGUAL ×2 (00:02→14:10)
[2021-05-09] MEDS: traZODone HCL 50 MG TABLET PO (01:45)
[2021-05-09] MEDS: hydrOXYzine HCL 25 MG TABLET PO (01:45)
[2021-05-09] MEDS: Acetaminophen 325 MG TABLET 650 MG PO (01:45)
[2021-05-09] MEDS: Sertraline HCL 100 MG TABLET PO (08:17)
[2021-05-09] MEDS: cloNIDine HCL 0.1 MG TABLET PO ×2 (08:18→19:40)
[2021-05-09] MEDS: Ferrous Sulfate 324 MG TABLET.DR PO (08:18)
[2021-05-09] MEDS: Multivitamin TABLET 1 TAB PO (08:18)
[2021-05-09 08:20] VITALS: BP 100/63; PULSE 71; RESP 18; TEMP 37; O2SAT 98
[2021-05-09 14:08] VITALS: PULSE 70
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
[2021-05-09 19:32] VITALS: PULSE 58
[2021-05-09 19:34] VITALS: BP 109/56; PULSE 58
[2021-05-09] MEDS: traZODone HCL 100 MG TABLET PO (19:39)
[2021-05-09] MEDS: Sennosides 8.6 MG TABLET PO (19:40)
[2021-05-09] MEDS: QUEtiapine Fumarate 50 MG TABLET PO (19:40)
[2021-05-10] MEDS: Ferrous Sulfate 324 MG TABLET.DR PO (08:07)
[2021-05-10] MEDS: Multivitamin TABLET 1 TAB PO (08:07)
[2021-05-10] MEDS: Sertraline HCL 50 MG TABLET 150 MG PO (08:07)
[2021-05-10 08:13] VITALS: BP 110/51; PULSE 51; RESP 18; TEMP 36.9; O2SAT 98
[2021-05-10 08:53] LABS: Estimated Average Glucose 103 mg/dL; Hemoglobin A1c % 5.2 %
[2021-05-10 09:01] LABS: Iron 48 mcg/dL (45-160)
[2021-05-10 09:22] LABS: Percent Iron Saturation 16 % (15-50); Total Iron Binding Capacity 293 mcg/dL (228-428); Unsaturated Iron Binding 245 ug/dL
[2021-05-10 09:23] LABS: Thyroid Stimulating Hormone 0.04 uIU/mL (0.32-4.0)
[2021-05-10 10:15] LABS: Folate 16.6 ng/mL (> or = 4.0); Vitamin B12 353 pg/mL (200-900)
[2021-05-10] MEDS: Buprenorphine/Naloxone 4/1 mg FILM 1 FILM SUBLINGUAL ×2 (13:12→14:47)
[2021-05-10] MEDS: hydrOXYzine HCL 25 MG TABLET PO (15:03)
--- NOTE | 2021-05-10 17:36 | P.PNPSI_ITS ---
Subjective Subjective Date of Service: 05/10/21 Reason For Visit: suicide attempt Interim History: Patient seen and discussed with team. Patient evaluated this today and upon interview he asks for ensure TID. Says his sleep is alright. States I need more anxiety pills, denies having panic attacks but says he does not like the unit, had wanted to go back to [facility], feels the unit is too small and feels claustrophobic. Has increased anxiety being around too many people. Says he does not want to get out of bed or go to groups due to anxiety. Will try to go to [facility]. On suboxone from [facility]. Discussed coping skills and encouraged him to shower. In the milieu, patient is safe but isolative in behavior. Denies SI/SIB/HI upon inquiry. Denies irritability or assaultive ideation. Says he feels safe. Medication Compliance: Yes Side effects from medications: No Attending Groups: No Review of Systems Acute medical concerns: No Medical Review of Systems: unchanged Mental Status Exam Mental Status Exam Narrative: Patient Appearance:?Disheveled and Appropriate Patient Orientation:?Person, Place, Time and Situation Level of Consciousness:?Alert Patient Behavior:?Talkative and Good Eye Contact Mood Description:?Depressed Affect Description:?Flat Patient Cognition Impaired:?No Ability to Follow Directions:?Good Speech Pattern:?Spontaneous Speech Memory Description:?Episodic Impaired Hallucinations:?None Delusions:?Paranoid Ideation Thought Process:?Rumination and Goal Oriented (I think I need [facility]) Thought Content:?positive for [place], positive for Circumstantial, positive for Perseveration and positive for Suicidal Ideation Depressive Symptoms:?Increased Anxiety, Diff. Making Decisions, Increased Irritability, Difficulty Sleeping, Changes in Appetite, Loss of Int. in Activity, Feelings of Worthlessness, Hopelessness, Isolating-Friends/Family, Feelings of Guilt, Unhappiness, Increased Fatigue, Thoughts of /Suicide, Low Self Esteem, Loss of Energy and Difficulty Concentrating Judgement:?Fair Diagnostics Vital Signs (24Hr): Vital Signs - 24 hr 05/09/21 19:34 05/10/21 08:13 Temperature 98.4 F Pulse Rate 58 51 Respiratory Rate 18 Blood Pressure 109/56 L 110/51 L Pulse Oximetry 98 BMI result Body Mass Index 23.8 Labs Results: 05/07/21 07:35 05/07/21 07:35 Labs: Laboratory Results - last 48 hr 05/10/21 05/10/21 05/10/21 08:00 08:00 08:00 Estimat Average Glucose 103 Hemoglobin A1c % 5.2 Iron 48 TIBC 293 % Saturation 16 Unsat Iron Binding 245 Vitamin B12 353 Folate 16.6 TSH 0.04 L Medications Medications Current Medications Acetaminophen (Acetaminophen 325 Mg Tablet) 650 mg PO Q6H PRN PRN Reason: Headache/Pain Mild Scale (1-3) Last Admin: 05/09/21 01:45 Dose: 650 mg Documented by: Al Hydroxide/Mg Hydroxide (Magnesium Hydrox/Alum Hydrox 30 Ml Oral.Susp) 30 ml PO Q6H PRN PRN Reason: Heartburn/Nausea Buprenorphine/Naloxone (Buprenorphine/Naloxone 8/2 Mg Film) 1 film SUBLINGUAL ONCE ONE Stop: 05/10/21 20:01 Buprenorphine/Naloxone (Buprenorphine/Naloxone 8/2 Mg Film) 1 film SUBLINGUAL BID [facility] Clonidine HCl (Clonidine Hcl 0.1 Mg Tablet) 0.1 mg PO BID [facility]; Protocol Last Admin: 05/10/21 08:12 Dose: Not Given Documented by: Ferrous Sulfate (Ferrous Sulfate 324 Mg Tablet.Dr) 324 mg PO DAILY [facility] Last Admin: 05/10/21 08:07 Dose: 324 mg Documented by: Hydroxyzine HCl (Hydroxyzine Hcl 25 Mg Tablet) 25 mg PO BEDTIME PRN PRN Reason: Anxiety Last Admin: 05/09/21 01:45 Dose: 25 mg Documented by: Hydroxyzine HCl (Hydroxyzine Hcl 25 Mg Tablet) 25 mg PO Q6H PRN PRN Reason: Anxiety Last Admin: 05/10/21 15:03 Dose: 25 mg Documented by: Magnesium Hydroxide (Milk Of Magnesia 30 Ml Oral.Susp) 30 ml PO DAILY PRN PRN Reason: Constipation Multivitamins/Vitamin C (Multivitamin Tablet) 1 tab PO DAILY [facility] Last Admin: 05/10/21 08:07 Dose: 1 tab Documented by: Nicotine Polacrilex (Nicotine Polacrilex 2 Mg Gum) 2 mg BUCCAL Q2H PRN PRN Reason: nicotine cravings Last Admin: 05/08/21 08:15 Dose: 2 mg Documented by: Quetiapine Fumarate (Quetiapine Fumarate 50 Mg Tablet) 50 mg PO BEDTIME [facility] Last Admin: 05/09/21 19:40 Dose: 50 mg Documented by: Senna (Sennosides 8.6 Mg Tablet) 8.6 mg PO BEDTIME [facility] Last Admin: 05/09/21 19:40 Dose: 8.6 mg Documented by: Sertraline HCl (Sertraline Hcl 50 Mg Tablet) 150 mg PO DAILY [facility] Last Admin: 05/10/21 08:07 Dose: 150 mg Documented by: Trazodone HCl (Trazodone Hcl 100 Mg Tablet) 100 mg PO BEDTIME [facility] Last Admin: 05/09/21 19:39 Dose: 100 mg Documented by: Trazodone HCl (Trazodone Hcl 50 Mg Tablet) 50 mg PO BEDTIME PRN PRN Reason: Insomnia Last Admin: 05/09/21 01:45 Dose: 50 mg Documented by: Allergies Allergies Allergy/AdvReac Type Severity Reaction Status Date / Time No Known Allergies Allergy Verified 05/02/21 11:48 [No Known Allergies*] Assessment & Plan Assessment & Plan (1) Severe recurrent major depression with psychotic features: Status: Acute Code(s): F33.3 - Major depressive disorder, recurrent, severe with psychotic symptoms (2) Opioid use disorder, severe, dependence: Status: Acute Code(s): F11.20 - Opioid dependence, uncomplicated (3) Cocaine use disorder: Status: Acute Code(s): F14.10 - Cocaine abuse, uncomplicated (4) Cannabis use disorder, severe, dependence: Status: Acute Code(s): F12.20 - Cannabis dependence, uncomplicated Plan 31 yo male, history of severe recurrent major depression with psychosis, active SI, opioid use disorder, cocaine use disorder, polysubstance abuse presents with reported suicide attempt via OD which he denies but with active SI. Plan: Continue current regime. Increase Sertraline to 150 mg daily Collateral contacts Case discussed with Cara Moss NP Diagnostics 05/10: No changes to med regimen, will monitor sertraline increase for benefit, continue MAT. Added Ensure TID. I spent minutes with the patient and/or on the patient floor today, gre ater than?50% of which was spent counseling/coordinating care. Reason for contiued inpatient stay Substantial Risk for: rapid decompensation and med/psych decompensation
[2021-05-10 20:35] VITALS: BP 126/56; PULSE 77
[2021-05-10] MEDS: Buprenorphine/Naloxone 8/2 mg FILM 1 FILM SUBLINGUAL (20:46)
[2021-05-10] MEDS: cloNIDine HCL 0.1 MG TABLET PO (20:46)
[2021-05-10] MEDS: QUEtiapine Fumarate 50 MG TABLET PO (20:46)
[2021-05-10] MEDS: Sennosides 8.6 MG TABLET PO (20:46)
[2021-05-10] MEDS: traZODone HCL 100 MG TABLET PO (20:46)
[2021-05-11] MEDS: cloNIDine HCL 0.1 MG TABLET PO ×2 (09:25→21:57)
[2021-05-11] MEDS: Sertraline HCL 50 MG TABLET 150 MG PO (09:25)
[2021-05-11] MEDS: Multivitamin TABLET 1 TAB PO (09:25)
[2021-05-11] MEDS: Buprenorphine/Naloxone 8/2 mg FILM 1 FILM SUBLINGUAL ×2 (09:25→14:07)
[2021-05-11] MEDS: Ferrous Sulfate 324 MG TABLET.DR PO (09:25)
[2021-05-11 09:29] VITALS: BP 102/61; PULSE 63; RESP 16; TEMP 36.8; O2SAT 100
[2021-05-11] MEDS: hydrOXYzine HCL 25 MG TABLET PO (13:47)
[2021-05-11] MEDS: QUEtiapine Fumarate 50 MG TABLET PO (13:47)
[2021-05-11] MEDS: Nicotine Polacrilex 2 MG GUM BUCCAL ×3 (15:13→21:59)
[2021-05-11 16:01] VITALS: BP 98/50; PULSE 67
--- NOTE | 2021-05-11 16:53 | P.PNPSI_ITS ---
Subjective Subjective Date of Service: 05/11/21 Reason For Visit: suicide attempt Subjective Notes: Conditional Voluntary Interim History: minimal engagement with lyric writer today. Reported he was feeling fine. Denied withdrawals. Hopeful around [facility]. Feels that Suboxone is helping with will draw and we discussed scheduling same in the morning and 15:00 rather than later in the afternoon or evening. Sleep okay. No psychosis. No medication concerns. Medication Compliance: Yes Side effects from medications: No Attending Groups: Intermittent Review of Systems Acute medical concerns: No Review of Systems: No withdrawals Mental Status Exam Mental Status Exam Narrative: seen in room. Pleasant. Minimal engagement . Self-care okay. Reported feeling depressed. Affect depressed. Denied current SI. No HI. No agitation. No psychosis. Insight and judgment okay Diagnostics Vital Signs (24Hr): Vital Signs - 24 hr 05/10/21 20:35 05/11/21 09:29 05/11/21 16:01 Temperature 98.2 F Pulse Rate 77 63 67 Respiratory Rate 16 Blood Pressure 126/56 L 102/61 98/50 L Pulse Oximetry 100 BMI result Body Mass Index 23.8 Labs Results: 05/07/21 07:35 05/07/21 07:35 Labs: Laboratory Results - last 48 hr 05/10/21 05/10/21 05/10/21 08:00 08:00 08:00 Estimat Average Glucose 103 Hemoglobin A1c % 5.2 Iron 48 TIBC 293 % Saturation 16 Unsat Iron Binding 245 Vitamin B12 353 Folate 16.6 TSH 0.04 L Medications Medications Current Medications Acetaminophen (Acetaminophen 325 Mg Tablet) 650 mg PO Q6H PRN PRN Reason: Headache/Pain Mild Scale (1-3) Last Admin: 05/09/21 01:45 Dose: 650 mg Documented by: Al Hydroxide/Mg Hydroxide (Magnesium Hydrox/Alum Hydrox 30 Ml Oral.Susp) 30 ml PO Q6H PRN PRN Reason: Heartburn/Nausea Buprenorphine/Naloxone (Buprenorphine/Naloxone 8/2 Mg Film) 1 film SUBLINGUAL BID@0800,1500 [facility] Last Admin: 05/11/21 14:07 Dose: 1 film Documented by: Clonidine HCl (Clonidine Hcl 0.1 Mg Tablet) 0.1 mg PO BID [facility]; Protocol Last Admin: 05/11/21 09:25 Dose: 0.1 mg Documented by: Ferrous Sulfate (Ferrous Sulfate 324 Mg Tablet.) 324 mg PO DAILY [facility] Last Admin: 05/11/21 09:25 Dose: 324 mg Documented by: Hydroxyzine HCl (Hydroxyzine Hcl 25 Mg Tablet) 25 mg PO BEDTIME PRN PRN Reason: Anxiety Last Admin: 05/11/21 13:47 Dose: 25 mg Documented by: Hydroxyzine HCl (Hydroxyzine Hcl 25 Mg Tablet) 25 mg PO Q6H PRN PRN Reason: Anxiety Last Admin: 05/10/21 15:03 Dose: 25 mg Documented by: Magnesium Hydroxide (Milk Of Magnesia 30 Ml Oral.Susp) 30 ml PO DAILY PRN PRN Reason: Constipation Multivitamins/Vitamin C (Multivitamin Tablet) 1 tab PO DAILY [facility] Last Admin: 05/11/21 09:25 Dose: 1 tab Documented by: Nicotine Polacrilex (Nicotine Polacrilex 2 Mg Gum) 2 mg BUCCAL Q2H PRN PRN Reason: nicotine cravings Last Admin: 05/11/21 15:13 Dose: 2 mg Documented by: Quetiapine Fumarate (Quetiapine Fumarate 50 Mg Tablet) 50 mg PO Q6H PRN PRN Reason: anxiety Last Admin: 05/11/21 13:47 Dose: 50 mg Documented by: Senna (Sennosides 8.6 Mg Tablet) 8.6 mg PO BEDTIME [facility] Last Admin: 05/10/21 20:46 Dose: 8.6 mg Documented by: Sertraline HCl (Sertraline Hcl 50 Mg Tablet) 150 mg PO DAILY [facility] Last Admin: 05/11/21 09:25 Dose: 150 mg Documented by: Trazodone HCl (Trazodone Hcl 100 Mg Tablet) 100 mg PO BEDTIME [facility] Last Admin: 05/10/21 20:46 Dose: 100 mg Documented by: Trazodone HCl (Trazodone Hcl 50 Mg Tablet) 50 mg PO BEDTIME PRN PRN Reason: Insomnia Last Admin: 05/09/21 01:45 Dose: 50 mg Documented by: Allergies Allergies Allergy/AdvReac Type Severity Reaction Status Date / Time No Known Allergies Allergy Verified 05/02/21 11:48 [No Known Allergies*] Assessment & Plan Assessment & Plan (1) Severe recurrent major depression with psychotic features: Status: Acute Code(s): F33.3 - Major depressive disorder, recurrent, severe with psychotic symptoms (2) Opioid use disorder, severe, dependence: Status: Acute Code(s): F11.20 - Opioid dependence, uncomplicated (3) Cocaine use disorder: Status: Acute Code(s): F14.10 - Cocaine abuse, uncomplicated (4) Cannabis use disorder, severe, dependence: Status: Acute Code(s): F12.20 - Cannabis dependence, uncomplicated Plan 31 yo male, history of severe recurrent major depression with psychosis, active SI, opioid use disorder, cocaine use disorder, polysubstance abuse presents with reported suicide attempt via OD which he denies but with active SI. Plan: Continue current regime. Increase Sertraline to 150 mg daily Collateral contacts Case discussed with Cara Moss NP Diagnostics 05/10: No changes to med regimen, will monitor sertraline increase for benefit, continue MAT. Added Ensure TID. 05/11: maintain Suboxone. Wants to attend [facility] rehab I spent minutes with the patient and/or on the patient floor today, greater than?50% of which was spent counseling/coordinating care. Reason for contiued inpatient stay Substantial Risk for: harm to self and rapid decompensation
[2021-05-11 21:45] VITALS: BP 116/63; PULSE 75
[2021-05-11] MEDS: Sennosides 8.6 MG TABLET PO (21:57)
[2021-05-11] MEDS: traZODone HCL 100 MG TABLET PO (21:57)
[2021-05-12] MEDS: cloNIDine HCL 0.1 MG TABLET PO ×2 (09:32→21:52)
[2021-05-12] MEDS: Ferrous Sulfate 324 MG TABLET.DR PO (09:33)
[2021-05-12] MEDS: Sertraline HCL 50 MG TABLET 150 MG PO (09:33)
[2021-05-12] MEDS: Buprenorphine/Naloxone 8/2 mg FILM 1 FILM SUBLINGUAL ×2 (09:33→14:57)
[2021-05-12] MEDS: Multivitamin TABLET 1 TAB PO (09:33)
[2021-05-12 09:35] VITALS: BP 109/66; PULSE 61; RESP 16; TEMP 36.7; O2SAT 99
[2021-05-12] MEDS: Nicotine Polacrilex 2 MG GUM BUCCAL ×5 (09:55→22:58)
[2021-05-12] MEDS: hydrOXYzine HCL 25 MG TABLET PO ×2 (10:28→17:31)
[2021-05-12] MEDS: QUEtiapine Fumarate 50 MG TABLET PO ×2 (10:29→17:31)
--- NOTE | 2021-05-12 12:07 | HO.PSYCHPN ---
Subjective Subjective Date of Service: 05/12/21 Reason For Visit: suicide attempt Subjective Notes: Conditional Voluntary Medical Problems Affecting Mental Status: No Interim History: Seen in treatment room. More engaged today. Reports anxiety remained high and hopeful it Zoloft will be helpful. Ports overall cravings are getting less and that he is interested in methadone as he still feels craving on current Suboxone dosing. Reports he would like to talk to primary team around methadone being started and transition into community-based program. Otherwise no withdrawals. Continues to want to attend [facility] rehab. Sleep okay. No psychosis. Medication Compliance: Yes Side effects from medications: No Attending Groups: Yes Review of Systems Acute medical concerns: No Review of Systems Review of Systems Unremarkable Mental Status Exam Mental Status Exam Narrative: seen in room. Pleasant. Minimal engagement . Self-care okay. Reported feeling depressed. Affect depressed. Denied current SI. No HI. No agitation. No psychosis. Insight and judgment okay Diagnostics Vital Signs (24Hr): Vital Signs - 24 hr 05/11/21 16:01 05/11/21 21:45 05/12/21 09:35 Temperature 98.1 F Pulse Rate 67 75 61 Respiratory Rate 16 Blood Pressure 98/50 L 116/63 109/66 Pulse Oximetry 99 BMI result Body Mass Index 23.8 Labs Results: 05/07/21 07:35 05/07/21 07:35 Medications Medications Current Medications Acetaminophen (Acetaminophen 325 Mg Tablet) 650 mg PO Q6H PRN PRN Reason: Headache/Pain Mild Scale (1-3) Last Admin: 05/09/21 01:45 Dose: 650 mg Documented by: Al Hydroxide/Mg Hydroxide (Magnesium Hydrox/Alum Hydrox 30 Ml Oral.Susp) 30 ml PO Q6H PRN PRN Reason: Heartburn/Nausea Buprenorphine/Naloxone (Buprenorphine/Naloxone 8/2 Mg Film) 1 film SUBLINGUAL BID@0800,1500 [facility] Last Admin: 05/12/21 09:33 Dose: 1 film Documented by: Clonidine HCl (Clonidine Hcl 0.1 Mg Tablet) 0.1 mg PO BID [facility]; Protocol Last Admin: 05/12/21 09:32 Dose: 0.1 mg Documented by: Ferrous Sulfate (Ferrous Sulfate 324 Mg Tablet.) 324 mg PO DAILY [facility] Last Admin: 05/12/21 09:33 Dose: 324 mg Documented by: Hydroxyzine HCl (Hydroxyzine Hcl 25 Mg Tablet) 25 mg PO BEDTIME PRN PRN Reason: Anxiety Last Admin: 05/11/21 13:47 Dose: 25 mg Documented by: Hydroxyzine HCl (Hydroxyzine Hcl 25 Mg Tablet) 25 mg PO Q6H PRN PRN Reason: Anxiety Last Admin: 05/12/21 10:28 Dose: 25 mg Documented by: Magnesium Hydroxide (Milk Of Magnesia 30 Ml Oral.Susp) 30 ml PO DAILY PRN PRN Reason: Constipation Multivitamins/Vitamin C (Multivitamin Tablet) 1 tab PO DAILY [facility] Last Admin: 05/12/21 09:33 Dose: 1 tab Documented by: Nicotine Polacrilex (Nicotine Polacrilex 2 Mg Gum) 2 mg BUCCAL Q2H PRN PRN Reason: nicotine cravings Last Admin: 05/12/21 09:55 Dose: 2 mg Documented by: Quetiapine Fumarate (Quetiapine Fumarate 50 Mg Tablet) 50 mg PO Q6H PRN PRN Reason: anxiety Last Admin: 05/12/21 10:29 Dose: 50 mg Documented by: Senna (Sennosides 8.6 Mg Tablet) 8.6 mg PO BEDTIME [facility] Last Admin: 05/11/21 21:57 Dose: 8.6 mg Documented by: Sertraline HCl (Sertraline Hcl 50 Mg Tablet) 150 mg PO DAILY [facility] Last Admin: 05/12/21 09:33 Dose: 150 mg Documented by: Trazodone HCl (Trazodone Hcl 100 Mg Tablet) 100 mg PO BEDTIME [facility] Last Admin: 05/11/21 21:57 Dose: 100 mg Documented by: Trazodone HCl (Trazodone Hcl 50 Mg Tablet) 50 mg PO BEDTIME PRN PRN Reason: Insomnia Last Admin: 05/09/21 01:45 Dose: 50 mg Documented by: Allergies Allergies Allergy/AdvReac Type Severity Reaction Status Date / Time No Known Allergies Allergy Verified 05/02/21 11:48 [No Known Allergies*] Assessment & Plan Assessment & Plan (1) Severe recurrent major depression with psychotic features: Status: Acute Code(s): F33.3 - Major depressive disorder, recurrent, severe with psychotic symptoms (2) Opioid use disorder, severe, dependence: Status: Acute Code(s): F11.20 - Opioid dependence, uncomplicated (3) Cocaine use disorder: Status: Acute Code(s): F14.10 - Cocaine abuse, uncomplicated (4) Cannabis use disorder, severe, dependence: Status: Acute Code(s): F12.20 - Cannabis dependence, uncomplicated Plan 31 yo male, history of severe recurrent major depression with psychosis, active SI, opioid use disorder, cocaine use disorder, polysubstance abuse presents with reported suicide attempt via OD which he denies but with active SI. Plan: Continue current regime. Increase Sertraline to 150 mg daily Collateral contacts Case discussed with Cara Moss NP Diagnostics 05/10: No changes to med regimen, will monitor sertraline increase for benefit, continue MAT. Added Ensure TID. 05/11: maintain Suboxone. Wants to attend [facility] rehab 05/12: Would like to talk with primary team around potential for methadone. I spent minutes with the patient and/or on the patient floor today, greater than?50% of which was spent counseling/coordinating care. Patient educated on: medication risk/benefits Reason for contiued inpatient stay Substantial Risk for: rapid decompensation
--- NOTE | 2021-05-12 16:47 | MHC.RECOVSUP ---
Recovery Support note: This sheet writer met with patient to discuss withdrawal symptoms and Suboxone initiation. Patient reports he is doing well and reports no withdrawal symptoms at the time of consultation. Discussed Suboxone treatment. Patient has an upcoming appointment at the [facility] on 05/23/21. Patient had questions regarding methadone maintenance. Discussed methadone with patient and addressed questions. Discussed case with Xochilt SHEEHAN.
[2021-05-12 21:40] VITALS: BP 113/55; PULSE 78
[2021-05-12] MEDS: traZODone HCL 100 MG TABLET PO (21:52)
[2021-05-12] MEDS: Sennosides 8.6 MG TABLET PO (21:52)
--- NOTE | 2021-05-13 08:56 | HO.PSYCHPN ---
Subjective Subjective Date of Service: 05/13/21 Reason For Visit: suicide attempt Subjective Notes: Conditional Voluntary Medical Problems Affecting Mental Status: No Interim History: Patient was seen and discussed in rounds today. He is doing better and states that the Zoloft has been of some help with his anxiety which has lessened. He is compliant. He states that his appetite is better. No cravings. He is med compliant. Safe on the unit. No complaints or side effects. Eating and sleeping adequately. No changes were made today Review of Systems Review of Systems Yes all other systems are reviewed and are negative Mental Status Exam Mental Status Exam Narrative: In today's visit he is alert, oriented and pleasant. Normal speech. Moderate eye contact. Affect is appropriate and subdued. No signs of psychosis. No active SI. Cognitively intact. Judgment is intact Diagnostics Vital Signs (24Hr): Vital Signs - 24 hr 05/12/21 09:35 05/12/21 21:40 Temperature 98.1 F Pulse Rate 61 78 Respiratory Rate 16 Blood Pressure 109/66 113/55 L Pulse Oximetry 99 BMI result Body Mass Index 23.8 Labs Results: 05/07/21 07:35 05/07/21 07:35 Medications Medications Current Medications Acetaminophen (Acetaminophen 325 Mg Tablet) 650 mg PO Q6H PRN PRN Reason: Headache/Pain Mild Scale (1-3) Last Admin: 05/09/21 01:45 Dose: 650 mg Documented by: Al Hydroxide/Mg Hydroxide (Magnesium Hydrox/Alum Hydrox 30 Ml Oral.Susp) 30 ml PO Q6H PRN PRN Reason: Heartburn/Nausea Buprenorphine/Naloxone (Buprenorphine/Naloxone 8/2 Mg Film) 1 film SUBLINGUAL BID@0800,1500 [facility] Last Admin: 05/12/21 14:57 Dose: 1 film Documented by: Clonidine HCl (Clonidine Hcl 0.1 Mg Tablet) 0.1 mg PO BID [facility]; Protocol Last Admin: 05/12/21 21:52 Dose: 0.1 mg Documented by: Ferrous Sulfate (Ferrous Sulfate 324 Mg Tablet.) 324 mg PO DAILY [facility] Last Admin: 05/12/21 09:33 Dose: 324 mg Documented by: Hydroxyzine HCl (Hydroxyzine Hcl 25 Mg Tablet) 25 mg PO BEDTIME PRN PRN Reason: Anxiety Last Admin: 05/11/21 13:47 Dose: 25 mg Documented by: Hydroxyzine HCl (Hydroxyzine Hcl 25 Mg Tablet) 25 mg PO Q6H PRN PRN Reason: Anxiety Last Admin: 05/12/21 17:31 Dose: 25 mg Documented by: Magnesium Hydroxide (Milk Of Magnesia 30 Ml Oral.Susp) 30 ml PO DAILY PRN PRN Reason: Constipation Multivitamins/Vitamin C (Multivitamin Tablet) 1 tab PO DAILY [facility] Last Admin: 05/12/21 09:33 Dose: 1 tab Documented by: Nicotine Polacrilex (Nicotine Polacrilex 2 Mg Gum) 2 mg BUCCAL Q2H PRN PRN Reason: nicotine cravings Last Admin: 05/12/21 22:58 Dose: 2 mg Documented by: Quetiapine Fumarate (Quetiapine Fumarate 50 Mg Tablet) 50 mg PO Q6H PRN PRN Reason: anxiety Last Admin: 05/12/21 17:31 Dose: 50 mg Documented by: Senna (Sennosides 8.6 Mg Tablet) 8.6 mg PO BEDTIME [facility] Last Admin: 05/12/21 21:52 Dose: 8.6 mg Documented by: Sertraline HCl (Sertraline Hcl 50 Mg Tablet) 150 mg PO DAILY [facility] Last Admin: 05/12/21 09:33 Dose: 150 mg Documented by: Trazodone HCl (Trazodone Hcl 100 Mg Tablet) 100 mg PO BEDTIME [facility] Last Admin: 05/12/21 21:52 Dose: 100 mg Documented by: Trazodone HCl (Trazodone Hcl 50 Mg Tablet) 50 mg PO BEDTIME PRN PRN Reason: Insomnia Last Admin: 05/09/21 01:45 Dose: 50 mg Documented by: Allergies Allergies Allergy/AdvReac Type Severity Reaction Status Date / Time No Known Allergies Allergy Verified 05/02/21 11:48 [No Known Allergies*] Assessment & Plan Assessment & Plan (1) Severe recurrent major depression with psychotic features: Status: Acute Code(s): F33.3 - Major depressive disorder, recurrent, severe with psychotic symptoms (2) Opioid use disorder, severe, dependence: Status: Acute Code(s): F11.20 - Opioid dependence, uncomplicated (3) Cocaine use disorder: Status: Acute Code(s): F14.10 - Cocaine abuse, uncomplicated (4) Cannabis use disorder, severe, dependence: Status: Acute Code(s): F12.20 - Cannabis dependence, uncomplicated Plan 31 yo male, history of severe recurrent major depression with psychosis, active SI, opioid use disorder, cocaine use disorder, polysubstance abuse presents with reported suicide attempt via OD which he denies but with active SI. Plan: Continue current regime. Increase Sertraline to 150 mg daily Collateral contacts Case discussed with Cara Moss NP Diagnostics 05/10: No changes to med regimen, will monitor sertraline increase for benefit, continue MAT. Added Ensure TID. 05/11: maintain Suboxone. Wants to attend [facility] rehab 05/12: Would like to talk with primary team around potential for methadone. 05/13/2021: Continue current regimen and plans. I spent minutes with the patient and/or on the patient floor today, greater than?50% of which was spent counseling/coordinating care. Reason for contiued inpatient stay Substantial Risk for: harm to self
[2021-05-13] MEDS: Buprenorphine/Naloxone 8/2 mg FILM 1 FILM SUBLINGUAL ×2 (09:39→14:33)
[2021-05-13] MEDS: Sertraline HCL 50 MG TABLET 150 MG PO (09:39)
[2021-05-13] MEDS: Ferrous Sulfate 324 MG TABLET.DR PO (09:39)
[2021-05-13] MEDS: Multivitamin TABLET 1 TAB PO (09:39)
[2021-05-13] MEDS: cloNIDine HCL 0.1 MG TABLET PO ×2 (09:40→21:00)
[2021-05-13 09:42] VITALS: BP 111/63; PULSE 63; RESP 18; TEMP 36.7; O2SAT 97
[2021-05-13] MEDS: Nicotine Polacrilex 2 MG GUM BUCCAL ×6 (10:05→22:55)
[2021-05-13] MEDS: QUEtiapine Fumarate 50 MG TABLET PO ×2 (11:33→17:57)
[2021-05-13] MEDS: hydrOXYzine HCL 25 MG TABLET PO ×2 (11:34→17:57)
[2021-05-13 20:45] VITALS: BP 100/56; PULSE 80
[2021-05-13] MEDS: Sennosides 8.6 MG TABLET PO (21:00)
[2021-05-13] MEDS: traZODone HCL 100 MG TABLET PO (21:00)
[2021-05-14 08:30] VITALS: BP 83/49; PULSE 63; TEMP 36.5; O2SAT 97
[2021-05-14] MEDS: Buprenorphine/Naloxone 8/2 mg FILM 1 FILM SUBLINGUAL ×2 (08:50→14:53)
[2021-05-14] MEDS: Multivitamin TABLET 1 TAB PO (08:51)
[2021-05-14] MEDS: Sertraline HCL 50 MG TABLET 150 MG PO (08:51)
[2021-05-14] MEDS: Ferrous Sulfate 324 MG TABLET.DR PO (09:20)
[2021-05-14] MEDS: Nicotine Polacrilex 2 MG GUM BUCCAL ×4 (09:20→15:44)
[2021-05-14 10:00] VITALS: BP 121/65; PULSE 83
[2021-05-14] MEDS: Divalproex Sodium 250 MG TABLET.DR PO ×2 (11:24→22:08)
--- NOTE | 2021-05-14 13:59 | HO.PSYCHPN ---
Subjective Subjective Date of Service: 05/14/21 Reason For Visit: suicide attempt Subjective Notes: Conditional Voluntary Healthcare Proxy: No Guardianship: No Medical Problems Affecting Mental Status: No Interim History: Tolerated Sertraline increase. Discussed anxiety sx over the weekend-phobic sx? unit is small, many people around. Hoping to transfer to [facility], finding Ensure TID helpful. Today asks to change to Methadone-addiction consult appreciated. Discussed anxiety, restless sleep, cravings racing of thoughts. Nicotine changed to q 1 hour prn, Depakote 250 mg bid initiated and Seroquel 75 mg hs prn initiated. Medication Compliance: Yes Side effects from medications: No Attending Groups: Intermittent Review of Systems Acute medical concerns: No Medical Review of Systems: unchanged Review of Systems Psychiatric: Reports abnormal sleep pattern, Reports anxiety, Reports difficulty concentrating, Reports anhedonia and Reports panic attacks Mental Status Exam Mental Status Exam Narrative: Alert, oriented. Speech is clear. Affect constricted, Mood anxious, apprehensive, on edge appearing at times. Thought process and content without SI, HI, perceptual alterations or other sx of psychosis. Diagnostics Vital Signs (24Hr): Vital Signs - 24 hr 05/13/21 20:45 Pulse Rate 80 Blood Pressure 100/56 L BMI result Body Mass Index 23.8 Labs Results: 05/07/21 07:35 05/07/21 07:35 Labs: Iron Profile WNL; B12, Folate WNL TSH 0.04 Medications Medications Current Medications Acetaminophen (Acetaminophen 325 Mg Tablet) 650 mg PO Q6H PRN PRN Reason: Headache/Pain Mild Scale (1-3) Last Admin: 05/09/21 01:45 Dose: 650 mg Documented by: Al Hydroxide/Mg Hydroxide (Magnesium Hydrox/Alum Hydrox 30 Ml Oral.Susp) 30 ml PO Q6H PRN PRN Reason: Heartburn/Nausea Buprenorphine/Naloxone (Buprenorphine/Naloxone 8/2 Mg Film) 1 film SUBLINGUAL BID@0800,1500 [facility] Last Admin: 05/14/21 08:50 Dose: 1 film Documented by: Clonidine HCl (Clonidine Hcl 0.1 Mg Tablet) 0.1 mg PO BID [facility]; Protocol Last Admin: 05/14/21 09:20 Dose: Not Given Documented by: Divalproex Sodium (Divalproex Sodium 250 Mg Tablet.) 250 mg PO BID [facility] Ferrous Sulfate (Ferrous Sulfate 324 Mg Tablet.Dr) 324 mg PO DAILY [facility] Last Admin: 05/14/21 09:20 Dose: 324 mg Documented by: Hydroxyzine HCl (Hydroxyzine Hcl 25 Mg Tablet) 25 mg PO BEDTIME PRN PRN Reason: Anxiety Last Admin: 05/11/21 13:47 Dose: 25 mg Documented by: Hydroxyzine HCl (Hydroxyzine Hcl 25 Mg Tablet) 25 mg PO Q6H PRN PRN Reason: Anxiety Last Admin: 05/13/21 17:57 Dose: 25 mg Documented by: Magnesium Hydroxide (Milk Of Magnesia 30 Ml Oral.Susp) 30 ml PO DAILY PRN PRN Reason: Constipation Multivitamins/Vitamin C (Multivitamin Tablet) 1 tab PO DAILY [facility] Last Admin: 05/14/21 08:51 Dose: 1 tab Documented by: Nicotine Polacrilex (Nicotine Polacrilex 2 Mg Gum) 2 mg BUCCAL Q1H PRN PRN Reason: Nicotine Cravings Last Admin: 05/14/21 13:21 Dose: 2 mg Documented by: Quetiapine Fumarate (Quetiapine Fumarate 50 Mg Tablet) 50 mg PO Q6H PRN PRN Reason: anxiety Last Admin: 05/13/21 17:57 Dose: 50 mg Documented by: Quetiapine Fumarate (Quetiapine Fumarate 25 Mg Tablet) 75 mg PO BEDTIME PRN PRN Reason: insomnia Senna (Sennosides 8.6 Mg Tablet) 8.6 mg PO BEDTIME [facility] Last Admin: 05/13/21 21:00 Dose: 8.6 mg Documented by: Sertraline HCl (Sertraline Hcl 50 Mg Tablet) 150 mg PO DAILY [facility] Last Admin: 05/14/21 08:51 Dose: 150 mg Documented by: Trazodone HCl (Trazodone Hcl 100 Mg Tablet) 100 mg PO BEDTIME [facility] Last Admin: 05/13/21 21:00 Dose: 100 mg Documented by: Trazodone HCl (Trazodone Hcl 50 Mg Tablet) 50 mg PO BEDTIME PRN PRN Reason: Insomnia Last Admin: 05/09/21 01:45 Dose: 50 mg Documented by: Allergies Allergies Allergy/AdvReac Type Severity Reaction Status Date / Time No Known Allergies Allergy Verified 05/02/21 11:48 [No Known Allergies*] Assessment & Plan Assessment & Plan (1) Severe recurrent major depression with psychotic features: Status: Acute Code(s): F33.3 - Major depressive disorder, recurrent, severe with psychotic symptoms (2) Opioid use disorder, severe, dependence: Status: Acute Code(s): F11.20 - Opioid dependence, uncomplicated (3) Cocaine use disorder: Status: Acute Code(s): F14.10 - Cocaine abuse, uncomplicated (4) Cannabis use disorder, severe, dependence: Status: Acute Code(s): F12.20 - Cannabis dependence, uncomplicated Plan 31 yo male, history of severe recurrent major depression with psychosis, active SI, opioid use disorder, cocaine use disorder, polysubstance abuse presents with reported suicide attempt via OD which he denies but with active SI. Plan: Continue current regime. Increase Sertraline to 150 mg daily Collateral contacts Case discussed with Cara Moss CUSTOMER STRATEGY MANAGER Diagnostics 05/10: No changes to med regimen, will monitor sertraline increase for benefit, continue MAT. Added Ensure TID. 05/11: maintain Suboxone. Wants to attend [facility] rehab 05/12: Would like to talk with primary team around potential for methadone. 05/13/2021: Continue current regimen and plans. 05/14/21: Pt reporting anxiety, interrupted sleep. Asks to change to Methadone from Suboxone. Continues to request admission to [facility]. Plan: Depakote 250 mg bid Seroquel 75 mg HS prn insomnia Change nicotine replacement to q 1 hour Addiction consult-pt request change from Suboxone to Methadone Repeat CBCD, TSH I spent 25 minutes with the patient and/or on the patient floor today, greater than?50% of which was spent counseling/coordinating care. Patient educated on: medication risk/benefits, substance abuse and therapeutic strategies Informed Consent: understands and further education needed Reason for contiued inpatient stay Substantial Risk for: harm to self, inability to function and rapid decompensation
[2021-05-14] MEDS: hydrOXYzine HCL 25 MG TABLET PO (14:58)
[2021-05-14] MEDS: QUEtiapine Fumarate 50 MG TABLET PO (15:44)
--- NOTE | 2021-05-14 15:54 | HO.ADDICT_ITS ---
History of Present Illness Date of Service: 05/14/2021 Chief Complaint: suicide attempt Reason for Consult: Patient requests to stop suboxone, and start methadone. EKG dated 05/08/21 shows QTc of 418. Patient had been receiving suboxone 8mg-2mg BID, sl, for at least past 2 years, at [facility], as per [facility]. Patient reports that he has been continually relapsing with suboxone, and is experiencing cravings to use heroin today, and is fearful that he will relapse again once discharged, if not having better control and management of cravings. Requesting physician: Noemi Gamez Discussed with referring provider: Yes Sources of Information: patient interviewed and chart reviewed HPI Narrative: Patient currently on M5, reports he is awaiting placement to [facility] for substance use disorder residential treatment. Reports he was able to maintain abstinence from substances for four years with suboxone, but had relapsed last year. Reports that he continues to relaspe with heroin, and has been using as much as 3 to 4 bundles per day, intranasally, while trying to maintain abstinence, with suboxone. He states he is sick and tired of relapsing , and would like to try methadone at this time. He reports he has a valid government issued ID. He states that he understands to commitment required regarding methadone, including daily attendan ce at clinic in order to receive methadone each day. Past Psychiatric History: IP: 9+ OP: None Trials: Sertraline, Paxil, Lexapro, Prozac, Citalopram, Remeron, Thomas Seroquel-drowsiness, Olanzapine, Risperdal, Clonidine Review of Systems Review of Systems A full review of systems was completed and was negative with exception of pertinent positives as noted in HPI. Yes all other systems are reviewed and are negative Constitutional: Reports no additional constitutional complaints Diagnostics Vital Signs (24Hr): Vital Signs - 24 hr 05/13/21 20:45 05/14/21 08:30 05/14/21 10:00 Temperature 97.7 F Pulse Rate 80 63 83 Blood Pressure 100/56 L 83/49 L 121/65 Pulse Oximetry 97 BMI result Body Mass Index 23.8 Labs Results: 05/07/21 07:35 05/07/21 07:35 Mental Status Exam Mental Status Exam Narrative: Well developed, well nourished male, in NAD. Appropriate and cooperative upon approach. No overt symptoms of withdrawals observed. Patient Appearance: Well Grooomed Patient Orientation: Person, Place, Time and Situation Level of Consciousness: Awake and Appropriate Patient Behavior: Appropriate and Cooperative Mood Description: Calm Patient Cognition Impaired: No Ability to Follow Directions: Good Speech Pattern: Clear, Appropriate and Coherent Memory Description: Intact Medications Medications Current Medications Acetaminophen (Acetaminophen 325 Mg Tablet) 650 mg PO Q6H PRN PRN Reason: Headache/Pain Mild Scale (1-3) Last Admin: 05/09/21 01:45 Dose: 650 mg Documented by: Al Hydroxide/Mg Hydroxide (Magnesium Hydrox/Alum Hydrox 30 Ml Oral.Susp) 30 ml PO Q6H PRN PRN Reason: Heartburn/Nausea Clonidine HCl (Clonidine Hcl 0.1 Mg Tablet) 0.1 mg PO BID [facility]; Protocol Last Admin: 05/14/21 09:20 Dose: Not Given Documented by: Divalproex Sodium (Divalproex Sodium 250 Mg Tablet.) 250 mg PO BID [facility] Ferrous Sulfate (Ferrous Sulfate 324 Mg Tablet.) 324 mg PO DAILY [facility] Last Admin: 05/14/21 09:20 Dose: 324 mg Documented by: Hydroxyzine HCl (Hydroxyzine Hcl 25 Mg Tablet) 25 mg PO BEDTIME PRN PRN Reason: Anxiety Last Admin: 05/11/21 13:47 Dose: 25 mg Documented by: Hydroxyzine HCl (Hydroxyzine Hcl 25 Mg Tablet) 25 mg PO Q6H PRN PRN Reason: Anxiety Last Admin: 05/14/21 14:58 Dose: 25 mg Documented by: Magnesium Hydroxide (Milk Of Magnesia 30 Ml Oral.Susp) 30 ml PO DAILY PRN PRN Reason: Constipation Multivitamins/Vitamin C (Multivitamin Tablet) 1 tab PO DAILY [facility] Last Admin: 05/14/21 08:51 Dose: 1 tab Documented by: Nicotine Polacrilex (Nicotine Polacrilex 2 Mg Gum) 2 mg BUCCAL Q1H PRN PRN Reason: Nicotine Cravings Last Admin: 05/14/21 15:44 Dose: 2 mg Documented by: Quetiapine Fumarate (Quetiapine Fumarate 50 Mg Tablet) 50 mg PO Q6H PRN PRN Reason: anxiety Last Admin: 05/14/21 15:44 Dose: 50 mg Documented by: Quetiapine Fumarate (Quetiapine Fumarate 25 Mg Tablet) 75 mg PO BEDTIME PRN PRN Reason: insomnia Senna (Sennosides 8.6 Mg Tablet) 8.6 mg PO BEDTIME [facility] Last Admin: 05/13/21 21:00 Dose: 8.6 mg Documented by: Sertraline HCl (Sertraline Hcl 50 Mg Tablet) 150 mg PO DAILY [facility] Last Admin: 05/14/21 08:51 Dose: 150 mg Documented by: Trazodone HCl (Trazodone Hcl 100 Mg Tablet) 100 mg PO BEDTIME [facility] Last Admin: 05/13/21 21:00 Dose: 100 mg Documented by: Trazodone HCl (Trazodone Hcl 50 Mg Tablet) 50 mg PO BEDTIME PRN PRN Reason: Insomnia Last Admin: 05/09/21 01:45 Dose: 50 mg Documented by: Allergies Allergies Allergy/AdvReac Type Severity Reaction Status Date / Time No Known Allergies Allergy Verified 05/02/21 11:48 [No Known Allergies*] Assessment & Plan Assessment & Plan (1) Opioid use disorder, severe, dependence: Status: Acute Code(s): F11.20 - Opioid dependence, uncomplicated Assessment and Plan: Patient reports multiple relapses with heroin while using suboxone. Requests change to methadone, in order to help better manage cravings. He reports he is awaiting placement at [facility]. Plan 1. Stop suboxone dose after afternoon dose today. 2. Methadone 30mg daily, start tomorrow morning. 3. Recovery team RN to place referral to [facility] methadone clinic. This was discussed with provider, Nancy Gamez, in person, while on unit. I spent minutes with the patient and/or on the patient floor today, greater than?50% of which was spent counseling/coordinating care. Patient educated on: diagnosis, medication risk/benefits and substance abuse Informed Consent: understands [facility] Past Medical History Medical History (Updated 05/09/21 @ 17:36 by Noemi Gamez, CARRIAGE SETTER) Opioid use disorder Severe recurrent major depression with psychotic features Suicidal ideation Social History Social History Household Members: None Household Members Other:: that he is homeless Housing: Unknown / Unable to assess Do you presently have visiting nurse or other home services: No Unable to assess alcohol history related to: Refusing to respond Patient Tobacco Use Status: Current everyday Tobacco user Tobacco use type: Cigarette Cigarette Packs Per Day: 1 Cigarettes Per Day: 20.0 Years Smoked: 17 Smoked in Last 30 Days: Yes e-Cigarette/Vaping Use: Currently Using Frequency of e-Cigarette/Vaping Use: everyday Patient Interested in Nicotine Replacement: Yes Patient Given Instructions on How to Stop Smoking: Yes Date Education Initiated: 05/08/21 Second Hand Smoke Exposure: No Use of substances other than those prescribed or required for medical reasons: Yes Substance Use Type: Crack/Cocaine, Heroin, Marijuana and Caffiene Substance Use Frequency: Daily Last Used Substance: Days (ago) Currently Displaying Signs/Symptoms of Drug Intoxication Withdrawal: No Any prior treatment program specific to substance use: Yes Have you been hit, kicked, punched, or otherwise hurt by someone within the past year? If so, by whom?: No Do you feel safe in your current relationship?: No Current Relationship Is there a partner from a previous relationship who is making you feel unsafe now?: No Are you made to feel afraid or neglected: No Spiritual Healthcare Practices: N/A Mosque Healthcare Practices: N/A Cultural Healthcare Practices: N/A Advance Directives: No Advance Directives Information Provided: No (declined) Advance Directives on File: No Do you have thoughts of harming others: None Do you have a plan to hurt others: No Plan Recently lost weight without trying: No How much weight loss: Not applicable Eating poorly because of decreased appetite: No Nutrition screen score: 0 Nutrition Risks: No Nutritional Risk Poor oral hygiene: No service: No Sexual orientation: Did not discuss
[2021-05-14] MEDS: Nicotine Polacrilex 2 MG GUM 4 MG BUCCAL ×3 (16:53→23:10)
[2021-05-14] MEDS: chlorproMAZINE HCl 25 MG TABLET 50 MG PO ×2 (18:19→22:09)
[2021-05-14 21:24] VITALS: BP 118/61; PULSE 74; RESP 16; TEMP 37.1; O2SAT 98
[2021-05-14] MEDS: cloNIDine HCL 0.1 MG TABLET PO (22:08)
[2021-05-14] MEDS: Sennosides 8.6 MG TABLET PO (22:08)
[2021-05-14] MEDS: traZODone HCL 100 MG TABLET PO (22:08)
[2021-05-15] MEDS: hydrOXYzine HCL 25 MG TABLET PO ×3 (00:01→17:00)
[2021-05-15] MEDS: traZODone HCL 50 MG TABLET PO (00:01)
[2021-05-15 08:10] VITALS: BP 111/69; PULSE 82; RESP 18; TEMP 36.7; O2SAT 97
[2021-05-15] MEDS: Multivitamin TABLET 1 TAB PO (08:13)
[2021-05-15] MEDS: Sertraline HCL 50 MG TABLET 150 MG PO (08:13)
[2021-05-15] MEDS: cloNIDine HCL 0.1 MG TABLET PO ×2 (08:13→22:00)
[2021-05-15] MEDS: Divalproex Sodium 250 MG TABLET.DR PO (08:13)
[2021-05-15] MEDS: methADONE HCl 20 MG/2 ML ORAL.CONC 30 MG PO (08:13)
[2021-05-15] MEDS: Ferrous Sulfate 324 MG TABLET.DR PO (08:13)
[2021-05-15] MEDS: Nicotine Polacrilex 2 MG GUM 4 MG BUCCAL ×6 (08:37→22:03)
[2021-05-15 09:02] LABS: MANUAL DIFF FLAG NO
[2021-05-15 09:06] LABS: Basophils Percent Auto 0.5 % (0-2); Eosinophils Absolute Auto 0.2 X10*3/uL (0.0-0.4); Eosinophils Percent Auto 2.7 % (0-4); Hematocrit 38.5 % (42.0-52.0); Hemoglobin 12.6 g/dl (14.0-18.0); Imm Gran Abs Auto 0.01 X10*3/uL (0.00-0.03); Imm Gran Pct Auto 0.2 % (0.0-0.4); Lymphocytes Percent Auto 46.5 % (20-40); Mean Corpuscular HGB Conc 32.7 g/dl (31.0-36.0); Mean Corpuscular Hemoglobin 30.4 pg (27.0-33.0); Mean Platelet Volume 10.2 fL (9.4-12.4); Monocytes Absolute Auto 0.5 X10*3/uL (0.1-1.2); Monocytes Percent Auto 7.7 % (2-11); Neutrophils Absolute Auto 2.7 x10*3/uL (2.0-8.3); Neutrophils Percent Auto 42.4 % (45-73); Platelet Count 207 X10*3/uL (160-400); Red Blood Count 4.14 X10*6/uL (4.60-5.80); Red Cell Distribution Width 13.3 % (11.0-16.0); White Blood Count 6.4 X10*3/uL (4.8-10.8)
--- NOTE | 2021-05-15 14:01 | P.PNPSI_ITS ---
Subjective Subjective Date of Service: 05/15/21 Reason For Visit: suicide attempt Interim History: Continues to report sx of anxiety, insomnia. Suboxone transition to Methadone initiated today with addictions. Will consolidate Depakote to 500 mg ER HS to assist with sx. Awaits [facility] availability. Medication Compliance: Yes Side effects from medications: No Attending Groups: Intermittent Review of Systems Acute medical concerns: No Review of Systems Psychiatric: Reports abnormal sleep pattern and Reports anxiety Mental Status Exam Mental Status Exam Patient Appearance: Well Grooomed and Appropriate Patient Orientation: Person, Place, Time and Situation Level of Consciousness: Awake and Appropriate Patient Behavior: Appropriate and Cooperative Mood Description: Depressed and Anxious Affect Description: Anxious Diagnostics Vital Signs (24Hr): Vital Signs - 24 hr 05/14/21 21:24 05/15/21 08:10 Temperature 98.8 F 98.0 F Pulse Rate 74 82 Respiratory Rate 16 18 Blood Pressure 118/61 111/69 Pulse Oximetry 98 97 BMI result Body Mass Index 23.8 Labs Results: 05/15/21 08:03 05/07/21 07:35 Labs: Laboratory Results - last 48 hr 05/15/21 08:03 WBC 6.4 RBC 4.14 L Hgb 12.6 L Hct 38.5 L MCV 93.0 MCH 30.4 MCHC 32.7 RDW 13.3 Plt Count 207 MPV 10.2 Immature Gran % (Auto) 0.2 Neut % (Auto) 42.4 L Lymph % (Auto) 46.5 H [place] % (Auto) 7.7 Eos % (Auto) 2.7 Baso % (Auto) 0.5 Lymph # (Auto) 3.0 [place] # (Auto) 0.5 Eos # (Auto) 0.2 Baso # (Auto) 0.0 Abs Immat Gran (auto) 0.01 Absolute Neuts (auto) 2.7 Absolute Nucleated RBC 0.000 Nucleated RBC % (auto) 0.0 Medications Medications Current Medications Acetaminophen (Acetaminophen 325 Mg Tablet) 650 mg PO Q6H PRN PRN Reason: Headache/Pain Mild Scale (1-3) Last Admin: 05/09/21 01:45 Dose: 650 mg Documented by: Al Hydroxide/Mg Hydroxide (Magnesium Hydrox/Alum Hydrox 30 Ml Oral.Susp) 30 ml PO Q6H PRN PRN Reason: Heartburn/Nausea Chlorpromazine HCl (Chlorpromazine Hcl 25 Mg Tablet) 50 mg PO QID PRN PRN Reason: anxiety, agitation Last Admin: 05/14/21 22:09 Dose: 50 mg Documented by: Clonidine HCl (Clonidine Hcl 0.1 Mg Tablet) 0.1 mg PO BID [facility]; Protocol Last Admin: 05/15/21 08:13 Dose: 0.1 mg Documented by: Divalproex Sodium (Divalproex Sodium 250 Mg Tablet.) 250 mg PO BID [facility] Last Admin: 05/15/21 08:13 Dose: 250 mg Documented by: Ferrous Sulfate (Ferrous Sulfate 324 Mg Tablet.) 324 mg PO DAILY [facility] Last Admin: 05/15/21 08:13 Dose: 324 mg Documented by: Hydroxyzine HCl (Hydroxyzine Hcl 25 Mg Tablet) 25 mg PO BEDTIME PRN PRN Reason: Anxiety Last Admin: 05/15/21 00:01 Dose: 25 mg Documented by: Hydroxyzine HCl (Hydroxyzine Hcl 25 Mg Tablet) 25 mg PO Q6H PRN PRN Reason: Anxiety Last Admin: 05/15/21 11:00 Dose: 25 mg Documented by: Magnesium Hydroxide (Milk Of Magnesia 30 Ml Oral.Susp) 30 ml PO DAILY PRN PRN Reason: Constipation Methadone HCl (Methadone Hcl 20 Mg/2 Ml Oral.Conc) 30 mg PO DAILY [facility] Last Admin: 05/15/21 08:13 Dose: 30 mg Documented by: Multivitamins/Vitamin C (Multivitamin Tablet) 1 tab PO DAILY [facility] Last Admin: 05/15/21 08:13 Dose: 1 tab Documented by: Nicotine Polacrilex (Nicotine Polacrilex 2 Mg Gum) 4 mg BUCCAL Q2H PRN PRN Reason: Nicotine Cravings Last Admin: 05/15/21 13:00 Dose: 4 mg Documented by: Senna (Sennosides 8.6 Mg Tablet) 8.6 mg PO BEDTIME [facility] Last Admin: 05/14/21 22:08 Dose: 8.6 mg Documented by: Sertraline HCl (Sertraline Hcl 50 Mg Tablet) 150 mg PO DAILY [facility] Last Admin: 05/15/21 08:13 Dose: 150 mg Documented by: Trazodone HCl (Trazodone Hcl 100 Mg Tablet) 100 mg PO BEDTIME [facility] Last Admin: 05/14/21 22:08 Dose: 100 mg Documented by: Trazodone HCl (Trazodone Hcl 50 Mg Tablet) 50 mg PO BEDTIME PRN PRN Reason: Insomnia Last Admin: 05/15/21 00:01 Dose: 50 mg Documented by: Allergies Allergies Allergy/AdvReac Type Severity Reaction Status Date / Time No Known Allergies Allergy Verified 05/02/21 11:48 [No Known Allergies*] Assessment & Plan Assessment & Plan (1) Opioid use disorder, severe, dependence: Status: Acute Code(s): F11.20 - Opioid dependence, uncomplicated Assessment and Plan: Patient reports multiple relapses with heroin while using suboxone. Requests change to methadone, in order to help better manage cravings. He reports he is awaiting placement at [facility]. Plan 1. Stop suboxone dose after afternoon dose today. 2. Methadone 30mg daily, start tomorrow morning. 3. Recovery team RN to place referral to [facility] methadone clinic. This was discussed with provider, Nancy Gamez, in person, while on unit. 05/15/21: Methadone initiation as noted above Consolidate Depakote to 500 mg ER HS. I spent minutes with the patient and/or on the patient floor today, greater than?50% of which was spent counseling/coordinating care. Patient educated on: medication risk/benefits, substance abuse and therapeutic strategies Informed Consent: understands and further education needed Reason for contiued inpatient stay Substantial Risk for: harm to self, inability to function and rapid decompensation
[2021-05-15] MEDS: chlorproMAZINE HCl 25 MG TABLET 50 MG PO (14:05)
--- NOTE | 2021-05-15 16:29 | P.PNADD_ITS ---
Subjective Subjective Date of Service: 05/15/21 Reason For Visit: suicide attempt Guardianship: No Medical Problems Affecting Mental Status: No Interim History: Solomon reports ?doing all right ?today. Reports he continues to crave. Has no t had any difficulty with switch from Suboxone to methadone. Today is his 1st day with methadone, and received 30 mg. He is asking for increase. It was explained that methadone is not increased daily, as it has an extremely long half life, and takes several days to build up with in his system. He stated that he understood. He is awaiting placement at [facility]. Medication Compliance: Yes Review of Systems Review of Systems Yes all other systems are reviewed and are negative Constitutional: Reports no additional constitutional complaints Mental Status Exam Mental Status Exam Patient Appearance: Well Grooomed and Appropriate Patient Orientation: Person, Place, Time and Situation Level of Consciousness: Awake and Appropriate Patient Behavior: Appropriate and Cooperative Mood Description: Depressed and Anxious Affect Description: Anxious Diagnostics Vital Signs (24Hr): Vital Signs - 24 hr 05/14/21 21:24 05/15/21 08:10 Temperature 98.8 F 98.0 F Pulse Rate 74 82 Respiratory Rate 16 18 Blood Pressure 118/61 111/69 Pulse Oximetry 98 97 BMI result Body Mass Index 23.8 Labs Results: 05/15/21 08:03 05/07/21 07:35 Labs: Laboratory Results - last 48 hr 05/15/21 08:03 WBC 6.4 RBC 4.14 L Hgb 12.6 L Hct 38.5 L MCV 93.0 MCH 30.4 MCHC 32.7 RDW 13.3 Plt Count 207 MPV 10.2 Immature Gran % (Auto) 0.2 Neut % (Auto) 42.4 L Lymph % (Auto) 46.5 H [place] % (Auto) 7.7 Eos % (Auto) 2.7 Baso % (Auto) 0.5 Lymph # (Auto) 3.0 [place] # (Auto) 0.5 Eos # (Auto) 0.2 Baso # (Auto) 0.0 Abs Immat Gran (auto) 0.01 Absolute Neuts (auto) 2.7 Absolute Nucleated RBC 0.000 Nucleated RBC % (auto) 0.0 Medications Medications Current Medications Acetaminophen (Acetaminophen 325 Mg Tablet) 650 mg PO Q6H PRN PRN Reason: Headache/Pain Mild Scale (1-3) Last Admin: 05/09/21 01:45 Dose: 650 mg Documented by: Al Hydroxide/Mg Hydroxide (Magnesium Hydrox/Alum Hydrox 30 Ml Oral.Susp) 30 ml PO Q6H PRN PRN Reason: Heartburn/Nausea Chlorpromazine HCl (Chlorpromazine Hcl 25 Mg Tablet) 50 mg PO QID PRN PRN Reason: anxiety, agitation Last Admin: 05/15/21 14:05 Dose: 50 mg Documented by: Clonidine HCl (Clonidine Hcl 0.1 Mg Tablet) 0.1 mg PO BID [facility]; Protocol Last Admin: 05/15/21 08:13 Dose: 0.1 mg Documented by: Divalproex Sodium (Divalproex Sodium 250 Mg Tablet.) 250 mg PO BID [facility] Last Admin: 05/15/21 08:13 Dose: 250 mg Documented by: Ferrous Sulfate (Ferrous Sulfate 324 Mg Tablet.) 324 mg PO DAILY [facility] Last Admin: 05/15/21 08:13 Dose: 324 mg Documented by: Hydroxyzine HCl (Hydroxyzine Hcl 25 Mg Tablet) 25 mg PO BEDTIME PRN PRN Reason: Anxiety Last Admin: 05/15/21 00:01 Dose: 25 mg Documented by: Hydroxyzine HCl (Hydroxyzine Hcl 25 Mg Tablet) 25 mg PO Q6H PRN PRN Reason: Anxiety Last Admin: 05/15/21 11:00 Dose: 25 mg Documented by: Magnesium Hydroxide (Milk Of Magnesia 30 Ml Oral.Susp) 30 ml PO DAILY PRN PRN Reason: Constipation Methadone HCl (Methadone Hcl 20 Mg/2 Ml Oral.Conc) 30 mg PO DAILY [facility] Last Admin: 05/15/21 08:13 Dose: 30 mg Documented by: Multivitamins/Vitamin C (Multivitamin Tablet) 1 tab PO DAILY [facility] Last Admin: 05/15/21 08:13 Dose: 1 tab Documented by: Nicotine Polacrilex (Nicotine Polacrilex 2 Mg Gum) 4 mg BUCCAL Q2H PRN PRN Reason: Nicotine Cravings Last Admin: 05/15/21 15:00 Dose: 4 mg Documented by: Senna (Sennosides 8.6 Mg Tablet) 8.6 mg PO BEDTIME [facility] Last Admin: 05/14/21 22:08 Dose: 8.6 mg Documented by: Sertraline HCl (Sertraline Hcl 50 Mg Tablet) 150 mg PO DAILY [facility] Last Admin: 05/15/21 08:13 Dose: 150 mg Documented by: Trazodone HCl (Trazodone Hcl 100 Mg Tablet) 100 mg PO BEDTIME [facility] Last Admin: 05/14/21 22:08 Dose: 100 mg Documented by: Trazodone HCl (Trazodone Hcl 50 Mg Tablet) 50 mg PO BEDTIME PRN PRN Reason: Insomnia Last Admin: 05/15/21 00:01 Dose: 50 mg Documented by: Allergies Allergies Allergy/AdvReac Type Severity Reaction Status Date / Time No Known Allergies Allergy Verified 05/02/21 11:48 [No Known Allergies*] Assessment & Plan Assessment & Plan (1) Opioid use disorder, severe, dependence: Status: Acute Code(s): F11.20 - Opioid dependence, uncomplicated Plan Continue with methadone 30 mg daily at this time. Addiction team will continue to follow along with you. This was discussed with provider, Nancy Gamez, via secure messaging system. I spent minutes with the patient and/or on the patient floor today, g reater than?50% of which was spent counseling/coordinating care.
[2021-05-15 21:55] VITALS: BP 101/53; PULSE 87; TEMP 36.4
[2021-05-15] MEDS: traZODone HCL 100 MG TABLET PO (21:59)
[2021-05-15] MEDS: Divalproex Sodium ER 500 MG TAB.ER.24H PO (21:59)
[2021-05-15] MEDS: Sennosides 8.6 MG TABLET PO (22:00)
[2021-05-16] MEDS: Nicotine Polacrilex 2 MG GUM 4 MG BUCCAL ×8 (00:07→23:07)
[2021-05-16] MEDS: traZODone HCL 50 MG TABLET PO ×2 (00:10→23:07)
[2021-05-16 07:00] VITALS: BMI 24.8
[2021-05-16 08:50] VITALS: BP 107/61; PULSE 73; RESP 16; TEMP 36.7; O2SAT 98
[2021-05-16] MEDS: cloNIDine HCL 0.1 MG TABLET PO ×2 (08:53→19:04)
[2021-05-16] MEDS: Multivitamin TABLET 1 TAB PO (08:53)
[2021-05-16] MEDS: Sertraline HCL 50 MG TABLET 150 MG PO (08:53)
[2021-05-16] MEDS: Ferrous Sulfate 324 MG TABLET.DR PO (08:53)
[2021-05-16] MEDS: methADONE HCl 20 MG/2 ML ORAL.CONC 30 MG PO (08:53)
[2021-05-16] MEDS: chlorproMAZINE HCl 25 MG TABLET 50 MG PO (11:24)
--- NOTE | 2021-05-16 17:53 | P.PNPSI_ITS ---
Subjective Subjective Date of Service: 05/16/21 Reason For Visit: suicide attempt Subjective Notes: Conditional Voluntary Healthcare Proxy: No Guardianship: No Medical Problems Affecting Mental Status: No Interim History: Tolerating Methadone transition. RBC 4.14, HGB 12.6 HCT 38.5 Tolerating Valproate to target mood, anxiety sx. Pt tells team he experiences sx of phobic response on the unit as he feels it is too small. Pt found asleep at 1540 when tw went to meet with him. Medication Compliance: Yes Side effects from medications: No Attending Groups: Intermittent Review of Systems Acute medical concerns: No Medical Review of Systems: unchanged Review of Systems Psychiatric: Reports abnormal sleep pattern and Reports anxiety Mental Status Exam Mental Status Exam Patient Appearance: Well Grooomed and Appropriate Patient Orientation: Person, Place, Time and Situation Level of Consciousness: Awake and Appropriate Patient Behavior: Appropriate and Cooperative Mood Description: Depressed and Anxious Affect Description: Anxious Diagnostics Vital Signs (24Hr): Vital Signs - 24 hr 05/15/21 21:55 05/16/21 08:50 Temperature 97.6 F 98.0 F Pulse Rate 87 73 Respiratory Rate 16 Blood Pressure 101/53 L 107/61 Pulse Oximetry 98 BMI result Body Mass Index 24.8 Labs Results: 05/15/21 08:03 05/07/21 07:35 Labs: Laboratory Results - last 48 hr 05/15/21 08:03 WBC 6.4 RBC 4.14 L Hgb 12.6 L Hct 38.5 L MCV 93.0 MCH 30.4 MCHC 32.7 RDW 13.3 Plt Count 207 MPV 10.2 Immature Gran % (Auto) 0.2 Neut % (Auto) 42.4 L Lymph % (Auto) 46.5 H [place] % (Auto) 7.7 Eos % (Auto) 2.7 Baso % (Auto) 0.5 Lymph # (Auto) 3.0 [place] # (Auto) 0.5 Eos # (Auto) 0.2 Baso # (Auto) 0.0 Abs Immat Gran (auto) 0.01 Absolute Neuts (auto) 2.7 Absolute Nucleated RBC 0.000 Nucleated RBC % (auto) 0.0 Medications Medications Current Medications Acetaminophen (Acetaminophen 325 Mg Tablet) 650 mg PO Q6H PRN PRN Reason: Headache/Pain Mild Scale (1-3) Last Admin: 05/09/21 01:45 Dose: 650 mg Documented by: Al Hydroxide/Mg Hydroxide (Magnesium Hydrox/Alum Hydrox 30 Ml Oral.Susp) 30 ml PO Q6H PRN PRN Reason: Heartburn/Nausea Chlorpromazine HCl (Chlorpromazine Hcl 25 Mg Tablet) 50 mg PO QID PRN PRN Reason: anxiety, agitation Last Admin: 05/16/21 11:24 Dose: 50 mg Documented by: Clonidine HCl (Clonidine Hcl 0.1 Mg Tablet) 0.1 mg PO BID [facility]; Protocol Last Admin: 05/16/21 08:53 Dose: 0.1 mg Documented by: Divalproex Sodium (Divalproex Sodium Er 500 Mg Tab.Er.24h) 500 mg PO BEDTIME [facility] Last Admin: 05/15/21 21:59 Dose: 500 mg Documented by: Ferrous Sulfate (Ferrous Sulfate 324 Mg Tablet.Dr) 324 mg PO DAILY [facility] Last Admin: 05/16/21 08:53 Dose: 324 mg Documented by: Hydroxyzine HCl (Hydroxyzine Hcl 25 Mg Tablet) 25 mg PO BEDTIME PRN PRN Reason: Anxiety Last Admin: 05/15/21 17:00 Dose: 25 mg Documented by: Hydroxyzine HCl (Hydroxyzine Hcl 25 Mg Tablet) 25 mg PO Q6H PRN PRN Reason: Anxiety Last Admin: 05/15/21 11:00 Dose: 25 mg Documented by: Magnesium Hydroxide (Milk Of Magnesia 30 Ml Oral.Susp) 30 ml PO DAILY PRN PRN Reason: Constipation Methadone HCl (Methadone Hcl 20 Mg/2 Ml Oral.Conc) 30 mg PO DAILY [facility] Last Admin: 05/16/21 08:53 Dose: 30 mg Documented by: Multivitamins/Vitamin C (Multivitamin Tablet) 1 tab PO DAILY [facility] Last Admin: 05/16/21 08:53 Dose: 1 tab Documented by: Nicotine Polacrilex (Nicotine Polacrilex 2 Mg Gum) 4 mg BUCCAL Q2H PRN PRN Reason: Nicotine Cravings Last Admin: 05/16/21 17:07 Dose: 4 mg Documented by: Senna (Sennosides 8.6 Mg Tablet) 8.6 mg PO BEDTIME [facility] Last Admin: 05/15/21 22:00 Dose: 8.6 mg Documented by: Sertraline HCl (Sertraline Hcl 50 Mg Tablet) 150 mg PO DAILY [facility] Last Admin: 05/16/21 08:53 Dose: 150 mg Documented by: Trazodone HCl (Trazodone Hcl 100 Mg Tablet) 100 mg PO BEDTIME [facility] Last Admin: 05/15/21 21:59 Dose: 100 mg Documented by: Trazodone HCl (Trazodone Hcl 50 Mg Tablet) 50 mg PO BEDTIME PRN PRN Reason: Insomnia Last Admin: 05/16/21 00:10 Dose: 50 mg Documented by: Allergies Allergies Allergy/AdvReac Type Severity Reaction Status Date / Time No Known Allergies Allergy Verified 05/02/21 11:48 [No Known Allergies*] Assessment & Plan Assessment & Plan (1) Opioid use disorder, severe, dependence: Status: Acute Code(s): F11.20 - Opioid dependence, uncomplicated Plan Continue with methadone 30 mg daily at this time. Addiction team will continue to follow along with you. This was discussed with provider, Nancy Gamez, via secure messaging system. 05/16/21: Continue current regime. Team reports [facility] may have a bed on 05/17 or 05/18. Methadone teaching sheets given to pt for review. I spent minutes with the patient and/or on the patient floor today, greater than?50% of which was spent counseling/coordinating care. Informed Consent: understands Reason for contiued inpatient stay Substantial Risk for: harm to self, inability to function and rapid decompensation
[2021-05-16 19:05] VITALS: BP 103/58; PULSE 88
[2021-05-16] MEDS: Sennosides 8.6 MG TABLET PO (21:15)
[2021-05-16] MEDS: traZODone HCL 100 MG TABLET PO (21:16)
[2021-05-16] MEDS: Divalproex Sodium ER 500 MG TAB.ER.24H PO (21:16)
[2021-05-17 06:00] VITALS: BP 115/68; PULSE 84; TEMP 36.6; O2SAT 97
[2021-05-17] MEDS: Ferrous Sulfate 324 MG TABLET.DR PO (08:40)
[2021-05-17] MEDS: cloNIDine HCL 0.1 MG TABLET PO ×2 (08:40→22:44)
[2021-05-17] MEDS: Sertraline HCL 50 MG TABLET 150 MG PO (08:40)
[2021-05-17] MEDS: methADONE HCl 20 MG/2 ML ORAL.CONC 30 MG PO (08:41)
[2021-05-17] MEDS: Multivitamin TABLET 1 TAB PO (08:41)
[2021-05-17 08:42] VITALS: BP 111/63; PULSE 88
[2021-05-17] MEDS: Nicotine Polacrilex 2 MG GUM 4 MG BUCCAL ×6 (08:47→22:45)
[2021-05-17] MEDS: hydrOXYzine HCL 25 MG TABLET PO (09:45)
[2021-05-17] MEDS: chlorproMAZINE HCl 25 MG TABLET 50 MG PO (12:22)
[2021-05-17] MEDS: OLANZapine 5 MG TABLET PO (15:54)
--- NOTE | 2021-05-17 19:01 | HO.PSYCHPN ---
Subjective Subjective Date of Service: 05/17/21 Reason For Visit: suicide attempt Subjective Notes: Conditional Voluntary Healthcare Proxy: No Guardianship: No Medical Problems Affecting Mental Status: No Interim History: Tentative plan for [facility] will be 05/20. Pt is pleased. Reports Methadone is doing OK-asks to see addictions team for titration. Will request. Anxiety is improved-finds Depakote helpful in mgt of sx. Will increase at HS Chlorpromazine pt finds to be strong-discussed a change to Olanzapine. Discussed the of his father-OD, discussed the of his 4 mo old daughter Discussed this being his son's 19th birthday. States I have so many reasons to be clean-I am glad I am going this way. Medication Compliance: Yes Side effects from medications: No Attending Groups: Intermittent Review of Systems Acute medical concerns: No Medical Review of Systems: unchanged Review of Systems Psychiatric: Reports anxiety and Reports suicidal ideation (denies) Mental Status Exam Mental Status Exam Patient Appearance: Well Grooomed Patient Orientation: Person, Place, Time and Situation Level of Consciousness: Alert Patient Behavior: Talkative and Good Eye Contact Mood Description: Depressed, Anxious and Apprehensive Affect Description: Flat and Apprehensive Patient Cognition Impaired: No Ability to Follow Directions: Good Speech Pattern: Spontaneous Speech Memory Description: Intact Hallucinations: None Delusions: Not Present Thought Process: Rumination Thought Content: positive for Circumstantial and positive for Suicidal Ideation (denies) Depressive Symptoms: Increased Anxiety Judgement: Good Diagnostics Vital Signs (24Hr): Vital Signs - 24 hr 05/16/21 19:05 05/17/21 06:00 05/17/21 08:42 Temperature 98 F Pulse Rate 88 84 88 Blood Pressure 103/58 L 115/68 111/63 Pulse Oximetry 97 BMI result Body Mass Index 24.8 Labs Results: 05/15/21 08:03 05/07/21 07:35 Medications Medications Current Medications Acetaminophen (Acetaminophen 325 Mg Tablet) 650 mg PO Q6H PRN PRN Reason: Headache/Pain Mild Scale (1-3) Last Admin: 05/09/21 01:45 Dose: 650 mg Documented by: Al Hydroxide/Mg Hydroxide (Magnesium Hydrox/Alum Hydrox 30 Ml Oral.Susp) 30 ml PO Q6H PRN PRN Reason: Heartburn/Nausea Clonidine HCl (Clonidine Hcl 0.1 Mg Tablet) 0.1 mg PO BID [facility]; Protocol Last Admin: 05/17/21 08:40 Dose: 0.1 mg Documented by: Divalproex Sodium (Divalproex Sodium Er 500 Mg Tab.Er.24h) 500 mg PO BEDTIME [facility] Last Admin: 05/16/21 21:16 Dose: 500 mg Documented by: Ferrous Sulfate (Ferrous Sulfate 324 Mg Tablet.Dr) 324 mg PO DAILY [facility] Last Admin: 05/17/21 08:40 Dose: 324 mg Documented by: Hydroxyzine HCl (Hydroxyzine Hcl 25 Mg Tablet) 25 mg PO BEDTIME PRN PRN Reason: Anxiety Last Admin: 05/15/21 17:00 Dose: 25 mg Documented by: Hydroxyzine HCl (Hydroxyzine Hcl 25 Mg Tablet) 25 mg PO Q6H PRN PRN Reason: Anxiety Last Admin: 05/17/21 09:45 Dose: 25 mg Documented by: Magnesium Hydroxide (Milk Of Magnesia 30 Ml Oral.Susp) 30 ml PO DAILY PRN PRN Reason: Constipation Methadone HCl (Methadone Hcl 20 Mg/2 Ml Oral.Conc) 30 mg PO DAILY [facility] Last Admin: 05/17/21 08:41 Dose: 30 mg Documented by: Multivitamins/Vitamin C (Multivitamin Tablet) 1 tab PO DAILY [facility] Last Admin: 05/17/21 08:41 Dose: 1 tab Documented by: Nicotine Polacrilex (Nicotine Polacrilex 2 Mg Gum) 4 mg BUCCAL Q2H PRN PRN Reason: Nicotine Cravings Last Admin: 05/17/21 15:54 Dose: 4 mg Documented by: Olanzapine (Olanzapine 5 Mg Tablet) 5 mg PO Q4H PRN PRN Reason: agitation, anxiety Last Admin: 05/17/21 15:54 Dose: 5 mg Documented by: Senna (Sennosides 8.6 Mg Tablet) 8.6 mg PO BEDTIME [facility] Last Admin: 05/16/21 21:15 Dose: 8.6 mg Documented by: Sertraline HCl (Sertraline Hcl 50 Mg Tablet) 150 mg PO DAILY [facility] Last Admin: 05/17/21 08:40 Dose: 150 mg Documented by: Trazodone HCl (Trazodone Hcl 100 Mg Tablet) 100 mg PO BEDTIME [facility] Last Admin: 05/16/21 21:16 Dose: 100 mg Documented by: Trazodone HCl (Trazodone Hcl 50 Mg Tablet) 50 mg PO BEDTIME PRN PRN Reason: Insomnia Last Admin: 05/16/21 23:07 Dose: 50 mg Documented by: Allergies Allergies Allergy/AdvReac Type Severity Reaction Status Date / Time No Known Allergies Allergy Verified 05/02/21 11:48 [No Known Allergies*] Assessment & Plan Assessment & Plan (1) Opioid use disorder, severe, dependence: Status: Acute Code(s): F11.20 - Opioid dependence, uncomplicated Plan Continue with methadone 30 mg daily at this time. Addiction team will continue to follow along with you. This was discussed with provider, Nancy Gamez, via secure messaging system. 05/16/21: Continue current regime. Team reports [facility] may have a bed on 05/17 or 05/18. Methadone teaching sheets given to pt for review. 05/17/21: [facility] tentative for 05/20. Increase Depakote ER to 1000 mg HS Valproate level 05/20. I spent minutes with the patient and/or on the patient floor today, greater than?50% of which was spent counseling/coordinating care. Patient educated on: medication risk/benefits, substance abuse and therapeutic strategies Informed Consent: understands Reason for contiued inpatient stay Substantial Risk for: harm to self, inability to function and rapid decompensation
[2021-05-17 22:30] VITALS: BP 113/59; PULSE 82; TEMP 37.1
[2021-05-17] MEDS: traZODone HCL 100 MG TABLET PO (22:44)
[2021-05-17] MEDS: Divalproex Sodium ER 500 MG TAB.ER.24H 1000 MG PO (22:44)
[2021-05-17] MEDS: Sennosides 8.6 MG TABLET PO (22:45)
[2021-05-18] MEDS: Nicotine Polacrilex 2 MG GUM 4 MG BUCCAL ×7 (00:36→21:51)
[2021-05-18] MEDS: traZODone HCL 50 MG TABLET PO (00:36)
[2021-05-18] MEDS: cloNIDine HCL 0.1 MG TABLET PO ×2 (08:18→21:51)
[2021-05-18] MEDS: Multivitamin TABLET 1 TAB PO (08:18)
[2021-05-18] MEDS: Sertraline HCL 50 MG TABLET 150 MG PO (08:18)
[2021-05-18] MEDS: methADONE HCl 20 MG/2 ML ORAL.CONC 30 MG PO (08:18)
[2021-05-18] MEDS: Ferrous Sulfate 324 MG TABLET.DR PO (08:18)
[2021-05-18] MEDS: hydrOXYzine HCL 25 MG TABLET PO ×2 (09:59→16:18)
[2021-05-18 11:36] VITALS: BP 108/53; PULSE 76; RESP 14; TEMP 37; O2SAT 96
--- NOTE | 2021-05-18 11:48 | P.PNPSI_ITS ---
Subjective Subjective Date of Service: 05/18/21 Reason For Visit: suicide attempt Subjective Notes: Conditional Voluntary Medical Problems Affecting Mental Status: No Interim History: Patient was seen and discussed in rounds. Records and plans were reviewed. He is hoping to be discharged early next week. He wanted to know if I could inc rease his methadone dose but I told him the reasons why I could not. He is appearing to be comfortable with his current dose but still would like to increase it for no particular known reason. He has been more social and brighter in his affect. No groups attended. Eating and sleeping adequately. No changes were made today Medication Compliance: Yes Side effects from medications: No Review of Systems Review of Systems Yes all other systems are reviewed and are negative Diagnostics Vital Signs (24Hr): Vital Signs - 24 hr 05/17/21 22:30 05/18/21 11:36 Temperature 98.8 F 98.6 F Pulse Rate 82 76 Respiratory Rate 14 Blood Pressure 113/59 L 108/53 L Pulse Oximetry 96 BMI result Body Mass Index 24.8 Labs Results: 05/15/21 08:03 05/07/21 07:35 Medications Medications Current Medications Acetaminophen (Acetaminophen 325 Mg Tablet) 650 mg PO Q6H PRN PRN Reason: Headache/Pain Mild Scale (1-3) Last Admin: 05/09/21 01:45 Dose: 650 mg Documented by: Al Hydroxide/Mg Hydroxide (Magnesium Hydrox/Alum Hydrox 30 Ml Oral.Susp) 30 ml PO Q6H PRN PRN Reason: Heartburn/Nausea Clonidine HCl (Clonidine Hcl 0.1 Mg Tablet) 0.1 mg PO BID [facility]; Protocol Last Admin: 05/18/21 08:18 Dose: 0.1 mg Documented by: Divalproex Sodium (Divalproex Sodium Er 500 Mg Tab.Er.24h) 1,000 mg PO BEDTIME [facility] Last Admin: 05/17/21 22:44 Dose: 1,000 mg Documented by: Ferrous Sulfate (Ferrous Sulfate 324 Mg Tablet.) 324 mg PO DAILY [facility] Last Admin: 05/18/21 08:18 Dose: 324 mg Documented by: Hydroxyzine HCl (Hydroxyzine Hcl 25 Mg Tablet) 25 mg PO BEDTIME PRN PRN Reason: Anxiety Last Admin: 05/15/21 17:00 Dose: 25 mg Documented by: Hydroxyzine HCl (Hydroxyzine Hcl 25 Mg Tablet) 25 mg PO Q6H PRN PRN Reason: Anxiety Last Admin: 05/18/21 09:59 Dose: 25 mg Documented by: Magnesium Hydroxide (Milk Of Magnesia 30 Ml Oral.Susp) 30 ml PO DAILY PRN PRN Reason: Constipation Methadone HCl (Methadone Hcl 20 Mg/2 Ml Oral.Conc) 30 mg PO DAILY [facility] Last Admin: 05/18/21 08:18 Dose: 30 mg Documented by: Multivitamins/Vitamin C (Multivitamin Tablet) 1 tab PO DAILY [facility] Last Admin: 05/18/21 08:18 Dose: 1 tab Documented by: Nicotine Polacrilex (Nicotine Polacrilex 2 Mg Gum) 4 mg BUCCAL Q2H PRN PRN Reason: Nicotine Cravings Last Admin: 05/18/21 10:28 Dose: 4 mg Documented by: Olanzapine (Olanzapine 5 Mg Tablet) 5 mg PO Q4H PRN PRN Reason: agitation, anxiety Last Admin: 05/17/21 15:54 Dose: 5 mg Documented by: Senna (Sennosides 8.6 Mg Tablet) 8.6 mg PO BEDTIME [facility] Last Admin: 05/17/21 22:45 Dose: 8.6 mg Documented by: Sertraline HCl (Sertraline Hcl 50 Mg Tablet) 150 mg PO DAILY [facility] Last Admin: 05/18/21 08:18 Dose: 150 mg Documented by: Trazodone HCl (Trazodone Hcl 100 Mg Tablet) 100 mg PO BEDTIME [facility] Last Admin: 05/17/21 22:44 Dose: 100 mg Documented by: Trazodone HCl (Trazodone Hcl 50 Mg Tablet) 50 mg PO BEDTIME PRN PRN Reason: Insomnia Last Admin: 05/18/21 00:36 Dose: 50 mg Documented by: Allergies Allergies Allergy/AdvReac Type Severity Reaction Status Date / Time No Known Allergies Allergy Verified 05/02/21 11:48 [No Known Allergies*] Assessment & Plan Assessment & Plan (1) Opioid use disorder, severe, dependence: Status: Acute Code(s): F11.20 - Opioid dependence, uncomplicated Plan Continue with methadone 30 mg daily at this time. Addiction team will continue to follow along with you. This was discussed with provider, Nancy Gamez, via secure messaging system. 05/16/21: Continue current regime. Team reports [facility] may have a bed on 04/24 or 05/18. Methadone teaching sheets given to pt for review. 05/17/21: [facility] tentative for 05/20. Increase Depakote ER to 1000 mg HS Valproate level 05/20. 05/18: Continue current regimen and plans I spent minutes with the patient and/or on the patient floor today, greater than?50% of which was spent counseling/coordinating care. Reason for contiued inpatient stay Substantial Risk for: other
[2021-05-18] MEDS: OLANZapine 5 MG TABLET PO (11:57)
[2021-05-18 21:03] VITALS: BP 109/59; PULSE 93; TEMP 36.6; O2SAT 98
[2021-05-18] MEDS: Divalproex Sodium ER 500 MG TAB.ER.24H 1000 MG PO ×2 (21:51→21:53)
[2021-05-18] MEDS: traZODone HCL 100 MG TABLET PO (21:51)
[2021-05-18] MEDS: Sennosides 8.6 MG TABLET PO ×2 (21:51→21:54)
[2021-05-19] MEDS: Nicotine Polacrilex 2 MG GUM 4 MG BUCCAL ×9 (00:16→18:10)
[2021-05-19] MEDS: traZODone HCL 50 MG TABLET PO (00:17)
[2021-05-19 08:00] VITALS: BP 131/58; PULSE 76; RESP 14; TEMP 37.1; O2SAT 97
[2021-05-19] MEDS: Multivitamin TABLET 1 TAB PO (08:22)
[2021-05-19] MEDS: methADONE HCl 20 MG/2 ML ORAL.CONC 30 MG PO (08:22)
[2021-05-19] MEDS: Sertraline HCL 50 MG TABLET 150 MG PO (08:22)
[2021-05-19] MEDS: Ferrous Sulfate 324 MG TABLET.DR PO (08:22)
[2021-05-19] MEDS: cloNIDine HCL 0.1 MG TABLET PO ×2 (08:22→23:16)
[2021-05-19] MEDS: hydrOXYzine HCL 25 MG TABLET PO ×2 (10:02→16:14)
[2021-05-19] MEDS: OLANZapine 5 MG TABLET PO ×2 (11:29→18:09)
--- NOTE | 2021-05-19 13:10 | P.PNPSI_ITS ---
Subjective Subjective Date of Service: 05/19/21 Reason For Visit: suicide attempt Subjective Notes: Conditional Voluntary Healthcare Proxy: No Guardianship: No Interim History: Patient future oriented some anxiety feels hopeful about going to the [facility] Medication Compliance: Yes Side effects from medications: No Attending Groups: Yes Review of Systems Medical Review of Systems: unchanged Mental Status Exam Mental Status Exam Patient Appearance: Well Grooomed Patient Orientation: Person, Place, Time and Situation Level of Consciousness: Alert Patient Behavior: Talkative and Good Eye Contact Mood Description: Depressed, Anxious and Apprehensive Affect Description: Flat and Apprehensive Patient Cognition Impaired: No Ability to Follow Directions: Good Speech Pattern: Spontaneous Speech Memory Description: Intact Hallucinations: None Delusions: Not Present Thought Process: Rumination Thought Content: positive for Circumstantial and positive for Suicidal Ideation (denies) Depressive Symptoms: Increased Anxiety Judgement: Good Diagnostics Vital Signs (24Hr): Vital Signs - 24 hr 05/18/21 21:03 05/19/21 08:00 Temperature 97.9 F 98.8 F Pulse Rate 93 76 Respiratory Rate 14 Blood Pressure 109/59 L 131/58 L Pulse Oximetry 98 97 BMI result Body Mass Index 24.8 Labs Results: 05/15/21 08:03 05/07/21 07:35 Medications Medications Current Medications Acetaminophen (Acetaminophen 325 Mg Tablet) 650 mg PO Q6H PRN PRN Reason: Headache/Pain Mild Scale (1-3) Last Admin: 05/09/21 01:45 Dose: 650 mg Documented by: Al Hydroxide/Mg Hydroxide (Magnesium Hydrox/Alum Hydrox 30 Ml Oral.Susp) 30 ml PO Q6H PRN PRN Reason: Heartburn/Nausea Clonidine HCl (Clonidine Hcl 0.1 Mg Tablet) 0.1 mg PO BID [facility]LY [facility], [facility]; Protocol Last Admin: 05/19/21 08:22 Dose: 0.1 mg Documented by: Divalproex Sodium (Divalproex Sodium Er 500 Mg Tab.Er.24h) 1,000 mg PO BEDTIME [facility] Last Admin: 05/18/21 21:53 Dose: 1,000 mg Documented by: Ferrous Sulfate (Ferrous Sulfate 324 Mg Tablet.Dr) 324 mg PO DAILY [facility] Last Admin: 05/19/21 08:22 Dose: 324 mg Documented by: Hydroxyzine HCl (Hydroxyzine Hcl 25 Mg Tablet) 25 mg PO BEDTIME PRN PRN Reason: Anxiety Last Admin: 05/15/21 17:00 Dose: 25 mg Documented by: Hydroxyzine HCl (Hydroxyzine Hcl 25 Mg Tablet) 25 mg PO Q6H PRN PRN Reason: Anxiety Last Admin: 05/19/21 10:02 Dose: 25 mg Documented by: Magnesium Hydroxide (Milk Of Magnesia 30 Ml Oral.Susp) 30 ml PO DAILY PRN PRN Reason: Constipation Methadone HCl (Methadone Hcl 20 Mg/2 Ml Oral.Conc) 30 mg PO DAILY [facility] Last Admin: 05/19/21 08:22 Dose: 30 mg Documented by: Multivitamins/Vitamin C (Multivitamin Tablet) 1 tab PO DAILY [facility] Last Admin: 05/19/21 08:22 Dose: 1 tab Documented by: Nicotine Polacrilex (Nicotine Polacrilex 2 Mg Gum) 4 mg BUCCAL Q2H PRN PRN Reason: Nicotine Cravings Last Admin: 05/19/21 12:05 Dose: 4 mg Documented by: Olanzapine (Olanzapine 5 Mg Tablet) 5 mg PO Q4H PRN PRN Reason: agitation, anxiety Last Admin: 05/19/21 11:29 Dose: 5 mg Documented by: Senna (Sennosides 8.6 Mg Tablet) 8.6 mg PO BEDTIME [facility] Last Admin: 05/18/21 21:54 Dose: 8.6 mg Documented by: Sertraline HCl (Sertraline Hcl 50 Mg Tablet) 150 mg PO DAILY [facility] Last Admin: 05/19/21 08:22 Dose: 150 mg Documented by: Trazodone HCl (Trazodone Hcl 100 Mg Tablet) 100 mg PO BEDTIME [facility] Last Admin: 05/18/21 21:51 Dose: 100 mg Documented by: Trazodone HCl (Trazodone Hcl 50 Mg Tablet) 50 mg PO BEDTIME PRN PRN Reason: Insomnia Last Admin: 05/19/21 00:17 Dose: 50 mg Documented by: Allergies Allergies Allergy/AdvReac Type Severity Reaction Status Date / Time No Known Allergies Allergy Verified 05/02/21 11:48 [No Known Allergies*] Assessment & Plan Assessment & Plan (1) Opioid use disorder, severe, dependence: Status: Acute Code(s): F11.20 - Opioid dependence, uncomplicated Plan Continue with methadone 30 mg daily at this time. Addiction team will continue to follow along with you. This was discussed with provider, Nancy Leandro-Wonkka, via secure messaging system. 05/16/21: Continue current regime. Team reports [facility] may have a bed on 05/17 or 05/18. Methadone teaching sheets given to pt for review. 05/17/21: [facility] tentative for 05/20. Increase Depakote ER to 1000 mg HS Valproate level 05/20. 05/18: Continue current regimen and plans 05/19/2021 Patient improved less anxiety mood more stable agreeable to rehab setting states methadone has been helpful Patient educated on: substance abuse and therapeutic strategies Informed Consent: understands Reason for contiued inpatient stay Substantial Risk for: rapid decompensation
[2021-05-19 22:45] VITALS: BP 112/60; PULSE 77; TEMP 36.8; O2SAT 96
[2021-05-19] MEDS: Divalproex Sodium ER 500 MG TAB.ER.24H 1000 MG PO (23:14)
[2021-05-19] MEDS: traZODone HCL 100 MG TABLET PO (23:16)
[2021-05-19] MEDS: Sennosides 8.6 MG TABLET PO (23:17)
[2021-05-20] MEDS: Nicotine Polacrilex 2 MG GUM 4 MG BUCCAL ×5 (05:47→14:10)
[2021-05-20 06:00] VITALS: BP 121/59; PULSE 102; RESP 18; TEMP 36.9; O2SAT 98
[2021-05-20] MEDS: cloNIDine HCL 0.1 MG TABLET PO (08:14)
[2021-05-20] MEDS: Multivitamin TABLET 1 TAB PO (08:14)
[2021-05-20] MEDS: Ferrous Sulfate 324 MG TABLET.DR PO (08:14)
[2021-05-20] MEDS: Sertraline HCL 50 MG TABLET 150 MG PO (08:14)
[2021-05-20] MEDS: methADONE HCl 20 MG/2 ML ORAL.CONC 30 MG PO (08:15)
[2021-05-20 08:36] LABS: Valproate 57.4 mcg/mL (50.0-100.0)
[2021-05-20] MEDS: hydrOXYzine HCL 25 MG TABLET PO (10:14)
[2021-05-20] MEDS: methADONE HCl 20 MG/2 ML ORAL.CONC 5 MG PO (12:14)
--- NOTE | 2021-05-20 13:27 | P.DS_ITS ---
DS: Providers Provider Date of Service: 05/20/21 Date of admission: 05/08/21 17:37 Date of discharge: 05/20/21 Primary care physician: Leonel Romero MD Admitting clinician: Noemi Gamez Attending physician on admission: Raman Baig Consults: 05/09/21 12:59 Addiction Medicine Routine Consulting Provider: Cara Moss Reason for consultation: Relapse, Suboxone pt of [facility] Has provider been notified: Yes 05/14/21 11:07 Addiction Medicine Routine Consulting Provider: Cara Moss Reason for consultation: Solomon would like to make a change to methadone Has provider been notified: No 05/17/21 19:38 Addiction Medicine Routine Consulting Provider: Cara Moss Reason for consultation: Pt asking to discuss titration of Methadone Has provider been notified: No Attending physician on discharge: Raman Baig Discharging clinician: Noemi Gamez DS: Diagnosis Discharge Diagnosis (1) Opioid use disorder, severe, dependence: Status: Acute (2) Severe recurrent major depression with psychotic features: Status: Acute (3) Cocaine use disorder: Status: Acute (4) Cannabis use disorder, severe, dependence: Status: Acute DS: Medications Discharge Medications Home Medications: Previous Rx's Medication Instructions Recorded clonidine HCl 0.1 mg tablet 0.1 mg PO BID #60 tab 05/20/21 divalproex 500 mg tablet,extended 1,000 mg PO BEDTIME #60 tab 05/20/21 release 24 hr ferrous sulfate 324 mg (65 mg 324 mg PO DAILY #30 tab 05/20/21 iron) tablet,delayed release multivitamin (Daily-Echo) 1 tab PO DAILY #30 tab 05/20/21 naloxone 4 mg/actuation nasal 4 mg INTRANASAL Q2M PRN #2 ea 05/20/21 spray (Narcan) nicotine (polacrilex) 2 mg gum 4 mg BUCCAL Q2H PRN #60 ea 05/20/21 olanzapine 5 mg tablet 5 mg PO Q4H PRN #60 tab 05/20/21 sertraline 150 mg capsule 150 mg PO DAILY #30 cap 05/20/21 trazodone 100 mg tablet 1 tab PO BEDTIME #30 tab 05/20/21 Mental Status Exam Mental Status Exam Patient Appearance: Well Grooomed Patient Orientation: Person, Place, Time and Situation Level of Consciousness: Alert Patient Behavior: Talkative and Good Eye Contact Mood Description: Depressed, Anxious and Apprehensive Affect Description: Flat and Apprehensive Patient Cognition Impaired: No Ability to Follow Directions: Good Speech Pattern: Spontaneous Speech Memory Description: Intact Hallucinations: None Delusions: Not Present Thought Process: Rumination Thought Content: positive for Circumstantial and positive for Suicidal Ideation (denies) Depressive Symptoms: Increased Anxiety Judgement: Good Data Data Completed and Pending Completed studies during hospitalization [Text1]: 05/15/21 05/20/21 08:03 08:05 WBC 6.4 RBC 4.14 L Hgb 12.6 L Hct 38.5 L MCV 93.0 MCH 30.4 MCHC 32.7 RDW 13.3 Plt Count 207 MPV 10.2 Immature Gran % (Auto) 0.2 Neut % (Auto) 42.4 L Lymph % (Auto) 46.5 H [place] % (Auto) 7.7 Eos % (Auto) 2.7 Baso % (Auto) 0.5 Lymph # (Auto) 3.0 [place] # (Auto) 0.5 Eos # (Auto) 0.2 Baso # (Auto) 0.0 Abs Immat Gran (auto) 0.01 Absolute Neuts (auto) 2.7 Absolute Nucleated RBC 0.000 Nucleated RBC % (auto) 0.0 Valproic Acid 57.4 DS: Summary Hospital Course Hospital Course: Admission to adult psychiatry to address symptoms of recurrent major depression with psychosis, opiate use disorder, cocaine use disorder and cannabis use disorder. Care plan, medication regime and out patient plan of care prior to admission were reviewed. Education was provided regarding management of symptoms, medications and side effects. Nursing and social service worked extensively with Solomon on collateral contacts, plan of care, education regarding management of symptoms, medications and discharge planning. Solomon was consulted on by the Addiction Team. Suboxone was discontinued during this hospitalization. Methadone, 30 mg daily, was initiated during this hospitalization with the addiction teams support . Depakote, Clonidine and Olanzapine were initiated. Sertraline was titrated. Multivitamin and Ferrous Sulfate were initiated as well Time spent discussing smoking cessation with patient: 3 to 10 minutes Status at Discharge Functional status at discharge: independent ambulation Overall status at discharge: patient is progressing back to baseline Time Spent with Patient Time attestation: Total time spent providing and/or coordinating discharge services: 35 Time spent: Greater than 30 minutes Discharge Plan Discharge Patient Disposition: Xfer Inpatient Rehab Fac Discharge Diagnosis: Recurrent major depression Opioid Use Mrldkdoi-Sotkel-Kdj Methadone Maintenance Therapy Stimulant Use Eatrbsoq-Qnecytb-Ncyxnq Cannabis Use Disorder-Severe Referrals: Leonel Romero MD [Primary Care Provider] - 06/18/21 2:30 pm (IN OFFICE) Discharge Medications: New multivitamin [Daily-Echo] Tablet 1 tab PO DAILY Qty: 30 0RF clonidine HCl 0.1 mg Tablet 0.1 mg PO BID Qty: 60 0RF Protocol: Hold for SBP< HOLD for SBP < : 90 nicotine (polacrilex) 2 mg Gum 4 mg buccal Q2H PRN (Reason: Nicotine Cravings) Qty: 60 0RF olanzapine 5 mg Tablet 5 mg PO Q4H PRN (Reason: agitation, anxiety) Qty: 60 0RF divalproex 500 mg Tablet Extended Release 24 Hr 1,000 mg PO BEDTIME Qty: 60 0RF ferrous sulfate 324 mg (65 mg iron) Tablet,Delayed Release (Dr/Ec) 324 mg PO DAILY Qty: 30 0RF naloxone [Narcan] 4 mg/actuation spray,non-aerosol 4 mg intranasal Q2M PRN (Reason: opioid overdose) Qty: 2 0RF Rx Instructions: spray 1 dose into ONE nostril; alternate nostrils w each dose until help arrives sertraline 150 mg capsule 150 mg PO DAILY Qty: 30 0RF Continued trazodone 100 mg tablet 1 tab PO BEDTIME Qty: 30 0RF Discontinued sertraline 100 mg Tablet 100 mg PO DAILY 30 Days Qty: 30 0RF nicotine (polacrilex) 2 mg gum 2 ea PO Q2H PRN (Reason: nicotine cravings) 0RF buprenorphine-naloxone [Suboxone] 8-2 mg film 1 film sublingual BID 21 Days Qty: 42 0RF Discharge Orders: Discharge Order (Routine); Ordered 05/20/21 Ordered By: Noemi Gamez Diet: advance to usual diet Activity on Discharge: As tolerated Stand Alone Forms: Patient Portal Discharge page, Community Support Care Plan Goals: Sobriety Compliance with MAT-Dosage of Methadone increased to 30 mg daily-continue with clinic recommendations Health Concerns: Recurrent major depression Opioid Use Disorder-Severe, Dependence- New Methadone Maintenance plan of care Cocaine Use Disorder Cannabis Use Disorder Plan of Treatment: Attend daily Methadone Clinic appointments Attend scheduled psychiatric/therapy/medical appointments Take medications as directed Call/Return if needed Crisis Number [phone] You have been given a Narcan prescription if needed Assessment: non-psychotic, non-suicidal Discharge Date/Time: 05/20/21 14:20
--- NOTE | 2021-05-20 13:29 | MHC.RECOVRN ---
Met with pt to f/u regarding transition to methadone from Suboxone and discuss titration. Pt walking around the unit, alert and engaged with peers. Pt will dc today to [facility] and continue methadone with [facility] in [place]. Pt reports methadone is going well, denies withdrawal symptoms, however, reports persistent cravings. Pt would like to increase 5 mg. Discussed with Cara Moss APRN, who increased patient's dose 5 mg for a total of 35 mg today. Pts RN aware and will provide last dose letter.
[2021-05-20] MEDS: OLANZapine 5 MG TABLET PO (14:10)
== END 2021-05-20 14:20 | DRG 751 ==
LOC: HO.ED 18:21 → HO.PM5 05-08 17:44
PROVIDERS: Nurse Practitioner Family; Admitting Provider Psychiatry & Neurology Psychiatry; Emergency Provider Emergency Medicine; PCP Internal Medicine; Visit Provider Clinical Nurse Specialist Psychiatric/Mental Health, Adult
DX: F33.3 Major depressive disorder, recurrent, severe with psychotic symptoms (principal); R45.851 Suicidal ideations; F11.20 Opioid dependence, uncomplicated; F17.210 Nicotine dependence, cigarettes, uncomplicated; F14.10 Cocaine abuse, uncomplicated; F12.20 Cannabis dependence, uncomplicated; Z20.822 Contact with and (suspected) exposure to COVID-19; Z23 Encounter for immunization; Z59.02 Unsheltered homelessness; Z71.6 Tobacco abuse counseling; Z79.899 Other long term (current) drug therapy
CPT/HCPCS: 36415; 80048; 80076; 80164; 80307; 82607; 82746; 83036; 83540; 84443; 85025; 87635; 90686; 93005; 99285

== ENCOUNTER 2021-06-18 16:50 | Outpatient (REF) | payer OTHER, SELFPAY ==
[2021-06-18 17:02] LABS: MANUAL DIFF FLAG NO
[2021-06-18 17:38] LABS: Basophils Absolute Auto 0.1 X10*3/uL (0.0-0.2); Basophils Percent Auto 0.6 % (0-2); Eosinophils Absolute Auto 0.1 X10*3/uL (0.0-0.4); Eosinophils Percent Auto 0.7 % (0-4); Hematocrit 32.8 % (42.0-52.0); Hemoglobin 10.9 g/dl (14.0-18.0); Imm Gran Abs Auto 0.06 X10*3/uL (0.00-0.03); Imm Gran Pct Auto 0.6 % (0.0-0.4); Lymphocytes Absolute Auto 2.9 X10*3/uL (1.2-4.9); Mean Corpuscular HGB Conc 33.2 g/dl (31.0-36.0); Mean Corpuscular Hemoglobin 29.8 pg (27.0-33.0); Mean Corpuscular Volume 89.6 fL (80.0-98.0); Mean Platelet Volume 9.9 fL (9.4-12.4); Neutrophils Absolute Auto 5.4 x10*3/uL (2.0-8.3); Neutrophils Percent Auto 57.1 % (45-73); Platelet Count 227 X10*3/uL (160-400); Red Blood Count 3.66 X10*6/uL (4.60-5.80); Red Cell Distribution Width 14.1 % (11.0-16.0); White Blood Count 9.5 X10*3/uL (4.8-10.8)
[2021-06-18 18:12] LABS: Alanine Aminotransferase 26 U/L (0-40); Albumin Level 4.5 g/dL (3.5-5.0); Alkaline Phosphatase 56 U/L (39-117); Anion Gap 13 (12-20); Aspartate Amino Transferase 25 U/L (5-37); Bilirubin Total 0.6 mg/dL (0.0-1.0); Blood Urea Nitrogen 18 mg/dL (9-16); Calcium 9.5 mg/dL (8.4-10.2); Carbon Dioxide 27 mmol/L (22-29); Chloride 106 mmol/L (96-108); Cholesterol 162 mg/dL; Estimated Glomerular Filt Rate > 60; Glucose Random 81 mg/dL (60-115); Sodium 142 mmol/L (135-145); Total Protein 7.4 g/dL (6.5-8.0)
== END 2021-06-18 16:51 | disposition home or self-care (01) ==
LOC: HO.LAB 16:50
PROVIDERS: PCP Internal Medicine; Visit Provider Internal Medicine
DX: F41.8 Other specified anxiety disorders (principal); Z86.19 Personal history of other infectious and parasitic diseases
CPT/HCPCS: 36415; 80053; 82465; 85025

== ENCOUNTER 2021-09-28 17:18 | Inpatient (IN) | payer OTHER, SELFPAY ==
[2021-09-28 17:20] VITALS: BP 121/63; PULSE 70; RESP 18; TEMP 36.6; O2SAT 97; BMI 24.3
--- NOTE | 2021-09-28 17:27 | ED_ITS ---
HPI - Psych General Chief Complaint: Psychiatric Symptoms Stated Complaint: feeling depressed, suicidal thoughts Time Seen by Provider: 09/28/21 17:24 Source: patient Mode of arrival: ambulatory Limitations: no limitations History of Present Illness MD complaint: feels depressed Onset (ago): week(s) Duration: getting worse History of same: Yes Relieving factors: none Exacerbating factors: other Context: not taking psychiatric medications and significant life stressor Associated psychiatric symptoms: depression and suicidal ideation Associated symptoms: denies other symptoms Treatments prior to arrival: none If self harm: admits thoughts of self harm and has plan Related Data Previous Rx's Medication Instructions Recorded ferrous sulfate 324 mg (65 mg 324 mg PO DAILY #30 tabs 05/20/21 iron) tablet,delayed release sertraline 150 mg capsule 150 mg PO DAILY #30 caps 05/20/21 Allergies Allergy/AdvReac Type Severity Reaction Status Date / Time No Known Allergies Allergy Verified 05/02/21 11:48 [No Known Allergies*] Review of Systems Review of Systems: Constitutional : No Fever, No Chills ENT/Mouth : No Ear Pain, No Nasal Congestion, No sore throat Eyes: No Eye Pain, No Swelling, No Redness Cardiovascular : No Chest Pain, No SOB Respiratory : No Cough, No Sputum, No Dyspnea Gastrointestinal : No Nausea, No Vomiting, No Diarrhea, No Hematochezia, No Melena Genitourinary : No Dysuria, No Urinary Frequency, No Hematuria Musculoskeletal : No Myalgias Skin : No Skin Lesions, No rash Neuro : No Weakness, No Numbness, No Paresthesias, No Dizziness, No Headache Psych : positive Anxiety, positive Depression, positive SI no HI Heme/Lymph: No Lymphadenopathy Endocrine : No Polyuria, No Polydipsia All other systems reviewed and are negative [facility] Past Medical History Attestation statement: The following information was validated with the patient. Medical History Opioid use disorder Severe recurrent major depression with psychotic features Suicidal ideation Social History Social History Household Members: None Household Members Other:: that he is homeless Housing: Unknown / Unable to assess Do you presently have visiting nurse or other home services: No Unable to assess alcohol history related to: Refusing to respond Patient Tobacco Use Status: Current everyday Tobacco user Tobacco use type: Cigarette Cigarette Packs Per Day: 1 Cigarettes Per Day: 20.0 Years Smoked: 17 e-Cigarette/Vaping Use: Currently Using Second Hand Smoke Exposure: No Substance Use Type: Crack/Cocaine, Heroin, Marijuana and Caffiene Advance Directives: No Advance Directives Information Provided: No service: No Sexual orientation: Did not discuss Physical Exam Vital Signs: Vital Signs: Last Vital Signs Temp 98 F 09/28/21 17:20 Pulse 70 09/28/21 17:20 Resp 18 09/28/21 17:20 BP 121/63 09/28/21 17:20 Pulse Ox 97 09/28/21 17:20 O2 Del Method 09/28/21 17:20 BMI result Body Mass Index 24.3 Appearance: Alert. Oriented X3. No acute distress. Eyes: Pupils equal, round and reactive to light. ENT: Pharynx normal. Neck: Normal inspection. Neck supple. CVS: Normal heart rate and rhythm. Pulses normal. Respiratory: No respiratory distress. Breath sounds normal. Abdomen: Soft and nontender. Skin: Skin warm and dry. Normal skin color. Normal skin turgor. Extremities: No lower extremity edema. No calf ttp Neuro: Oriented X 3. No motor deficit. No sensory deficit. CN2-12 intact Course Course Course Narrative: Physician observation started at 602pm. Patient placed in physician observation because the patient needed more time for N to assess need for psych admission. At the time observation was started the patient's vitals were stable, patient is alert and oriented, Neuro: nonfocal, CV RRR, Lungs clear MDM - Psych MDM Narrative Medical decision making narrative: 31 yo male hx of depression here with c/o SI and off medications will obtain labs and refer to N. Lab Data Result diagrams: 09/28/21 18:10 09/28/21 18:10 Labs: Lab Results 09/28/21 09/28/21 09/28/21 Range/Units 17:58 17:58 18:10 WBC 7.8 (4.8-10.8) X10*3/uL RBC 3.74 L (4.60-5.80) X10*6/uL Hgb 11.7 L (14.0-18.0) g/dl Hct 34.5 L (42.0-52.0) % MCV 92.2 (80.0-98.0) fL MCH 31.3 (27.0-33.0) pg MCHC 33.9 (31.0-36.0) g/dl RDW 12.7 (11.0-16.0) % Plt Count 197 (160-400) X10*3/uL MPV 10.2 (9.4-12.4) fL Immature Gran % (Auto) 0.3 (0.0-0.4) % Neut % (Auto) 48.8 (45-73) % Lymph % (Auto) 40.8 H (20-40) % [place] % (Auto) 7.7 (2-11) % Eos % (Auto) 1.9 (0-4) % Baso % (Auto) 0.5 (0-2) % Lymph # (Auto) 3.2 (1.2-4.9) X10*3/uL [place] # (Auto) 0.6 (0.1-1.2) X10*3/uL Eos # (Auto) 0.2 (0.0-0.4) X10*3/uL Baso # (Auto) 0.0 (0.0-0.2) X10*3/uL Abs Immat Gran (auto) 0.02 (0.00-0.03) X10*3/uL Absolute Neuts (auto) 3.8 (2.0-8.3) x10*3/uL Absolute Nucleated RBC 0.000 (0.0-0.012) X10*3/uL Nucleated RBC % (auto) 0.0 (0.0-0.2) /100WBC Sodium (135-145) mmol/L Potassium (3.3-5.1) mmol/L Chloride (96-108) mmol/L Carbon Dioxide (22-29) mmol/L Anion Gap (12-20) BUN (9-16) mg/dL Creatinine (0.5-1.4) mg/dL Estim Creat Clear Calc Estimated GFR Random Glucose (60-115) mg/dL Calcium (8.4-10.2) mg/dL Magnesium (1.6-2.6) mg/dL Total Bilirubin (0.0-1.0) mg/dL Direct Bilirubin (0.0-0.5) mg/dL AST (5-37) U/L ALT (0-40) U/L Alkaline Phosphatase (39-117) U/L Total Protein (6.5-8.0) g/dL Albumin (3.5-5.0) g/dL Urine Opiates Screen POSITIVE H (Not Detect) Urine Fentanyl Screen POSITIVE H (Not Detect) Ur Barbiturates Screen Not Detected (Not Detect) Valproic Acid (50.0-100.0) mcg/mL Ur Phencyclidine Scrn Not Detected (Not Detect) Ur Amphetamines Screen Not Detected (Not Detect) U Benzodiazepines Scrn Not Detected (Not Detect) Urine Cocaine Screen POSITIVE H (Not Detect) U Marijuana (THC) Screen POSITIVE H (Not Detect) Ethyl Alcohol mg/dL COVID-19 (TIKA) Negative (Negative) COVID-19 Clin Com See Note 09/28/21 Range/Units 18:10 WBC (4.8-10.8) X10*3/uL RBC (4.60-5.80) X10*6/uL Hgb (14.0-18.0) g/dl Hct (42.0-52.0) % MCV (80.0-98.0) fL MCH (27.0-33.0) pg MCHC (31.0-36.0) g/dl RDW (11.0-16.0) % Plt Count (160-400) X10*3/uL MPV (9.4-12.4) fL Immature Gran % (Auto) (0.0-0.4) % Neut % (Auto) (45-73) % Lymph % (Auto) (20-40) % [place] % (Auto) (2-11) % Eos % (Auto) (0-4) % Baso % (Auto) (0-2) % Lymph # (Auto) (1.2-4.9) X10*3/uL [place] # (Auto) (0.1-1.2) X10*3/uL Eos # (Auto) (0.0-0.4) X10*3/uL Baso # (Auto) (0.0-0.2) X10*3/uL Abs Immat Gran (auto) (0.00-0.03) X10*3/uL Absolute Neuts (auto) (2.0-8.3) x10*3/uL Absolute Nucleated RBC (0.0-0.012) X10*3/uL Nucleated RBC % (auto) (0.0-0.2) /100WBC Sodium 141 (135-145) mmol/L Potassium 3.6 (3.3-5.1) mmol/L Chloride 107 (96-108) mmol/L Carbon Dioxide 28 (22-29) mmol/L Anion Gap 10 L (12-20) BUN 15 (9-16) mg/dL Creatinine 0.89 (0.5-1.4) mg/dL Estim Creat Clear Calc 114.2 Estimated GFR > 60 Random Glucose 97 (60-115) mg/dL Calcium 8.9 D (8.4-10.2) mg/dL Magnesium 1.8 (1.6-2.6) mg/dL Total Bilirubin 0.5 (0.0-1.0) mg/dL Direct Bilirubin 0.2 (0.0-0.5) mg/dL AST 13 D (5-37) U/L ALT 18 (0-40) U/L Alkaline Phosphatase 50 (39-117) U/L Total Protein 6.4 L (6.5-8.0) g/dL Albumin 4.1 (3.5-5.0) g/dL Urine Opiates Screen (Not Detect) Urine Fentanyl Screen (Not Detect) Ur Barbiturates Screen (Not Detect) Valproic Acid < 2.0 L (50.0-100.0) mcg/mL Ur Phencyclidine Scrn (Not Detect) Ur Amphetamines Screen (Not Detect) U Benzodiazepines Scrn (Not Detect) Urine Cocaine Screen (Not Detect) U Marijuana (THC) Screen (Not Detect) Ethyl Alcohol < 10 mg/dL COVID-19 (TIKA) (Negative) COVID-19 Clin Com Discharge Plan Discharge Clinical Impression: Suicidal ideation, Active substance abuse Patient Disposition: Still a Patient Prescriptions: No Action ferrous sulfate 324 mg (65 mg iron) Tablet,Delayed Release (Dr/Ec) 324 mg PO DAILY Qty: 30 0RF sertraline 150 mg capsule 150 mg PO DAILY Qty: 30 0RF
[2021-09-28 18:17] LABS: Amphetamine Screen Urine Not Detected (Not Detect); Barbiturates, Urine Not Detected (Not Detect); Benzodiazepines Screen Urine Not Detected (Not Detect); Cannabinoid Screen Urine POSITIVE (Not Detect); Cocaine Screen Urine POSITIVE (Not Detect); Fentanyl, urine POSITIVE (Not Detect); Opiate Screen Urine POSITIVE (Not Detect); Phencyclidine Screen Urine Not Detected (Not Detect)
[2021-09-28 18:18] LABS: COVID-19 Test Negative (Negative); IDNOW Serial# 55D5AD1C
[2021-09-28 18:22] LABS: MANUAL DIFF FLAG NO
[2021-09-28 18:23] LABS: Basophils Percent Auto 0.5 % (0-2); Eosinophils Absolute Auto 0.2 X10*3/uL (0.0-0.4); Eosinophils Percent Auto 1.9 % (0-4); Hematocrit 34.5 % (42.0-52.0); Hemoglobin 11.7 g/dl (14.0-18.0); Imm Gran Abs Auto 0.02 X10*3/uL (0.00-0.03); Imm Gran Pct Auto 0.3 % (0.0-0.4); Lymphocytes Absolute Auto 3.2 X10*3/uL (1.2-4.9); Lymphocytes Percent Auto 40.8 % (20-40); Mean Corpuscular HGB Conc 33.9 g/dl (31.0-36.0); Mean Corpuscular Hemoglobin 31.3 pg (27.0-33.0); Mean Corpuscular Volume 92.2 fL (80.0-98.0); Mean Platelet Volume 10.2 fL (9.4-12.4); Monocytes Absolute Auto 0.6 X10*3/uL (0.1-1.2); Monocytes Percent Auto 7.7 % (2-11); Neutrophils Absolute Auto 3.8 x10*3/uL (2.0-8.3); Neutrophils Percent Auto 48.8 % (45-73); Platelet Count 197 X10*3/uL (160-400); Red Blood Count 3.74 X10*6/uL (4.60-5.80); Red Cell Distribution Width 12.7 % (11.0-16.0); White Blood Count 7.8 X10*3/uL (4.8-10.8)
[2021-09-28 18:36] LABS: Alanine Aminotransferase 18 U/L (0-40); Albumin Level 4.1 g/dL (3.5-5.0); Alkaline Phosphatase 50 U/L (39-117); Anion Gap 10 (12-20); Aspartate Amino Transferase 13 U/L (5-37); Bilirubin Direct 0.2 mg/dL (0.0-0.5); Bilirubin Total 0.5 mg/dL (0.0-1.0); Blood Urea Nitrogen 15 mg/dL (9-16); Calcium 8.9 mg/dL (8.4-10.2); Carbon Dioxide 28 mmol/L (22-29); Chloride 107 mmol/L (96-108); Creatinine Clr Calc Pharmacy 114.2; Estimated Glomerular Filt Rate > 60; Ethanol < 10 mg/dL; Glucose Random 97 mg/dL (60-115); Magnesium 1.8 mg/dL (1.6-2.6); Potassium 3.6 mmol/L (3.3-5.1); Sodium 141 mmol/L (135-145); Total Protein 6.4 g/dL (6.5-8.0)
[2021-09-28 18:43] LABS: Valproate < 2.0 mcg/mL (50.0-100.0)
--- NOTE | 2021-09-29 | ECG_ITS ---
Test Reason : CLEARENCE Blood Pressure : / mmHG Vent. Rate : 052 BPM Atrial Rate : 052 BPM P-R Int : 116 ms QRS Dur : 104 ms QT Int : 448 ms P-R-T Axes : 048 058 038 degrees QTc Int : 416 ms Sinus bradycardia Otherwise normal ECG When compared with ECG of 08-MAY-2021 11:17, Premature ventricular complexes are no longer Present T wave amplitude has increased in Anterior leads Referred By: Marguerite Gutiérrez Electronically Signed By:SONAL MARTÍNEZ MD
--- NOTE | 2021-09-29 05:44 | PC.NURSE ---
Patient slept through the night, no distress observed/reported, patient presented well with [facility] clinician, disposition per [facility] is section 12 inpatient bed search, med rec completed/pending provider's approval, behavior non concerning, VSS, will continue to monitor.
--- NOTE | 2021-09-29 07:13 | PC.NURSE ---
patient appears to remain asleep at present respirations are even and unlabored patient appears in no distress
[2021-09-29 11:37] VITALS: BP 98/75; PULSE 54; RESP 16; TEMP 36.6; O2SAT 98
--- NOTE | 2021-09-29 11:47 | MHC.RECOVSUP ---
Recovery Support note: Patient is a 31 year old Pakistani speaking male who presented to [facility] due to SI. Patient is currently awaiting an inpatient psychiatric bed. Patient tested positive for opiates and fentanyl, cocaine and marijuana. This jingle writer met with patient to discuss substance use and withdrawal symptoms. Patient reports he receives methadone through the [facility]. Patient reports he last received 95mg yesterday (09/28). Clinic is now closed and his dose is unable to be verified. Patient reports he is beginning to experience withdrawal symptoms. Discussed case with patient's ED provider. Plan for patient to get 30mg of methadone today. Dose will be verified on 09/30. Patient has ID scanned into EMR. Patient is in agreement with this plan.
[2021-09-29] MEDS: methADONE HCl 20 MG/2 ML ORAL.CONC 30 MG PO (12:50)
[2021-09-29] MEDS: Nicotine Polacrilex 2 MG GUM BUCCAL (19:53)
[2021-09-30 04:51] VITALS: BP 111/56; PULSE 50; RESP 16; TEMP 36.1; O2SAT 98
--- NOTE | 2021-09-30 06:10 | PC.NURSE ---
Patient slept through the night, no distress observed/reported, behavior appropriate, med rec completed/MAY live, disposition per N is section 12 Inpatient bed search, VSS, will continue to monitor.
--- NOTE | 2021-09-30 07:19 | PC.NURSE ---
patient appears to remain asleep at present respirations are even and unlabored patient appears in no distress
[2021-09-30 08:07] VITALS: BP 117/74; PULSE 62; RESP 18; TEMP 36.4; O2SAT 96
[2021-09-30] MEDS: methADONE HCl 20 MG/2 ML ORAL.CONC 95 MG PO (08:57)
[2021-09-30] MEDS: Sertraline HCL 100 MG TABLET 150 MG PO (08:57)
[2021-09-30] MEDS: Nicotine Polacrilex 2 MG GUM BUCCAL ×4 (08:58→16:56)
[2021-09-30] MEDS: Ferrous Sulfate 324 MG TABLET.DR PO (08:58)
[2021-09-30 11:16] LABS: COVID-19 Test Negative (Negative)
[2021-09-30 15:11] VITALS: BP 107/68; PULSE 74; RESP 16; O2SAT 98
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
[2021-09-30 18:00] VITALS: BP 166/97; PULSE 86; TEMP 37; TEMP 37.1; O2SAT 99
--- NOTE | 2021-09-30 18:51 | PC.ADMIT ---
Pt is a 31 year old male who presents to M5 from [facility] at approx 15:30 on a cv status. Pt is covid - Utox + for opiates, fentanyl, cocaine and THC. Per chart review, pt was assessed by RONNIE early 09/29 after arriving at [facility] 09/28 evening self-presenting due to SI. Reports relapsing on fentanyl, opiates and cocaine as an attempt. Reported he was clean 5 months ago but has been feeling overwhelmed and need help. Stated I feel like crap & reported he went off his meds. Reports a plan of SI/HI and wants to get help. Hx of A&B charges. During admit, pt was denied SI/HI/AVH/pain/depression and anxiety. Pt reported to being sober for awhile and had a recent binge of drugs. Provider contacted for orders. Start treatment plan and monitor for safety
[2021-09-30] MEDS: Nicotine Polacrilex 2 MG GUM 4 MG BUCCAL (19:24)
[2021-09-30] MEDS: Divalproex Sodium ER 500 MG TAB.ER.24H PO (19:24)
[2021-10-01 09:00] VITALS: BP 129/72; PULSE 56; RESP 16; TEMP 36.8; O2SAT 98
[2021-10-01] MEDS: Ferrous Sulfate 324 MG TABLET.DR PO (09:01)
[2021-10-01] MEDS: Sertraline HCL 50 MG TABLET PO (09:01)
[2021-10-01] MEDS: methADONE HCl 20 MG/2 ML ORAL.CONC 95 MG PO (09:02)
[2021-10-01] MEDS: Nicotine Polacrilex 2 MG GUM 4 MG BUCCAL ×4 (09:07→17:08)
[2021-10-01 09:10] LABS: Estimated Average Glucose 103 mg/dL; Hemoglobin A1c % 5.2 %
[2021-10-01 10:08] LABS: Alanine Aminotransferase 17 U/L (0-40); Albumin Level 4.8 g/dL (3.5-5.0); Alkaline Phosphatase 56 U/L (39-117); Anion Gap 14 (12-20); Aspartate Amino Transferase 12 U/L (5-37); Bilirubin Total 0.6 mg/dL (0.0-1.0); Blood Urea Nitrogen 19 mg/dL (9-16); Calcium 9.9 mg/dL (8.4-10.2); Carbon Dioxide 27 mmol/L (22-29); Chloride 105 mmol/L (96-108); Cholesterol 174 mg/dL; Creatinine Clr Calc Pharmacy 114.2; Estimated Glomerular Filt Rate > 60; Glucose Fasting 91 mg/dL (60-99); HDL Cholesterol 40 mg/dL; LDL Cholesterol Calculated 105 mg/dl; Potassium 4.5 mmol/L (3.3-5.1); Sodium 141 mmol/L (135-145); Total Protein 7.7 g/dL (6.5-8.0); Triglycerides 145 mg/dL
[2021-10-01 10:09] LABS: Free T4 (Free Thyroxine) 1.18 ng/dL (0.71-1.85); Thyroid Stimulating Hormone 0.12 uIU/mL (0.32-4.0)
--- NOTE | 2021-10-01 10:21 | HO.PSYCHPN ---
Subjective Subjective Date of Service: 10/01/21 Reason For Visit: feeling depressed, suicidal thoughts Subjective Notes: Conditional Voluntary Healthcare Proxy: No Guardianship: No Medical Problems Affecting Mental Status: No Interim History: Reports sx of increased anxiety, depression, amotivation with SI- I feel like it is the end of the world at times. Review of medications after last discharge, reports efficacy, tolerance, however non compliance. Will consider if he wants changes. Discussed relapse and discussed that he is unsure what is next-does want to continue psychotherapy and medications, unsure about residential treatment for addiction, unsure about what he wants in community. Will consider. Also will consider what is needed for community documentation of treatment Medication Compliance: Yes Side effects from medications: No Attending Groups: Intermittent Review of Systems Acute medical concerns: No Medical Review of Systems: unchanged Review of Systems Psychiatric: Reports anxiety, Reports depression, Reports hopelessness and Reports suicidal ideation Mental Status Exam Mental Status Exam Patient Appearance: Appropriate Patient Orientation: Person, Place, Time and Situation Level of Consciousness: Alert Patient Behavior: Appropriate, Talkative, Cooperative, Resistive to Care (uncertain at this point of what he wants to pursue in terms of care.) and Good Eye Contact Mood Description: Depressed and Apprehensive Affect Description: Flat Patient Cognition Impaired: No Ability to Follow Directions: Good Speech Pattern: Appropriate and Spontaneous Speech Memory Description: Intact Hallucinations: None Delusions: Not Present Perceptual Disturbances: Depersonalization and Derealization Thought Process: Rumination Thought Content: positive for Suicidal Ideation Depressive Symptoms: Increased Anxiety Judgement: Fair Diagnostics Vital Signs (24Hr): Vital Signs - 24 hr 09/30/21 15:11 09/30/21 18:00 09/30/21 18:00 Temperature 98.6 F 98.7 F Pulse Rate 74 86 86 Respiratory Rate 16 Blood Pressure 107/68 166/97 H 166/97 H Pulse Oximetry 98 99 99 Oxygen Delivery Method Room Air 10/01/21 09:00 Temperature 98.2 F Pulse Rate 56 Respiratory Rate 16 Blood Pressure 129/72 Pulse Oximetry 98 Oxygen Delivery Method Room Air BMI result Body Mass Index 24.3 Labs Results: 09/28/21 18:10 10/01/21 08:20 Labs: Laboratory Results - last 48 hr 09/30/21 10/01/21 10/01/21 10:48 08:20 08:20 Sodium 141 Potassium 4.5 D Chloride 105 Carbon Dioxide 27 Anion Gap 14 BUN 19 H Creatinine 0.89 Estim Creat Clear Calc 114.2 Estimated GFR > 60 Fasting Glucose 91 Estimat Average Glucose 103 Hemoglobin A1c % 5.2 Calcium 9.9 D Magnesium 2.0 Total Bilirubin 0.6 AST 12 ALT 17 Alkaline Phosphatase 56 Total Protein 7.7 D Albumin 4.8 Triglycerides 145 Cholesterol 174 LDL Cholesterol, Calc 105 HDL Cholesterol 40 TSH 0.12 L Free T4 1.18 COVID-19 (TIKA) Negative COVID-19 Clin Com See Note Medications Medications Current Medications Acetaminophen (Acetaminophen 325 Mg Tablet) 650 mg PO Q6H PRN PRN Reason: Headache/Pain Mild Scale (1-3) Al Hydroxide/Mg Hydroxide (Magnesium Hydrox/Alum Hydrox 30 Ml Oral.Susp) 30 ml PO Q6H PRN PRN Reason: Heartburn/Nausea Clonidine HCl (Clonidine Hcl 0.1 Mg Tablet) 0.1 mg PO TID PRN; Protocol PRN Reason: anxiety Divalproex Sodium (Divalproex Sodium Er 500 Mg Tab.Er.24h) 500 mg PO BEDTIME [facility] Last Admin: 09/30/21 19:24 Dose: 500 mg Ferrous Sulfate (Ferrous Sulfate 324 Mg Tablet.Dr) 324 mg PO DAILY [facility] Last Admin: 10/01/21 09:01 Dose: 324 mg Hydroxyzine HCl (Hydroxyzine Hcl 25 Mg Tablet) 25 mg PO Q6H PRN PRN Reason: Anxiety Magnesium Hydroxide (Milk Of Magnesia 30 Ml Oral.Susp) 30 ml PO DAILY PRN PRN Reason: Constipation Methadone HCl (Methadone Hcl 20 Mg/2 Ml Oral.Conc) 95 mg PO DAILY [facility] Last Admin: 10/01/21 09:02 Dose: 95 mg Nicotine Polacrilex (Nicotine Polacrilex 2 Mg Gum) 4 mg BUCCAL Q2H PRN PRN Reason: smoking cessation Last Admin: 10/01/21 09:07 Dose: 4 mg Olanzapine (Olanzapine 5 Mg Tablet) 5 mg PO Q4H PRN PRN Reason: agitation, psychosis, anxiety Sertraline HCl (Sertraline Hcl 50 Mg Tablet) 50 mg PO DAILY [facility] Last Admin: 10/01/21 09:01 Dose: 50 mg Trazodone HCl (Trazodone Hcl 100 Mg Tablet) 100 mg PO BEDTIME PRN PRN Reason: Insomnia Allergies Allergies Allergy/AdvReac Type Severity Reaction Status Date / Time No Known Allergies Allergy Verified 05/02/21 11:48 [No Known Allergies*] Assessment & Plan Assessment & Plan (1) Severe recurrent major depression with psychotic features: Status: Acute Code(s): F33.3 - Major depressive disorder, recurrent, severe with psychotic symptoms (2) Opioid use disorder, severe, dependence: Status: Acute Code(s): F11.20 - Opioid dependence, uncomplicated (3) Cocaine use disorder: Status: Acute Code(s): F14.10 - Cocaine abuse, uncomplicated (4) Cannabis use disorder, severe, dependence: Status: Acute Code(s): F12.20 - Cannabis dependence, uncomplicated Plan Solomon is a 31 y.o. male who carries a dx of severe MDD with psychotic features, opioid use disorder, and cocaine use disorder. He presented to [facility] on 09/28/21 due to SI. He relapsed on fentanyl, opiates, and cocaine. Pt endorses depression, anxiety, and intermittent passive SI. Per chart, he has a long hx of minimizing his substance use, as well as chronic relapsing, daily heroin abuse. Hx of lack of follow up with OP referrals. Pt recently discharged from [facility] M5 05/07/21-05/20/21. He has been non-adherent with his medications x 2 months, VPA level <0.2. Was prev stabilized on clonidine 0.1 mg BID, zyprexa 5 mg Q4H PRN agitation, depakote 1000 mg QHS, and sertraline 150 mg. He was also switched from suboxone to methadone per addiction consult. Currently on methadone 95 mg daily.? Plan: Pt agreeable to re-start his previous med regimen, as he felt stable after his previous hospital stay. Will re-start depakote at 500 mg QHS, zyprexa 5 mg Q4H PRN for anxiety/ agitation/ psychosis, sertraline 50 mg, and clonidine 0.1 mg TID PRN. Pt also asks for ensure and nicotine replacement.? Q15 min safety checks, CV Monitor response to medications. Monitor for safety in the milieu. Discharge on stabilization. Patient seen. Chart reviewed. Discussed with team. Obtain collateral contact info?as needed 10/01/21 Continue current regime Continue discussion with pt about his next steps with his treatment. I spent minutes with the patient and/or on the patient floor today, greater than?50% of which was spent counseling/coordinating care. Patient educated on: therapeutic strategies Informed Consent: understands and further education needed Reason for contiued inpatient stay Substantial Risk for: harm to self, inability to function and rapid decompensation
[2021-10-01 10:42] LABS: Folate 17.2 ng/mL (> or = 4.0); Vitamin B12 299 pg/mL (200-900)
[2021-10-01] MEDS: hydrOXYzine HCL 25 MG TABLET PO ×2 (11:53→20:46)
[2021-10-01] MEDS: OLANZapine 5 MG TABLET PO (13:51)
[2021-10-01 17:24] VITALS: BP 132/90; PULSE 86; RESP 18; TEMP 36.3; O2SAT 96
[2021-10-01] MEDS: Divalproex Sodium ER 500 MG TAB.ER.24H PO (20:46)
[2021-10-01] MEDS: Sennosides 8.6 MG TABLET 17.2 MG PO (20:46)
[2021-10-01] MEDS: traZODone HCL 100 MG TABLET PO (20:46)
[2021-10-02 08:00] VITALS: BP 110/57; PULSE 62; TEMP 36.6; O2SAT 95
[2021-10-02] MEDS: Sertraline HCL 50 MG TABLET PO (08:29)
[2021-10-02] MEDS: methADONE HCl 20 MG/2 ML ORAL.CONC 95 MG PO (08:29)
[2021-10-02] MEDS: Ferrous Sulfate 324 MG TABLET.DR PO (08:29)
[2021-10-02] MEDS: Nicotine Polacrilex 2 MG GUM 4 MG BUCCAL ×5 (09:20→21:42)
[2021-10-02] MEDS: hydrOXYzine HCL 25 MG TABLET PO (11:04)
--- NOTE | 2021-10-02 13:17 | P.PNPSI_ITS ---
Subjective Subjective Date of Service: 10/02/21 Reason For Visit: feeling depressed, suicidal thoughts Subjective Notes: Conditional Voluntary Healthcare Proxy: No Guardianship: No Medical Problems Affecting Mental Status: No Interim History: Reports depressive sx. Continues to be undecided on what would be most helpful post discharge. Willing to meet with a disaster recovery manager Asks for addiction eval to titrate Methadone. Medication Compliance: Yes Side effects from medications: No (It is depression, not exhaustion.) Attending Groups: Intermittent Review of Systems Acute medical concerns: No Medical Review of Systems: unchanged Review of Systems Psychiatric: Reports anxiety, Reports depression, Reports hopelessness and Reports suicidal ideation Mental Status Exam Mental Status Exam Patient Appearance: Appropriate Patient Orientation: Person, Place, Time and Situation Level of Consciousness: Alert Patient Behavior: Appropriate, Talkative, Cooperative, Resistive to Care (uncertain at this point of what he wants to pursue in terms of care.) and Good Eye Contact Mood Description: Depressed and Apprehensive Affect Description: Flat Patient Cognition Impaired: No Ability to Follow Directions: Good Speech Pattern: Appropriate and Spontaneous Speech Memory Description: Intact Hallucinations: None Delusions: Not Present Perceptual Disturbances: Depersonalization and Derealization Thought Process: Rumination Thought Content: positive for Suicidal Ideation Depressive Symptoms: Increased Anxiety Judgement: Fair Diagnostics Vital Signs (24Hr): Vital Signs - 24 hr 10/01/21 17:24 Temperature 97.4 F Pulse Rate 86 Respiratory Rate 18 Blood Pressure 132/90 H Pulse Oximetry 96 Oxygen Delivery Method Room Air BMI result Body Mass Index 24.3 Labs Results: 09/28/21 18:10 10/01/21 08:20 Labs: Laboratory Results - last 48 hr 10/01/21 10/01/21 10/01/21 08:20 08:20 08:20 Sodium 141 Potassium 4.5 D Chloride 105 Carbon Dioxide 27 Anion Gap 14 BUN 19 H Creatinine 0.89 Estim Creat Clear Calc 114.2 Estimated GFR > 60 Fasting Glucose 91 Estimat Average Glucose 103 Hemoglobin A1c % 5.2 Calcium 9.9 D Magnesium 2.0 Total Bilirubin 0.6 AST 12 ALT 17 Alkaline Phosphatase 56 Total Protein 7.7 D Albumin 4.8 Triglycerides 145 Cholesterol 174 LDL Cholesterol, Calc 105 HDL Cholesterol 40 Vitamin B12 299 Folate 17.2 TSH 0.12 L Free T4 1.18 Medications Medications Current Medications Acetaminophen (Acetaminophen 325 Mg Tablet) 650 mg PO Q6H PRN PRN Reason: Headache/Pain Mild Scale (1-3) Al Hydroxide/Mg Hydroxide (Magnesium Hydrox/Alum Hydrox 30 Ml Oral.Susp) 30 ml PO Q6H PRN PRN Reason: Heartburn/Nausea Clonidine HCl (Clonidine Hcl 0.1 Mg Tablet) 0.1 mg PO TID PRN; Protocol PRN Reason: anxiety Divalproex Sodium (Divalproex Sodium Er 500 Mg Tab.Er.24h) 500 mg PO BEDTIME [facility] Last Admin: 10/01/21 20:46 Dose: 500 mg Ferrous Sulfate (Ferrous Sulfate 324 Mg Tablet.Dr) 324 mg PO DAILY [facility] Last Admin: 10/02/21 08:29 Dose: 324 mg Hydroxyzine HCl (Hydroxyzine Hcl 25 Mg Tablet) 25 mg PO Q6H PRN PRN Reason: Anxiety Last Admin: 10/02/21 11:04 Dose: 25 mg Magnesium Hydroxide (Milk Of Magnesia 30 Ml Oral.Susp) 30 ml PO DAILY PRN PRN Reason: Constipation Methadone HCl (Methadone Hcl 20 Mg/2 Ml Oral.Conc) 95 mg PO DAILY [facility] Last Admin: 10/02/21 08:29 Dose: 95 mg Nicotine Polacrilex (Nicotine Polacrilex 2 Mg Gum) 4 mg BUCCAL Q2H PRN PRN Reason: smoking cessation Last Admin: 10/02/21 11:29 Dose: 4 mg Olanzapine (Olanzapine 5 Mg Tablet) 5 mg PO Q4H PRN PRN Reason: agitation, psychosis, anxiety Last Admin: 10/01/21 13:51 Dose: 5 mg Senna (Sennosides 8.6 Mg Tablet) 17.2 mg PO BEDTIME [facility] Last Admin: 10/01/21 20:46 Dose: 17.2 mg Sertraline HCl (Sertraline Hcl 50 Mg Tablet) 50 mg PO DAILY [facility] Last Admin: 10/02/21 08:29 Dose: 50 mg Trazodone HCl (Trazodone Hcl 100 Mg Tablet) 100 mg PO BEDTIME PRN PRN Reason: Insomnia Last Admin: 10/01/21 20:46 Dose: 100 mg Allergies Allergies Allergy/AdvReac Type Severity Reaction Status Date / Time No Known Allergies Allergy Verified 05/02/21 11:48 [No Known Allergies*] Assessment & Plan Assessment & Plan (1) Severe recurrent major depression with psychotic features: Status: Acute Code(s): F33.3 - Major depressive disorder, recurrent, severe with psychotic symptoms (2) Opioid use disorder, severe, dependence: Status: Acute Code(s): F11.20 - Opioid dependence, uncomplicated (3) Cocaine use disorder: Status: Acute Code(s): F14.10 - Cocaine abuse, uncomplicated (4) Cannabis use disorder, severe, dependence: Status: Acute Code(s): F12.20 - Cannabis dependence, uncomplicated Plan Solomon is a 31 y.o. male who carries a dx of severe MDD with psychotic features, opioid use disorder, and cocaine use disorder. He presented to [facility] on 09/28/21 due to SI. He relapsed on fentanyl, opiates, and cocaine. Pt endorses depression, anxiety, and intermittent passive SI. Per chart, he has a long hx of minimizing his substance use, as well as chronic relapsing, daily heroin abuse. Hx of lack of follow up with OP referrals. Pt recently discharged from [facility] 05/07/21-05/20/21. He has been non-adherent with his medications x 2 months, VPA level <0.2. Was prev stabilized on clonidine 0.1 mg BID, zyprexa 5 m g Q4H PRN agitation, depakote 1000 mg QHS, and sertraline 150 mg. He was also switched from suboxone to methadone per addiction consult. Currently on methadone 95 mg daily.? Plan: Pt agreeable to re-start his previous med regimen, as he felt stable after his previous hospital stay. Will re-start depakote at 500 mg QHS, zyprexa 5 mg Q4H PRN for anxiety/ agitation/ psychosis, sertraline 50 mg, and clonidine 0.1 mg TID PRN. Pt also asks for ensure and nicotine replacement.? Q15 min safety checks, CV Monitor response to medications. Monitor for safety in the milieu. Discharge on stabilization. Patient seen. Chart reviewed. Discussed with team. Obtain collateral contact info?as needed 10/02/21 Addiction consult for recovery team and methadone consult appreciated. I spent minutes with the patient and/or on the patient floor today, greater than?50% of which was spent counseling/coordinating care. Patient educated on: therapeutic strategies Informed Consent: understands Reason for contiued inpatient stay Substantial Risk for: harm to self, inability to function and rapid decompensation
[2021-10-02] MEDS: cloNIDine HCL 0.1 MG TABLET PO (14:36)
[2021-10-02 15:15] VITALS: BP 105/67
[2021-10-02] MEDS: Propranolol HCL 10 MG TABLET PO ×2 (15:16→21:42)
--- NOTE | 2021-10-02 18:42 | MHC.RECOVSUP ---
? Reason for consult Recovery Support o Current location: 516 o Identified substance use concern: Heroin - Support ? Intervention: o Community resources provided o Harm reduction discussion ? Plan: o Patient to follow up with [facility] after discharge ? Additional information: Met with with Patient and we talked about recovery and harm reduction..Patient stated that he wishes to have a motor coach tour operator.. and referral was sent...
[2021-10-02 21:28] VITALS: BP 109/77; PULSE 88; TEMP 36.4
[2021-10-02] MEDS: OLANZapine 7.5 MG TABLET 15 MG PO (21:40)
[2021-10-02] MEDS: traZODone HCL 100 MG TABLET PO (21:43)
[2021-10-02] MEDS: Sennosides 8.6 MG TABLET 17.2 MG PO (21:43)
[2021-10-03] MEDS: Sertraline HCL 50 MG TABLET PO (08:28)
[2021-10-03] MEDS: methADONE HCl 20 MG/2 ML ORAL.CONC 95 MG PO (08:28)
[2021-10-03] MEDS: Propranolol HCL 10 MG TABLET PO ×3 (08:29→21:07)
[2021-10-03] MEDS: Ferrous Sulfate 324 MG TABLET.DR PO (08:29)
[2021-10-03 08:30] VITALS: BP 116/60; PULSE 62; RESP 18; TEMP 36.4; O2SAT 98
[2021-10-03] MEDS: Nicotine Polacrilex 2 MG GUM 4 MG BUCCAL ×5 (11:45→21:07)
[2021-10-03] MEDS: hydrOXYzine HCL 25 MG TABLET PO (11:45)
[2021-10-03 11:46] VITALS: BMI 26.7
[2021-10-03 14:16] VITALS: BP 115/68; PULSE 101
[2021-10-03] MEDS: OLANZapine 5 MG TABLET PO (16:58)
[2021-10-03 18:00] VITALS: BP 113/69; PULSE 82
--- NOTE | 2021-10-03 18:31 | HO.ADDICTCON ---
History of Present Illness Date of Service: 10/03/2021 Chief Complaint: feeling depressed, suicidal thoughts Reason for Consult: OUD--?methadone increase Requesting physician: Noemi Gamez HPI Narrative: Patient is a 31 year old male with dx of MDD and OUD, currently admitted to unit for worsening depression. Consult requested as patient currently prescribed methadone 95mg daily and is reporting increased cravings. Patient seen on unit. Awake, alert, pleasant and engaged in interview. He reports that he has been dealing with alot of issues and very recently has been experiencing an increase in opioid cravings. He states that he used 1/2 bundle prior to admission, but this was the first time he has used in some time. He would like to increase dose, with goal of eliminating opioid cravings. Denies any type of withdrawl sx. EKG completed 09/30 while in ED--bradycardia, otherwise WNL. Past Psychiatric History: IP: 9+ OP: None Trials: Sertraline, Paxil, Lexapro, Prozac, Citalopram, Remeron, Zalma Seroquel-drowsiness, Olanzapine, Risperdal, Clonidine Review of Systems Constitutional: Reports as per HPI and Reports no additional constitutional complaints Diagnostics Vital Signs (24Hr): Vital Signs - 24 hr 10/02/21 21:28 10/03/21 08:30 10/03/21 14:16 Temperature 97.6 F 97.5 F Pulse Rate 88 62 101 H Respiratory Rate 18 Blood Pressure 109/77 116/60 115/68 Pulse Oximetry 98 Oxygen Delivery Method Room Air BMI result Body Mass Index 26.7 Labs Results: 09/28/21 18:10 10/01/21 08:20 Mental Status Exam Mental Status Exam Patient Appearance: Appropriate Level of Consciousness: Awake, Appropriate and Alert Mood Description: Depressed and Anxious Affect Description: Blunted Medications Medications Current Medications Acetaminophen (Acetaminophen 325 Mg Tablet) 650 mg PO Q6H PRN PRN Reason: Headache/Pain Mild Scale (1-3) Al Hydroxide/Mg Hydroxide (Magnesium Hydrox/Alum Hydrox 30 Ml Oral.Susp) 30 ml PO Q6H PRN PRN Reason: Heartburn/Nausea Clonidine HCl (Clonidine Hcl 0.1 Mg Tablet) 0.1 mg PO TID PRN; Protocol PRN Reason: anxiety Last Admin: 10/02/21 14:36 Dose: 0.1 mg Ferrous Sulfate (Ferrous Sulfate 324 Mg Tablet.Dr) 324 mg PO DAILY [facility] Last Admin: 10/03/21 08:29 Dose: 324 mg Fluoxetine HCl (Fluoxetine Hcl Oral Solution 20 Mg/5 Ml Solution) 20 mg PO DAILY [facility] Hydroxyzine HCl (Hydroxyzine Hcl 25 Mg Tablet) 25 mg PO Q6H PRN PRN Reason: Anxiety Last Admin: 10/03/21 11:45 Dose: 25 mg Magnesium Hydroxide (Milk Of Magnesia 30 Ml Oral.Susp) 30 ml PO DAILY PRN PRN Reason: Constipation Methadone HCl (Methadone Hcl 20 Mg/2 Ml Oral.Conc) 95 mg PO DAILY [facility] Last Admin: 10/03/21 08:28 Dose: 95 mg Nicotine Polacrilex (Nicotine Polacrilex 2 Mg Gum) 4 mg BUCCAL Q2H PRN PRN Reason: smoking cessation Last Admin: 10/03/21 18:06 Dose: 4 mg Olanzapine (Olanzapine 5 Mg Tablet) 5 mg PO Q4H PRN PRN Reason: agitation, psychosis, anxiety Last Admin: 10/03/21 16:58 Dose: 5 mg Olanzapine (Olanzapine 7.5 Mg Tablet) 15 mg PO BEDTIME [facility] Last Admin: 10/02/21 21:40 Dose: 15 mg Propranolol HCl (Propranolol Hcl 10 Mg Tablet) 10 mg PO TID [facility]; Protocol Last Admin: 10/03/21 14:14 Dose: 10 mg Senna (Sennosides 8.6 Mg Tablet) 17.2 mg PO BEDTIME [facility] Last Admin: 10/02/21 21:43 Dose: 17.2 mg Trazodone HCl (Trazodone Hcl 100 Mg Tablet) 100 mg PO BEDTIME PRN PRN Reason: Insomnia Last Admin: 10/02/21 21:43 Dose: 100 mg Allergies Allergies Allergy/AdvReac Type Severity Reaction Status Date / Time No Known Allergies Allergy Verified 05/02/21 11:48 [No Known Allergies*] Assessment & Plan Assessment & Plan (1) Opioid use disorder, severe, dependence: Status: Acute Code(s): F11.20 - Opioid dependence, uncomplicated Assessment and Plan: increase methadone by 5mg to 100mg [employer] has met with patient, will check back in I spent minutes with the patient and/or on the patient floor today, greater than?50% of which was spent counseling/coordinating care. [facility] Past Medical History Medical History Opioid use disorder Severe recurrent major depression with psychotic features Suicidal ideation Social History Social History Household Members: Family Household Members Other:: that he is homeless Housing: Apartment Do you presently have visiting nurse or other home services: No Unable to assess alcohol history related to: Refusing to respond Patient Tobacco Use Status: Current everyday Tobacco user Tobacco use type: Cigarette Cigarette Packs Per Day: 0.5 Cigarettes Per Day: 10.0 Years Smoked: 15 Smoked in Last 30 Days: Yes e-Cigarette/Vaping Use: Currently Using Patient Interested in Nicotine Replacement: Yes Patient Given Instructions on How to Stop Smoking: Yes Date Education Initiated: 09/30/21 Second Hand Smoke Exposure: Yes Use of substances other than those prescribed or required for medical reasons: No Substance Use Type: Crack/Cocaine, Marijuana and Opiates Substance Use Frequency: Recent Binge Last Used Substance: Just Prior to Admission Currently Displaying Signs/Symptoms of Drug Intoxication Withdrawal: No Any prior treatment program specific to substance use: No Have you been hit, kicked, punched, or otherwise hurt by someone within the past year? If so, by whom?: No Do you feel safe in your current relationship?: No Current Relationship Is there a partner from a previous relationship who is making you feel unsafe now?: No Are you made to feel afraid or neglected: No Advance Directives: No Advance Directives Information Provided: No Do you have thoughts of harming others: None Do you have a plan to hurt others: No Plan Recently lost weight without trying: Yes How much weight loss: 2-13 pounds Eating poorly because of decreased appetite: No Nutrition screen score: 3 Nutrition Risks: No Nutritional Risk Poor oral hygiene: No service: No Sexual orientation: Straight/Heterosexual
--- NOTE | 2021-10-03 18:52 | HO.PSYCHPN ---
Subjective Subjective Date of Service: 10/03/21 Reason For Visit: feeling depressed, suicidal thoughts Subjective Notes: Conditional Voluntary Healthcare Proxy: No Guardianship: No Medical Problems Affecting Mental Status: No Interim History: Solomon reports meeting with recovery team last evening and finding it helpful. States he is feeling depressed, appears tired, no, that is depression for me. Slept 3am-12pm, asks to make a change with Sertraline. Discussed combination of Olanzapine with Fluoxetine. He agrees to a trial. Medication Compliance: Yes Side effects from medications: No Attending Groups: Intermittent Review of Systems Acute medical concerns: No Medical Review of Systems: unchanged Review of Systems Psychiatric: Reports anxiety, Reports depression, Reports hopelessness and Reports suicidal ideation Mental Status Exam Mental Status Exam Patient Appearance: Appropriate Patient Orientation: Person, Place, Time and Situation Level of Consciousness: Alert Patient Behavior: Appropriate, Talkative, Cooperative, Resistive to Care (uncertain at this point of what he wants to pursue in terms of care.) and Good Eye Contact Mood Description: Depressed and Apprehensive Affect Description: Flat Patient Cognition Impaired: No Ability to Follow Directions: Good Speech Pattern: Appropriate and Spontaneous Speech Memory Description: Intact Hallucinations: None Delusions: Not Present Perceptual Disturbances: Depersonalization and Derealization Thought Process: Rumination Thought Content: positive for Suicidal Ideation Depressive Symptoms: Increased Anxiety Judgement: Fair Diagnostics Vital Signs (24Hr): Vital Signs - 24 hr 10/02/21 21:28 10/03/21 08:30 10/03/21 14:16 Temperature 97.6 F 97.5 F Pulse Rate 88 62 101 H Respiratory Rate 18 Blood Pressure 109/77 116/60 115/68 Pulse Oximetry 98 Oxygen Delivery Method Room Air BMI result Body Mass Index 26.7 Labs Results: 09/28/21 18:10 10/01/21 08:20 Medications Medications Current Medications Acetaminophen (Acetaminophen 325 Mg Tablet) 650 mg PO Q6H PRN PRN Reason: Headache/Pain Mild Scale (1-3) Al Hydroxide/Mg Hydroxide (Magnesium Hydrox/Alum Hydrox 30 Ml Oral.Susp) 30 ml PO Q6H PRN PRN Reason: Heartburn/Nausea Clonidine HCl (Clonidine Hcl 0.1 Mg Tablet) 0.1 mg PO TID PRN; Protocol PRN Reason: anxiety Last Admin: 10/02/21 14:36 Dose: 0.1 mg Ferrous Sulfate (Ferrous Sulfate 324 Mg Tablet.) 324 mg PO DAILY [facility] Last Admin: 10/03/21 08:29 Dose: 324 mg Fluoxetine HCl (Fluoxetine Hcl Oral Solution 20 Mg/5 Ml Solution) 20 mg PO DAILY [facility] Hydroxyzine HCl (Hydroxyzine Hcl 25 Mg Tablet) 25 mg PO Q6H PRN PRN Reason: Anxiety Last Admin: 10/03/21 11:45 Dose: 25 mg Magnesium Hydroxide (Milk Of Magnesia 30 Ml Oral.Susp) 30 ml PO DAILY PRN PRN Reason: Constipation Methadone HCl (Methadone Hcl 20 Mg/2 Ml Oral.Conc) 95 mg PO DAILY [facility] Last Admin: 10/03/21 08:28 Dose: 95 mg Nicotine Polacrilex (Nicotine Polacrilex 2 Mg Gum) 4 mg BUCCAL Q2H PRN PRN Reason: smoking cessation Last Admin: 10/03/21 18:06 Dose: 4 mg Olanzapine (Olanzapine 5 Mg Tablet) 5 mg PO Q4H PRN PRN Reason: agitation, psychosis, anxiety Last Admin: 10/03/21 16:58 Dose: 5 mg Olanzapine (Olanzapine 7.5 Mg Tablet) 15 mg PO BEDTIME [facility] Last Admin: 10/02/21 21:40 Dose: 15 mg Propranolol HCl (Propranolol Hcl 10 Mg Tablet) 10 mg PO TID [facility]; Protocol Last Admin: 10/03/21 14:14 Dose: 10 mg Senna (Sennosides 8.6 Mg Tablet) 17.2 mg PO BEDTIME [facility] Last Admin: 10/02/21 21:43 Dose: 17.2 mg Trazodone HCl (Trazodone Hcl 100 Mg Tablet) 100 mg PO BEDTIME PRN PRN Reason: Insomnia Last Admin: 10/02/21 21:43 Dose: 100 mg Allergies Allergies Allergy/AdvReac Type Severity Reaction Status Date / Time No Known Allergies Allergy Verified 05/02/21 11:48 [No Known Allergies*] Assessment & Plan Assessment & Plan (1) Severe recurrent major depression with psychotic features: Status: Acute Code(s): F33.3 - Major depressive disorder, recurrent, severe with psychotic symptoms (2) Opioid use disorder, severe, dependence: Status: Acute Code(s): F11.20 - Opioid dependence, uncomplicated (3) Cocaine use disorder: Status: Acute Code(s): F14.10 - Cocaine abuse, uncomplicated (4) Cannabis use disorder, severe, dependence: Status: Acute Code(s): F12.20 - Cannabis dependence, uncomplicated Plan Solomon is a 31 y.o. male who carries a dx of severe MDD with psychotic features, opioid use disorder, and cocaine use disorder. He presented to [facility] ED on 09/28/21 due to SI. He relapsed on fentanyl, opiates, and cocaine. Pt endorses depression, anxiety, and intermittent passive SI. Per chart, he has a long hx of minimizing his substance use, as well as chronic relapsing, daily heroin abuse. Hx of lack of follow up with OP referrals. Pt recently discharged from [facility] M5 05/07/21-05/20/21. He has been non-adherent with his medications x 2 months, VPA level <0.2. Was prev stabilized on clonidine 0.1 mg BID, zyprexa 5 mg Q4H PRN agitation, depakote 1000 mg QHS, and sertraline 150 mg. He was also switched from suboxone to methadone per addiction consult. Currently on methadone 95 mg daily.? Plan: Pt agreeable to re-start his previous med regimen, as he felt stable after his previous hospital stay. Will re-start depakote at 500 mg QHS, zyprexa 5 mg Q4H PRN for anxiety/ agitation/ psychosis, sertraline 50 mg, and clonidine 0.1 mg TID PRN. Pt also asks for ensure and nicotine replacement.? Q15 min safety checks, CV Monitor response to medications. Monitor for safety in the milieu. Discharge on stabilization. Patient seen. Chart reviewed. Discussed with team. Obtain collateral contact info?as needed 10/01/21 Continue current regime Continue discussion with pt about his next steps with his treatment. 10/03/21 Discontinue Sertraline Fluoxetine 20 mg daily Solomon working with addictions team on his Methadone dosing and with recovery team. Unsure about residential care at this time. I spent minutes with the patient and/or on the patient floor today, greater than?50% of which was spent counseling/coordinating care. Patient educated on: medication risk/benefits and therapeutic strategies Informed Consent: understands and further education needed Reason for contiued inpatient stay Substantial Risk for: harm to self, inability to function and rapid decompensation
[2021-10-03] MEDS: Sennosides 8.6 MG TABLET 17.2 MG PO (21:07)
[2021-10-03] MEDS: OLANZapine 7.5 MG TABLET 15 MG PO (21:07)
[2021-10-04 06:00] VITALS: BP 124/66; PULSE 86; RESP 16; O2SAT 98
[2021-10-04] MEDS: methADONE HCl 20 MG/2 ML ORAL.CONC 100 MG PO (09:03)
[2021-10-04] MEDS: FLUoxetine HCl Oral Solution 20 MG/5 ML SOLUTION PO (09:04)
[2021-10-04] MEDS: Propranolol HCL 10 MG TABLET PO ×2 (09:04→14:30)
[2021-10-04] MEDS: Ferrous Sulfate 324 MG TABLET.DR PO (09:04)
[2021-10-04] MEDS: Nicotine Polacrilex 2 MG GUM 4 MG BUCCAL ×6 (09:07→19:56)
[2021-10-04] MEDS: cloNIDine HCL 0.1 MG TABLET PO (10:11)
[2021-10-04] MEDS: hydrOXYzine HCL 25 MG TABLET PO ×2 (10:11→16:37)
--- NOTE | 2021-10-04 13:55 | P.PNPSI_ITS ---
Subjective Subjective Date of Service: 10/04/21 Reason For Visit: feeling depressed, suicidal thoughts Subjective Notes: Conditional Voluntary Healthcare Proxy: No Guardianship: No Medical Problems Affecting Mental Status: No Interim History: Visable in milieu. Reports anxiety. Attempting to manage sx by remaining in bed most of the time. Continues to work with recovery team Medication Compliance: Yes Side effects from medications: No Attending Groups: Intermittent Review of Systems Acute medical concerns: No Medical Review of Systems: unchanged Review of Systems Psychiatric: Reports anxiety, Reports depression, Reports hopelessness and Reports suicidal ideation Mental Status Exam Mental Status Exam Patient Appearance: Appropriate Patient Orientation: Person, Place, Time and Situation Level of Consciousness: Alert Patient Behavior: Appropriate, Talkative, Cooperative, Resistive to Care (uncertain at this point of what he wants to pursue in terms of care.) and Good Eye Contact Mood Description: Depressed and Apprehensive Affect Description: Flat Patient Cognition Impaired: No Ability to Follow Directions: Good Speech Pattern: Appropriate and Spontaneous Speech Memory Description: Intact Hallucinations: None Delusions: Not Present Perceptual Disturbances: Depersonalization and Derealization Thought Process: Rumination Thought Content: positive for Suicidal Ideation Depressive Symptoms: Increased Anxiety Judgement: Fair Diagnostics Vital Signs (24Hr): Vital Signs - 24 hr 10/03/21 14:16 10/03/21 18:00 Pulse Rate 101 H 82 Blood Pressure 115/68 113/69 BMI result Body Mass Index 26.7 Labs Results: 09/28/21 18:10 10/01/21 08:20 Medications Medications Current Medications Acetaminophen (Acetaminophen 325 Mg Tablet) 650 mg PO Q6H PRN PRN Reason: Headache/Pain Mild Scale (1-3) Al Hydroxide/Mg Hydroxide (Magnesium Hydrox/Alum Hydrox 30 Ml Oral.Susp) 30 ml PO Q6H PRN PRN Reason: Heartburn/Nausea Clonidine HCl (Clonidine Hcl 0.1 Mg Tablet) 0.1 mg PO TID PRN; Protocol PRN Reason: anxiety Last Admin: 10/04/21 10:11 Dose: 0.1 mg Ferrous Sulfate (Ferrous Sulfate 324 Mg Tablet.) 324 mg PO DAILY [facility] Last Admin: 10/04/21 09:04 Dose: 324 mg Fluoxetine HCl (Fluoxetine Hcl Oral Solution 20 Mg/5 Ml Solution) 20 mg PO DAILY [facility] Last Admin: 10/04/21 09:04 Dose: 20 mg Hydroxyzine HCl (Hydroxyzine Hcl 25 Mg Tablet) 25 mg PO Q6H PRN PRN Reason: Anxiety Last Admin: 10/04/21 10:11 Dose: 25 mg Magnesium Hydroxide (Milk Of Magnesia 30 Ml Oral.Susp) 30 ml PO DAILY PRN PRN Reason: Constipation Methadone HCl (Methadone Hcl 20 Mg/2 Ml Oral.Conc) 100 mg PO DAILY [facility] Last Admin: 10/04/21 09:03 Dose: 100 mg Nicotine Polacrilex (Nicotine Polacrilex 2 Mg Gum) 4 mg BUCCAL Q2H PRN PRN Reason: smoking cessation Last Admin: 10/04/21 13:20 Dose: 4 mg Olanzapine (Olanzapine 5 Mg Tablet) 5 mg PO Q4H PRN PRN Reason: agitation, psychosis, anxiety Last Admin: 10/03/21 16:58 Dose: 5 mg Olanzapine (Olanzapine 7.5 Mg Tablet) 15 mg PO BEDTIME [facility] Last Admin: 10/03/21 21:07 Dose: 15 mg Propranolol HCl (Propranolol Hcl 10 Mg Tablet) 10 mg PO TID [facility]; Protocol Last Admin: 10/04/21 09:04 Dose: 10 mg Senna (Sennosides 8.6 Mg Tablet) 17.2 mg PO BEDTIME [facility] Last Admin: 10/03/21 21:07 Dose: 17.2 mg Trazodone HCl (Trazodone Hcl 100 Mg Tablet) 100 mg PO BEDTIME PRN PRN Reason: Insomnia Last Admin: 10/02/21 21:43 Dose: 100 mg Allergies Allergies Allergy/AdvReac Type Severity Reaction Status Date / Time No Known Allergies Allergy Verified 05/02/21 11:48 [No Known Allergies*] Assessment & Plan Assessment & Plan (1) Severe recurrent major depression with psychotic features: Status: Acute Code(s): F33.3 - Major depressive disorder, recurrent, severe with psychotic symptoms (2) Opioid use disorder, severe, dependence: Status: Acute Code(s): F11.20 - Opioid dependence, uncomplicated (3) Cocaine use disorder: Status: Acute Code(s): F14.10 - Cocaine abuse, uncomplicated (4) Cannabis use disorder, severe, dependence: Status: Acute Code(s): F12.20 - Cannabis dependence, uncomplicated Plan Solomon is a 31 y.o. male who carries a dx of severe MDD with psychotic features, opioid use disorder, and cocaine use disorder. He presented to [facility] ED on 09/28/21 due to SI. He relapsed on fentanyl, opiates, and cocaine. Pt endorses depression, anxiety, and intermittent passive SI. Per chart, he has a long hx of minimizing his substance use, as well as chronic relapsing, daily heroin abuse. Hx of lack of follow up with OP referrals. Pt recently discharged from [facility] M5 05/07/21-05/20/21. He has been non-adherent with his medications x 2 months, VPA level <0.2. Was prev stabilized on clonidine 0.1 mg BID, zyprexa 5 mg Q4H PRN agitation, depakote 1000 mg QHS, and sertraline 150 mg. He was also switched from suboxone to methadone per addiction consult. Currently on methadone 95 mg daily.? Plan: Pt agreeable to re-start his previous med regimen, as he felt stable after his previous hospital stay. Will re-start depakote at 500 mg QHS, zyprexa 5 mg Q4H PRN for anxiety/ agitation/ psychosis, sertraline 50 mg, and clonidine 0.1 mg TID PRN. Pt also asks for ensure and nicotine replacement.? Q15 min safety checks, CV Monitor response to medications. Monitor for safety in the milieu. Discharge on stabilization. Patient seen. Chart reviewed. Discussed with team. Obtain collateral contact info?as needed 10/02/21 Addiction consult for recovery team and methadone consult appreciated. 10/04/21: Pt reports anxiety. Plan: Increase Propranolol to 20 mg tid Depakote 250 mg tid trial I spent minutes with the patient and/or on the patient floor today, greater than?50% of which was spent counseling/coordinating care. Patient educated on: medication risk/benefits and therapeutic strategies Informed Consent: understands and further education needed Reason for contiued inpatient stay Substantial Risk for: harm to self, inability to function and rapid decompensation
[2021-10-04] MEDS: Sennosides 8.6 MG TABLET 17.2 MG PO (19:56)
[2021-10-04] MEDS: OLANZapine 7.5 MG TABLET 15 MG PO (19:56)
[2021-10-04] MEDS: Propranolol HCL 20 MG TABLET PO (19:56)
[2021-10-04] MEDS: Divalproex Sodium 250 MG TABLET.DR PO (19:56)
[2021-10-04 19:59] VITALS: BP 155/70; PULSE 80
--- NOTE | 2021-10-04 20:07 | MHC.RECOVSUP ---
? Reason for consult:Recovery Support o Current location: [facility] o Identified substance use concern: Fentanyl/Cocaine? - Support ? ?Intervention: o Community resources provided o Harm reduction discussion ? Plan: o Follow up tomorrow ? ? Additional information:?Patient consultation with Recovery Dermatological Surgeon, Jorge Ahumada MS before point of entry. Patient is a 31 year old male, father of two children and a history of Substance Use Disorder. We were able to review harm reduction strategies and supported patient through positive affirmations, in addition to tools for him to utilize in his daily routine. A follow up for contact information is needed for referral.
[2021-10-04] MEDS: traZODone HCL 100 MG TABLET PO (21:33)
[2021-10-05] MEDS: Nicotine Polacrilex 2 MG GUM 4 MG BUCCAL ×10 (00:12→23:53)
[2021-10-05 06:00] VITALS: BP 115/77; PULSE 73; RESP 16
[2021-10-05] MEDS: methADONE HCl 20 MG/2 ML ORAL.CONC 100 MG PO (09:02)
[2021-10-05] MEDS: Propranolol HCL 20 MG TABLET PO ×3 (09:03→19:28)
[2021-10-05] MEDS: Ferrous Sulfate 324 MG TABLET.DR PO (09:03)
[2021-10-05] MEDS: Divalproex Sodium 250 MG TABLET.DR PO ×3 (09:03→19:28)
[2021-10-05] MEDS: FLUoxetine HCl Oral Solution 20 MG/5 ML SOLUTION PO (09:03)
[2021-10-05] MEDS: hydrOXYzine HCL 25 MG TABLET PO (09:54)
[2021-10-05] MEDS: cloNIDine HCL 0.1 MG TABLET PO (09:54)
[2021-10-05] MEDS: FLUoxetine HCl Oral Solution 20 MG/5 ML SOLUTION 10 MG PO (11:42)
[2021-10-05] MEDS: hydrOXYzine HCL 50 MG TABLET PO (11:45)
--- NOTE | 2021-10-05 13:54 | MHC.RECOVSUP ---
financial coach met with patient to follow up, we discussed an after plan, and recovery support resources, which I will follow up with tomorrow. financial coach will follow up with patient tomorrow.
--- NOTE | 2021-10-05 14:13 | P.PNPSI_ITS ---
Subjective Subjective Date of Service: 10/05/21 Reason For Visit: feeling depressed, suicidal thoughts Interim History: Patient says that he is doing all right. Depression is better and no SI, no HI and no AVH. He says he still has a lot of anxiety however and agrees to increase his Prozac. He also asks if hydroxyzine can be increased to which field underwriter agrees. Otherwise patient reports he is sleeping and eating well. Mental Status Exam Mental Status Exam Narrative: Pt is alert and oriented; behavior is cooperative, friendly and calm; patient is not in distress; dressed in casual attire with unkempt hair but good hygiene; mood is described as alright and affect congruent; eye contact appropriate; Speech is normal rate, volume and prosody and not pressured; no psychomotor agitation/retardation present; thought process is organized and goal directed; Thought content is on tx; otherwise pertinent to relevant topics and without any delusional content, paranoid ideations or grandiosity; denies any SI/HI. There is no evidence of perceptual disturbance and denies aVH. Patients insight and judgment appear intact. Diagnostics Vital Signs (24Hr): Vital Signs - 24 hr 10/04/21 19:59 10/05/21 06:00 Pulse Rate 80 73 Respiratory Rate 16 Blood Pressure 155/70 H 115/77 Oxygen Delivery Method Room Air BMI result Body Mass Index 26.7 Labs Results: 09/28/21 18:10 10/01/21 08:20 Medications Medications Current Medications Acetaminophen (Acetaminophen 325 Mg Tablet) 650 mg PO Q6H PRN PRN Reason: Headache/Pain Mild Scale (1-3) Al Hydroxide/Mg Hydroxide (Magnesium Hydrox/Alum Hydrox 30 Ml Oral.Susp) 30 ml PO Q6H PRN PRN Reason: Heartburn/Nausea Clonidine HCl (Clonidine Hcl 0.1 Mg Tablet) 0.1 mg PO TID PRN; Protocol PRN Reason: anxiety Last Admin: 10/05/21 09:54 Dose: 0.1 mg Divalproex Sodium (Divalproex Sodium 250 Mg Tablet.) 250 mg PO TID [facility] Last Admin: 10/05/21 09:03 Dose: 250 mg Ferrous Sulfate (Ferrous Sulfate 324 Mg Tablet.) 324 mg PO DAILY [facility] Last Admin: 10/05/21 09:03 Dose: 324 mg Fluoxetine HCl (Fluoxetine Hcl Oral Solution 20 Mg/5 Ml Solution) 30 mg PO DAILY [facility] Hydroxyzine HCl (Hydroxyzine Hcl 50 Mg Tablet) 50 mg PO Q6H PRN PRN Reason: Anxiety Last Admin: 10/05/21 11:45 Dose: 50 mg Magnesium Hydroxide (Milk Of Magnesia 30 Ml Oral.Susp) 30 ml PO DAILY PRN PRN Reason: Constipation Methadone HCl (Methadone Hcl 20 Mg/2 Ml Oral.Conc) 100 mg PO DAILY [facility] Last Admin: 10/05/21 09:02 Dose: 100 mg Nicotine Polacrilex (Nicotine Polacrilex 2 Mg Gum) 4 mg BUCCAL Q2H PRN PRN Reason: smoking cessation Last Admin: 10/05/21 13:23 Dose: 4 mg Olanzapine (Olanzapine 5 Mg Tablet) 5 mg PO Q4H PRN PRN Reason: agitation, psychosis, anxiety Last Admin: 10/03/21 16:58 Dose: 5 mg Olanzapine (Olanzapine 7.5 Mg Tablet) 15 mg PO BEDTIME [facility] Last Admin: 10/04/21 19:56 Dose: 15 mg Propranolol HCl (Propranolol Hcl 20 Mg Tablet) 20 mg PO TID [facility]; Protocol Last Admin: 10/05/21 09:03 Dose: 20 mg Senna (Sennosides 8.6 Mg Tablet) 17.2 mg PO BEDTIME [facility] Last Admin: 10/04/21 19:56 Dose: 17.2 mg Trazodone HCl (Trazodone Hcl 100 Mg Tablet) 100 mg PO BEDTIME PRN PRN Reason: Insomnia Last Admin: 10/04/21 21:33 Dose: 100 mg Allergies Allergies Allergy/AdvReac Type Severity Reaction Status Date / Time No Known Allergies Allergy Verified 05/02/21 11:48 [No Known Allergies*] Assessment & Plan Assessment & Plan (1) Severe recurrent major depression with psychotic features: Status: Acute Code(s): F33.3 - Major depressive disorder, recurrent, severe with psychotic symptoms (2) Opioid use disorder, severe, dependence: Status: Acute Code(s): F11.20 - Opioid dependence, uncomplicated (3) Cocaine use disorder: Status: Acute Code(s): F14.10 - Cocaine abuse, uncomplicated (4) Cannabis use disorder, severe, dependence: Status: Acute Code(s): F12.20 - Cannabis dependence, uncomplicated Plan Solomon is a 31 y.o. male who carries a dx of severe MDD with psychotic features, opioid use disorder, and cocaine use disorder. He presented to [facility] ED on 09/28/21 due to SI. He relapsed on fentanyl, opiates, and cocaine. Pt endorses depression, anxiety, and intermittent passive SI. Per chart, he has a long hx of minimizing his substance use, as well as chronic relapsing, daily heroin abuse. Hx of lack of follow up with OP referrals. Pt recently discharged from [facility] M5 05/07/21-05/20/21. He has been non-adherent with his medications x 2 months, VPA level <0.2. Was prev stabilized on clonidine 0.1 mg BID, zyprexa 5 mg Q4H PRN agitation, depakote 1000 mg QHS, and sertraline 150 mg. He was also switched from suboxone to methadone per addiction consult. Currently on methadone 95 mg daily.? Plan: Pt agreeable to re-start his previous med regimen, as he felt stable after his previous hospital stay. Will re-start depakote at 500 mg QHS, zyprexa 5 mg Q4H PRN for anxiety/ agitation/ psychosis, sertraline 50 mg, and clonidine 0.1 mg TID PRN. Pt also asks for ensure and nicotine replacement.? Q15 min safety checks, CV Monitor response to medications. Monitor for safety in the milieu. Discharge on stabilization. Patient seen. Chart reviewed. Discussed with team. Obtain collateral contact info?as needed 10/02/21 Addiction consult for recovery team and methadone consult appreciated. 10/04/21: Pt reports anxiety. Plan: Increase Propranolol to 20 mg tid Depakote 250 mg tid trial 10/05/21 Continued anxiety Increased Prozac to 30 mg Increase hydroxyzine to 50 mg p.r.n. I spent minutes with the patient and/or on the patient floor today, greater than?50% of which was spent counseling/coordinating care. Patient educated on: diagnosis and medication risk/benefits Informed Consent: understands Reason for contiued inpatient stay Substantial Risk for: rapid decompensation
[2021-10-05 18:00] VITALS: BP 122/79; PULSE 101; RESP 16; TEMP 36.8; O2SAT 98
[2021-10-05] MEDS: Sennosides 8.6 MG TABLET 17.2 MG PO (19:28)
[2021-10-05] MEDS: OLANZapine 7.5 MG TABLET 15 MG PO (19:28)
[2021-10-05] MEDS: traZODone HCL 100 MG TABLET PO (22:04)
[2021-10-06] MEDS: Nicotine Polacrilex 2 MG GUM 4 MG BUCCAL ×10 (03:18→23:41)
[2021-10-06 06:00] VITALS: BP 114/66; PULSE 97; RESP 16; O2SAT 98
[2021-10-06] MEDS: methADONE HCl 20 MG/2 ML ORAL.CONC 100 MG PO (09:34)
[2021-10-06] MEDS: Propranolol HCL 20 MG TABLET PO ×3 (09:35→20:13)
[2021-10-06] MEDS: Ferrous Sulfate 324 MG TABLET.DR PO (09:35)
[2021-10-06] MEDS: FLUoxetine HCl Oral Solution 20 MG/5 ML SOLUTION 30 MG PO (09:35)
[2021-10-06] MEDS: Divalproex Sodium 250 MG TABLET.DR PO ×3 (09:35→20:14)
[2021-10-06] MEDS: cloNIDine HCL 0.1 MG TABLET PO (10:11)
[2021-10-06] MEDS: hydrOXYzine HCL 50 MG TABLET PO ×2 (10:11→15:55)
--- NOTE | 2021-10-06 13:51 | MHC.RECOVSUP ---
? Reason for consult:Follow up. o Current location:M5 o Identified substance use concern:Heroin - Support ? Intervention: o Community resources provided o Harm reduction discussion ? Plan:pt wants to be connected to the recovery community and wants to find employment, or enroll in a job readiness training. ? Additional information:[facility] followed up with Solomon and provided some recovery support information for after plan, pt is interested in acquiring a RC when he is discharged.
[2021-10-06 18:00] VITALS: BP 124/79; PULSE 95; RESP 16; TEMP 36.6; O2SAT 97
--- NOTE | 2021-10-06 18:05 | P.PNPSI_ITS ---
Subjective Subjective Date of Service: 10/06/21 Reason For Visit: feeling depressed, suicidal thoughts Interim History: Patient reports still has auditory hallucinations but it remains lower and is mostly able to push it away. Sleeping okay, no SI. Pleasant and friendly on approach and appropriate in milieu. Mental Status Exam Mental Status Exam Narrative: Pt is alert and oriented; behavior is cooperative, friendly and calm; patient is not in distress; dressed in casual attire with unkempt hair but good hygiene; mood is described as ok and affect congruent; eye contact appropriate; Speech is normal rate, volume and prosody and not pressured; no psychomotor agitati on/retardation present; thought process is organized and goal directed; Thought content is on tx; otherwise pertinent to relevant topics and without any delusional content, paranoid ideations or grandiosity; denies any SI/HI. Has AH but less than on admission. Patients insight and judgment are fair. Diagnostics Vital Signs (24Hr): Vital Signs - 24 hr 10/06/21 06:00 Pulse Rate 97 Respiratory Rate 16 Blood Pressure 114/66 Pulse Oximetry 98 Oxygen Delivery Method Room Air BMI result Body Mass Index 26.7 Labs Results: 09/28/21 18:10 10/01/21 08:20 Medications Medications Current Medications Acetaminophen (Acetaminophen 325 Mg Tablet) 650 mg PO Q6H PRN PRN Reason: Headache/Pain Mild Scale (1-3) Al Hydroxide/Mg Hydroxide (Magnesium Hydrox/Alum Hydrox 30 Ml Oral.Susp) 30 ml PO Q6H PRN PRN Reason: Heartburn/Nausea Clonidine HCl (Clonidine Hcl 0.1 Mg Tablet) 0.1 mg PO TID PRN; Protocol PRN Reason: anxiety Last Admin: 10/06/21 10:11 Dose: 0.1 mg Divalproex Sodium (Divalproex Sodium 250 Mg Tablet.) 250 mg PO TID [facility] Last Admin: 10/06/21 14:16 Dose: 250 mg Ferrous Sulfate (Ferrous Sulfate 324 Mg Tablet.) 324 mg PO DAILY [facility] Last Admin: 10/06/21 09:35 Dose: 324 mg Fluoxetine HCl (Fluoxetine Hcl Oral Solution 20 Mg/5 Ml Solution) 30 mg PO DAILY [facility] Last Admin: 10/06/21 09:35 Dose: 30 mg Hydroxyzine HCl (Hydroxyzine Hcl 50 Mg Tablet) 50 mg PO Q6H PRN PRN Reason: Anxiety Last Admin: 10/06/21 15:55 Dose: 50 mg Magnesium Hydroxide (Milk Of Magnesia 30 Ml Oral.Susp) 30 ml PO DAILY PRN PRN Reason: Constipation Methadone HCl (Methadone Hcl 20 Mg/2 Ml Oral.Conc) 100 mg PO DAILY [facility] Last Admin: 10/06/21 09:34 Dose: 100 mg Nicotine Polacrilex (Nicotine Polacrilex 2 Mg Gum) 4 mg BUCCAL Q1H PRN PRN Reason: smoking cessation Last Admin: 10/06/21 15:56 Dose: 4 mg Olanzapine (Olanzapine 5 Mg Tablet) 5 mg PO Q4H PRN PRN Reason: agitation, psychosis, anxiety Last Admin: 10/03/21 16:58 Dose: 5 mg Olanzapine (Olanzapine 7.5 Mg Tablet) 15 mg PO BEDTIME [facility] Last Admin: 10/05/21 19:28 Dose: 15 mg Propranolol HCl (Propranolol Hcl 20 Mg Tablet) 20 mg PO TID [facility]; Protocol Last Admin: 10/06/21 14:16 Dose: 20 mg Senna (Sennosides 8.6 Mg Tablet) 17.2 mg PO BEDTIME [facility] Last Admin: 10/05/21 19:28 Dose: 17.2 mg Trazodone HCl (Trazodone Hcl 100 Mg Tablet) 100 mg PO BEDTIME PRN PRN Reason: Insomnia Last Admin: 10/05/21 22:04 Dose: 100 mg Allergies Allergies Allergy/AdvReac Type Severity Reaction Status Date / Time No Known Allergies Allergy Verified 05/02/21 11:48 [No Known Allergies*] Assessment & Plan Assessment & Plan (1) Severe recurrent major depression with psychotic features: Status: Acute Code(s): F33.3 - Major depressive disorder, recurrent, severe with psychotic symptoms (2) Opioid use disorder, severe, dependence: Status: Acute Code(s): F11.20 - Opioid dependence, uncomplicated (3) Cocaine use disorder: Status: Acute Code(s): F14.10 - Cocaine abuse, uncomplicated (4) Cannabis use disorder, severe, dependence: Status: Acute Code(s): F12.20 - Cannabis dependence, uncomplicated Plan Solomon is a 31 y.o. male who carries a dx of severe MDD with psychotic features, opioid use disorder, and cocaine use disorder. He presented to [facility] ED on 09/28/21 due to SI. He relapsed on fentanyl, opiates, and cocaine. Pt endorses depression, anxiety, and intermittent passive SI. Per chart, he has a long hx of minimizing his substance use, as well as chronic relapsing, daily he roin abuse. Hx of lack of follow up with OP referrals. Pt recently discharged from [facility] M5 05/07/21-05/20/21. He has been non-adherent with his medications x 2 months, VPA level <0.2. Was prev stabilized on clonidine 0.1 mg BID, zyprexa 5 mg Q4H PRN agitation, depakote 1000 mg QHS, and sertraline 150 mg. He was also switched from suboxone to methadone per addiction consult. Currently on methadone 95 mg daily.? Plan: Pt agreeable to re-start his previous med regimen, as he felt stable after his previous hospital stay. Will re-start depakote at 500 mg QHS, zyprexa 5 mg Q4H PRN for anxiety/ agitation/ psychosis, sertraline 50 mg, and clonidine 0.1 mg TID PRN. Pt also asks for ensure and nicotine replacement.? Q15 min safety checks, CV Monitor response to medications. Monitor for safety in the milieu. Discharge on stabilization. Patient seen. Chart reviewed. Discussed with team. Obtain collateral contact info?as needed 10/02/21 Addiction consult for recovery team and methadone consult appreciated. 10/04/21: Pt reports anxiety. Plan: Increase Propranolol to 20 mg tid Depakote 250 mg tid trial 10/05/21 Continued anxiety Increased Prozac to 30 mg Increase hydroxyzine to 50 mg p.r.n. 10/06 continue with current treatment plan I spent minutes with the patient and/or on the patient floor today, greater than?50% of which was spent counseling/coordinating care. Patient educated on: diagnosis Informed Consent: understands Reason for contiued inpatient stay Substantial Risk for: rapid decompensation
[2021-10-06] MEDS: OLANZapine 7.5 MG TABLET 15 MG PO (20:13)
[2021-10-06] MEDS: Sennosides 8.6 MG TABLET 17.2 MG PO (20:14)
[2021-10-06] MEDS: traZODone HCL 100 MG TABLET PO ×2 (22:06→23:40)
[2021-10-07] MEDS: Nicotine Polacrilex 2 MG GUM 4 MG BUCCAL ×10 (02:09→22:29)
[2021-10-07 08:36] VITALS: BP 114/71; PULSE 73; RESP 18; TEMP 36.2; O2SAT 98
[2021-10-07] MEDS: Propranolol HCL 20 MG TABLET PO ×3 (08:38→21:17)
[2021-10-07] MEDS: methADONE HCl 20 MG/2 ML ORAL.CONC 100 MG PO (08:39)
[2021-10-07] MEDS: FLUoxetine HCl Oral Solution 20 MG/5 ML SOLUTION 30 MG PO (08:39)
[2021-10-07] MEDS: Ferrous Sulfate 324 MG TABLET.DR PO (08:39)
[2021-10-07] MEDS: Divalproex Sodium 250 MG TABLET.DR PO ×3 (08:39→21:17)
[2021-10-07 09:50] VITALS: BP 117/71; PULSE 77
[2021-10-07] MEDS: cloNIDine HCL 0.1 MG TABLET PO (09:51)
[2021-10-07] MEDS: hydrOXYzine HCL 50 MG TABLET PO ×2 (09:51→15:53)
--- NOTE | 2021-10-07 13:16 | HO.PSYCHPN ---
Subjective Subjective Date of Service: 10/07/21 Reason For Visit: feeling depressed, suicidal thoughts Subjective Notes: Conditional Voluntary Healthcare Proxy: No Guardianship: No Medical Problems Affecting Mental Status: No Interim History: Prozac increased to 30 mg daily over the weekend, along with hydroxyzine increase to 50 mg prn. Meeting with coach driver pt finds helpful however continues to report command voices to suicide. Medicine review with pt. Able to contract for his safety on the unit. Discussed further medication changes. Medication Compliance: Yes Side effects from medications: No Attending Groups: Yes Review of Systems Acute medical concerns: No Medical Review of Systems: unchanged Review of Systems Psychiatric: Reports anxiety, Reports depression, Reports auditory hallucinations and Reports suicidal ideation Mental Status Exam Mental Status Exam Patient Appearance: Appropriate Patient Orientation: Person, Place, Time and Situation Level of Consciousness: Alert Patient Behavior: Talkative and Good Eye Contact Mood Description: Depressed Affect Description: Flat Patient Cognition Impaired: No Ability to Follow Directions: Good Speech Pattern: Spontaneous Speech Memory Description: Intact Hallucinations: Auditory Perceptual Disturbances: Hallucinations Thought Process: Distracted and Rumination Thought Content: positive for Perseveration and positive for Suicidal Ideation Depressive Symptoms: Thoughts of /Suicide Judgement: Fair Diagnostics Vital Signs (24Hr): Vital Signs - 24 hr 10/06/21 18:00 10/07/21 08:36 10/07/21 09:50 Temperature 97.9 F 97.2 F Pulse Rate 95 73 77 Respiratory Rate 16 18 Blood Pressure 124/79 114/71 117/71 Pulse Oximetry 97 98 Oxygen Delivery Method Room Air Room Air BMI result Body Mass Index 26.7 Labs Results: 09/28/21 18:10 10/01/21 08:20 Medications Medications Current Medications Acetaminophen (Acetaminophen 325 Mg Tablet) 650 mg PO Q6H PRN PRN Reason: Headache/Pain Mild Scale (1-3) Al Hydroxide/Mg Hydroxide (Magnesium Hydrox/Alum Hydrox 30 Ml Oral.Susp) 30 ml PO Q6H PRN PRN Reason: Heartburn/Nausea Clonidine HCl (Clonidine Hcl 0.1 Mg Tablet) 0.1 mg PO TID PRN; Protocol PRN Reason: anxiety Last Admin: 10/07/21 09:51 Dose: 0.1 mg Divalproex Sodium (Divalproex Sodium 250 Mg Tablet.) 250 mg PO TID [facility] Last Admin: 10/07/21 08:39 Dose: 250 mg Ferrous Sulfate (Ferrous Sulfate 324 Mg Tablet.Dr) 324 mg PO DAILY [facility] Last Admin: 10/07/21 08:39 Dose: 324 mg Fluoxetine HCl (Fluoxetine Hcl Oral Solution 20 Mg/5 Ml Solution) 30 mg PO DAILY [facility] Last Admin: 10/07/21 08:39 Dose: 30 mg Hydroxyzine HCl (Hydroxyzine Hcl 50 Mg Tablet) 50 mg PO Q6H PRN PRN Reason: Anxiety Last Admin: 10/07/21 09:51 Dose: 50 mg Magnesium Hydroxide (Milk Of Magnesia 30 Ml Oral.Susp) 30 ml PO DAILY PRN PRN Reason: Constipation Methadone HCl (Methadone Hcl 20 Mg/2 Ml Oral.Conc) 100 mg PO DAILY [facility] Last Admin: 10/07/21 08:39 Dose: 100 mg Nicotine Polacrilex (Nicotine Polacrilex 2 Mg Gum) 4 mg BUCCAL Q1H PRN PRN Reason: smoking cessation Last Admin: 10/07/21 13:12 Dose: 4 mg Olanzapine (Olanzapine 5 Mg Tablet) 5 mg PO Q4H PRN PRN Reason: agitation, psychosis, anxiety Last Admin: 10/03/21 16:58 Dose: 5 mg Olanzapine (Olanzapine 7.5 Mg Tablet) 15 mg PO BEDTIME [facility] Last Admin: 10/06/21 20:13 Dose: 15 mg Propranolol HCl (Propranolol Hcl 20 Mg Tablet) 20 mg PO TID [facility]; Protocol Last Admin: 10/07/21 08:38 Dose: 20 mg Senna (Sennosides 8.6 Mg Tablet) 17.2 mg PO BEDTIME [facility] Last Admin: 10/06/21 20:14 Dose: 17.2 mg Trazodone HCl (Trazodone Hcl 100 Mg Tablet) 100 mg PO BEDTIME PRN PRN Reason: Insomnia Last Admin: 10/06/21 23:40 Dose: 100 mg Allergies Allergies Allergy/AdvReac Type Severity Reaction Status Date / Time No Known Allergies Allergy Verified 05/02/21 11:48 [No Known Allergies*] Assessment & Plan Assessment & Plan (1) Severe recurrent major depression with psychotic features: Status: Acute Code(s): F33.3 - Major depressive disorder, recurrent, severe with psychotic symptoms (2) Opioid use disorder, severe, dependence: Status: Acute Code(s): F11.20 - Opioid dependence, uncomplicated (3) Cocaine use disorder: Status: Acute Code(s): F14.10 - Cocaine abuse, uncomplicated (4) Cannabis use disorder, severe, dependence: Status: Acute Code(s): F12.20 - Cannabis dependence, uncomplicated Plan Solomon is a 31 y.o. male who carries a dx of severe MDD with psychotic features, opioid use disorder, and cocaine use disorder. He presented to [facility] on 09/28/21 due to SI. He relapsed on fentanyl, opiates, and cocaine. Pt endorses depression, anxiety, and intermittent passive SI. Per chart, he has a long hx of minimizing his substance use, as well as chronic relapsing, daily heroin abuse. Hx of lack of follow up with OP referrals. Pt recently discharged from [facility] M5 05/07/21-05/20/21. He has been non-adherent with his medications x 2 months, VPA level <0.2. Was prev stabilized on clonidine 0.1 mg BID, zyprexa 5 mg Q4H PRN agitation, depakote 1000 mg QHS, and sertraline 150 mg. He was also switched from suboxone to methadone per addiction consult. Currently on methadone 95 mg daily.? Plan: Pt agreeable to re-start his previous med regimen, as he felt stable after his previous hospital stay. Will re-start depakote at 500 mg QHS, zyprexa 5 mg Q4H PRN for anxiety/ agitation/ psychosis, sertraline 50 mg, and clonidine 0.1 mg TID PRN. Pt also asks for ensure and nicotine replacement.? Q15 min safety checks, CV Monitor response to medications. Monitor for safety in the milieu. Discharge on stabilization. Patient seen. Chart reviewed. Discussed with team. Obtain collateral contact info?as needed 10/02/21 Addiction consult for recovery team and methadone consult appreciated. 10/04/21: Pt reports anxiety. Plan: Increase Propranolol to 20 mg tid Depakote 250 mg tid trial 10/05/21 Continued anxiety Increased Prozac to 30 mg Increase hydroxyzine to 50 mg p.r.n. 10/06 continue with current treatment plan 10/07/21 Increase Olanzapine to 20 mg hs Melatonin prn Mirtazapine 7.5 mg hs I spent minutes with the patient and/or on the patient floor today, greater than?50% of which was spent counseling/coordinating care. Patient educated on: medication risk/benefits and therapeutic strategies Informed Consent: understands and further education needed Reason for contiued inpatient stay Substantial Risk for: harm to self, inability to function and rapid decompensation
[2021-10-07 14:22] VITALS: BP 121/56; PULSE 81
[2021-10-07 21:10] VITALS: BP 113/61; PULSE 88; RESP 18; TEMP 36.4; O2SAT 97
[2021-10-07] MEDS: OLANZapine 10 MG TABLET 20 MG PO (21:17)
[2021-10-07] MEDS: Sennosides 8.6 MG TABLET 17.2 MG PO (21:17)
[2021-10-07] MEDS: Mirtazapine 7.5 MG TABLET PO (21:17)
[2021-10-07] MEDS: Melatonin 3 MG TABLET 6 MG PO (22:29)
[2021-10-07] MEDS: traZODone HCL 100 MG TABLET PO (22:29)
[2021-10-08] MEDS: Nicotine Polacrilex 2 MG GUM 4 MG BUCCAL ×10 (00:05→22:44)
[2021-10-08 08:00] VITALS: BP 108/58; PULSE 66; RESP 16; O2SAT 96
[2021-10-08] MEDS: Propranolol HCL 20 MG TABLET PO ×3 (09:15→21:06)
[2021-10-08] MEDS: Ferrous Sulfate 324 MG TABLET.DR PO (09:15)
[2021-10-08] MEDS: methADONE HCl 20 MG/2 ML ORAL.CONC 100 MG PO (09:16)
[2021-10-08] MEDS: FLUoxetine HCl Oral Solution 20 MG/5 ML SOLUTION 30 MG PO (09:16)
[2021-10-08] MEDS: Divalproex Sodium 250 MG TABLET.DR PO ×3 (09:16→21:06)
[2021-10-08] MEDS: hydrOXYzine HCL 50 MG TABLET PO ×2 (11:15→18:09)
[2021-10-08] MEDS: cloNIDine HCL 0.1 MG TABLET PO (11:15)
--- NOTE | 2021-10-08 12:15 | HO.PSYCHPN ---
Subjective Subjective Date of Service: 10/08/21 Reason For Visit: feeling depressed, suicidal thoughts Subjective Notes: Conditional Voluntary Healthcare Proxy: No Guardianship: No Medical Problems Affecting Mental Status: No Interim History: Tolerating medicine changes so far. Reports some relief. Increased visability in milieu today, less time spent in bed. Medication Compliance: Yes Side effects from medications: No Attending Groups: Intermittent Review of Systems Acute medical concerns: No Medical Review of Systems: unchanged Review of Systems Psychiatric: Reports anxiety, Reports depression, Reports auditory hallucinations (denies) and Reports suicidal ideation (denies) Mental Status Exam Mental Status Exam Patient Appearance: Appropriate Patient Orientation: Person, Place, Time and Situation Level of Consciousness: Alert Patient Behavior: Talkative and Good Eye Contact Mood Description: Flat Affect Description: Flat Patient Cognition Impaired: No Ability to Follow Directions: Good Speech Pattern: Spontaneous Speech Memory Description: Intact Hallucinations: None Delusions: Not Present Thought Process: Intact Thought Content: positive for Perseveration and positive for Suicidal Ideation (denies) Depressive Symptoms: Thoughts of /Suicide (denies) Judgement: Good Diagnostics Vital Signs (24Hr): Vital Signs - 24 hr 10/07/21 14:22 10/07/21 21:10 10/08/21 08:00 Temperature 97.6 F Pulse Rate 81 88 66 Respiratory Rate 18 16 Blood Pressure 121/56 L 113/61 108/58 L Pulse Oximetry 97 96 Oxygen Delivery Method Room Air Room Air BMI result Body Mass Index 26.7 Labs Results: 09/28/21 18:10 10/01/21 08:20 Medications Medications Current Medications Acetaminophen (Acetaminophen 325 Mg Tablet) 650 mg PO Q6H PRN PRN Reason: Headache/Pain Mild Scale (1-3) Al Hydroxide/Mg Hydroxide (Magnesium Hydrox/Alum Hydrox 30 Ml Oral.Susp) 30 ml PO Q6H PRN PRN Reason: Heartburn/Nausea Clonidine HCl (Clonidine Hcl 0.1 Mg Tablet) 0.1 mg PO TID PRN; Protocol PRN Reason: anxiety Last Admin: 10/08/21 11:15 Dose: 0.1 mg Divalproex Sodium (Divalproex Sodium 250 Mg Tablet.) 250 mg PO TID [facility] Last Admin: 10/08/21 09:16 Dose: 250 mg Ferrous Sulfate (Ferrous Sulfate 324 Mg Tablet.) 324 mg PO DAILY [facility] Last Admin: 10/08/21 09:15 Dose: 324 mg Fluoxetine HCl (Fluoxetine Hcl Oral Solution 20 Mg/5 Ml Solution) 30 mg PO DAILY [facility] Last Admin: 10/08/21 09:16 Dose: 30 mg Hydroxyzine HCl (Hydroxyzine Hcl 50 Mg Tablet) 50 mg PO Q6H PRN PRN Reason: Anxiety Last Admin: 10/08/21 11:15 Dose: 50 mg Magnesium Hydroxide (Milk Of Magnesia 30 Ml Oral.Susp) 30 ml PO DAILY PRN PRN Reason: Constipation Melatonin (Melatonin 3 Mg Tablet) 6 mg PO BEDTIME PRN PRN Reason: Insomnia Last Admin: 10/07/21 22:29 Dose: 6 mg Methadone HCl (Methadone Hcl 20 Mg/2 Ml Oral.Conc) 100 mg PO DAILY [facility] Last Admin: 10/08/21 09:16 Dose: 100 mg Mirtazapine (Mirtazapine 7.5 Mg Tablet) 7.5 mg PO BEDTIME [facility] Last Admin: 10/07/21 21:17 Dose: 7.5 mg Nicotine Polacrilex (Nicotine Polacrilex 2 Mg Gum) 4 mg BUCCAL Q1H PRN PRN Reason: smoking cessation Last Admin: 10/08/21 11:15 Dose: 4 mg Olanzapine (Olanzapine 5 Mg Tablet) 5 mg PO Q4H PRN PRN Reason: agitation, psychosis, anxiety Last Admin: 10/03/21 16:58 Dose: 5 mg Olanzapine (Olanzapine 10 Mg Tablet) 20 mg PO BEDTIME [facility] Last Admin: 10/07/21 21:17 Dose: 20 mg Propranolol HCl (Propranolol Hcl 20 Mg Tablet) 20 mg PO TID [facility]; Protocol Last Admin: 10/08/21 09:15 Dose: 20 mg Senna (Sennosides 8.6 Mg Tablet) 17.2 mg PO BEDTIME [facility] Last Admin: 10/07/21 21:17 Dose: 17.2 mg Trazodone HCl (Trazodone Hcl 100 Mg Tablet) 100 mg PO BEDTIME PRN PRN Reason: Insomnia Last Admin: 10/07/21 22:29 Dose: 100 mg Allergies Allergies Allergy/AdvReac Type Severity Reaction Status Date / Time No Known Allergies Allergy Verified 05/02/21 11:48 [No Known Allergies*] Assessment & Plan Assessment & Plan (1) Severe recurrent major depression with psychotic features: Status: Acute Code(s): F33.3 - Major depressive disorder, recurrent, severe with psychotic symptoms (2) Opioid use disorder, severe, dependence: Status: Acute Code(s): F11.20 - Opioid dependence, uncomplicated (3) Cocaine use disorder: Status: Acute Code(s): F14.10 - Cocaine abuse, uncomplicated (4) Cannabis use disorder, severe, dependence: Status: Acute Code(s): F12.20 - Cannabis dependence, uncomplicated Plan Solomon is a 31 y.o. male who carries a dx of severe MDD with psychotic features, opioid use disorder, and cocaine use disorder. He [place] [facility] [place] [facility] [place] due to SI. He relapsed on fentanyl, opiates, and cocaine. Pt endorses depression, anxiety, and intermittent passive SI. Per chart, he has a long hx of minimizing his substance use, as well as chronic relapsing, daily heroin abuse. Hx of lack of follow up with OP referrals. Pt recently [place] [facility] [place]. He has been non-adherent with his medications x 2 months, VPA level <0.2. Was prev stabilized on clonidine 0.1 mg BID, zyprexa 5 mg Q4H PRN agitation, depakote 1000 mg QHS, and sertraline 150 mg. He was also switched from suboxone to methadone per addiction consult. Currently on methadone 95 mg daily.? Plan: Pt agreeable to re-start his previous med regimen, as he felt stable after his previous hospital stay. Will re-start depakote at 500 mg QHS, zyprexa 5 mg Q4H PRN for anxiety/ agitation/ psychosis, sertraline 50 mg, and clonidine 0.1 mg TID PRN. Pt also asks for ensure and nicotine replacement.? Q15 min safety checks, CV Monitor response to medications. Monitor for safety in the milieu. Discharge on stabilization. Patient seen. Chart reviewed. Discussed with team. Obtain collateral contact info?as needed 10/02/21 Addiction consult for recovery team and methadone consult appreciated. 10/04/21: Pt reports anxiety. Plan: Increase Propranolol to 20 mg tid Depakote 250 mg tid trial 10/05/21 Continued anxiety Increased Prozac to 30 mg Increase hydroxyzine to 50 mg p.r.n. 10/06 continue with current treatment plan 10/08/21 no changes today, tolerating changes of 10/07, continue current regime I spent minutes with the patient and/or on the patient floor today, greater than?50% of which was spent counseling/coordinating care. Patient educated on: therapeutic strategies Informed Consent: understands and further education needed Reason for contiued inpatient stay Substantial Risk for: harm to self, inability to function and rapid decompensation
[2021-10-08] MEDS: Sennosides 8.6 MG TABLET 17.2 MG PO (21:06)
[2021-10-08] MEDS: OLANZapine 10 MG TABLET 20 MG PO (21:06)
[2021-10-08] MEDS: Mirtazapine 7.5 MG TABLET PO (21:06)
[2021-10-08 21:40] VITALS: BP 120/75; PULSE 80
[2021-10-08] MEDS: Melatonin 3 MG TABLET 6 MG PO (22:44)
[2021-10-08] MEDS: traZODone HCL 100 MG TABLET PO (22:44)
[2021-10-09] MEDS: Nicotine Polacrilex 2 MG GUM 4 MG BUCCAL ×11 (00:22→23:03)
[2021-10-09 09:20] VITALS: BP 128/70; PULSE 89; RESP 20; TEMP 36.6; O2SAT 98
[2021-10-09] MEDS: methADONE HCl 20 MG/2 ML ORAL.CONC 100 MG PO (09:23)
[2021-10-09] MEDS: Divalproex Sodium 250 MG TABLET.DR PO ×3 (09:23→19:54)
[2021-10-09] MEDS: Ferrous Sulfate 324 MG TABLET.DR PO (09:23)
[2021-10-09] MEDS: FLUoxetine HCl 10 MG CAPSULE 30 MG PO (09:23)
[2021-10-09] MEDS: Propranolol HCL 20 MG TABLET PO ×3 (09:23→19:55)
[2021-10-09] MEDS: hydrOXYzine HCL 50 MG TABLET PO ×2 (10:44→16:49)
[2021-10-09] MEDS: cloNIDine HCL 0.1 MG TABLET PO (10:44)
[2021-10-09 10:45] VITALS: BP 116/64; PULSE 84
[2021-10-09 14:43] VITALS: BP 116/74; PULSE 85
--- NOTE | 2021-10-09 16:10 | HO.PSYCHPN ---
Subjective Subjective Date of Service: 10/09/21 Reason For Visit: feeling depressed, suicidal thoughts Subjective Notes: Conditional Voluntary Healthcare Proxy: No Guardianship: No Medical Problems Affecting Mental Status: No Interim History: Reports feeling improved. Discussed discharge planning. Will discharge on 10/10/21. Reports some disruption in sleep last evening due to nicotine cravings-declines Nicotine Patch, prefers gum instead which is ordered. Medication Compliance: Yes Side effects from medications: No Attending Groups: Intermittent Review of Systems Acute medical concerns: No Medical Review of Systems: unchanged Review of Systems Psychiatric: Reports no additional psychiatric complaints and Reports abnormal sleep pattern (pt believes due to nicotine withdrawal.) Mental Status Exam Mental Status Exam Patient Appearance: Appropriate Patient Orientation: Person, Place, Time and Situation Level of Consciousness: Alert Patient Behavior: Talkative and Good Eye Contact Mood Description: Flat Affect Description: Flat Patient Cognition Impaired: No Ability to Follow Directions: Good Speech Pattern: Spontaneous Speech Memory Description: Intact Hallucinations: None Delusions: Not Present Thought Process: Intact Thought Content: positive for Perseveration and positive for Suicidal Ideation (denies) Depressive Symptoms: Thoughts of /Suicide (denies) Judgement: Good Diagnostics Vital Signs (24Hr): Vital Signs - 24 hr 10/08/21 21:40 10/09/21 09:20 10/09/21 10:45 Temperature 97.9 F Pulse Rate 80 89 84 Respiratory Rate 20 Blood Pressure 120/75 128/70 116/64 Pulse Oximetry 98 Oxygen Delivery Method Room Air 10/09/21 14:43 Temperature Pulse Rate 85 Respiratory Rate Blood Pressure 116/74 Pulse Oximetry Oxygen Delivery Method Room Air BMI result Body Mass Index 26.7 Labs Results: 09/28/21 18:10 10/01/21 08:20 Medications Medications Current Medications Acetaminophen (Acetaminophen 325 Mg Tablet) 650 mg PO Q6H PRN PRN Reason: Headache/Pain Mild Scale (1-3) Al Hydroxide/Mg Hydroxide (Magnesium Hydrox/Alum Hydrox 30 Ml Oral.Susp) 30 ml PO Q6H PRN PRN Reason: Heartburn/Nausea Clonidine HCl (Clonidine Hcl 0.1 Mg Tablet) 0.1 mg PO TID PRN; Protocol PRN Reason: anxiety Last Admin: 10/09/21 10:44 Dose: 0.1 mg Divalproex Sodium (Divalproex Sodium 250 Mg Tablet.) 250 mg PO TID [facility] Last Admin: 10/09/21 14:36 Dose: 250 mg Ferrous Sulfate (Ferrous Sulfate 324 Mg Tablet.Dr) 324 mg PO DAILY [facility] Last Admin: 10/09/21 09:23 Dose: 324 mg Fluoxetine HCl (Fluoxetine Hcl 10 Mg Capsule) 30 mg PO DAILY [facility] Last Admin: 10/09/21 09:23 Dose: 30 mg Hydroxyzine HCl (Hydroxyzine Hcl 50 Mg Tablet) 50 mg PO Q6H PRN PRN Reason: Anxiety Last Admin: 10/09/21 10:44 Dose: 50 mg Magnesium Hydroxide (Milk Of Magnesia 30 Ml Oral.Susp) 30 ml PO DAILY PRN PRN Reason: Constipation Melatonin (Melatonin 3 Mg Tablet) 6 mg PO BEDTIME PRN PRN Reason: Insomnia Last Admin: 10/08/21 22:44 Dose: 6 mg Methadone HCl (Methadone Hcl 20 Mg/2 Ml Oral.Conc) 100 mg PO DAILY [facility] Last Admin: 10/09/21 09:23 Dose: 100 mg Mirtazapine (Mirtazapine 7.5 Mg Tablet) 7.5 mg PO BEDTIME [facility] Last Admin: 10/08/21 21:06 Dose: 7.5 mg Nicotine Polacrilex (Nicotine Polacrilex 2 Mg Gum) 4 mg BUCCAL Q1H PRN PRN Reason: smoking cessation Last Admin: 10/09/21 14:37 Dose: 4 mg Olanzapine (Olanzapine 5 Mg Tablet) 5 mg PO Q4H PRN PRN Reason: agitation, psychosis, anxiety Last Admin: 10/03/21 16:58 Dose: 5 mg Olanzapine (Olanzapine 10 Mg Tablet) 20 mg PO BEDTIME [facility] Last Admin: 10/08/21 21:06 Dose: 20 mg Propranolol HCl (Propranolol Hcl 20 Mg Tablet) 20 mg PO TID [facility]; Protocol Last Admin: 10/09/21 14:36 Dose: 20 mg Senna (Sennosides 8.6 Mg Tablet) 17.2 mg PO BEDTIME [facility] Last Admin: 10/08/21 21:06 Dose: 17.2 mg Trazodone HCl (Trazodone Hcl 100 Mg Tablet) 100 mg PO BEDTIME PRN PRN Reason: Insomnia Last Admin: 10/08/21 22:44 Dose: 100 mg Allergies Allergies Allergy/AdvReac Type Severity Reaction Status Date / Time No Known Allergies Allergy Verified 05/02/21 11:48 [No Known Allergies*] Assessment & Plan Assessment & Plan (1) Severe recurrent major depression with psychotic features: Status: Acute Code(s): F33.3 - Major depressive disorder, recurrent, severe with psychotic symptoms (2) Opioid use disorder, severe, dependence: Status: Acute Code(s): F11.20 - Opioid dependence, uncomplicated (3) Cocaine use disorder: Status: Acute Code(s): F14.10 - Cocaine abuse, uncomplicated (4) Cannabis use disorder, severe, dependence: Status: Acute Code(s): F12.20 - Cannabis dependence, uncomplicated Plan Solomon is a 31 y.o. male who carries a dx of severe MDD with psychotic features, opioid use disorder, and cocaine use disorder. He presented to [facility] [place] on 09/28/21 due to SI. He relapsed on fentanyl, opiates, and cocaine. Pt endorses depression, anxiety, and intermittent passive SI. Per chart, he has a long hx of minimizing his substance use, as well as chronic relapsing, daily heroin abuse. Hx of lack of follow up with OP referrals. Pt recently discharged from [facility] [place] 05/07/21-05/20/21. He has been non-adherent with his medications x 2 months, VPA level <0.2. Was prev stabilized on clonidine 0.1 mg BID, zyprexa 5 mg Q4H PRN agitation, depakote 1000 mg QHS, and sertraline 150 mg. He was also switched from suboxone to methadone per addiction consult. Currently on methadone 95 mg daily.? Plan: Pt agreeable to re-start his previous med regimen, as he felt stable after his previous hospital stay. Will re-start depakote at 500 mg QHS, zyprexa 5 mg Q4H PRN for anxiety/ agitation/ psychosis, sertraline 50 mg, and clonidine 0.1 mg TID PRN. Pt also asks for ensure and nicotine replacement.? Q15 min safety checks, CV Monitor response to medications. Monitor for safety in the milieu. Discharge on stabilization. Patient seen. Chart reviewed. Discussed with team. Obtain collateral contact info?as needed 10/02/21 Addiction consult for recovery team and methadone consult appreciated. 10/04/21: Pt reports anxiety. Plan: Increase Propranolol to 20 mg tid Depakote 250 mg tid trial 10/05/21 Continued anxiety Increased Prozac to 30 mg Increase hydroxyzine to 50 mg p.r.n. 10/06 continue with current treatment plan 10/09/21 Discharge 10/10/21 Continue current plan. I spent minutes with the patient and/or on the patient floor today, greater than?50% of which was spent counseling/coordinating care. Patient educated on: therapeutic strategies Informed Consent: understands Reason for contiued inpatient stay Substantial Risk for: stable for discharge
[2021-10-09 18:00] VITALS: BP 109/79; PULSE 85; RESP 16; TEMP 37; O2SAT 97
[2021-10-09] MEDS: OLANZapine 10 MG TABLET 20 MG PO (19:54)
[2021-10-09] MEDS: Mirtazapine 7.5 MG TABLET PO (19:55)
[2021-10-09] MEDS: Sennosides 8.6 MG TABLET 17.2 MG PO (19:55)
[2021-10-09] MEDS: traZODone HCL 100 MG TABLET PO (23:03)
[2021-10-10] MEDS: Nicotine Polacrilex 2 MG GUM 4 MG BUCCAL ×5 (00:41→12:25)
[2021-10-10] MEDS: Propranolol HCL 20 MG TABLET PO (08:20)
[2021-10-10] MEDS: FLUoxetine HCl 10 MG CAPSULE 30 MG PO (08:20)
[2021-10-10] MEDS: Ferrous Sulfate 324 MG TABLET.DR PO (08:20)
[2021-10-10] MEDS: methADONE HCl 20 MG/2 ML ORAL.CONC 100 MG PO (08:20)
[2021-10-10] MEDS: Divalproex Sodium 250 MG TABLET.DR PO (08:20)
[2021-10-10 08:26] VITALS: BP 120/76; PULSE 72; RESP 20; TEMP 36.6; O2SAT 98
[2021-10-10 08:44] LABS: MANUAL DIFF FLAG NO
[2021-10-10 08:47] LABS: Basophils Percent Auto 0.6 % (0-2); Eosinophils Absolute Auto 0.2 X10*3/uL (0.0-0.4); Eosinophils Percent Auto 2.7 % (0-4); Hematocrit 37.2 % (42.0-52.0); Hemoglobin 12.4 g/dl (14.0-18.0); Imm Gran Abs Auto 0.08 X10*3/uL (0.00-0.03); Imm Gran Pct Auto 1.2 % (0.0-0.4); Lymphocytes Absolute Auto 2.7 X10*3/uL (1.2-4.9); Lymphocytes Percent Auto 41.1 % (20-40); Mean Corpuscular HGB Conc 33.3 g/dl (31.0-36.0); Mean Platelet Volume 10.4 fL (9.4-12.4); Monocytes Absolute Auto 0.7 X10*3/uL (0.1-1.2); Monocytes Percent Auto 10.7 % (2-11); Neutrophils Absolute Auto 2.9 x10*3/uL (2.0-8.3); Neutrophils Percent Auto 43.7 % (45-73); Platelet Count 189 X10*3/uL (160-400); Red Cell Distribution Width 12.7 % (11.0-16.0); White Blood Count 6.6 X10*3/uL (4.8-10.8)
[2021-10-10 09:05] LABS: Alanine Aminotransferase 81 U/L (0-40); Albumin Level 4.3 g/dL (3.5-5.0); Alkaline Phosphatase 60 U/L (39-117); Anion Gap 12 (12-20); Aspartate Amino Transferase 33 U/L (5-37); Bilirubin Total 0.3 mg/dL (0.0-1.0); Blood Urea Nitrogen 17 mg/dL (9-16); Carbon Dioxide 29 mmol/L (22-29); Chloride 105 mmol/L (96-108); Creatinine Clr Calc Pharmacy 141.1; Estimated Glomerular Filt Rate > 60; Glucose Random 99 mg/dL (60-115); Potassium 4.9 mmol/L (3.3-5.1); Sodium 141 mmol/L (135-145); Total Protein 7.5 g/dL (6.5-8.0)
[2021-10-10 09:12] LABS: Valproate 40.9 mcg/mL (50.0-100.0)
[2021-10-10] MEDS: hydrOXYzine HCL 50 MG TABLET PO (09:19)
[2021-10-10] MEDS: cloNIDine HCL 0.1 MG TABLET PO (09:19)
--- NOTE | 2021-10-10 09:19 | PM.PSYDC ---
DS: Providers Provider Date of Service: 10/10/21 Date of admission: 09/30/21 13:39 Date of discharge: 10/10/21 Primary care physician: Leonel Romero MD Admitting clinician: Amalia Land Attending physician on admission: Raman Baig Consults: 10/02/21 14:43 Addiction Medicine Routine Consulting Provider: Cara Moss Reason for consultation: health and wellness coach, and possible dose increase, dt craving Has provider been notified: No Attending physician on discharge: Raman Baig Discharging clinician: Noemi Gamez DS: Diagnosis Discharge Diagnosis (1) Severe recurrent major depression with psychotic features: Status: Acute (2) Opioid use disorder, severe, dependence: Status: Acute (3) Cocaine use disorder: Status: Acute (4) Cannabis use disorder, severe, dependence: Status: Acute DS: Medications Discharge Medications Home Medications: Previous Rx's Medication Instructions Recorded divalproex 250 mg tablet,delayed 250 mg PO TID #90 tabs 10/09/21 release ferrous sulfate 324 mg (65 mg 324 mg PO DAILY #30 tabs 10/09/21 iron) tablet,delayed release fluoxetine 10 mg capsule 30 mg PO DAILY #90 caps 10/09/21 hydroxyzine HCl 50 mg tablet 50 mg PO Q6H PRN Anxiety #60 tabs 10/09/21 melatonin 3 mg tablet 6 mg PO BEDTIME PRN Insomnia #60 10/09/21 tabs methadone 10 mg/mL oral 100 mg (10 mL) PO DAILY #0 mL 10/09/21 concentrate (Methadose) mirtazapine 7.5 mg tablet 7.5 mg PO BEDTIME #30 tabs 10/09/21 naloxone 4 mg/actuation nasal 4 mg intranasal Q2M PRN opioid 10/09/21 spray (Narcan) overdose #2 ea nicotine (polacrilex) 2 mg gum 4 mg buccal Q1H PRN smoking 10/09/21 cessation #60 ea olanzapine 10 mg tablet 20 mg PO BEDTIME #3 tabs 10/09/21 propranolol 20 mg tablet 20 mg PO TID #90 tabs 10/09/21 sennosides 8.6 mg tablet (Senna 17.2 mg PO BEDTIME #60 tabs 10/09/21 Lax) Mental Status Exam Mental Status Exam Patient Appearance: Appropriate Patient Orientation: Person, Place, Time and Situation Level of Consciousness: Alert Patient Behavior: Talkative and Good Eye Contact Mood Description: Flat Affect Description: Flat Patient Cognition Impaired: No Ability to Follow Directions: Good Speech Pattern: Spontaneous Speech Memory Description: Intact Hallucinations: None Delusions: Not Present Thought Process: Intact Thought Content: positive for Perseveration and positive for Suicidal Ideation (denies) Depressive Symptoms: Thoughts of /Suicide (denies) Judgement: Good Data Data Completed and Pending Completed studies during hospitalization [Text1]: 10/10/21 10/10/21 08:39 08:39 WBC 6.6 RBC 4.00 L Hgb 12.4 L Hct 37.2 L MCV 93.0 MCH 31.0 MCHC 33.3 RDW 12.7 Plt Count 189 MPV 10.4 Immature Gran % (Auto) 1.2 H Neut % (Auto) 43.7 L Lymph % (Auto) 41.1 H Blaine % (Auto) 10.7 Eos % (Auto) 2.7 Baso % (Auto) 0.6 Lymph # (Auto) 2.7 Blaine # (Auto) 0.7 Eos # (Auto) 0.2 Baso # (Auto) 0.0 Abs Immat Gran (auto) 0.08 H Absolute Neuts (auto) 2.9 Absolute Nucleated RBC 0.000 Nucleated RBC % (auto) 0.0 Sodium 141 Potassium 4.9 Chloride 105 Carbon Dioxide 29 Anion Gap 12 BUN 17 H Creatinine 0.72 Estim Creat Clear Calc 141.1 Estimated GFR > 60 Random Glucose 99 Calcium 10.0 Total Bilirubin 0.3 AST 33 D ALT 81 H Alkaline Phosphatase 60 Total Protein 7.5 Albumin 4.3 TSH Pending Valproic Acid 40.9 L DS: Summary Hospital Course Hospital Course: Admission to adult psychiatry for exacerbation of symptoms of severe, recurrent major depression with psychotic features and relapse on substances-opiates, cocaine and cannabis. Methadone stabilized at 100 mg daily. Depakote, Prozac, Olanzapine, Mirtazapine re-started. Hydroxyzine and Melatonin were given prn to assist in symptom mgt. Time spent discussing smoking cessation with patient: 3 to 10 minutes Status at Discharge Functional status at discharge: independent ambulation Overall status at discharge: patient is back to baseline Time Spent with Patient Time attestation: Total time spent providing and/or coordinating discharge services: 35 Time spent: Greater than 30 minutes Discharge Plan Discharge Patient Disposition: Home, Self-Care Discharge Diagnosis: Recurrent major depression, severe, with psychotic features Opiate, Cocaine, Cannabis Use Disorder Referrals: Marco Cunningham, Therapist Intake - 10/11/21 8am - 9am [Other] - 1 Week Schuyler Romano, Psychiatrist Evaluation 11/01/21 - 8am - 9am [Other] - 1 Week [facility] 11/29/21 9am - 9:20am Telehealth [Other] - 1 Week [facility] - 10/10/21 Will Call [Other] - 1 Week (men's basketball coach will call Solomon in the afternoon.) Leonel Romero MD [Primary Care Provider] - 10/15/21 3:00 pm (in office ) Discharge Medications: New sennosides [Senna Lax] 8.6 mg Tablet 17.2 mg PO BEDTIME Qty: 60 0RF divalproex 250 mg Tablet,Delayed Release (Dr/Ec) 250 mg PO TID Qty: 90 0RF nicotine (polacrilex) 2 mg Gum 4 mg buccal Q1H PRN (Reason: smoking cessation) Qty: 60 0RF olanzapine 10 mg Tablet 20 mg PO BEDTIME Qty: 3 0RF hydroxyzine HCl 50 mg Tablet 50 mg PO Q6H PRN (Reason: Anxiety) Qty: 60 0RF melatonin 3 mg Tablet 6 mg PO BEDTIME PRN (Reason: Insomnia) Qty: 60 0RF fluoxetine 10 mg Capsule 30 mg PO DAILY Qty: 90 0RF methadone [Methadose] 10 mg/mL Concentrate 100 mg PO DAILY Qty: 0 0RF Rx Instructions: Partial Fill upon patient request. propranolol 20 mg Tablet 20 mg PO TID Qty: 90 0RF Protocol: Hold for SBP/HR < HOLD for SBP < : 90 HOLD for HR < : 60 mirtazapine 7.5 mg Tablet 7.5 mg PO BEDTIME Qty: 30 0RF naloxone [Narcan] 4 mg/actuation spray,non-aerosol 4 mg intranasal Q2M PRN (Reason: opioid overdose) Qty: 2 0RF Rx Instructions: spray 1 dose into ONE nostril; alternate nostrils w each dose until help arrives Continued ferrous sulfate 324 mg (65 mg iron) Tablet,Delayed Release (Dr/Ec) 324 mg PO DAILY Qty: 30 0RF Discontinued sertraline 150 mg capsule 150 mg PO DAILY Qty: 30 0RF methadone 10 mg Tablet 95 mg PO DAILY methadone [Methadone Intensol] 10 mg/mL Concentrate 95 mg PO DAILY Discharge Orders: Discharge Order (Routine); Ordered 10/09/21 Ordered By: Noemi Gamez Diet: Advance to usual diet Activity on Discharge: As tolerated Stand Alone Forms: Patient Portal Discharge page, Community Support Care Plan Goals: Mood Stabilization Work on Sobriety Health Concerns: Recurrent major depression with psychotic features Opiate, Cocaine, Cannabis use disorder Plan of Treatment: Attend follow up appointments Take medications as directed Practice coping skills Crisis Team [phone] Call and or return as needed. Assessment: non-suicidal, non-psychotic Discharge Date/Time: 10/10/21 13:50
[2021-10-10 09:21] VITALS: BP 117/73; PULSE 72
[2021-10-10 09:26] LABS: Thyroid Stimulating Hormone 1.38 uIU/mL (0.32-4.0)
== END 2021-10-10 13:50 | disposition home or self-care (01) | DRG 751 ==
LOC: HO.ED 09-29 00:31 → HO.PM5 09-30 13:53
PROVIDERS: Physician Assistant Medical; Admitting Provider Clinical Nurse Specialist Psychiatric/Mental Health, Adult; Emergency Provider Emergency Medicine; PCP Internal Medicine; Visit Provider Clinical Nurse Specialist Psychiatric/Mental Health, Adult
DX: F33.3 Major depressive disorder, recurrent, severe with psychotic symptoms (principal); R45.851 Suicidal ideations; F12.20 Cannabis dependence, uncomplicated; F14.10 Cocaine abuse, uncomplicated; F17.210 Nicotine dependence, cigarettes, uncomplicated; F11.20 Opioid dependence, uncomplicated; Z20.822 Contact with and (suspected) exposure to COVID-19; Z71.6 Tobacco abuse counseling; Z59.02 Unsheltered homelessness; Z79.899 Other long term (current) drug therapy
CPT/HCPCS: 36415; 80048; 80053; 80061; 80076; 80164; 80307; 82077; 82607; 82746; 83036; 83735; 84439; 84443; 85025; 87635; 93005; 99285

== ENCOUNTER 2021-11-01 20:26 | Inpatient (IN) | payer OTHER, SELFPAY ==
[2021-11-01 20:46] VITALS: BP 115/65; PULSE 65; RESP 18; TEMP 36.8; O2SAT 96; BMI 25.8
--- NOTE | 2021-11-01 21:17 | ED_ITS ---
HPI - Psych General Chief Complaint: Psychiatric Symptoms Stated Complaint: CRISIS Time Seen by Provider: 11/01/21 21:17 Source: patient Mode of arrival: ambulatory Limitations: no limitations History of Present Illness HPI Narrative: Patient is a 31 year old male presenting to the emergency department today with increased depression and suicidal ideation. Patient states that he has only been taking his medications sometimes and now he is having increased depression and thinking of suicide but does not have a plan. Patient denies any dizziness, lightheadedness, abdominal pain, nausea, vomiting, fever, chills, blurry vision, double vision, loss of vision, chest pain, difficulty breathing, shortness of breath, back pain, night sweats, pain with urination, increased urinary frequency, increased urinary urgency, blood in his urine or stool, syncope or a near syncopal episode, recent trauma or falls, bowel incontinence, bladder incontinence, bowel retention, bladder retention, or any other complaints at this time. MD complaint: suicidal ideation and feels depressed History of same: Yes Relieving factors: none Exacerbating factors: none Associated psychiatric symptoms: depression and suicidal ideation Associated symptoms: denies other symptoms Treatments prior to arrival: none Related Data Previous Rx's Medication Instructions Recorded divalproex 250 mg tablet,delayed 250 mg PO TID #90 tabs 10/09/21 release fluoxetine 10 mg capsule 30 mg PO DAILY #90 caps 10/09/21 hydroxyzine HCl 50 mg tablet 50 mg PO Q6H PRN Anxiety #60 tabs 10/09/21 melatonin 3 mg tablet 6 mg PO BEDTIME PRN Insomnia #60 10/09/21 tabs methadone 10 mg/mL oral 100 mg (10 mL) PO DAILY #0 mL 10/09/21 concentrate (Methadose) mirtazapine 7.5 mg tablet 7.5 mg PO BEDTIME #30 tabs 10/09/21 nicotine (polacrilex) 2 mg gum 4 mg buccal Q1H PRN smoking 10/09/21 cessation #60 ea olanzapine 10 mg tablet 20 mg PO BEDTIME #3 tabs 10/09/21 propranolol 20 mg tablet 20 mg PO TID #90 tabs 10/09/21 sennosides 8.6 mg tablet (Senna 17.2 mg PO BEDTIME #60 tabs 10/09/21 Lax) Allergies Allergy/AdvReac Type Severity Reaction Status Date / Time No Known Allergies Allergy Verified 05/02/21 11:48 [No Known Allergies*] Review of Systems Constitutional: Constitutional: Reports no additional constitutional complaints, Denies chills, Denies fever(s) and Denies night sweats Eyes: Eyes: Reports no additional eye complaints, Denies blurry vision, Denies change in vision, Denies diplopia, Denies eye discharge, Denies loss of vision and Denies eye pain ENT: Denies dizziness Cardiovascular: Cardiovascular: Reports no additional cardiovascular complaints, Denies chest pain, Denies lightheadedness, Denies Loss of Consciousness and Denies dyspnea Respiratory: Respiratory: Reports no additional respiratory complaints and Denies dyspnea Gastrointestinal: Gastrointestinal: Reports no additional gastrointestinal complaints, Denies abdominal pain, Denies melena, Denies hematochezia, Denies change in bowel habits and Denies change in stool character Genitourinary: Genitourinary: Reports no additional male genitourinary compla ints, Denies hematuria, Denies oliguria, Denies difficulty urinating, Denies dysuria, Denies urinary frequency, Denies urinary hesitancy, Denies urinary incontinence and Denies urinary urgency Musculoskeletal: Musculoskeletal: Reports no additional musculoskeletal complaints, Denies numbness and Denies tingling Neurologic: Denies dizziness, Denies loss of vision, Denies numbness and Denies tingling Psychiatric: Psychiatric: Reports depression and Reports suicidal ideation Endocrine: Endocrine: Reports no additional endocrine complaints Hematologic/Lymphatic: Hematologic/Lymphatic: Reports no additional hematologic/lymphatic complaints Allergic/Immunologic: Allergic/Immunologic: Reports no additional allergic/immunologic complaints [facility] Past Medical History Attestation statement: The following information was validated with the patient. Source: old records reviewed Medical History Opioid use disorder Severe recurrent major depression with psychotic features Suicidal ideation Social History Social History Household Members: Family Household Members Other:: that he is homeless Housing: Apartment Do you presently have visiting nurse or other home services: No Unable to assess alcohol history related to: Refusing to respond Patient Tobacco Use Status: Current everyday Tobacco user Tobacco use type: Cigarette Cigarette Packs Per Day: 0.5 Cigarettes Per Day: 10.0 Years Smoked: 15 e-Cigarette/Vaping Use: Currently Using Second Hand Smoke Exposure: Yes Substance Use Type: Crack/Cocaine, Marijuana and Opiates Advance Directives: No Advance Directives Information Provided: No service: No Sexual orientation: Straight/Heterosexual Physical Exam Vital Signs: Vital Signs: Last Vital Signs Temp 98.2 F 11/01/21 20:46 Pulse 65 11/01/21 20:46 Resp 18 11/01/21 20:46 BP 115/65 11/01/21 20:46 Pulse Ox 96 11/01/21 20:46 O2 Del Method 11/01/21 20:46 BMI result Body Mass Index 25.8 Const: General: cooperative, no acute distress, alert and awake Nutritional Appearance: well nourished Orientation/consciousness: patient oriented x3 Limitations: no limitations HEENT: Head: Yes normal to inspection and Yes atraumatic Ears: hearing grossly normal bilaterally and external ears normal General nose exam: Normal external nose present, no nasal discharge noted and no epistaxis Face and sinus: Yes normal facial exam, No abrasion and No laceration Mouth: Normal oral and palatal mucosa present, no drooling and no muffled voice Eyes: General: appearance normal, both eyes and all related structures Pe riorbital: periorbital findings normal Eyelids: Yes eyelids normal Conjunctivae: conjunctivae normal Pupils: Equal, round and reactive pupils present EOM: EOMs intact bilaterally Neck: Neck: Yes normal visual inspection, Yes full ROM and Yes no lymphadenopathy Chest: Chest palpation & inspection: normal inspection of the chest Resp: Effort & Inspection: normal respiratory effort and able to speak in complete sentences Auscultation: clear to auscultation bilaterally Cardio: Rate: regular rate Rhythm: regular rhythm GI: Inspection: Yes normal to inspection Neuro: General: patient oriented x3 and moves all extremities Cranial nerves: Yes Equal, round and reactive pupils present Cognition (Neuro): normal cognition Motor exam (neuro): 5/5 motor strength present throughout Sensory Exam: Normal double simultaneous stimulation for sensation Coordination: [id number] test normal Extrem: General: Yes normal to inspection, Yes full ROM and Yes capillary refill normal Psych: Appearance: grossly normal Mental Status: mental status grossly normal Affect: normal affect Attitude: cooperative Thought process: Normal thought process present Thought content: Normal thought content present Insight: Good insight present (Psych) MDM - Psych MDM Narrative Medical decision making narrative: Patient is a 31 year old male presenting to the emergency department today with increased depression and suicidal ideation. Patient's physical exam was unremarkable. Patient's blood work did show a decreased valporic acid level despite the patient being prescribed it. I explained my physical exam findings as well as all test results to the patient. I answered all questions asked by the patient. Patient is awaiting [facility] evaluation. Differential Diagnosis Differential diagnosis: Likely suicidal ideation Medical Records Attestation: I reviewed the patient's medical records. Lab Data Attestation: I reviewed the patient's lab results. Result diagrams: 11/01/21 21:12 11/01/21 21:12 Labs: Lab Results 11/01/21 11/01/21 11/01/21 Range/Units 21:12 21:12 21:12 WBC 8.7 (4.8-10.8) X10*3/uL RBC 4.18 L (4.60-5.80) X10*6/uL Hgb 12.8 L (14.0-18.0) g/dl Hct 37.4 L (42.0-52.0) % MCV 89.5 (80.0-98.0) fL MCH 30.6 (27.0-33.0) pg MCHC 34.2 (31.0-36.0) g/dl RDW 13.0 (11.0-16.0) % Plt Count 180 (160-400) X10*3/uL MPV 10.5 (9.4-12.4) fL Immature Gran % (Auto) 0.2 (0.0-0.4) % Neut % (Auto) 55.7 (45-73) % Lymph % (Auto) 36.3 (20-40) % Metcalfe % (Auto) 6.1 (2-11) % Eos % (Auto) 1.0 (0-4) % Baso % (Auto) 0.7 (0-2) % Lymph # (Auto) 3.2 (1.2-4.9) X10*3/uL Metcalfe # (Auto) 0.5 (0.1-1.2) X10*3/uL Eos # (Auto) 0.1 (0.0-0.4) X10*3/uL Baso # (Auto) 0.1 (0.0-0.2) X10*3/uL Abs Immat Gran (auto) 0.02 (0.00-0.03) X10*3/uL Absolute Neuts (auto) 4.8 (2.0-8.3) x10*3/uL Absolute Nucleated RBC 0.000 (0.0-0.012) X10*3/uL Nucleated RBC % (auto) 0.0 (0.0-0.2) /100WBC Smear Tech's Comments VERIFIED Sodium 143 (135-145) mmol/L Potassium 3.6 D (3.3-5.1) mmol/L Chloride 105 (96-108) mmol/L Carbon Dioxide 27 (22-29) mmol/L Anion Gap 15 (12-20) BUN 19 H (9-16) mg/dL Creatinine 1.20 (0.5-1.4) mg/dL Estim Creat Clear Calc 84.7 Estimated GFR > 60 Random Glucose 76 (60-115) mg/dL Calcium 10.0 (8.4-10.2) mg/dL Total Bilirubin 0.8 (0.0-1.0) mg/dL AST 11 D (5-37) U/L ALT 9 (0-40) U/L Alkaline Phosphatase 57 (39-117) U/L Total Protein 7.8 (6.5-8.0) g/dL Albumin 4.8 (3.5-5.0) g/dL Salicylates < 5.0 L (15-30) mg/dL Acetaminophen < 1 (<30) mcg/mL Valproic Acid < 2.0 L (50.0-100.0) mcg/mL COVID-19 (TIKA) Negative (Negative) COVID-19 Clin Com See Note Discharge Plan Discharge Clinical Impression: Feeling suicidal Patient Disposition: Still a Patient Prescriptions: No Action sennosides [Senna Lax] 8.6 mg Tablet 17.2 mg PO BEDTIME Qty: 60 0RF divalproex 250 mg Tablet,Delayed Release (Dr/Ec) 250 mg PO TID Qty: 90 0RF nicotine (polacrilex) 2 mg Gum 4 mg buccal Q1H PRN (Reason: smoking cessation) Qty: 60 0RF olanzapine 10 mg Tablet 20 mg PO BEDTIME Qty: 3 0RF hydroxyzine HCl 50 mg Tablet 50 mg PO Q6H PRN (Reason: Anxiety) Qty: 60 0RF melatonin 3 mg Tablet 6 mg PO BEDTIME PRN (Reason: Insomnia) Qty: 60 0RF fluoxetine 10 mg Capsule 30 mg PO DAILY Qty: 90 0RF methadone [Methadose] 10 mg/mL Concentrate 100 mg PO DAILY Qty: 0 0RF Rx Instructions: Partial Fill upon patient request. propranolol 20 mg Tablet 20 mg PO TID Qty: 90 0RF Protocol: Hold for SBP/HR < HOLD for SBP < : 90 HOLD for HR < : 60 mirtazapine 7.5 mg Tablet 7.5 mg PO BEDTIME Qty: 30 0RF
[2021-11-01 21:19] LABS: Imm Gran Abs Auto 0.02 X10*3/uL (0.00-0.03); Imm Gran Pct Auto 0.2 % (0.0-0.4); MANUAL DIFF FLAG SCAN; Mean Corpuscular Volume 89.5 fL (80.0-98.0); PLT CLUMP 1; SCAN SMEAR FLAG 1
[2021-11-01 21:21] LABS: Basophils Absolute Auto 0.1 X10*3/uL (0.0-0.2); Basophils Percent Auto 0.7 % (0-2); Eosinophils Absolute Auto 0.1 X10*3/uL (0.0-0.4); Hematocrit 37.4 % (42.0-52.0); Hemoglobin 12.8 g/dl (14.0-18.0); Lymphocytes Absolute Auto 3.2 X10*3/uL (1.2-4.9); Lymphocytes Percent Auto 36.3 % (20-40); Mean Corpuscular HGB Conc 34.2 g/dl (31.0-36.0); Mean Corpuscular Hemoglobin 30.6 pg (27.0-33.0); Mean Platelet Volume 10.5 fL (9.4-12.4); Monocytes Absolute Auto 0.5 X10*3/uL (0.1-1.2); Monocytes Percent Auto 6.1 % (2-11); Neutrophils Absolute Auto 4.8 x10*3/uL (2.0-8.3); Neutrophils Percent Auto 55.7 % (45-73); Red Blood Count 4.18 X10*6/uL (4.60-5.80)
[2021-11-01 21:35] LABS: COVID-19 Test Negative (Negative); IDNOW Serial# 16C4AD1C
[2021-11-01 21:37] LABS: Platelet Count 180 X10*3/uL (160-400); SLIDE REVIEW VERIFIED; White Blood Count 8.7 X10*3/uL (4.8-10.8)
[2021-11-01 21:48] LABS: Alanine Aminotransferase 9 U/L (0-40); Albumin Level 4.8 g/dL (3.5-5.0); Alkaline Phosphatase 57 U/L (39-117); Anion Gap 15 (12-20); Aspartate Amino Transferase 11 U/L (5-37); Bilirubin Total 0.8 mg/dL (0.0-1.0); Blood Urea Nitrogen 19 mg/dL (9-16); Carbon Dioxide 27 mmol/L (22-29); Chloride 105 mmol/L (96-108); Creatinine Clr Calc Pharmacy 84.7; Estimated Glomerular Filt Rate > 60; Glucose Random 76 mg/dL (60-115); Potassium 3.6 mmol/L (3.3-5.1); Sodium 143 mmol/L (135-145); Total Protein 7.8 g/dL (6.5-8.0); Valproate < 2.0 mcg/mL (50.0-100.0)
[2021-11-01 22:48] LABS: Acetaminophen LAB < 1 mcg/mL (<30); Salicylate < 5.0 mg/dL (15-30)
[2021-11-02 00:35] LABS: Amphetamine Screen Urine Not Detected (Not Detect); Barbiturates, Urine Not Detected (Not Detect); Benzodiazepines Screen Urine Not Detected (Not Detect); Cannabinoid Screen Urine POSITIVE (Not Detect); Cocaine Screen Urine POSITIVE (Not Detect); Fentanyl, urine POSITIVE (Not Detect); Opiate Screen Urine POSITIVE (Not Detect); Phencyclidine Screen Urine Not Detected (Not Detect)
[2021-11-02 06:14] VITALS: BP 105/62; PULSE 45; RESP 16; TEMP 36.4; O2SAT 96
--- NOTE | 2021-11-02 06:15 | PC.NURSE ---
Patient slept through the night, no distress observed/reported, med rec completed/MAY updated, Methadone dose verified morning dose available for dispensing, disposition per [facility] is section 12 inpatient bed search, VSS, behavior non concerning, will continue to monitor.
--- NOTE | 2021-11-02 07:21 | PC.NURSE ---
patient appears to remain asleep at present respirations are even and unlabored patient appears in no distress.
[2021-11-02] MEDS: methADONE HCl 20 MG/2 ML ORAL.CONC 100 MG PO (08:16)
[2021-11-02] MEDS: Divalproex Sodium 250 MG TABLET.DR PO ×3 (08:16→22:25)
[2021-11-02] MEDS: Propranolol HCL 20 MG TABLET PO ×2 (08:16→13:59)
[2021-11-02] MEDS: FLUoxetine HCl 10 MG CAPSULE 30 MG PO (08:31)
--- NOTE | 2021-11-02 10:18 | HE.PHANOTE ---
Methadone Verification form has been received by Pharmacy from [facility]. Patient last dose methadone 100 mg on 11/01/21 and received to take home bottles from [facility]. Monserrat Patel, EvelynD
[2021-11-02] MEDS: Nicotine Polacrilex 2 MG GUM 4 MG BUCCAL ×4 (11:15→22:44)
[2021-11-02] MEDS: hydrOXYzine HCL 50 MG TABLET PO (11:26)
[2021-11-02 14:01] VITALS: BP 124/78; PULSE 54; RESP 16; TEMP 36.7; O2SAT 100
[2021-11-02 21:57] VITALS: BP 99/60; PULSE 75; RESP 18; TEMP 36.3; O2SAT 98
[2021-11-02] MEDS: Mirtazapine 7.5 MG TABLET PO (22:25)
[2021-11-02] MEDS: Sennosides 8.6 MG TABLET 17.2 MG PO (22:25)
[2021-11-02] MEDS: OLANZapine 10 MG TABLET 20 MG PO (22:25)
[2021-11-03 02:07] VITALS: RESP 18
--- NOTE | 2021-11-03 06:40 | PC.NURSE ---
Patient slept through the night, no distress observed/reported, medication compliant, disposition per [facility] [place] is section 12 inpatient bed search, VSS, behavior non concerning, will continue to monitor.
--- NOTE | 2021-11-03 07:42 | PC.NURSE ---
patient appears to be at rest at present respirations are even and unlabored patient appears in no distress
[2021-11-03] MEDS: Propranolol HCL 20 MG TABLET PO ×3 (10:13→21:26)
[2021-11-03] MEDS: FLUoxetine HCl 10 MG CAPSULE 30 MG PO (10:13)
[2021-11-03] MEDS: methADONE HCl 20 MG/2 ML ORAL.CONC 100 MG PO (10:13)
[2021-11-03] MEDS: Divalproex Sodium 250 MG TABLET.DR PO ×3 (10:14→21:26)
[2021-11-03] MEDS: Nicotine Polacrilex 2 MG GUM 4 MG BUCCAL ×5 (10:22→20:34)
[2021-11-03 14:28] VITALS: BP 117/64; PULSE 54; RESP 12; O2SAT 97
[2021-11-03 21:26] VITALS: BP 119/68; PULSE 69; RESP 18; TEMP 37.2; O2SAT 98
[2021-11-03] MEDS: OLANZapine 10 MG TABLET 20 MG PO (21:26)
[2021-11-03] MEDS: Sennosides 8.6 MG TABLET 17.2 MG PO (21:26)
[2021-11-03] MEDS: Mirtazapine 7.5 MG TABLET PO (21:26)
[2021-11-03] MEDS: Melatonin 3 MG TABLET 6 MG PO (21:26)
--- NOTE | 2021-11-04 | ECG_ITS ---
Test Reason : medical clearance Blood Pressure : / mmHG Vent. Rate : 049 BPM Atrial Rate : 049 BPM P-R Int : 138 ms QRS Dur : 098 ms QT Int : 480 ms P-R-T Axes : 057 073 061 degrees QTc Int : 433 ms Sinus bradycardia Otherwise normal ECG When compared with ECG of 29-SEP-2021 19:22, No significant change was found Referred By: Fatmata Gutiérrez Electronically Signed By:MIREYA MARTINEZ
[2021-11-04 03:35] VITALS: BP 122/76; PULSE 68; RESP 16; TEMP 37.1; O2SAT 98
--- NOTE | 2021-11-04 06:46 | PC.NURSE ---
Patient slept through the night, no distress observed/reported, medication compliant, disposition per [facility] is section 12 inpatient bed search, no update on bed search, VSS, behavior non concerning, will continue to monitor.
[2021-11-04 08:08] VITALS: BP 109/63; PULSE 54; RESP 14; TEMP 36.3; O2SAT 98
[2021-11-04] MEDS: methADONE HCl 20 MG/2 ML ORAL.CONC 100 MG PO (10:58)
[2021-11-04] MEDS: FLUoxetine HCl 10 MG CAPSULE 30 MG PO (10:58)
[2021-11-04] MEDS: Propranolol HCL 20 MG TABLET PO ×3 (10:58→21:59)
[2021-11-04] MEDS: Divalproex Sodium 250 MG TABLET.DR PO ×3 (10:58→21:59)
[2021-11-04] MEDS: Nicotine Polacrilex 2 MG GUM 4 MG BUCCAL ×10 (11:05→23:48)
[2021-11-04] MEDS: hydrOXYzine HCL 50 MG TABLET PO (12:39)
[2021-11-04 14:05] LABS: COVID-19 Test Negative (Negative); IDNOW Serial# 16C4AD1C
[2021-11-04 15:18] VITALS: BP 143/81; PULSE 56; RESP 16; TEMP 36.1; O2SAT 100
[2021-11-04 18:47] VITALS: BP 131/79; PULSE 58; RESP 20; TEMP 36.6; O2SAT 99
[2021-11-04] MEDS: Mirtazapine 7.5 MG TABLET PO (21:59)
[2021-11-04] MEDS: OLANZapine 10 MG TABLET 20 MG PO (21:59)
[2021-11-04] MEDS: Sennosides 8.6 MG TABLET 17.2 MG PO (22:00)
--- NOTE | 2021-11-04 23:05 | PC.ADMIT ---
Patient is a 31 year old single male admitted as a CV admission to at 1840 and placed on 15 minute safety checks. Patient was medically cleared in the [facility], evaluated by [facility] and deemed in need of inpatient admission due to [facility] telling him to kill himself . Patient had also reported having HI but no particular person. The patient is well known to from previous admissions. His diagnosis Major Depressive Disorder, opioid use disorder and stimulant use disorder. No current medical issues. His tox screen was positive for opioids, cocaine and marijuana. Patient reported that he has no community providers other than a methadone clinic and is on a wait list at mental health facilities. Patient has a history of noncompliance with medications and when this sba underwriter asked who was prescribing psychiatric meds he indicated his PCP was prescribing. The patient was cooperative but said he is frustrated with not having any providers and feels that a therapist would be beneficial. Patient did not rate his depression or anxiety but did say he was feeling better being in the hospital. He denied any current SI or HI. Patient said he was settling in with no problems and was pleased to shower and put on clean clothes.
[2021-11-05 08:28] VITALS: BP 112/57; PULSE 70; RESP 16; TEMP 36.6; O2SAT 96
[2021-11-05] MEDS: methADONE HCl 20 MG/2 ML ORAL.CONC 100 MG PO (08:30)
[2021-11-05] MEDS: Divalproex Sodium 250 MG TABLET.DR PO ×3 (08:31→19:43)
[2021-11-05] MEDS: FLUoxetine HCl 10 MG CAPSULE 30 MG PO (08:31)
[2021-11-05] MEDS: Propranolol HCL 20 MG TABLET PO ×3 (08:31→19:43)
[2021-11-05] MEDS: Nicotine Polacrilex 2 MG GUM 4 MG BUCCAL ×6 (08:35→18:19)
[2021-11-05 09:39] LABS: Estimated Average Glucose 108 mg/dL; Hemoglobin A1c % 5.4 %
[2021-11-05] MEDS: hydrOXYzine HCL 25 MG TABLET PO (09:41)
[2021-11-05 09:57] LABS: Cholesterol 156 mg/dL; HDL Cholesterol 34 mg/dL; LDL Cholesterol Calculated 99 mg/dl; Magnesium 2.1 mg/dL (1.6-2.6); Triglycerides 115 mg/dL
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
[2021-11-05 10:23] LABS: Free T4 (Free Thyroxine) 1.12 ng/dL (0.71-1.85); Thyroid Stimulating Hormone 0.31 uIU/mL (0.32-4.0)
[2021-11-05 11:04] LABS: Folate 15.3 ng/mL (> or = 4.0); Vitamin B12 583 pg/mL (200-900)
[2021-11-05 14:23] VITALS: BP 112/71; PULSE 66; O2SAT 98
[2021-11-05] MEDS: hydrOXYzine HCL 50 MG TABLET PO (15:25)
[2021-11-05] MEDS: Mirtazapine 7.5 MG TABLET PO (19:43)
[2021-11-05] MEDS: OLANZapine 10 MG TABLET 20 MG PO (19:43)
[2021-11-05] MEDS: Sennosides 8.6 MG TABLET 17.2 MG PO (19:43)
[2021-11-05 19:47] VITALS: BP 117/74; PULSE 82
[2021-11-06] MEDS: Nicotine Polacrilex 2 MG GUM 4 MG BUCCAL ×9 (02:33→22:13)
[2021-11-06] MEDS: Propranolol HCL 20 MG TABLET PO ×3 (08:23→19:36)
[2021-11-06] MEDS: Divalproex Sodium 250 MG TABLET.DR PO ×3 (08:24→19:36)
[2021-11-06] MEDS: FLUoxetine HCl 10 MG CAPSULE 30 MG PO (08:24)
[2021-11-06] MEDS: methADONE HCl 20 MG/2 ML ORAL.CONC 100 MG PO (08:26)
[2021-11-06 08:30] VITALS: BP 106/69; PULSE 60; RESP 16; TEMP 36.7; O2SAT 98
[2021-11-06] MEDS: hydrOXYzine HCL 50 MG TABLET PO ×2 (10:12→16:29)
--- NOTE | 2021-11-06 15:59 | P.PNPSI_ITS ---
Subjective Subjective Date of Service: 11/06/21 Reason For Visit: Depression,Opiate use D/O,Cocaine use D/O Subjective Notes: Conditional Voluntary Healthcare Proxy: No Guardianship: No Medical Problems Affecting Mental Status: No Interim History: Review of precipitants to readmission. Voices, CAH are a problem, along with MILAGROS-reports being up a few times a night. Has an opportunity to work with [employer] on housing and has given his adoption social worker, Wilma his paperwork for assistance. Discussed Nicotine Patch/Gum, use of Atarax and replacing Olanzapine with Haldol, 5 mg bid. In discussion with pt about perceptual alterations, it is unclear as to if this sx is his voice being critical and resulting in command negative response or an outside voice commenting on his perceived doubts and perceived inadequacies. This will need to clarify as treatment progresses. Medication Compliance: Yes Side effects from medications: No Attending Groups: Intermittent Review of Systems Acute medical concerns: No Medical Review of Systems: unchanged Review of Systems Reports behavioral changes Psychiatric: Reports anxiety, Reports behavioral changes, Reports depression, Reports auditory hallucinations, Reports hopelessness, Reports anhedonia and Reports suicidal ideation Mental Status Exam Mental Status Exam Patient Appearance: Appropriate Patient Orientation: Person, Place, Time and Situation Level of Consciousness: Alert Patient Behavior: Appropriate, Talkative, Cooperative and Good Eye Contact Mood Description: Depressed Affect Description: Flat Patient Cognition Impaired: No Ability to Follow Directions: Good Speech Pattern: Spontaneous Speech Memory Description: Intact Hallucinations: Auditory Delusions: Not Present Perceptual Disturbances: Depersonalization Thought Process: Distracted and Rumination Thought Content: positive for [place], positive for Circumstantial and positive for Suicidal Ideation Depressive Symptoms: Increased Anxiety, Thoughts of /Suicide and Low Self Esteem Abnormal Motor Activity Signs and Symptoms: Restlessness Judgement: Fair Diagnostics Vital Signs (24Hr): Vital Signs - 24 hr 11/05/21 19:47 11/06/21 08:30 Temperature 98.1 F Pulse Rate 82 60 Respiratory Rate 16 Blood Pressure 117/74 106/69 Pulse Oximetry 98 Oxygen Delivery Method Room Air BMI result Body Mass Index 25.8 Labs Results: 11/01/21 21:12 11/01/21 21:12 Labs: Laboratory Results - last 48 hr 11/05/21 11/05/21 11/05/21 08:34 08:34 08:34 Estimat Average Glucose 108 Hemoglobin A1c % 5.4 Magnesium 2.1 Triglycerides 115 Cholesterol 156 LDL Cholesterol, Calc 99 HDL Cholesterol 34 Vitamin B12 583 Folate 15.3 TSH 0.31 L Free T4 1.12 Medications Medications Current Medications Acetaminophen (Acetaminophen 325 Mg Tablet) 650 mg PO Q6H PRN PRN Reason: Headache/Pain Mild Scale (1-3) Al Hydroxide/Mg Hydroxide (Magnesium Hydrox/Alum Hydrox 30 Ml Oral.Susp) 30 ml PO Q6H PRN PRN Reason: Heartburn/Nausea Divalproex Sodium (Divalproex Sodium 250 Mg Tablet.) 250 mg PO TID [facility] Last Admin: 11/06/21 14:09 Dose: 250 mg Ferrous Sulfate (Ferrous Sulfate 324 Mg Tablet.) 325 mg PO DAILY [facility] Fluoxetine HCl (Fluoxetine Hcl 10 Mg Capsule) 30 mg PO DAILY [facility] Last Admin: 11/06/21 08:24 Dose: 30 mg Haloperidol (Haloperidol 5 Mg Tablet) 5 mg PO BID [facility] Hydroxyzine HCl (Hydroxyzine Hcl 50 Mg Tablet) 50 mg PO Q6H PRN PRN Reason: Anxiety Last Admin: 11/06/21 10:12 Dose: 50 mg Magnesium Hydroxide (Milk Of Magnesia 30 Ml Oral.Susp) 30 ml PO DAILY PRN PRN Reason: Constipation Melatonin (Melatonin 3 Mg Tablet) 6 mg PO BEDTIME PRN PRN Reason: Insomnia Last Admin: 11/03/21 21:26 Dose: 6 mg Methadone HCl (Methadone Hcl 20 Mg/2 Ml Oral.Conc) 100 mg PO DAILY [facility] Last Admin: 11/06/21 08:26 Dose: 100 mg Mirtazapine (Mirtazapine 15 Mg Tablet) 15 mg PO BEDTIME [facility] Nicotine (Nicotine 21 Mg Patch.Td24) 21 mg TRANSDERMA DAILY [facility] Nicotine Polacrilex (Nicotine Polacrilex 2 Mg Gum) 4 mg BUCCAL Q1H PRN PRN Reason: smoking cessation Last Admin: 11/06/21 15:57 Dose: 4 mg Propranolol HCl (Propranolol Hcl 20 Mg Tablet) 20 mg PO TID [facility]; Protocol Last Admin: 11/06/21 14:09 Dose: 20 mg Senna (Sennosides 8.6 Mg Tablet) 17.2 mg PO BEDTIME [facility] Last Admin: 11/05/21 19:43 Dose: 17.2 mg Trazodone HCl (Trazodone Hcl 50 Mg Tablet) 50 mg PO BEDTIME PRN PRN Reason: Insomnia Allergies Allergies Allergy/AdvReac Type Severity Reaction Status Date / Time No Known Allergies Allergy Verified 05/02/21 11:48 [No Known Allergies*] Assessment & Plan Assessment & Plan (1) Severe recurrent major depression with psychotic features: Status: Acute Code(s): F33.3 - Major depressive disorder, recurrent, severe with psychotic symptoms (2) Opioid use disorder, severe, dependence: Status: Acute Code(s): F11.20 - Opioid dependence, uncomplicated (3) Cocaine use disorder: Status: Acute Code(s): F14.10 - Cocaine abuse, uncomplicated (4) Cannabis use disorder, severe, dependence: Status: Acute Code(s): F12.20 - Cannabis dependence, uncomplicated Plan Patient is a 31-year-old male with history of cocaine and heroin abuse (on methadone), mood lability, axis II traits and AH who presents for AH and SI in the face of being off his medications and homelessness. Patient said that when he discharge last time he went to stay at his mother's house. Patient then started to explain he needs help getting housing. Web Services Professional redirected the conversation to [facility]. Initially he said that after discharge, he continued to take his medications but then, he said that he did not. He said that even on the Depakote and the Zyprexa he was still having auditory hallucinations. Patient said that he presented because the voices were telling him to kill himself and take drugs. Web Services Professional a inquired changed this past week that he presented and patient said what do you want me to be out there and kill myself? he said why are you asking me all these questions? Web Services Professional tried to explain/rephrased the question. Patient said that last week the voices were not telling him to go to the hospital. What changed was that this week the voices told him to go to the hospital. He said the voices direct what [he] should do. Web Services Professional then asked if the voices sometimes tell him helpful things. Abruptly patient stood up and said he wants a different doctor, swore and walked out of the room. -Will continue recent home medications for now. Conflicting reports on benefits of medication as patient says it medications never help but staff reports last time he was here he reported full remission. Plan: CV Q 15 minute checks Will continue recent home medications for now Patient is asking for help with Section 8 housing 11/06/21 Discontinue Olanzapine Haldol 5 mg bid Work with Solomon on [employer] application process. I spent minutes with the patient and/or on the patient floor today, greater than?50% of which was spent counseling/coordinating care. Patient educated on: therapeutic strategies Informed Consent: understands and further education needed Reason for contiued inpatient stay Substantial Risk for: harm to self and rapid decompensation
[2021-11-06 18:00] VITALS: BP 108/70; PULSE 67; TEMP 36.6; O2SAT 98
[2021-11-06] MEDS: Mirtazapine 15 MG TABLET PO (19:36)
[2021-11-06] MEDS: HaloperidoL 5 MG TABLET PO (19:36)
[2021-11-06] MEDS: Sennosides 8.6 MG TABLET 17.2 MG PO (19:36)
[2021-11-06] MEDS: traZODone HCL 50 MG TABLET PO (22:12)
[2021-11-07] MEDS: Nicotine Polacrilex 2 MG GUM 4 MG BUCCAL ×8 (00:46→21:51)
[2021-11-07 06:00] VITALS: BP 119/79; PULSE 71; RESP 18; TEMP 36.2; O2SAT 98
[2021-11-07 07:00] VITALS: BMI 27.8
[2021-11-07] MEDS: FLUoxetine HCl 10 MG CAPSULE 30 MG PO (08:53)
[2021-11-07] MEDS: Ferrous Sulfate 324 MG TABLET.DR 325 MG PO (08:55)
[2021-11-07] MEDS: Propranolol HCL 20 MG TABLET PO ×3 (08:55→19:53)
[2021-11-07] MEDS: Divalproex Sodium 250 MG TABLET.DR PO ×3 (08:55→19:53)
[2021-11-07] MEDS: HaloperidoL 5 MG TABLET PO ×2 (08:55→19:53)
[2021-11-07] MEDS: methADONE HCl 20 MG/2 ML ORAL.CONC 100 MG PO (08:58)
[2021-11-07] MEDS: hydrOXYzine HCL 50 MG TABLET PO (11:22)
[2021-11-07 14:28] VITALS: BP 121/76; PULSE 85
--- NOTE | 2021-11-07 18:18 | HO.PSYCHPN ---
Subjective Subjective Date of Service: 11/07/21 Reason For Visit: Depression,Opiate use D/O,Cocaine use D/O Subjective Notes: Conditional Voluntary Healthcare Proxy: No Guardianship: No Medical Problems Affecting Mental Status: No Interim History: Reports benefit from medication change. Has received confirmation that he will be able to live with his mother upon discharge. Team has sent in residential paperwork. Planning discharge for 11/08. Discussed Solomon working on attending follow up care in the community. Medication Compliance: Yes Side effects from medications: No Attending Groups: Yes Review of Systems Acute medical concerns: No Medical Review of Systems: unchanged Review of Systems Psychiatric: Reports no additional psychiatric complaints Mental Status Exam Mental Status Exam Patient Appearance: Appropriate Patient Orientation: Person, Place, Time and Situation Level of Consciousness: Alert Patient Behavior: Appropriate, Talkative, Cooperative and Good Eye Contact Mood Description: Appropriate Affect Description: Flat Patient Cognition Impaired: No Ability to Follow Directions: Good Speech Pattern: Spontaneous Speech Memory Description: Intact Hallucinations: None Delusions: Not Present Perceptual Disturbances: Depersonalization Thought Process: Distracted and Rumination Thought Content: positive for [place] and positive for Circumstantial Depressive Symptoms: Increased Anxiety and Low Self Esteem Abnormal Motor Activity Signs and Symptoms: Restlessness Judgement: Fair Diagnostics Vital Signs (24Hr): Vital Signs - 24 hr 11/07/21 06:00 11/07/21 14:28 Temperature 97.2 F Pulse Rate 71 85 Respiratory Rate 18 Blood Pressure 119/79 121/76 Pulse Oximetry 98 Oxygen Delivery Method Room Air BMI result Body Mass Index 27.8 Labs Results: 11/01/21 21:12 11/01/21 21:12 Medications Medications Current Medications Acetaminophen (Acetaminophen 325 Mg Tablet) 650 mg PO Q6H PRN PRN Reason: Headache/Pain Mild Scale (1-3) Al Hydroxide/Mg Hydroxide (Magnesium Hydrox/Alum Hydrox 30 Ml Oral.Susp) 30 ml PO Q6H PRN PRN Reason: Heartburn/Nausea Divalproex Sodium (Divalproex Sodium 250 Mg Tablet.) 250 mg PO TID [facility] Last Admin: 11/07/21 14:22 Dose: 250 mg Ferrous Sulfate (Ferrous Sulfate 324 Mg Tablet.) 324 mg PO DAILY [facility] Last Admin: 11/07/21 10:12 Dose: Not Given Fluoxetine HCl (Fluoxetine Hcl 10 Mg Capsule) 30 mg PO DAILY [facility] Last Admin: 11/07/21 08:53 Dose: 30 mg Haloperidol (Haloperidol 5 Mg Tablet) 5 mg PO BID [facility] Last Admin: 11/07/21 08:55 Dose: 5 mg Hydroxyzine HCl (Hydroxyzine Hcl 50 Mg Tablet) 50 mg PO Q6H PRN PRN Reason: Anxiety Last Admin: 11/07/21 11:22 Dose: 50 mg Magnesium Hydroxide (Milk Of Magnesia 30 Ml Oral.Susp) 30 ml PO DAILY PRN PRN Reason: Constipation Melatonin (Melatonin 3 Mg Tablet) 6 mg PO BEDTIME PRN PRN Reason: Insomnia Last Admin: 11/03/21 21:26 Dose: 6 mg Methadone HCl (Methadone Hcl 20 Mg/2 Ml Oral.Conc) 100 mg PO DAILY [facility] Last Admin: 11/07/21 08:58 Dose: 100 mg Mirtazapine (Mirtazapine 15 Mg Tablet) 15 mg PO BEDTIME [facility] Last Admin: 11/06/21 19:36 Dose: 15 mg Nicotine (Nicotine 21 Mg Patch.Td24) 21 mg TRANSDERMA DAILY [facility] Last Admin: 11/07/21 09:00 Dose: Not Given Nicotine Polacrilex (Nicotine Polacrilex 2 Mg Gum) 4 mg BUCCAL Q2H PRN PRN Reason: smoking cessation Last Admin: 11/07/21 18:16 Dose: 4 mg Propranolol HCl (Propranolol Hcl 20 Mg Tablet) 20 mg PO TID [facility]; Protocol Last Admin: 11/07/21 14:22 Dose: 20 mg Senna (Sennosides 8.6 Mg Tablet) 17.2 mg PO BEDTIME [facility] Last Admin: 11/06/21 19:36 Dose: 17.2 mg Trazodone HCl (Trazodone Hcl 50 Mg Tablet) 50 mg PO BEDTIME PRN PRN Reason: Insomnia Last Admin: 11/06/21 22:12 Dose: 50 mg Allergies Allergies Allergy/AdvReac Type Severity Reaction Status Date / Time No Known Allergies Allergy Verified 05/02/21 11:48 [No Known Allergies*] Assessment & Plan Assessment & Plan (1) Severe recurrent major depression with psychotic features: Status: Acute Code(s): F33.3 - Major depressive disorder, recurrent, severe with psychotic symptoms (2) Opioid use disorder, severe, dependence: Status: Acute Code(s): F11.20 - Opioid dependence, uncomplicated (3) Cocaine use disorder: Status: Acute Code(s): F14.10 - Cocaine abuse, uncomplicated (4) Cannabis use disorder, severe, dependence: Status: Acute Code(s): F12.20 - Cannabis dependence, uncomplicated Plan Patient is a 31-year-old male with history of cocaine and heroin abuse (on methadone), mood lability, axis II traits and AH who presents for AH and SI in the face of being off his medications and homelessness. Patient said that when he discharge last time he went to stay at his mother's house. Patient then started to explain he needs help getting housing. Immigration Investigator redirected the conversation to [facility]. Initially he said that after discharge, he continued to take his medications but then, he said that he did not. He said that even on the Depakote and the Zyprexa he was still having auditory hallucinations. Patient said that he presented because the voices were telling him to kill himself and take drugs. Immigration Investigator a inquired changed this past week that he presented and patient said what do you want me to be out there and kill myself? he said why are you asking me all these questions? Immigration Investigator tried to explain/rephrased the question. Patient said that last week the voices were not telling him to go to the hospital. What changed was that this week the voices told him to go to the hospital. He said the voices direct what [he] should do. Immigration Investigator then asked if the voices sometimes tell him helpful things. Abruptly patient stood up and said he wants a different doctor, swore and walked out of the room. -Will continue recent home medications for now. Conflicting reports on benefits of medication as patient says it medications never help but staff reports last time he was here he reported full remission. Plan: CV Q 15 minute checks Will continue recent home medications for now Patient is asking for help with Section 8 housing 11/06/21 Discontinue Olanzapine Haldol 5 mg bid Work with Solomon on [employer] application process. 11/07/21 Reports improvement [facility] paperwork completed and sent by the team. Discharge 11/08/21. I spent minutes with the patient and/or on the patient floor today, greater than?50% of which was spent counseling/coordinating care. Patient educated on: medication risk/benefits and therapeutic strategies Informed Consent: understands and further education needed Reason for contiued inpatient stay Substantial Risk for: harm to self, inability to function and rapid decompensation
[2021-11-07] MEDS: Mirtazapine 15 MG TABLET PO (19:53)
[2021-11-07] MEDS: Sennosides 8.6 MG TABLET 17.2 MG PO (19:53)
[2021-11-07 19:56] VITALS: BP 124/64; PULSE 83
[2021-11-08] MEDS: Nicotine Polacrilex 2 MG GUM 4 MG BUCCAL ×3 (00:01→12:27)
[2021-11-08 06:00] VITALS: BP 114/71; PULSE 64; RESP 16; TEMP 36.6; O2SAT 97
[2021-11-08] MEDS: Propranolol HCL 20 MG TABLET PO (09:00)
[2021-11-08] MEDS: Ferrous Sulfate 324 MG TABLET.DR PO (09:00)
[2021-11-08] MEDS: Divalproex Sodium 250 MG TABLET.DR PO (09:00)
[2021-11-08] MEDS: HaloperidoL 5 MG TABLET PO (09:00)
[2021-11-08] MEDS: FLUoxetine HCl 10 MG CAPSULE 30 MG PO (09:00)
[2021-11-08] MEDS: methADONE HCl 20 MG/2 ML ORAL.CONC 100 MG PO (09:00)
[2021-11-08] MEDS: hydrOXYzine HCL 50 MG TABLET PO (10:34)
--- NOTE | 2021-11-08 16:29 | PM.PSYDC ---
DS: Providers Provider Date of Service: 11/08/21 Date of admission: 11/04/21 12:33 Date of discharge: 11/08/21 Primary care physician: Leonel Romero MD Admitting clinician: Michael Singh Attending physician on admission: Michael Singh Attending physician on discharge: Raman Baig Discharging clinician: Noemi Gamez DS: Diagnosis Discharge Diagnosis (1) Severe recurrent major depression with psychotic features: Status: Acute (2) Opioid use disorder, severe, dependence: Status: Acute (3) Cocaine use disorder: Status: Acute (4) Cannabis use disorder, severe, dependence: Status: Acute DS: Medications Discharge Medications Home Medications: Previous Rx's Medication Instructions Recorded methadone 10 mg/mL oral 100 mg (10 mL) PO DAILY #0 mL 10/09/21 concentrate (Methadose) divalproex 250 mg tablet,delayed 250 mg PO TID #90 tabs 11/08/21 release ferrous sulfate 324 mg (65 mg 324 mg PO DAILY #30 tabs 11/08/21 iron) tablet,delayed release fluoxetine 20 mg tablet 30 mg PO DAILY #45 tabs 11/08/21 haloperidol 5 mg tablet 5 mg PO BID #60 tabs 11/08/21 hydroxyzine HCl 50 mg tablet 50 mg PO Q6H PRN Anxiety #60 tabs 11/08/21 melatonin 3 mg tablet 6 mg PO BEDTIME PRN Insomnia #60 11/08/21 tabs mirtazapine 15 mg tablet 15 mg PO BEDTIME #30 tabs 11/08/21 nicotine (polacrilex) 2 mg gum 4 mg buccal Q2H PRN smoking 11/08/21 cessation #60 ea nicotine 21 mg/24 hr daily 21 mg transdermal DAILY #30 ea 11/08/21 transdermal patch propranolol 20 mg tablet 20 mg PO TID #90 tabs 11/08/21 sennosides 8.6 mg tablet (Senna 17.2 mg PO BEDTIME #60 tabs 11/08/21 Lax) Mental Status Exam Mental Status Exam Patient Appearance: Appropriate Patient Orientation: Person, Place, Time and Situation Level of Consciousness: Alert Patient Behavior: Appropriate, Talkative, Cooperative and Good Eye Contact Mood Description: Appropriate Affect Description: Flat Patient Cognition Impaired: No Ability to Follow Directions: Good Speech Pattern: Spontaneous Speech Memory Description: Intact Hallucinations: None Delusions: Not Present Perceptual Disturbances: Depersonalization Thought Process: Distracted and Rumination Thought Content: positive for [place] and positive for Circumstantial Depressive Symptoms: Increased Anxiety and Low Self Esteem Abnormal Motor Activity Signs and Symptoms: Restlessness Judgement: Fair Data Data Completed and Pending Completed studies during hospitalization [Text1]: 11/01/21 11/01/21 11/01/21 21:12 21:12 21:12 WBC 8.7 RBC 4.18 L Hgb 12.8 L Hct 37.4 L MCV 89.5 MCH 30.6 MCHC 34.2 RDW 13.0 Plt Count 180 MPV 10.5 Immature Gran % (Auto) 0.2 Neut % (Auto) 55.7 Lymph % (Auto) 36.3 [place] % (Auto) 6.1 Eos % (Auto) 1.0 Baso % (Auto) 0.7 Lymph # (Auto) 3.2 [place] # (Auto) 0.5 Eos # (Auto) 0.1 Baso # (Auto) 0.1 Abs Immat Gran (auto) 0.02 Absolute Neuts (auto) 4.8 Absolute Nucleated RBC 0.000 Nucleated RBC % (auto) 0.0 Smear Tech's Comments VERIFIED Sodium 143 Potassium 3.6 D Chloride 105 Carbon Dioxide 27 Anion Gap 15 BUN 19 H Creatinine 1.20 Estim Creat Clear Calc 84.7 Estimated GFR > 60 Random Glucose 76 Estimat Average Glucose Hemoglobin A1c % Calcium 10.0 Magnesium Total Bilirubin 0.8 AST 11 D ALT 9 Alkaline Phosphatase 57 Total Protein 7.8 Albumin 4.8 Triglycerides Cholesterol LDL Cholesterol, Calc HDL Cholesterol Vitamin B12 Folate TSH Free T4 Salicylates < 5.0 L Urine Opiates Screen Urine Fentanyl Screen Acetaminophen < 1 Ur Barbiturates Screen Valproic Acid < 2.0 L Ur Phencyclidine Scrn Ur Amphetamines Screen U Benzodiazepines Scrn Urine Cocaine Screen U Marijuana (THC) Screen COVID-19 ([facility]KA) Negative COVID-19 Clin Com See Note 11/02/21 11/04/21 11/05/21 00:15 13:35 08:34 WBC RBC Hgb Hct MCV MCH MCHC RDW Plt Count MPV Immature Gran % (Auto) Neut % (Auto) Lymph % (Auto) [place] % (Auto) Eos % (Auto) Baso % (Auto) Lymph # (Auto) [place] # (Auto) Eos # (Auto) Baso # (Auto) Abs Immat Gran (auto) Absolute Neuts (auto) Absolute Nucleated RBC Nucleated RBC % (auto) Smear Tech's Comments Sodium Potassium Chloride Carbon Dioxide Anion Gap BUN Creatinine Estim Creat Clear Calc Estimated GFR Random Glucose Estimat Average Glucose 108 Hemoglobin A1c % 5.4 Calcium Magnesium Total Bilirubin AST ALT Alkaline Phosphatase Total Protein Albumin Triglycerides Cholesterol LDL Cholesterol, Calc HDL Cholesterol Vitamin B12 Folate TSH Free T4 Salicylates Urine Opiates Screen POSITIVE H Urine Fentanyl Screen POSITIVE H Acetaminophen Ur Barbiturates Screen Not Detected Valproic Acid Ur Phencyclidine Scrn Not Detected Ur Amphetamines Screen Not Detected U Benzodiazepines Scrn Not Detected Urine Cocaine Screen POSITIVE H U Marijuana (THC) Screen POSITIVE H COVID-19 (TIKA) Negative COVID-19 Clin Com See Note 11/05/21 11/05/21 08:34 08:34 WBC RBC Hgb Hct MCV MCH MCHC RDW Plt Count MPV Immature Gran % (Auto) Neut % (Auto) Lymph % (Auto) [place] % (Auto) Eos % (Auto) Baso % (Auto) Lymph # (Auto) [place] # (Auto) Eos # (Auto) Baso # (Auto) Abs Immat Gran (auto) Absolute Neuts (auto) Absolute Nucleated RBC Nucleated RBC % (auto) Smear Tech's Comments Sodium Potassium Chloride Carbon Dioxide Anion Gap BUN Creatinine Estim Creat Clear Calc Estimated GFR Random Glucose Estimat Average Glucose Hemoglobin A1c % Calcium Magnesium 2.1 Total Bilirubin AST ALT Alkaline Phosphatase Total Protein Albumin Triglycerides 115 Cholesterol 156 LDL Cholesterol, Calc 99 HDL Cholesterol 34 Vitamin B12 583 Folate 15.3 TSH 0.31 L Free T4 1.12 Salicylates Urine Opiates Screen Urine Fentanyl Screen Acetaminophen Ur Barbiturates Screen Valproic Acid Ur Phencyclidine Scrn Ur Amphetamines Screen U Benzodiazepines Scrn Urine Cocaine Screen U Marijuana (THC) Screen COVID-19 (TIKA) COVID-19 Clin Com DS: Summary Hospital Course Hospital Course: Admission to adult psychiatry for exacerbation of symptoms of recurrent major depression, opiate, cocaine and cannabis use disorder. Olanzapine was discontinued. Haldol was initiated. Prozac and Mirtazapine were increased, Valproate and Propranolol were continued as was methadone. Time spent discussing smoking cessation with patient: 3 to 10 minutes Status at Discharge Functional status at discharge: independent ambulation Overall status at discharge: patient is back to baseline Time Spent with Patient Time attestation: Total time spent providing and/or coordinating discharge services: 35 Time spent: Greater than 30 minutes Discharge Plan Discharge Patient Disposition: Home, Self-Care Discharge Diagnosis: Recurrent major depression, severe, with psychotic features Opiate, Cocaine, Cannabis use disorder Referrals: Marco Cunningham [Other] - 11/25/21 10:00 am (Initial diagnostic evaluation with therapist at [facility] in [place]. You must attend initial appointment or psychiatric medication services will be cancelled.) Rosalina Payan [Other] - 12/10/21 11:20 am (Psychiatric Evaluation by medication provider. Appointment is by tele-health Check your email for a link to appointment and follow-up with [facility] should you have questions regarding scheduled appointment.) Rosalina Payan [Other] - 01/07/22 11:00 am (Medication Management. Appointment is by tele-health Check your email for a link to appointment and follow-up with [facility] should you have questions regarding scheduled appointment.) Leonel Romero MD [Primary Care Provider] - 1 Week (appt scheduled 11/13/21 @ 1pm) Leonel Romero MD [Physician] - 11/13/21 1:00 pm Discharge Medications: New haloperidol 5 mg Tablet 5 mg PO BID Qty: 60 0RF nicotine (polacrilex) 2 mg Gum 4 mg buccal Q2H PRN (Reason: smoking cessation) Qty: 60 0RF melatonin 3 mg Tablet 6 mg PO BEDTIME PRN (Reason: Insomnia) Qty: 60 0RF nicotine 21 mg/24 hr Patch 24 Hour 21 mg transdermal DAILY Qty: 30 0RF mirtazapine 15 mg Tablet 15 mg PO BEDTIME Qty: 30 0RF ferrous sulfate 324 mg (65 mg iron) Tablet,Delayed Release (Dr/Ec) 324 mg PO DAILY Qty: 30 0RF fluoxetine 20 mg tablet 30 mg PO DAILY Qty: 45 0RF Continued methadone [Methadose] 10 mg/mL Concentrate 100 mg PO DAILY Qty: 0 0RF Rx Instructions: Partial Fill upon patient request. sennosides [Senna Lax] 8.6 mg Tablet 17.2 mg PO BEDTIME Qty: 60 0RF divalproex 250 mg Tablet,Delayed Release (Dr/Ec) 250 mg PO TID Qty: 90 0RF hydroxyzine HCl 50 mg Tablet 50 mg PO Q6H PRN (Reason: Anxiety) Qty: 60 0RF propranolol 20 mg Tablet 20 mg PO TID Qty: 90 0RF Protocol: Hold for SBP/HR < HOLD for SBP < : 90 HOLD for HR < : 60 Discontinued nicotine (polacrilex) 2 mg Gum 4 mg buccal Q1H PRN (Reason: smoking cessation) Qty: 60 0RF olanzapine 10 mg Tablet 20 mg PO BEDTIME Qty: 3 0RF melatonin 3 mg Tablet 6 mg PO BEDTIME PRN (Reason: Insomnia) Qty: 60 0RF fluoxetine 10 mg Capsule 30 mg PO DAILY Qty: 90 0RF mirtazapine 7.5 mg Tablet 7.5 mg PO BEDTIME Qty: 30 0RF Discharge Orders: Discharge Order (Routine); Ordered 11/08/21 Ordered By: Noemi Gamez Diet: Advance to usual diet Activity on Discharge: As tolerated Stand Alone Forms: Patient Portal Discharge page, Community Support Care Plan Goals: Work on sobriety Work on mood stabilization Health Concerns: Recurrent major depression with psychotic features Opiate, cocaine, cannabis use disorder Plan of Treatment: Attend follow up appointments Take medications as directed Practice learned coping skills Crisis team if needed [phone] Call/Return as needed Assessment: non suicidal, non psychotic Discharge Date/Time: 11/08/21 13:29
== END 2021-11-08 13:29 | disposition home or self-care (01) | DRG 751 ==
LOC: HO.ED 11-03 07:37 → HO.PM5 11-04 18:27
PROVIDERS: Emergency Medicine; Admitting Provider Psychiatry & Neurology Psychiatry; Emergency Provider Emergency Medicine Emergency Medical Services; PCP Internal Medicine; Visit Provider Clinical Nurse Specialist Psychiatric/Mental Health, Adult
DX: F33.3 Major depressive disorder, recurrent, severe with psychotic symptoms (principal); R45.851 Suicidal ideations; F17.210 Nicotine dependence, cigarettes, uncomplicated; F14.10 Cocaine abuse, uncomplicated; F12.20 Cannabis dependence, uncomplicated; Z20.822 Contact with and (suspected) exposure to COVID-19; Z71.6 Tobacco abuse counseling; Z59.02 Unsheltered homelessness; F11.20 Opioid dependence, uncomplicated; Z91.14 Patient's other noncompliance with medication regimen; Z79.899 Other long term (current) drug therapy
CPT/HCPCS: 36415; 80053; 80061; 80143; 80164; 80179; 80307; 82607; 82746; 83036; 83735; 84439; 84443; 85025; 87635; 93005; 99285

== ENCOUNTER 2021-11-12 10:34 | Outpatient (REF) | payer OTHER, SELFPAY ==
[2021-11-12 10:49] LABS: MANUAL DIFF FLAG NO
[2021-11-12 11:07] LABS: Basophils Absolute Auto 0.1 X10*3/uL (0.0-0.2); Basophils Percent Auto 0.6 % (0-2); Eosinophils Absolute Auto 0.2 X10*3/uL (0.0-0.4); Eosinophils Percent Auto 1.8 % (0-4); Hematocrit 35.3 % (42.0-52.0); Hemoglobin 12.1 g/dl (14.0-18.0); Imm Gran Abs Auto 0.02 X10*3/uL (0.00-0.03); Imm Gran Pct Auto 0.2 % (0.0-0.4); Lymphocytes Absolute Auto 3.6 X10*3/uL (1.2-4.9); Lymphocytes Percent Auto 39.8 % (20-40); Mean Corpuscular HGB Conc 34.3 g/dl (31.0-36.0); Mean Corpuscular Hemoglobin 30.6 pg (27.0-33.0); Mean Corpuscular Volume 89.1 fL (80.0-98.0); Mean Platelet Volume 10.5 fL (9.4-12.4); Monocytes Absolute Auto 0.7 X10*3/uL (0.1-1.2); Monocytes Percent Auto 7.8 % (2-11); Neutrophils Absolute Auto 4.5 x10*3/uL (2.0-8.3); Neutrophils Percent Auto 49.8 % (45-73); Platelet Count 173 X10*3/uL (160-400); Red Blood Count 3.96 X10*6/uL (4.60-5.80); Red Cell Distribution Width 12.9 % (11.0-16.0); White Blood Count 9.1 X10*3/uL (4.8-10.8)
[2021-11-12 11:40] LABS: Alanine Aminotransferase 20 U/L (0-40); Albumin Level 4.2 g/dL (3.5-5.0); Alkaline Phosphatase 57 U/L (39-117); Anion Gap 14 (12-20); Aspartate Amino Transferase 16 U/L (5-37); Bilirubin Total 0.4 mg/dL (0.0-1.0); Blood Urea Nitrogen 10 mg/dL (9-16); Calcium 9.9 mg/dL (8.4-10.2); Carbon Dioxide 27 mmol/L (22-29); Chloride 104 mmol/L (96-108); Estimated Glomerular Filt Rate > 60; Glucose Random 116 mg/dL (60-115); Iron 100 mcg/dL (45-160); Percent Iron Saturation 28 % (15-50); Potassium 3.4 mmol/L (3.3-5.1); Sodium 142 mmol/L (135-145); Total Iron Binding Capacity 358 mcg/dL (228-428); Total Protein 7.1 g/dL (6.5-8.0); Unsaturated Iron Binding 258 ug/dL
== END 2021-11-12 10:35 | disposition home or self-care (01) ==
LOC: HO.LAB 10:34
PROVIDERS: PCP Internal Medicine; Visit Provider Internal Medicine
DX: D64.9 Anemia, unspecified (principal)
CPT/HCPCS: 36415; 80053; 83540; 85025

== ENCOUNTER 2024-02-14 22:08 | Inpatient (IN) | payer MEDICARE, MEDICAID, SELFPAY ==
[2024-02-14 22:10] VITALS: BP 117/76; PULSE 64; RESP 16; TEMP 36; O2SAT 97; BMI 24.3
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
[2024-02-14 22:41] LABS: MANUAL DIFF FLAG NO
[2024-02-14 22:44] LABS: Basophils Absolute Auto 0.1 X10*3/uL (0.0-0.2); Basophils Percent Auto 0.5 % (0-2); Eosinophils Absolute Auto 0.2 X10*3/uL (0.0-0.4); Hematocrit 33.8 % (42.0-52.0); Hemoglobin 11.8 g/dl (14.0-18.0); Imm Gran Abs Auto 0.03 X10*3/uL (0.00-0.03); Imm Gran Pct Auto 0.3 % (0.0-0.4); Lymphocytes Absolute Auto 4.4 X10*3/uL (1.2-4.9); Lymphocytes Percent Auto 37.8 % (20-40); Mean Corpuscular HGB Conc 34.9 g/dl (31.0-36.0); Mean Corpuscular Hemoglobin 31.6 pg (27.0-33.0); Mean Corpuscular Volume 90.4 fL (80.0-98.0); Mean Platelet Volume 9.8 fL (9.4-12.4); Monocytes Absolute Auto 0.7 X10*3/uL (0.1-1.2); Monocytes Percent Auto 6.2 % (2-11); Neutrophils Absolute Auto 6.3 x10*3/uL (2.0-8.3); Neutrophils Percent Auto 53.2 % (45-73); Platelet Count 240 X10*3/uL (160-400); Red Blood Count 3.74 X10*6/uL (4.60-5.80); Red Cell Distribution Width 13.6 % (11.0-16.0); White Blood Count 11.8 X10*3/uL (4.8-10.8)
[2024-02-14 22:45] LABS: Appearance Urine Clear; Color Urine Dark Yellow; Glucose Urine UA Negative (Negative); Leukocyte Esterase Urine Trace (Negative); Nitrite Urine Negative (Negative); Specific Gravity - Urine 1.025 (1.005-1.025); UMIC TRIGGER UACC YES; Urine Blood Large (3+) (Negative); Urine Ketones Trace mg/dL (Negative); Urine Protein 30 (1+) mg/dL (Neg-Trace)
[2024-02-14 22:50] LABS: Bacteria Urine None Seen (None Seen); Hyaline Casts Urine 0-2 /LPF (0-2); RBC Urine >20 /HPF (0-2); Squamous Epithelial Cell Urine 0-2 /HPF (0-2); WBC Urine 0-5 /HPF (0-5)
[2024-02-14 22:56] LABS: Amphetamine Screen Urine Not Detected (Not Detect); Barbiturates, Urine Not Detected (Not Detect); Benzodiazepines Screen Urine Not Detected (Not Detect); Buprenorphine Scr Not Detected (Not Detect); Cannabinoid Screen Urine POSITIVE (Not Detect); Cocaine Screen Urine POSITIVE (Not Detect); Fentanyl, urine POSITIVE (Not Detect); Methadone Screen, Urine Positive (Not Detect); Opiate Screen Urine POSITIVE (Not Detect); Oxycodone Screen Urine Not Detected (Not Detect); Phencyclidine Screen Urine Not Detected (Not Detect)
[2024-02-14 22:58] LABS: Anion Gap 14 (12-20); Blood Urea Nitrogen 17 mg/dL (9-16); Calcium 9.7 mg/dL (8.4-10.2); Carbon Dioxide 27 mmol/L (22-29); Chloride 104 mmol/L (96-108); Creatinine Clr Calc Pharmacy 88.2; Estimated Glomerular Filt Rate > 60; Ethanol < 10 mg/dL; Glucose Random 103 mg/dL (60-115); Potassium 3.5 mmol/L (3.3-5.1); Sodium 141 mmol/L (135-145)
[2024-02-14 22:59] LABS: Acetaminophen LAB < 3 mcg/mL (<30); Salicylate < 5.0 mg/dL (15-30)
[2024-02-14] MEDS: OLANZapine ODT 10 MG TAB.RAPDIS TRANSLINGU (23:13)
[2024-02-14] MEDS: LORazepam 1 MG TABLET 2 MG PO (23:13)
--- NOTE | 2024-02-15 06:56 | HE.PHANOTE ---
RE METHADONE Patient confirmed to get 113 mg methadone at [facility]. Patient given 13 take home bottles, last bottle taken 02/14/24
--- NOTE | 2024-02-15 11:37 | PC.NURSE ---
patient has not been on any medications since may 2023
[2024-02-15 11:41] VITALS: BP 123/79; PULSE 57; RESP 18; TEMP 36.5; O2SAT 98
--- NOTE | 2024-02-15 11:42 | MHC.CARE ---
Patient evaluated by the CARE Team, disposition is inpatient psychiatric hospitalization. ED provider, Dr. Rojas updated.
[2024-02-15] MEDS: methADONE HCl 20 MG/2 ML ORAL.CONC 113 MG PO (11:55)
--- NOTE | 2024-02-15 12:00 | ECG_ITS ---
Test Reason : CHECK QTC Blood Pressure : / mmHG Vent. Rate : 053 BPM Atrial Rate : 053 BPM P-R Int : 126 ms QRS Dur : 104 ms QT Int : 428 ms P-R-T Axes : 066 069 013 degrees QTc Int : 401 ms Sinus bradycardia with Premature atrial complexes Minimal voltage criteria for LVH, may be normal variant ( Sokolow-Fried ) Borderline ECG When compared with ECG of 04-NOV-2021 12:27, Premature atrial complexes are now Present Nonspecific T wave abnormality now evident in Inferior leads Referred By: Nando Clark Electronically Signed By:ARABELLA BARNHART
[2024-02-15] MEDS: Nicotine Polacrilex 2 MG GUM BUCCAL ×4 (13:55→21:27)
--- NOTE | 2024-02-15 14:25 | PC.NURSE ---
ED provider message at 1353 for anxiety medication for patient, patient now escalating and yelling at RN and staff about how the snacks are not as good, there is no portable phone to use only wall phone, and that patient has not gotten any new medication recommendations. patient educated on that he is still in the ER awaiting psychiatric md who will help him navigate his medication regimen, patient did not want to talk and walked away stating he does not want to talk anymore. ED md made aware of patient escalation.
[2024-02-15] MEDS: LORazepam 1 MG TABLET 2 MG PO ×2 (14:35→23:34)
--- NOTE | 2024-02-15 14:48 | PHA.MEDREC ---
Addendum entered by Khanh Staples 02/15/24 14:53: reviewed Original Note: Pharmacy Consult ? Medication Reconciliation Pharmacy reviewed med rec done by nursing. Tried speaking to patient and he was asleep. I spoke to the nurse working with him and she confirmed she spoke with him and he stated he has not taken any medications since May of this year but she states she confirmed the patients Methadone.
--- NOTE | 2024-02-15 19:43 | PC.NURSE ---
Patient denies any pain, ambulates independently with a steady gait. Patient requested and provided with bradley faviola, crackers, and cheese stick. He was medicated with a Nicorette gum. Patient is not in acute distress, resting on a bed in his room, watching TV.
[2024-02-15 21:28] VITALS: BP 119/77; PULSE 92; RESP 20; TEMP 36.8; O2SAT 97
[2024-02-16 06:00] VITALS: BP 106/71; PULSE 55; RESP 16; TEMP 36.6; O2SAT 98
--- NOTE | 2024-02-16 07:41 | PC.NURSE ---
Provider notified to continue daily methadose, verified by pharmacy.
[2024-02-16] MEDS: Nicotine Polacrilex 2 MG GUM BUCCAL ×6 (07:59→13:25)
[2024-02-16] MEDS: methADONE HCl 20 MG/2 ML ORAL.CONC 113 MG PO (07:59)
[2024-02-16] MEDS: LORazepam 1 MG TABLET 2 MG PO (11:28)
[2024-02-16 12:31] VITALS: BP 132/83; PULSE 83; RESP 16; TEMP 37.3; O2SAT 97
[2024-02-16] MEDS: hydrOXYzine HCL 25 MG TABLET PO ×2 (13:21→18:10)
[2024-02-16] MEDS: Nicotine 21 MG PATCH.TD24 TRANSDERMA (13:23)
[2024-02-16] MEDS: Nicotine Polacrilex 2 MG GUM 4 MG BUCCAL ×4 (14:11→21:24)
[2024-02-16 14:40] LABS: Valproate < 12.5 mcg/mL (50.0-100.0)
[2024-02-16 15:27] VITALS: BMI 27.3
[2024-02-16 15:28] VITALS: BP 160/84; PULSE 75; RESP 18; TEMP 36.5; O2SAT 98
[2024-02-16] MEDS: HaloperidoL 5 MG TABLET PO ×2 (15:48→21:24)
[2024-02-16] MEDS: Flu Vacc TS2024-25(6mos up)/PF 0.5 ML SYRINGE IM (15:48)
--- NOTE | 2024-02-16 16:07 | PC.ADMIT ---
Solomon, (Arsh) is a 34 year old male admitted to [facility] from the [facility] at 1435 with a dx of MDD, psychosis, and OUD. Pt self presented to ED reporting he stopped taking his medications 2 months ago and has been increasingly irritable, disorganized, and having AH. After being clean from heroin and cocaine for 2 years he went on a binge and used after having a heated argument with his girlfriend. At one point the voices were telling him to hurt his girlfriend and this alarmed him. He has a hx of opiate, cocaine use disorder, and anxiety, and MDD. He's on Methadone through [facility] clinic in [place] and is verified with pharmacy. Tox screen positive for cannabis, cocaine, fentanyl, opiates, and methadone. He's had several IPLOC, and is known here on M5. His girlfriend is now and this is his motivation to get back on track. Pt cooperative with the admission process, releases signed, and signed a CV. Skin and safety check performed and unremarkable. He smokes 1/2 PPD of cigarettes and NRT ordered. He smokes marijuana (4-5 blunts per day) for his anxiety. He is presently extremely anxious about the recent spotting his girlfriend reported as she has a hx of miscarriages and abortions. Arsh denies SI/HI/VH. He reports he hears voices telling him aren't you fed up with your life?! He states he would come to staff if he felt he could not remain safe. He recieved the Flu vaccine and placed on q15 min checks.?
[2024-02-16] MEDS: OLANZapine ODT 10 MG TAB.RAPDIS TRANSLINGU (18:10)
[2024-02-16 20:00] VITALS: BP 142/81; PULSE 76; TEMP 36.4; O2SAT 96
[2024-02-17 08:00] VITALS: BP 128/93; PULSE 74; RESP 18; TEMP 36.3; O2SAT 99
[2024-02-17] MEDS: methADONE HCl 20 MG/2 ML ORAL.CONC 113 MG PO (08:00)
[2024-02-17] MEDS: Nicotine Polacrilex 2 MG GUM 4 MG BUCCAL ×7 (08:01→22:20)
[2024-02-17] MEDS: HaloperidoL 5 MG TABLET PO ×3 (08:02→14:53)
[2024-02-17] MEDS: Nicotine 21 MG PATCH.TD24 TRANSDERMA (08:45)
[2024-02-17] MEDS: hydrOXYzine HCL 25 MG TABLET PO ×2 (08:50→14:53)
[2024-02-17 09:36] LABS: Estimated Average Glucose 111 mg/dL; Hemoglobin A1C 117.0989 umol/L; Hemoglobin A1c % 5.5 % (<6.0); Total Hemoglobin (HGBA1C) 3235.7627 umol/L
[2024-02-17 09:39] LABS: Cholesterol 141 mg/dL (<200); HDL Cholesterol 37 mg/dL (>40); LDL Cholesterol Calculated 80 mg/dL (<100); Magnesium 1.9 mg/dL (1.6-2.6); Triglycerides 121 mg/dL (<150)
[2024-02-17 09:57] LABS: Free T4 (Free Thyroxine) 1.27 ng/dL (0.71-1.85); Thyroid Stimulating Hormone 0.97 uIU/mL (0.32-4.0)
[2024-02-17 10:09] LABS: Folate 9.1 ng/mL (> or = 4.0); Vitamin B12 222 pg/mL (200-900)
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
[2024-02-17 12:50] VITALS: BP 130/81
[2024-02-17] MEDS: cloNIDine HCL 0.1 MG TABLET PO ×2 (12:50→20:15)
[2024-02-17] MEDS: FLUoxetine HCl 10 MG CAPSULE PO (12:50)
[2024-02-17 20:00] VITALS: BP 119/58; PULSE 85; TEMP 36.8; O2SAT 96
[2024-02-17 20:15] VITALS: BP 119/80
[2024-02-17] MEDS: HaloperidoL 5 MG TABLET 10 MG PO (20:15)
[2024-02-17] MEDS: traZODone HCL 50 MG TABLET PO (22:20)
[2024-02-18] MEDS: methADONE HCl 20 MG/2 ML ORAL.CONC 113 MG PO (07:48)
[2024-02-18 08:10] VITALS: BP 116/59; PULSE 64; RESP 18; TEMP 36.4; O2SAT 97
[2024-02-18] MEDS: HaloperidoL 5 MG TABLET 10 MG PO ×2 (08:25→21:50)
[2024-02-18] MEDS: Nicotine Polacrilex 2 MG GUM 4 MG BUCCAL ×5 (08:26→18:07)
[2024-02-18] MEDS: Nicotine 21 MG PATCH.TD24 TRANSDERMA (08:35)
--- NOTE | 2024-02-18 09:56 | P.PNPSI_ITS ---
Subjective Subjective Date of Service: 02/18/24 Reason For Visit: Major Depression w/Psychosis Opiate Use D/O Interim History: Patient seen. Patient reports he is doing OK. He says he is a little tired. I was off my medications and just started them so I am getting used to them again. He has been appropriate. No behavioral concerns. He denies AVH or SI. He is visible in the milieu. Review of Systems Review of Systems Yes all other systems are reviewed and are negative Mental Status Exam Mental Status Exam Narrative: Pt is alert and oriented; behavior is cooperative, friendly and calm; patient is not in distress; dressed in casual attire with unkempt hair but adequate hygiene; mood is described as anxious and affect congruent; eye contact appropriate; Speech is normal rate, volume and prosody and not pressured; mild psychomotor agitation present; thought process is concrete but overall organized and goal directed; Thought content is on dealing with symptoms, tx; no delusional thinking expressed; denies any SI/HI. Positive for AH. Patients insight and judgment impaired Diagnostics Vital Signs (24Hr): Vital Signs - 24 hr 02/17/24 12:50 02/17/24 20:00 02/17/24 20:15 Temperature 98.3 F Pulse Rate 85 Respiratory Rate Blood Pressure 130/81 119/58 L 119/80 Pulse Oximetry 96 Oxygen Delivery Method Room Air 02/18/24 08:10 Temperature 97.5 F Pulse Rate 64 Respiratory Rate 18 Blood Pressure 116/59 L Pulse Oximetry 97 Oxygen Delivery Method Room Air BMI result Body Mass Index 27.3 Labs 02/14/24 22:36 02/14/24 22:36 Labs: Laboratory Results - last 48 hr 02/16/24 02/17/24 02/17/24 14:19 09:01 09:02 Estimat Average Glucose 111 Hemoglobin A1c % 5.5 Magnesium 1.9 Triglycerides 121 Cholesterol 141 LDL Cholesterol, Calc 80 HDL Cholesterol 37 L Vitamin B12 222 Folate 9.1 TSH 0.97 Free T4 1.27 Valproic Acid < 12.5 L Medications Medications Current Medications Acetaminophen (Acetaminophen 325 Mg Tablet) 650 mg PO Q6H PRN PRN Reason: Headache/Pain Mild Scale (1-3) Al Hydroxide/Mg Hydroxide (Magnesium Hydrox/Alum Hydrox 30 Ml Oral.Susp) 30 ml PO Q6H PRN PRN Reason: Heartburn/Nausea Clonidine HCl (Clonidine Hcl 0.1 Mg Tablet) 0.1 mg PO Q4H PRN; Protocol PRN Reason: anxiety Last Admin: 02/17/24 20:15 Dose: 0.1 mg Fluoxetine HCl (Fluoxetine Hcl 20 Mg Capsule) 20 mg PO DAILY [facility] Haloperidol (Haloperidol 5 Mg Tablet) 5 mg PO Q4H PRN PRN Reason: agitation,psychosis Last Admin: 02/17/24 14:53 Dose: 5 mg Haloperidol (Haloperidol 5 Mg Tablet) 10 mg PO BID [facility] Last Admin: 02/18/24 08:25 Dose: 10 mg Hydroxyzine HCl (Hydroxyzine Hcl 25 Mg Tablet) 25 mg PO Q6H PRN PRN Reason: Anxiety Last Admin: 02/17/24 14:53 Dose: 25 mg Magnesium Hydroxide (Milk Of Magnesia 30 Ml Oral.Susp) 30 ml PO DAILY PRN PRN Reason: Constipation Methadone HCl (Methadone Hcl 20 Mg/2 Ml Oral.Conc) 113 mg PO DAILY [facility] Last Admin: 02/18/24 07:48 Dose: 113 mg Nicotine (Nicotine 21 Mg Patch.Td24) 21 mg TRANSDERMA DAILY PRN PRN Reason: nicotine cravings Last Admin: 02/18/24 08:35 Dose: 21 mg Nicotine Polacrilex (Nicotine Polacrilex 2 Mg Gum) 4 mg BUCCAL Q2H PRN PRN Reason: Nicotine Cravings Last Admin: 02/18/24 08:26 Dose: 4 mg Trazodone HCl (Trazodone Hcl 50 Mg Tablet) 50 mg PO BEDTIME MRX1 PRN PRN Reason: Insomnia Last Admin: 02/17/24 22:20 Dose: 50 mg Allergies Allergies Allergy/AdvReac Type Severity Reaction Status Date / Time No Known Allergies Allergy Verified 02/14/24 22:13 [No Known Allergies*] Assessment & Plan Assessment & Plan (1) Schizoaffective disorder, depressive type: Status: Acute Code(s): F25.1 - Schizoaffective disorder, depressive type (2) PTSD (post-traumatic stress disorder): Status: Acute Code(s): F43.10 - Post-traumatic stress disorder, unspecified (3) Opioid use disorder, severe, dependence: Status: Acute Code(s): F11.20 - Opioid dependence, uncomplicated (4) Cocaine use disorder: Status: Acute Code(s): F14.10 - Cocaine abuse, uncomplicated Plan Patient is a 34-year-old male with history of schizoaffective disorder, depressed type, PTSD, cocaine/opioid use disorder presents for worsening AH and mood in the face of being off medication and dealing with psychosocial stressors. Patient reports that after his last admission here 2 years ago he overall did well, remaining sober and continuing on medications, during which time his anger was under good control and he was with only minimal AH. About 6 months ago patient eventually stopped following up with provider and got off his medication; intermittent anger and AH returned however he was able to cope with it and remained sober and continued working. This past summer/fall patient was re-acquainted with the old girlfriend and found out they had a son together. They got back together however he noticed over this past month that his anger and AH started to interfere with his relationship and scared his girlfriend. Reports AH to tell him to yell at her, . Do drugs.. Do this... Do this... Slice herself. This past week Patient found himself yelling in his girlfriend's face and struggling to keep his agitation down; kids in the house for also getting scared and due to stress patient relapsed for 1 day on cocaine and opiates. Patient decided to come back to the hospital to get back on medication. Denies any SI. Denies any manic episodes. Plan: CV Q 15 minute checks Restart Haldol but will increase dose to 10 mg b.i.d. (reports 5 mg b.i.d. helped but did not eliminate voices which remained troublesome) Restart Prozac 10 mg; will titrate to 20 mg which is past dose on which he said mood improved Add clonidine 0.1 mg q.4h p.r.n. for anxiety Start clonidine 0.1 mg q.h.s. for trouble sleeping -will not restart Depakote since patient reports he was stable with outpatient provider even though not on this medication 02/17: Monitor response to restarting medications. Continue current management and treatment plan. Reason for continued inpatient stay Substantial Risk for: inability to function and rapid decompensation Time Spent With Patient Time: Total time managing care of this patient today ____ minutes.
[2024-02-18] MEDS: hydrOXYzine HCL 25 MG TABLET PO (10:03)
[2024-02-18 10:04] VITALS: BMI 27.8
[2024-02-18] MEDS: HaloperidoL 5 MG TABLET PO (14:09)
[2024-02-18 20:00] VITALS: BP 131/69; PULSE 95; TEMP 36.3; O2SAT 98
[2024-02-18] MEDS: traZODone HCL 50 MG TABLET PO (21:50)
[2024-02-19] MEDS: Nicotine Polacrilex 2 MG GUM 4 MG BUCCAL ×6 (07:13→20:21)
[2024-02-19] MEDS: methADONE HCl 20 MG/2 ML ORAL.CONC 113 MG PO (07:51)
[2024-02-19 08:00] VITALS: BP 125/68; PULSE 98; RESP 18; TEMP 36.8; O2SAT 95
[2024-02-19] MEDS: FLUoxetine HCl 20 MG CAPSULE PO (08:08)
[2024-02-19] MEDS: hydrOXYzine HCL 25 MG TABLET PO (08:09)
[2024-02-19] MEDS: HaloperidoL 5 MG TABLET 10 MG PO ×2 (08:43→20:21)
[2024-02-19] MEDS: Nicotine 21 MG PATCH.TD24 TRANSDERMA (08:44)
[2024-02-19 10:52] VITALS: BP 129/93
[2024-02-19] MEDS: cloNIDine HCL 0.1 MG TABLET PO (10:52)
--- NOTE | 2024-02-19 15:04 | P.PNPSI_ITS ---
Subjective Subjective Date of Service: 02/19/24 Reason For Visit: Major Depression w/Psychosis Opiate Use D/O Subjective Notes: Conditional Voluntary Healthcare Proxy: No Guardianship: No Medical Problems Affecting Mental Status: No Interim History: Solomon reports feeling improved. Sleep is improved, he is tolerating resuming his med regime and is spending some time in the milieu when he is not catching up on sleep. He reports his plan of care he is pleased with and believes it is on track. Medication Compliance: Yes Side effects from medications: No Attending Groups: Intermittent Review of Systems Acute medical concerns: No Medical Review of Systems: unchanged Review of Systems Review of Systems Denies Mental Status Exam Mental Status Exam Patient Appearance: Appropriate Patient Orientation: Person, Place, Time and Situation Level of Consciousness: Alert Patient Behavior: Talkative and Good Eye Contact Mood Description: Depressed Affect Description: Flat Patient Cognition Impaired: No Ability to Follow Directions: Good Speech Pattern: Spontaneous Speech Memory Description: Episodic Impaired Thought Content: positive for Circumstantial Depressive Symptoms: Insomnia, Difficulty Sleeping and Feelings of Guilt Judgement: Fair Diagnostics Vital Signs (24Hr): Vital Signs - 24 hr 02/18/24 20:00 02/19/24 08:00 02/19/24 10:52 Temperature 97.3 F 98.2 F Pulse Rate 95 98 Respiratory Rate 18 Blood Pressure 131/69 125/68 129/93 H Pulse Oximetry 98 95 Oxygen Delivery Method Room Air Room Air BMI result Body Mass Index 27.8 Labs 02/14/24 22:36 02/14/24 22:36 Medications Medications Current Medications Acetaminophen (Acetaminophen 325 Mg Tablet) 650 mg PO Q6H PRN PRN Reason: Headache/Pain Mild Scale (1-3) Al Hydroxide/Mg Hydroxide (Magnesium Hydrox/Alum Hydrox 30 Ml Oral.Susp) 30 ml PO Q6H PRN PRN Reason: Heartburn/Nausea Clonidine HCl (Clonidine Hcl 0.1 Mg Tablet) 0.1 mg PO Q4H PRN; Protocol PRN Reason: anxiety Last Admin: 02/19/24 10:52 Dose: 0.1 mg Fluoxetine HCl (Fluoxetine Hcl 20 Mg Capsule) 20 mg PO DAILY [facility] Last Admin: 02/19/24 08:08 Dose: 20 mg Haloperidol (Haloperidol 5 Mg Tablet) 5 mg PO Q4H PRN PRN Reason: agitation,psychosis Last Admin: 02/18/24 14:09 Dose: 5 mg Haloperidol (Haloperidol 5 Mg Tablet) 10 mg PO BID [facility] Last Admin: 02/19/24 08:43 Dose: 10 mg Hydroxyzine HCl (Hydroxyzine Hcl 25 Mg Tablet) 25 mg PO Q6H PRN PRN Reason: Anxiety Last Admin: 02/19/24 08:09 Dose: 25 mg Magnesium Hydroxide (Milk Of Magnesia 30 Ml Oral.Susp) 30 ml PO DAILY PRN PRN Reason: Constipation Methadone HCl (Methadone Hcl 20 Mg/2 Ml Oral.Conc) 113 mg PO DAILY [facility] Last Admin: 02/19/24 07:51 Dose: 113 mg Nicotine (Nicotine 21 Mg Patch.Td24) 21 mg TRANSDERMA DAILY PRN PRN Reason: nicotine cravings Last Admin: 02/19/24 08:44 Dose: 21 mg Nicotine Polacrilex (Nicotine Polacrilex 2 Mg Gum) 4 mg BUCCAL Q2H PRN PRN Reason: Nicotine Cravings Last Admin: 02/19/24 12:52 Dose: 4 mg Trazodone HCl (Trazodone Hcl 50 Mg Tablet) 50 mg PO BEDTIME MRX1 PRN PRN Reason: Insomnia Last Admin: 02/18/24 21:50 Dose: 50 mg Allergies Allergies Allergy/AdvReac Type Severity Reaction Status Date / Time No Known Allergies Allergy Verified 02/14/24 22:13 [No Known Allergies*] Assessment & Plan Assessment & Plan (1) Schizoaffective disorder, depressive type: Status: Acute Code(s): F25.1 - Schizoaffective disorder, depressive type (2) PTSD (post-traumatic stress disorder): Status: Acute Code(s): F43.10 - Post-traumatic stress disorder, unspecified (3) Opioid use disorder, severe, dependence: Status: Acute Code(s): F11.20 - Opioid dependence, uncomplicated (4) Cocaine use disorder: Status: Acute Code(s): F14.10 - Cocaine abuse, uncomplicated Plan Patient is a 34-year-old male with history of schizoaffective disorder, depressed type, PTSD, cocaine/opioid use disorder presents for worsening AH and mood in the face of being off medication and dealing with psychosocial stressors. Patient reports that after his last admission here 2 years ago he overall did well, remaining sober and continuing on medications, during which time his anger was under good control and he was with only minimal AH. About 6 months ago patient eventually stopped following up with provider and got off his medication; intermittent anger and AH returned however he was able to cope with it and remained sober and continued working. This past summer/fall patient was re-acquainted with the old girlfriend and found out they had a son together. They got back together however he noticed over this past month that his anger and AH started to interfere with his relationship and scared his girlfriend. Reports AH to tell him to yell at her, . Do drugs.. Do this... Do this... Slice herself. This past week Patient found himself yelling in his girlfriend's face and struggling to keep his agitation down; kids in the house for also getting scared and due to stress patient relapsed for 1 day on cocaine and opiates. Patient decided to come back to the hospital to get back on medication. Denies any SI. Denies any manic episodes. Plan: CV Q 15 minute checks Restart Haldol but will increase dose to 10 mg b.i.d. (reports 5 mg b.i.d. helped but did not eliminate voices which remained troublesome) Restart Prozac 10 mg; will titrate to 20 mg which is past dose on which he said mood improved Add clonidine 0.1 mg q.4h p.r.n. for anxiety Start clonidine 0.1 mg q.h.s. for trouble sleeping -will not restart Depakote since patient reports he was stable with outpatient provider even though not on this medication 02/17: Monitor response to restarting medications. Continue current management and treatment plan. 02/18: Continue plan of care. Tolerating medications thus far. Reason for continued inpatient stay Substantial Risk for: rapid decompensation Time Spent With Patient Time: Total time managing care of this patient today ____ minutes.
[2024-02-19 19:58] VITALS: BP 136/72; PULSE 98; TEMP 36.8; O2SAT 96
[2024-02-19] MEDS: traZODone HCL 50 MG TABLET PO (21:17)
[2024-02-20] MEDS: Nicotine Polacrilex 2 MG GUM 4 MG BUCCAL ×6 (07:00→20:27)
[2024-02-20] MEDS: methADONE HCl 20 MG/2 ML ORAL.CONC 113 MG PO (07:38)
[2024-02-20 08:00] VITALS: BP 109/65; PULSE 94; RESP 16; TEMP 36.4; O2SAT 98
[2024-02-20] MEDS: Nicotine 21 MG PATCH.TD24 TRANSDERMA (08:11)
[2024-02-20] MEDS: FLUoxetine HCl 20 MG CAPSULE PO (08:11)
[2024-02-20] MEDS: HaloperidoL 5 MG TABLET 10 MG PO ×2 (08:11→20:27)
[2024-02-20] MEDS: hydrOXYzine HCL 25 MG TABLET PO ×2 (08:39→20:27)
--- NOTE | 2024-02-20 10:45 | HO.PSYCHPN ---
Subjective Subjective Date of Service: 02/20/24 Reason For Visit: Major Depression w/Psychosis Opiate Use D/O Interim History: Patient continues to maintain improvement after restarting his medications. Voices are much better . Reports mood has improved. Denies side effects. No SI/HI. More insightful. Review of Systems Review of Systems Denies Yes all other systems are reviewed and are negative Mental Status Exam Mental Status Exam Narrative: Pt is alert and oriented; behavior is cooperative, friendly and calm; patient is not in distress; dressed in casual attire with unkempt hair but adequate hygiene; mood is described as anxious and affect congruent; eye contact appropriate; Speech is normal rate, volume and prosody and not pressured; mild psychomotor agitation present; thought process is concrete but overall organized and goal directed; Thought content is on dealing with symptoms, tx; no delusional thinking expressed; denies any SI/HI. Positive for AH. Patients insight and judgment impaired Patient Appearance: Appropriate Patient Orientation: Person, Place, Time and Situation Level of Consciousness: Alert Patient Behavior: Talkative and Good Eye Contact Mood Description: Depressed Affect Description: Flat Patient Cognition Impaired: No Ability to Follow Directions: Good Speech Pattern: Spontaneous Speech Memory Description: Episodic Impaired Diagnostics Vital Signs (24Hr): Vital Signs - 24 hr 02/19/24 10:52 02/19/24 19:58 02/20/24 08:00 Temperature 98.3 F 97.6 F Pulse Rate 98 94 Respiratory Rate 16 Blood Pressure 129/93 H 136/72 109/65 Pulse Oximetry 96 98 Oxygen Delivery Method Room Air Room Air BMI result Body Mass Index 27.8 Labs 02/14/24 22:36 02/14/24 22:36 Medications Medications Current Medications Acetaminophen (Acetaminophen 325 Mg Tablet) 650 mg PO Q6H PRN PRN Reason: Headache/Pain Mild Scale (1-3) Al Hydroxide/Mg Hydroxide (Magnesium Hydrox/Alum Hydrox 30 Ml Oral.Susp) 30 ml PO Q6H PRN PRN Reason: Heartburn/Nausea Clonidine HCl (Clonidine Hcl 0.1 Mg Tablet) 0.1 mg PO Q4H PRN; Protocol PRN Reason: anxiety Last Admin: 02/19/24 10:52 Dose: 0.1 mg Fluoxetine HCl (Fluoxetine Hcl 20 Mg Capsule) 20 mg PO DAILY [facility] Last Admin: 02/20/24 08:11 Dose: 20 mg Haloperidol (Haloperidol 5 Mg Tablet) 5 mg PO Q4H PRN PRN Reason: agitation,psychosis Last Admin: 02/18/24 14:09 Dose: 5 mg Haloperidol (Haloperidol 5 Mg Tablet) 10 mg PO BID [facility] Last Admin: 02/20/24 08:11 Dose: 10 mg Hydroxyzine HCl (Hydroxyzine Hcl 25 Mg Tablet) 25 mg PO Q6H PRN PRN Reason: Anxiety Last Admin: 02/20/24 08:39 Dose: 25 mg Magnesium Hydroxide (Milk Of Magnesia 30 Ml Oral.Susp) 30 ml PO DAILY PRN PRN Reason: Constipation Methadone HCl (Methadone Hcl 20 Mg/2 Ml Oral.Conc) 113 mg PO DAILY [facility] Last Admin: 02/20/24 07:38 Dose: 113 mg Nicotine (Nicotine 21 Mg Patch.Td24) 21 mg TRANSDERMA DAILY PRN PRN Reason: nicotine cravings Last Admin: 02/20/24 08:11 Dose: 21 mg Nicotine Polacrilex (Nicotine Polacrilex 2 Mg Gum) 4 mg BUCCAL Q2H PRN PRN Reason: Nicotine Cravings Last Admin: 02/20/24 09:58 Dose: 4 mg Trazodone HCl (Trazodone Hcl 50 Mg Tablet) 50 mg PO BEDTIME MRX1 PRN PRN Reason: Insomnia Last Admin: 02/19/24 21:17 Dose: 50 mg Allergies Allergies Allergy/AdvReac Type Severity Reaction Status Date / Time No Known Allergies Allergy Verified 02/14/24 22:13 [No Known Allergies*] Assessment & Plan Assessment & Plan (1) Schizoaffective disorder, depressive type: Status: Acute Code(s): F25.1 - Schizoaffective disorder, depressive type (2) PTSD (post-traumatic stress disorder): Status: Acute Code(s): F43.10 - Post-traumatic stress disorder, unspecified (3) Opioid use disorder, severe, dependence: Status: Acute Code(s): F11.20 - Opioid dependence, uncomplicated (4) Cocaine use disorder: Status: Acute Code(s): F14.10 - Cocaine abuse, uncomplicated Plan Patient is a 34-year-old male with history of schizoaffective disorder, depressed type, PTSD, cocaine/opioid use disorder presents for worsening AH and mood in the face of being off medication and dealing with psychosocial stressors. Patient reports that after his last admission here 2 years ago he overall did well, remaining sober and continuing on medications, during which time his anger was under good control and he was with only minimal AH. About 6 months ago patient eventually stopped following up with provider and got off his medication; intermittent anger and AH returned however he was able to cope with it and remained sober and continued working. This past summer/fall patient was re-acquainted with the old girlfriend and found out they had a son together. They got back together however he noticed over this past month that his anger and AH started to interfere with his relationship and scared his girlfriend. Reports AH to tell him to yell at her, . Do drugs.. Do this... Do this... Slice herself. This past week Patient found himself yelling in his girlfriend's face and struggling to keep his agitation down; kids in the house for also getting scared and due to stress patient relapsed for 1 day on cocaine and opiates. Patient decided to come back to the hospital to get back on medication. Denies any SI. Denies any manic episodes. Plan: CV Q 15 minute checks Restart Haldol but will increase dose to 10 mg b.i.d. (reports 5 mg b.i.d. helped but did not eliminate voices which remained troublesome) Restart Prozac 10 mg; will titrate to 20 mg which is past dose on which he said mood improved Add clonidine 0.1 mg q.4h p.r.n. for anxiety Start clonidine 0.1 mg q.h.s. for trouble sleeping -will not restart Depakote since patient reports he was stable with outpatient provider even though not on this medication 02/17: Monitor response to restarting medications. Continue current management and treatment plan. 02/18: Continue plan of care. Tolerating medications thus far. 04/21: Continue current management and treatment plan. Reason for continued inpatient stay Substantial Risk for: inability to function and rapid decompensation Time Spent With Patient Time: Total time managing care of this patient today ____ minutes.
[2024-02-20 20:00] VITALS: BP 129/57; PULSE 102; RESP 16; TEMP 36.9; O2SAT 97
[2024-02-20] MEDS: traZODone HCL 50 MG TABLET PO (20:27)
[2024-02-21] MEDS: Nicotine Polacrilex 2 MG GUM 4 MG BUCCAL ×8 (07:08→22:25)
[2024-02-21] MEDS: methADONE HCl 20 MG/2 ML ORAL.CONC 113 MG PO (07:48)
[2024-02-21 08:00] VITALS: BP 120/76; PULSE 101; RESP 18; O2SAT 97
[2024-02-21] MEDS: FLUoxetine HCl 20 MG CAPSULE PO (08:59)
[2024-02-21] MEDS: HaloperidoL 5 MG TABLET 10 MG PO ×2 (08:59→20:27)
[2024-02-21] MEDS: hydrOXYzine HCL 25 MG TABLET PO ×2 (09:00→20:26)
[2024-02-21] MEDS: Nicotine 21 MG PATCH.TD24 TRANSDERMA (09:00)
--- NOTE | 2024-02-21 09:15 | P.PNPSI_ITS ---
Subjective Subjective Date of Service: 02/21/24 Reason For Visit: Major Depression w/Psychosis Opiate Use D/O Interim History: Patient continues to maintain improvement after restarting his medications. Calm and engaged on the unit although had a verbal altercation with another patient and was anxious earlier today. Voices are much better . Reports mood has improved. Denies side effects. No SI/HI. Review of Systems Review of Systems Denies Yes all other systems are reviewed and are negative Mental Status Exam Mental Status Exam Narrative: Pt is alert and oriented; behavior is cooperative, friendly and calm; patient is not in distress; dressed in casual attire with unkempt hair but adequate hygiene; mood is described as anxious and affect congruent; eye contact appropriate; Speech is normal rate, volume and prosody and not pressured; mild psychomotor agitation present; thought process is concrete but overall organized and goal directed; Thought content is on dealing with symptoms, tx; no delusional thinking expressed; denies any SI/HI. Positive for AH. Patients insight and judgment impaired Patient Appearance: Appropriate Patient Orientation: Person, Place, Time and Situation Level of Consciousness: Alert Patient Behavior: Talkative and Good Eye Contact Mood Description: Depressed Affect Description: Flat Patient Cognition Impaired: No Ability to Follow Directions: Good Speech Pattern: Spontaneous Speech Memory Description: Episodic Impaired Diagnostics Vital Signs (24Hr): Vital Signs - 24 hr 02/20/24 20:00 02/21/24 08:00 Temperature 98.4 F Pulse Rate 102 H 101 H Respiratory Rate 16 18 Blood Pressure 129/57 L 120/76 Pulse Oximetry 97 97 Oxygen Delivery Method Room Air Room Air BMI result Body Mass Index 27.8 Labs 02/14/24 22:36 02/14/24 22:36 Medications Medications Current Medications Acetaminophen (Acetaminophen 325 Mg Tablet) 650 mg PO Q6H PRN PRN Reason: Headache/Pain Mild Scale (1-3) Al Hydroxide/Mg Hydroxide (Magnesium Hydrox/Alum Hydrox 30 Ml Oral.Susp) 30 ml PO Q6H PRN PRN Reason: Heartburn/Nausea Clonidine HCl (Clonidine Hcl 0.1 Mg Tablet) 0.1 mg PO Q4H PRN; Protocol PRN Reason: anxiety Last Admin: 02/19/24 10:52 Dose: 0.1 mg Fluoxetine HCl (Fluoxetine Hcl 20 Mg Capsule) 20 mg PO DAILY [facility] Last Admin: 02/21/24 08:59 Dose: 20 mg Haloperidol (Haloperidol 5 Mg Tablet) 5 mg PO Q4H PRN PRN Reason: agitation,psychosis Last Admin: 02/18/24 14:09 Dose: 5 mg Haloperidol (Haloperidol 5 Mg Tablet) 10 mg PO BID [facility] Last Admin: 02/21/24 08:59 Dose: 10 mg Hydroxyzine HCl (Hydroxyzine Hcl 25 Mg Tablet) 25 mg PO Q6H PRN PRN Reason: Anxiety Last Admin: 02/21/24 09:00 Dose: 25 mg Magnesium Hydroxide (Milk Of Magnesia 30 Ml Oral.Susp) 30 ml PO DAILY PRN PRN Reason: Constipation Methadone HCl (Methadone Hcl 20 Mg/2 Ml Oral.Conc) 113 mg PO DAILY [facility] Last Admin: 02/21/24 07:48 Dose: 113 mg Nicotine (Nicotine 21 Mg Patch.Td24) 21 mg TRANSDERMA DAILY PRN PRN Reason: nicotine cravings Last Admin: 02/21/24 09:00 Dose: 21 mg Nicotine Polacrilex (Nicotine Polacrilex 2 Mg Gum) 4 mg BUCCAL Q2H PRN PRN Reason: Nicotine Cravings Last Admin: 02/21/24 07:08 Dose: 4 mg Trazodone HCl (Trazodone Hcl 50 Mg Tablet) 50 mg PO BEDTIME MRX1 PRN PRN Reason: Insomnia Last Admin: 02/20/24 20:27 Dose: 50 mg Allergies Allergies Allergy/AdvReac Type Severity Reaction Status Date / Time No Known Allergies Allergy Verified 02/14/24 22:13 [No Known Allergies*] Assessment & Plan Assessment & Plan (1) Schizoaffective disorder, depressive type: Status: Acute Code(s): F25.1 - Schizoaffective disorder, depressive type (2) PTSD (post-traumatic stress disorder): Status: Acute Code(s): F43.10 - Post-traumatic stress disorder, unspecified (3) Opioid use disorder, severe, dependence: Status: Acute Code(s): F11.20 - Opioid dependence, uncomplicated (4) Cocaine use disorder: Status: Acute Code(s): F14.10 - Cocaine abuse, uncomplicated Plan Patient is a 34-year-old male with history of schizoaffective disorder, depressed type, PTSD, cocaine/opioid use disorder presents for worsening AH and mood in the face of being off medication and dealing with psychosocial stressors. Patient reports that after his last admission here 2 years ago he overall did well, remaining sober and continuing on medications, during which time his anger was under good control and he was with only minimal AH. About 6 months ago patient eventually stopped following up with provider and got off his medication; intermittent anger and AH returned however he was able to cope with it and remained sober and continued working. This past summer/fall patient was re-acquainted with the old girlfriend and found out they had a son together. They got back together however he noticed over this past month that his anger and AH started to interfere with his relationship and scared his girlfriend. Reports AH to tell him to yell at her, . Do drugs.. Do this... Do this... Slice herself. This past week Patient found himself yelling in his girlfriend's face and struggling to keep his agitation down; kids in the house for also getting scared and due to stress patient relapsed for 1 day on cocaine and opiates. Patient decided to come back to the hospital to get back on medication. Denies any SI. Denies any manic episodes. Plan: CV Q 15 minute checks Restart Haldol but will increase dose to 10 mg b.i.d. (reports 5 mg b.i.d. helped but did not eliminate voices which remained troublesome) Restart Prozac 10 mg; will titrate to 20 mg which is past dose on which he said mood improved Add clonidine 0.1 mg q.4h p.r.n. for anxiety Start clonidine 0.1 mg q.h.s. for trouble sleeping -will not restart Depakote since patient reports he was stable with outpatient provider even though not on this medication 02/17: Monitor response to restarting medications. Continue current management and treatment plan. 02/18: Continue plan of care. Tolerating medications thus far. 04/21: Continue current management and treatment plan. 02/20: Continue current management and treatment plan. Reason for continued inpatient stay Substantial Risk for: inability to function and rapid decompensation Time Spent With Patient Time: Total time managing care of this patient today ____ minutes.
[2024-02-21] MEDS: Milk of Magnesia 30 ML ORAL.SUSP PO (11:18)
[2024-02-21] MEDS: hydrOXYzine HCL 50 MG TABLET PO (11:54)
[2024-02-21 20:00] VITALS: BP 138/84; PULSE 90; RESP 15; O2SAT 96
[2024-02-21] MEDS: traZODone HCL 50 MG TABLET PO ×2 (20:26→22:25)
[2024-02-22] MEDS: methADONE HCl 20 MG/2 ML ORAL.CONC 113 MG PO (07:45)
[2024-02-22] MEDS: Nicotine Polacrilex 2 MG GUM 4 MG BUCCAL ×6 (07:49→20:55)
[2024-02-22 08:05] VITALS: BP 133/72; PULSE 108; RESP 16; TEMP 36.4; O2SAT 97
[2024-02-22] MEDS: FLUoxetine HCl 20 MG CAPSULE PO (08:31)
[2024-02-22] MEDS: HaloperidoL 5 MG TABLET 10 MG PO ×2 (08:31→20:55)
[2024-02-22] MEDS: hydrOXYzine HCL 25 MG TABLET PO ×3 (08:32→20:55)
--- NOTE | 2024-02-22 09:07 | P.PNPSI_ITS ---
Subjective Subjective Date of Service: 02/22/24 Reason For Visit: Major Depression w/Psychosis Opiate Use D/O Interim History: Met with patient; discussed with team; reviewed chart Diagnostics Vital Signs (24Hr): Vital Signs - 24 hr 02/21/24 20:00 02/22/24 08:05 Temperature 97.5 F Pulse Rate 90 108 H Respiratory Rate 15 16 Blood Pressure 138/84 133/72 Pulse Oximetry 96 97 Oxygen Delivery Method Room Air BMI result Body Mass Index 27.8 Labs 02/14/24 22:36 02/14/24 22:36 Medications Medications Current Medications Acetaminophen (Acetaminophen 325 Mg Tablet) 650 mg PO Q6H PRN PRN Reason: Headache/Pain Mild Scale (1-3) Al Hydroxide/Mg Hydroxide (Magnesium Hydrox/Alum Hydrox 30 Ml Oral.Susp) 30 ml PO Q6H PRN PRN Reason: Heartburn/Nausea Clonidine HCl (Clonidine Hcl 0.1 Mg Tablet) 0.1 mg PO Q4H PRN; Protocol PRN Reason: anxiety Last Admin: 02/19/24 10:52 Dose: 0.1 mg Fluoxetine HCl (Fluoxetine Hcl 20 Mg Capsule) 20 mg PO DAILY [facility] Last Admin: 02/22/24 08:31 Dose: 20 mg Haloperidol (Haloperidol 5 Mg Tablet) 5 mg PO Q4H PRN PRN Reason: agitation,psychosis Last Admin: 02/18/24 14:09 Dose: 5 mg Haloperidol (Haloperidol 5 Mg Tablet) 10 mg PO BID [facility] Last Admin: 02/22/24 08:31 Dose: 10 mg Hydroxyzine HCl (Hydroxyzine Hcl 25 Mg Tablet) 25 mg PO Q6H PRN PRN Reason: Anxiety Last Admin: 02/22/24 08:32 Dose: 25 mg Magnesium Hydroxide (Milk Of Magnesia 30 Ml Oral.Susp) 30 ml PO DAILY PRN PRN Reason: Constipation Last Admin: 02/21/24 11:18 Dose: 30 ml Methadone HCl (Methadone Hcl 20 Mg/2 Ml Oral.Conc) 113 mg PO DAILY [facility] Last Admin: 02/22/24 07:45 Dose: 113 mg Nicotine (Nicotine 21 Mg Patch.Td24) 21 mg TRANSDERMA DAILY PRN PRN Reason: nicotine cravings Last Admin: 02/21/24 09:00 Dose: 21 mg Nicotine Polacrilex (Nicotine Polacrilex 2 Mg Gum) 4 mg BUCCAL Q2H PRN PRN Reason: Nicotine Cravings Last Admin: 02/22/24 07:49 Dose: 4 mg Trazodone HCl (Trazodone Hcl 50 Mg Tablet) 50 mg PO BEDTIME MRX1 PRN PRN Reason: Insomnia Last Admin: 02/21/24 22:25 Dose: 50 mg Allergies Allergies Allergy/AdvReac Type Severity Reaction Status Date / Time No Known Allergies Allergy Verified 02/14/24 22:13 [No Known Allergies*] Assessment & Plan Assessment & Plan (1) Schizoaffective disorder, depressive type: Status: Acute Code(s): F25.1 - Schizoaffective disorder, depressive type (2) PTSD (post-traumatic stress disorder): Status: Acute Code(s): F43.10 - Post-traumatic stress disorder, unspecified (3) Opioid use disorder, severe, dependence: Status: Acute Code(s): F11.20 - Opioid dependence, uncomplicated (4) Cocaine use disorder: Status: Acute Code(s): F14.10 - Cocaine abuse, uncomplicated Plan Patient is a 34-year-old male with history of schizoaffective disorder, depressed type, PTSD, cocaine/opioid use disorder presents for worsening AH and mood in the face of being off medication and dealing with psychosocial stressors. Patient reports that after his last admission here 2 years ago he overall did well, remaining sober and continuing on medications, during which time his anger was under good control and he was with only minimal AH. About 6 months ago patient eventually stopped following up with provider and got off his medication; intermittent anger and AH returned however he was able to cope with it and remained sober and continued working. This past summer/fall patient was re-acquainted with the old girlfriend and found out they had a son together. They got back together however he noticed over this past month that his anger and AH started to interfere with his relationship and scared his girlfriend. Reports AH to tell him to yell at her, . Do drugs.. Do this... Do this... Slice herself. This past week Patient found himself yelling in his girlfriend's face and struggling to keep his agitation down; kids in the house for also getting scared and due to stress patient relapsed for 1 day on cocaine and opiates. Patient decided to come back to the hospital to get back on medication. Denies any SI. Denies any manic episodes. Plan: CV Q 15 minute checks Restart Haldol but will increase dose to 10 mg b.i.d. (reports 5 mg b.i.d. helped but did not eliminate voices which remained troublesome) Restart Prozac 10 mg; will titrate to 20 mg which is past dose on which he said mood improved Add clonidine 0.1 mg q.4h p.r.n. for anxiety Start clonidine 0.1 mg q.h.s. for trouble sleeping -will not restart Depakote since patient reports he was stable with outpatient provider even though not on this medication 02/17: Monitor response to restarting medications. Continue current management and treatment plan. 02/18: Continue plan of care. Tolerating medications thus far. 04/21: Continue current management and treatment plan. 02/20: Continue current management and treatment plan. Time Spent With Patient Time: Total time managing care of this patient today ____ minutes.
[2024-02-22] MEDS: Nicotine 21 MG PATCH.TD24 TRANSDERMA (09:30)
[2024-02-22 20:00] VITALS: BP 131/68; PULSE 93; TEMP 36.6; O2SAT 96
[2024-02-23] MEDS: Nicotine Polacrilex 2 MG GUM 4 MG BUCCAL ×6 (07:38→19:49)
[2024-02-23] MEDS: methADONE HCl 20 MG/2 ML ORAL.CONC 113 MG PO (07:58)
[2024-02-23 08:00] VITALS: BP 124/73; PULSE 97; RESP 16; TEMP 36.3; O2SAT 97
[2024-02-23] MEDS: FLUoxetine HCl 20 MG CAPSULE PO (08:51)
[2024-02-23] MEDS: HaloperidoL 5 MG TABLET 10 MG PO ×2 (08:51→21:01)
[2024-02-23] MEDS: hydrOXYzine HCL 25 MG TABLET PO ×3 (08:52→21:01)
[2024-02-23] MEDS: Nicotine 21 MG PATCH.TD24 TRANSDERMA (08:53)
[2024-02-23] MEDS: HaloperidoL 5 MG TABLET PO (11:07)
[2024-02-23 20:00] VITALS: BP 123/77; PULSE 95; TEMP 36.6; O2SAT 98
[2024-02-23] MEDS: traZODone HCL 50 MG TABLET PO (21:01)
--- NOTE | 2024-02-23 22:52 | HO.PSYCHPN ---
Subjective Subjective Date of Service: 02/23/24 Reason For Visit: Major Depression w/Psychosis Opiate Use D/O Diagnostics Vital Signs (24Hr): Vital Signs - 24 hr 02/23/24 08:00 02/23/24 20:00 Temperature 97.3 F 97.8 F Pulse Rate 97 95 Respiratory Rate 16 Blood Pressure 124/73 123/77 Pulse Oximetry 97 98 Oxygen Delivery Method Room Air Room Air BMI result Body Mass Index 27.8 Labs 02/14/24 22:36 02/14/24 22:36 Medications Medications Current Medications Acetaminophen (Acetaminophen 325 Mg Tablet) 650 mg PO Q6H PRN PRN Reason: Headache/Pain Mild Scale (1-3) Al Hydroxide/Mg Hydroxide (Magnesium Hydrox/Alum Hydrox 30 Ml Oral.Susp) 30 ml PO Q6H PRN PRN Reason: Heartburn/Nausea Clonidine HCl (Clonidine Hcl 0.1 Mg Tablet) 0.1 mg PO Q4H PRN; Protocol PRN Reason: anxiety Last Admin: 02/19/24 10:52 Dose: 0.1 mg Fluoxetine HCl (Fluoxetine Hcl 20 Mg Capsule) 20 mg PO DAILY [facility] Last Admin: 02/23/24 08:51 Dose: 20 mg Haloperidol (Haloperidol 5 Mg Tablet) 5 mg PO Q4H PRN PRN Reason: agitation,psychosis Last Admin: 02/23/24 11:07 Dose: 5 mg Haloperidol (Haloperidol 5 Mg Tablet) 10 mg PO BID [facility] Last Admin: 02/23/24 21:01 Dose: 10 mg Hydroxyzine HCl (Hydroxyzine Hcl 25 Mg Tablet) 25 mg PO Q6H PRN PRN Reason: Anxiety Last Admin: 02/23/24 21:01 Dose: 25 mg Magnesium Hydroxide (Milk Of Magnesia 30 Ml Oral.Susp) 30 ml PO DAILY PRN PRN Reason: Constipation Last Admin: 02/21/24 11:18 Dose: 30 ml Methadone HCl (Methadone Hcl 20 Mg/2 Ml Oral.Conc) 113 mg PO DAILY [facility] Last Admin: 02/23/24 07:58 Dose: 113 mg Nicotine (Nicotine 21 Mg Patch.Td24) 21 mg TRANSDERMA DAILY PRN PRN Reason: nicotine cravings Last Admin: 02/23/24 08:53 Dose: 21 mg Nicotine Polacrilex (Nicotine Polacrilex 2 Mg Gum) 4 mg BUCCAL Q2H PRN PRN Reason: Nicotine Cravings Last Admin: 02/23/24 19:49 Dose: 4 mg Trazodone HCl (Trazodone Hcl 50 Mg Tablet) 50 mg PO BEDTIME MRX1 PRN PRN Reason: Insomnia Last Admin: 02/23/24 21:01 Dose: 50 mg Allergies Allergies Allergy/AdvReac Type Severity Reaction Status Date / Time No Known Allergies Allergy Verified 02/14/24 22:13 [No Known Allergies*] Assessment & Plan Assessment & Plan (1) Schizoaffective disorder, depressive type: Status: Acute Code(s): F25.1 - Schizoaffective disorder, depressive type (2) PTSD (post-traumatic stress disorder): Status: Acute Code(s): F43.10 - Post-traumatic stress disorder, unspecified (3) Opioid use disorder, severe, dependence: Status: Acute Code(s): F11.20 - Opioid dependence, uncomplicated (4) Cocaine use disorder: Status: Acute Code(s): F14.10 - Cocaine abuse, uncomplicated Plan Patient is a 34-year-old male with history of schizoaffective disorder, depressed type, PTSD, cocaine/opioid use disorder presents for worsening AH and mood in the face of being off medication and dealing with psychosocial stressors. Patient reports that after his last admission here 2 years ago he overall did well, remaining sober and continuing on medications, during which time his anger was under good control and he was with only minimal AH. About 6 months ago patient eventually stopped following up with provider and got off his medication; intermittent anger and AH returned however he was able to cope with it and remained sober and continued working. This past summer/fall patient was re-acquainted with the old girlfriend and found out they had a son together. They got back together however he noticed over this past month that his anger and AH started to interfere with his relationship and scared his girlfriend. Reports AH to tell him to yell at her, . Do drugs.. Do this... Do this... Slice herself. This past week Patient found himself yelling in his girlfriend's face and struggling to keep his agitation down; kids in the house for also getting scared and due to stress patient relapsed for 1 day on cocaine and opiates. Patient decided to come back to the hospital to get back on medication. Denies any SI. Denies any manic episodes. Plan: CV Q 15 minute checks Restart Haldol but will increase dose to 10 mg b.i.d. (reports 5 mg b.i.d. helped but did not eliminate voices which remained troublesome) Restart Prozac 10 mg; will titrate to 20 mg which is past dose on which he said mood improved Add clonidine 0.1 mg q.4h p.r.n. for anxiety Start clonidine 0.1 mg q.h.s. for trouble sleeping -will not restart Depakote since patient reports he was stable with outpatient provider even though not on this medication 02/17: Monitor response to restarting medications. Continue current management and treatment plan. 02/18: Continue plan of care. Tolerating medications thus far. 04/21: Continue current management and treatment plan. 02/20: Continue current management and treatment plan. Time Spent With Patient Time: Total time managing care of this patient today ____ minutes.
[2024-02-24] MEDS: Nicotine Polacrilex 2 MG GUM 4 MG BUCCAL ×3 (06:59→11:18)
--- NOTE | 2024-02-24 07:35 | PM.PSYDC ---
DS: Providers Provider Date of Service: 02/24/24 Date of admission: 02/16/24 13:09 Date of discharge: 02/24/24 Primary care physician: Leonel Romero MD DS: Diagnosis Discharge Diagnosis (1) Schizoaffective disorder, depressive type: Status: Acute (2) PTSD (post-traumatic stress disorder): Status: Acute (3) Opioid use disorder, severe, dependence: Status: Acute (4) Cocaine use disorder: Status: Acute DS: Medications Discharge Medications Home Medications: Home Medications ?Medication ?Instructions ?Recorded ?Confirmed methadone 10 mg/mL oral 113 mg PO DAILY 02/15/24 02/15/24 concentrate (Methadose) Previous Rx's ?Medication ?Instructions ?Recorded clonidine HCl 0.1 mg tablet 0.1 mg PO Q4H PRN anxiety 30 days 02/24/24 #90 tabs fluoxetine 20 mg capsule 20 mg PO DAILY 30 days #30 caps 02/24/24 haloperidol 10 mg tablet 10 mg PO BID 30 days #60 tabs 02/24/24 hydroxyzine HCl 25 mg tablet 25 mg PO Q6H PRN Anxiety 30 days 02/24/24 #90 tabs trazodone 100 mg tablet See Rx Instructions .Route 02/24/24 .COMPLEX PRN insomnia 30 days #30 tabs Data Data Completed and Pending Completed studies during hospitalization [Text1]: 02/17/24 02/17/24 09:01 09:02 Estimat Average Glucose 111 Hemoglobin A1c % 5.5 Magnesium 1.9 Triglycerides 121 Cholesterol 141 LDL Cholesterol, Calc 80 HDL Cholesterol 37 L Vitamin B12 222 Folate 9.1 TSH 0.97 Free T4 1.27 DS: Summary Time Spent with Patient Time attestation: Total time managing care of this patient today ____ minutes. Discharge Plan Discharge Anticipated Discharge Date/Time: 02/24/24 11:30 Patient Disposition: Home, Self-Care Discharge Diagnosis: Schizoaffective disorder, depressed type Referrals: [facility] [Other] - 02/26/24 11:00 am (Walk-in for an intake and they will schedule you an appointment for the evaluation for the support group. Let them know you are there for the anger management support group. Walk-in Hours M-F, 9-12 and 1-4) Leonel Romero MD [Primary Care Provider] - 1 Week Discharge Medications: New clonidine HCl 0.1 mg Tablet 0.1 mg PO Q4H PRN (Reason: anxiety) 30 Days Qty: 90 1RF Protocol: Hold for SBP< HOLD for SBP < : 90 fluoxetine 20 mg Capsule 20 mg PO DAILY 30 Days Qty: 30 1RF haloperidol 10 mg tablet 10 mg PO BID 30 Days Qty: 60 1RF hydroxyzine HCl 25 mg Tablet 25 mg PO Q6H PRN (Reason: Anxiety) 30 Days Qty: 90 1RF trazodone 100 mg tablet See Rx Instructions .ROUTE .COMPLEX PRN (Reason: insomnia) 30 Days Qty: 30 1RF Rx Instructions: take 1/2 to 1 tab at bedtime as needed for insomnia Continued methadone [Methadose] 10 mg/mL concentrate 113 mg PO DAILY Rx Instructions: Partial Fill upon patient request. Discharge Orders: Discharge Order (Routine); Ordered 02/24/24 Ordered By: Michael Singh Diet: Regular diet Activity on Discharge: As tolerated Stand Alone Forms: Patient Portal Discharge page Print Language: Norwegian Care Plan Goals: Maintain mood and safe behaviors Take medications as prescribed Continue to pursue sobriety Practice coping skills Continue with outpatient providers and reach out to them as needed Health Concerns: Mood stability and behaviors Sobriety Plan of Treatment: Follow up with your PCP, psychiatric provider and other outpatient providers regarding above concerns Take medications as prescribed Assessment: Risk assessment at time of discharge:? Patient was interviewed prior to discharge and found to be fully oriented and without any SI or HI. Patient has improved insight and judgment and wants to continue treatment. Patient is not in imminent risk of harm to self or others and has a safety plan that includes presenting to the closest ER or calling 911 if feeling unsafe.? Patient has been observed closely by nursing and unit staff throughout admission; patient has not engaged in any behaviors that suggest dangerousness to self or others and has demonstrated appropriate behaviors and impulse control
[2024-02-24] MEDS: methADONE HCl 20 MG/2 ML ORAL.CONC 113 MG PO (07:42)
[2024-02-24] MEDS: hydrOXYzine HCL 25 MG TABLET PO (08:30)
[2024-02-24] MEDS: HaloperidoL 5 MG TABLET 10 MG PO (08:31)
[2024-02-24] MEDS: FLUoxetine HCl 20 MG CAPSULE PO (08:31)
[2024-02-24] MEDS: Naloxone HCl Nasal TAKE HOME 4 MG SPRAY 8 MG NOSTRILALT (08:31)
[2024-02-24 08:40] VITALS: BP 119/74; PULSE 87; RESP 18; TEMP 36.8; O2SAT 96
[2024-02-24] MEDS: Nicotine 21 MG PATCH.TD24 TRANSDERMA (11:00)
== END 2024-02-24 11:24 | disposition home or self-care (01) | DRG 885 ==
LOC: HO.ED 02-15 00:50 → HO.PM5 02-16 13:19
PROVIDERS: Admitting Provider Clinical Nurse Specialist Psychiatric/Mental Health, Adult; Emergency Provider Emergency Medicine; PCP Internal Medicine; Visit Provider Psychiatry & Neurology Psychiatry
DX: F25.1 Schizoaffective disorder, depressive type (principal); Z59.02 Unsheltered homelessness; F11.20 Opioid dependence, uncomplicated; F43.10 Post-traumatic stress disorder, unspecified; F17.210 Nicotine dependence, cigarettes, uncomplicated; Z23 Encounter for immunization; Z71.6 Tobacco abuse counseling; Z79.899 Other long term (current) drug therapy
CPT/HCPCS: 36415; 80048; 80061; 80143; 80164; 80179; 80307; 81001; 82607; 82746; 83036; 83735; 84439; 84443; 85025; 90656; 93005; 99285; S9485

== ENCOUNTER → 2024-02-15 12:00 | Outpatient (BNV) | payer MEDICARE, MEDICAID, SELFPAY | PROVIDERS: Admitting Provider Clinical Nurse Specialist Psychiatric/Mental Health, Adult; Emergency Provider Emergency Medicine; PCP Internal Medicine; Visit Provider Internal Medicine | DX: R00.1 Bradycardia, unspecified (principal) | CPT/HCPCS: 93010 ==

== ENCOUNTER → 2024-02-16 13:09 | Outpatient (BNV) | payer MEDICARE, MEDICAID, SELFPAY | PROVIDERS: Admitting Provider Clinical Nurse Specialist Psychiatric/Mental Health, Adult; Emergency Provider Emergency Medicine; PCP Internal Medicine; Visit Provider Psychiatry & Neurology Psychiatry | DX: F25.1 Schizoaffective disorder, depressive type (principal); F14.10 Cocaine abuse, uncomplicated; F11.20 Opioid dependence, uncomplicated; F43.11 Post-traumatic stress disorder, acute | CPT/HCPCS: 90792; 99231 ==

== ENCOUNTER 2024-02-28 12:16 | Emergency (ER) | payer MEDICARE, MEDICAID, SELFPAY ==
--- NOTE | 2024-02-28 12:21 | ED_ITS ---
HPI - Psych General Chief Complaint: Anxiety Stated Complaint: anxious Time Seen by Provider: 02/28/24 12:42 Source: patient Mode of arrival: ambulatory Limitations: no limitations History of Present Illness ED Provider: Gina Talbert PA-C HPI Narrative: Patient is a 34 year old assigned male at with a history of PTSD, schizoaffective disorder, MDD, opioid use disorder, cocaine use disorder, and cannabis use disorder presenting to the emergency department today with increased anxiousness and feeling jumpy . Patient states that he was recently discharged from our inpatient psychiatric unit and ever since he has felt more jumpy . Patient denies any dizziness, lightheadedness, abdominal pain, nausea, vomiting, fever, chills, blurry vision, double vision, loss of vision, chest pain, difficulty breathing, shortness of breath, back pain, night sweats, pain with urination, increased urinary frequency, increased urinary urgency, blood in his urine or stool, syncope or a near syncopal episode, recent trauma or falls, bowel incontinence, bladder incontinence, or any other complaints at this time. Associated symptoms: denies other symptoms Related Data Home Medications ?Medication ?Instructions ?Recorded ?Confirmed methadone 10 mg/mL oral 113 mg PO DAILY 02/15/24 02/15/24 concentrate (Methadose) Previous Rx's ?Medication ?Instructions ?Recorded clonidine HCl 0.1 mg tablet 0.1 mg PO Q4H PRN anxiety 30 days 02/24/24 #90 tabs fluoxetine 20 mg capsule 20 mg PO DAILY 30 days #30 caps 02/24/24 haloperidol 10 mg tablet 10 mg PO BID 30 days #60 tabs 02/24/24 hydroxyzine HCl 25 mg tablet 25 mg PO Q6H PRN Anxiety 30 days 02/24/24 #90 tabs trazodone 100 mg tablet See Rx Instructions .Route 02/24/24 .COMPLEX PRN insomnia 30 days #30 tabs Allergies Allergy/AdvReac Type Severity Reaction Status Date / Time No Known Allergies Allergy Verified 02/28/24 12:25 [No Known Allergies*] Review of Systems 2 Constitutional: Constitutional: Reports no additional constitutional complaints, Denies chills, Denies fever(s) and Denies night sweats Eyes: Eyes: Reports no additional eye complaints, Denies blurry vision, Denies change in vision, Denies diplopia, Denies eye discharge, Denies loss of vision and Denies eye pain ENT: Denies dizziness Cardiovascular: Cardiovascular: Reports no additional cardiovascular complaints, Denies chest pain, Denies lightheadedness, Denies Loss of Consciousness and Denies dyspnea Respiratory: Respiratory: Reports no additional respiratory complaints and Denies dyspnea Gastrointestinal: Gastrointestinal: Reports no additional gastrointestinal complaints, Denies abdominal pain, Denies melena, Denies hematochezia, Denies change in bowel habits and Denies change in stool character Genitourinary: Genitourinary: Reports no additional male genitourinary complaints, Denies hematuria, Denies oliguria, Denies difficulty urinating, Denies dysuria, Denies urinary frequency, Denies urinary hesitancy, Denies urinary incontinence and Denies urinary urgency Musculoskeletal: Musculoskeletal: Reports no additional musculoskeletal complaints, Denies numbness and Denies tingling Neurologic: Denies dizziness, Denies loss of vision, Denies numbness and Denies tingling Psychiatric: Psychiatric: Reports anxiety, Denies homicidal ideation and Denies suicidal ideation Endocrine: Endocrine: Reports no additional endocrine complaints Hematologic/Lymphatic: Hematologic/Lymphatic: Reports no additional hematologic/lymphatic complaints Allergic/Immunologic: Allergic/Immunologic: Reports no additional allergic/immunologic complaints PMF Past Medical History Attestation statement: The following information was validated with the patient. Source: old records reviewed and nursing notes reviewed Medical History PTSD (post-traumatic stress disorder) Schizoaffective disorder, depressive type Suicidal ideation Severe recurrent major depression with psychotic features Opioid use disorder Social History Social History Household Members: Significant Other and Family Household Members Other:: that he is homeless Housing: Apartment Do you presently have visiting nurse or other home services: No Unable to assess alcohol history related to: Refusing to respond Patient Tobacco Use Status: Current everyday Tobacco user Tobacco use type: Cigarette Cigarette Packs Per Day: 1 Cigarettes Per Day: 20.0 Years Smoked: 19 Smoked in Last 30 Days: Yes e-Cigarette/Vaping Use: Never Used Second Hand Smoke Exposure: No Use of substances other than those prescribed or required for medical reasons: Yes Substance Use Type: Marijuana Last Used Substance: Just Prior to Admission Advance Directives: No Advance Directives Information Provided: No service: No Sexual orientation: Straight/Heterosexual Physical Exam 2 Vital Signs: Vital Signs: Last Vital Signs Temp 97.8 F 02/28/24 12:23 Pulse 95 02/28/24 12:23 Resp 18 02/28/24 12:23 BP 144/79 H 02/28/24 12:23 Pulse Ox 96 02/28/24 12:23 O2 Del Method Room Air 02/28/24 12:23 BMI result Body Mass Index 28.0 Const: General: cooperative, no acute distress, alert and awake Nutritional Appearance: well nourished Orientation/consciousness: patient oriented x3 Limitations: no limitations HEENT: Head: Yes normal to inspection and Yes atraumatic Ears: hearing grossly normal bilaterally and external ears normal General nose exam: Normal external nose present, no nasal discharge noted and no epistaxis Face and sinus: Yes normal facial exam, No abrasion and No laceration Mouth: Normal oral and palatal mucosa present, no drooling and no muffled voice Eyes: General: appearance normal, both eyes and all related structures P eriorbital: periorbital findings normal Eyelids: Yes eyelids normal C onjunctivae: conjunctivae normal Pupils: Equal, round and reactive pupils present EOM: EOMs intact bilaterally Neck: Neck: Yes normal visual inspection, Yes full ROM and Yes no lymphadenopathy Chest: Chest palpation & inspection: normal inspection of the chest Resp: Effort & Inspection: normal respiratory effort and able to speak in complete sentences GI: Inspection: Yes normal to inspection Neuro: General: patient oriented x3 and moves all extremities Cranial nerves: Yes Equal, round and reactive pupils present Cognition (Neuro): n ormal cognition Extrem: General: Yes normal to inspection, Yes full ROM and Yes capillary refill normal Psych: Appearance: grossly normal Mental Status: mental status grossly normal Affect: Labile affect present Attitude: cooperative Thought process: Flight of ideas present Course Course Course Narrative: This is a rapid medical exam. Deferred additional HPI, ROS, PE to primary provider. 34 yo male with history of schizoaffective disorder, PTSD, depression, polysubstance abuse here with complaints of anxiety, having difficulty sleeping, feels irritable, jumpy. Was discharged from on 02/23. Has been taking his medications. NO SI/HI/hallucinations, denies substance use. Wants to talk to crisis. RAFITA Loyd APRN Medical Decision Making Medical Decision Making MDM Narrative: Patient is a 34 year old assigned male at with a history of PTSD, schizoaffective disorder, MDD, opioid use disorder, cocaine use disorder, and cannabis use disorder presenting to the emergency department today with increased anxiousness and feeling jumpy . Patient's physical exam was as noted in the physical exam portion of this note. Patient's blood work was unremarkable. I explained my physical exam findings as well as all test results to the patient. I answered all questions asked by the patient. Patient's disposition is pending CARE evaluation. Differential Diagnosis Differential Diagnoses: The differential diagnosis associated with the presentation includes PTSD Cocaine abuse Anxiety Admission/Observation Consideration of admission/observation: Escalation of care including admission/observation considered Patient's disposition will be determined after CARE team evaluation. Lab Data [facility] Lab Attestation statement: I reviewed the patient's lab results. My interpretation of these results are in the MDM Rationale portion of this note. 02/28/24 12:31 02/28/24 12:31 Labs: Lab Results 02/28/24 02/28/24 Range/Units 12:31 13:01 WBC 8.3 (4.8-10.8) X10*3/uL RBC 3.95 L (4.60-5.80) X10*6/uL Hgb 12.5 L (14.0-18.0) g/dl Hct 35.5 L (42.0-52.0) % MCV 89.9 (80.0-98.0) fL MCH 31.6 (27.0-33.0) pg MCHC 35.2 (31.0-36.0) g/dl RDW 13.2 (11.0-16.0) % Plt Count 203 (160-400) X10*3/uL MPV 10.0 (9.4-12.4) fL Immature Gran % (Auto) 0.1 (0.0-0.4) % Neut % (Auto) 60.4 (45-73) % Lymph % (Auto) 31.9 (20-40) % Sandoval % (Auto) 5.6 (2-11) % Eos % (Auto) 1.4 (0-4) % Baso % (Auto) 0.6 (0-2) % Lymph # (Auto) 2.7 (1.2-4.9) X10*3/uL Sandoval # (Auto) 0.5 (0.1-1.2) X10*3/uL Eos # (Auto) 0.1 (0.0-0.4) X10*3/uL Baso # (Auto) 0.1 (0.0-0.2) X10*3/uL Abs Immat Gran (auto) 0.01 (0.00-0.03) X10*3/uL Absolute Neuts (auto) 5.0 (2.0-8.3) x10*3/uL Absolute Nucleated RBC 0.000 (0.0-0.012) X10*3/uL Nucleated RBC % (auto) 0.0 (0.0-0.2) /100WBC Sodium 141 (135-145) mmol/L Potassium 3.7 (3.3-5.1) mmol/L Chloride 106 (96-108) mmol/L Carbon Dioxide 26 (22-29) mmol/L Anion Gap 13 (12-20) BUN 14 (9-16) mg/dL Creatinine 0.74 (0.5-1.4) mg/dL Estim Creat Clear Calc 145.3 Estimated GFR > 60 Random Glucose 127 H (60-115) mg/dL Calcium 9.7 (8.4-10.2) mg/dL Magnesium 1.8 (1.6-2.6) mg/dL Total Bilirubin 0.4 (0.0-1.0) mg/dL Direct Bilirubin 0.2 (0.0-0.5) mg/dL AST 27 (5-37) U/L ALT 73 H (0-40) U/L Alkaline Phosphatase 72 (39-117) U/L Total Protein 7.2 (6.5-8.0) g/dL Albumin 4.2 (3.5-5.0) g/dL Urine Opiates Screen Not Detected (Not Detect) Ur Buprenorphine Scrn Not Detected (Not Detect) ng/mL Ur Oxycodone Screen Not Detected (Not Detect) ng/mL Urine Methadone Screen Positive H (Not Detect) ng/mL Urine Fentanyl Screen Not Detected (Not Detect) Ur Barbiturates Screen Not Detected (Not Detect) Ur Phencyclidine Scrn Not Detected (Not Detect) Ur Amphetamines Screen Not Detected (Not Detect) U Benzodiazepines Scrn Not Detected (Not Detect) Urine Cocaine Screen Not Detected (Not Detect) U Marijuana (THC) Screen POSITIVE H (Not Detect) Ethyl Alcohol < 10 mg/dL Discharge Plan Discharge Clinical Impression: Acute anxiety Patient Disposition: Still a Patient Prescriptions: No Action methadone [Methadose] 10 mg/mL concentrate 113 mg PO DAILY Rx Instructions: Partial Fill upon patient request. clonidine HCl 0.1 mg Tablet 0.1 mg PO Q4H PRN (Reason: anxiety) 30 Days Qty: 90 1RF Protocol: Hold for SBP< HOLD for SBP < : 90 fluoxetine 20 mg Capsule 20 mg PO DAILY 30 Days Qty: 30 1RF haloperidol 10 mg tablet 10 mg PO BID 30 Days Qty: 60 1RF hydroxyzine HCl 25 mg Tablet 25 mg PO Q6H PRN (Reason: Anxiety) 30 Days Qty: 90 1RF trazodone 100 mg tablet See Rx Instructions .ROUTE .COMPLEX PRN (Reason: insomnia) 30 Days Qty: 30 1RF Rx Instructions: take 1/2 to 1 tab at bedtime as needed for insomnia Print Language: Bruneian
[2024-02-28 12:23] VITALS: BP 144/79; PULSE 95; RESP 18; TEMP 36.6; O2SAT 96; BMI 28.0
[2024-02-28 12:37] LABS: MANUAL DIFF FLAG NO
[2024-02-28 12:38] LABS: Basophils Absolute Auto 0.1 X10*3/uL (0.0-0.2); Basophils Percent Auto 0.6 % (0-2); Eosinophils Absolute Auto 0.1 X10*3/uL (0.0-0.4); Eosinophils Percent Auto 1.4 % (0-4); Hematocrit 35.5 % (42.0-52.0); Hemoglobin 12.5 g/dl (14.0-18.0); Imm Gran Abs Auto 0.01 X10*3/uL (0.00-0.03); Imm Gran Pct Auto 0.1 % (0.0-0.4); Lymphocytes Absolute Auto 2.7 X10*3/uL (1.2-4.9); Lymphocytes Percent Auto 31.9 % (20-40); Mean Corpuscular HGB Conc 35.2 g/dl (31.0-36.0); Mean Corpuscular Hemoglobin 31.6 pg (27.0-33.0); Mean Corpuscular Volume 89.9 fL (80.0-98.0); Monocytes Absolute Auto 0.5 X10*3/uL (0.1-1.2); Monocytes Percent Auto 5.6 % (2-11); Neutrophils Percent Auto 60.4 % (45-73); Platelet Count 203 X10*3/uL (160-400); Red Blood Count 3.95 X10*6/uL (4.60-5.80); Red Cell Distribution Width 13.2 % (11.0-16.0); White Blood Count 8.3 X10*3/uL (4.8-10.8)
[2024-02-28 12:54] LABS: Alanine Aminotransferase 73 U/L (0-40); Albumin Level 4.2 g/dL (3.5-5.0); Alkaline Phosphatase 72 U/L (39-117); Anion Gap 13 (12-20); Aspartate Amino Transferase 27 U/L (5-37); Bilirubin Direct 0.2 mg/dL (0.0-0.5); Bilirubin Total 0.4 mg/dL (0.0-1.0); Blood Urea Nitrogen 14 mg/dL (9-16); Calcium 9.7 mg/dL (8.4-10.2); Carbon Dioxide 26 mmol/L (22-29); Chloride 106 mmol/L (96-108); Creatinine Clr Calc Pharmacy 145.3; Estimated Glomerular Filt Rate > 60; Ethanol < 10 mg/dL; Glucose Random 127 mg/dL (60-115); Magnesium 1.8 mg/dL (1.6-2.6); Potassium 3.7 mmol/L (3.3-5.1); Sodium 141 mmol/L (135-145); Total Protein 7.2 g/dL (6.5-8.0)
[2024-02-28 13:41] LABS: Amphetamine Screen Urine Not Detected (Not Detect); Barbiturates, Urine Not Detected (Not Detect); Benzodiazepines Screen Urine Not Detected (Not Detect); Buprenorphine Scr Not Detected (Not Detect); Cannabinoid Screen Urine POSITIVE (Not Detect); Cocaine Screen Urine Not Detected (Not Detect); Fentanyl, urine Not Detected (Not Detect); Methadone Screen, Urine Positive (Not Detect); Opiate Screen Urine Not Detected (Not Detect); Oxycodone Screen Urine Not Detected (Not Detect); Phencyclidine Screen Urine Not Detected (Not Detect)
--- NOTE | 2024-02-28 15:02 | PC.NURSE ---
Assumed care of patient at 1445, patient appears to be sleeping, respirations even and unlabored, no apparent distress noted. Continue plan of care for CARE team sarita
[2024-02-28] MEDS: Nicotine Polacrilex 2 MG GUM BUCCAL ×2 (16:28→19:56)
--- NOTE | 2024-02-28 17:33 | MHC.CARE ---
Pt is ACCS bedsearch. Referral sent to [facility]. CARE team contacted [facility] to activate referral at 5:30pm, spoke with Robyn. Confirmed referral was received. No male beds tonight
[2024-02-28] MEDS: LORazepam 1 MG TABLET PO (20:52)
[2024-02-29 06:18] VITALS: BP 114/55; PULSE 52; RESP 17; TEMP 36.9; O2SAT 97
[2024-02-29] MEDS: Nicotine Polacrilex 2 MG GUM BUCCAL ×2 (07:02→09:11)
--- NOTE | 2024-02-29 07:19 | HE.PHANOTE ---
RE: METHADONE DOSING Last methadone 113 mg dose was given on 02/11/24 at [facility] with 13 take home bottles per JASMYNE Jeffery. Patient was [place] [facility] [place] and 02/23/24. Patient's last actual dose was 02/27/24 with take home bottle.
--- NOTE | 2024-02-29 07:19 | PC.NURSE ---
Assumed care of patient at 0645, patient appears to be in no apparent distress this am, asking about medications and plans of care. this RN verified methadone with [facility], form sent to pharmacy. Patient asking about changing his medications, pt refusing all medications except methadone, he reports that he doesn't like the side effects of any of his medications. This RN validated pts feelings and explained that we could trial just one medication for the time being, pt declined, stating he wants to change all of his medications
[2024-02-29] MEDS: LORazepam 1 MG TABLET PO (08:00)
[2024-02-29] MEDS: HaloperidoL 5 MG TABLET 10 MG PO (08:15)
[2024-02-29] MEDS: methADONE HCl 20 MG/2 ML ORAL.CONC 113 MG PO (08:16)
[2024-02-29] MEDS: FLUoxetine HCl 20 MG CAPSULE PO (08:16)
--- NOTE | 2024-02-29 13:48 | MHC.CARE ---
Pt accepted to [facility] for 7:30 PM. Girlfriend will pear picker and transport to [facility].
[2024-02-29 14:02] VITALS: BP 121/70; PULSE 71; RESP 16; TEMP 36.7; O2SAT 98
[2024-02-29 14:03] VITALS: BP 121/70; PULSE 71; RESP 16; TEMP 36.7; O2SAT 98
== END 2024-02-29 14:07 | disposition home or self-care (01) ==
PROVIDERS: Nurse Practitioner Family; Emergency Provider Emergency Medicine Emergency Medical Services; PCP Internal Medicine
DX: F41.1 Generalized anxiety disorder (principal); F43.10 Post-traumatic stress disorder, unspecified; F25.9 Schizoaffective disorder, unspecified; F17.210 Nicotine dependence, cigarettes, uncomplicated; Z59.00 Homelessness unspecified; Z51.81 Encounter for therapeutic drug level monitoring; Z79.899 Other long term (current) drug therapy
CPT/HCPCS: 36415; 80048; 80076; 80307; 83735; 85025; 99284; S9485

== ENCOUNTER 2024-04-29 13:01 | Inpatient (IN) | payer MEDICARE, MEDICAID, SELFPAY ==
[2024-04-29 13:07] VITALS: BP 129/77; PULSE 83; RESP 18; TEMP 36.6; O2SAT 98; BMI 27.4
--- NOTE | 2024-04-29 13:11 | ED.PSYCH ---
HPI - Psych General Chief Complaint: Psychiatric Symptoms Stated Complaint: Crisis Time Seen by Provider: 04/29/24 13:22 Source: patient Mode of arrival: ambulatory Limitations: no limitations History of Present Illness ED Provider: Dr. Eric Allen HPI Narrative: 34-year-old male with a history of opiate use disorder, depression, anxiety, schizophrenia, auditory hallucinations, PTSD who presents emergency department for evaluation of command auditory hallucinations and self cutting with symptoms starting 1 week prior and getting worse in the last 24 hours. The patient states that he messed up yesterday and used intranasal fentanyl. He states that since then he was had increased auditory hallucinations. He states that the voices are telling him to hurt other people and to hurt himself. The patient states that he took a sharp knife and cut his right biceps and right forearm. He states he was cut himself in the past. Patient states that if he leaves the hospital he was concerned that he might hurt himself or hurt someone else. Related Data Home Medications ?Medication ?Instructions ?Recorded ?Confirmed methadone 10 mg/mL oral 75 mg PO DAILY 02/15/24 04/29/24 concentrate (Methadose) chlorpromazine 100 mg tablet 100 mg PO BEDTIME 04/29/24 04/29/24 divalproex 500 mg tablet,delayed 500 mg PO BID 04/29/24 04/29/24 release fluoxetine 40 mg capsule 40 mg PO DAILY 04/29/24 04/29/24 olanzapine 2.5 mg tablet 2.5 mg PO BEDTIME 04/29/24 04/29/24 prazosin 1 mg capsule 1 mg PO BEDTIME 04/29/24 04/29/24 topiramate 50 mg tablet 50 mg PO BID@0800,199904/29/24 04/29/24 Allergies Allergy/AdvReac Type Severity Reaction Status Date / Time No Known Allergies Allergy Verified 04/29/24 13:10 [No Known Allergies*] Review of Systems Review of Systems: Yes all other systems are reviewed and are negative [facility] Past Medical History [facility] Narrative: Social history: Patient smokes 1/2 pack of cigarettes per day times many years. Patient states that he just drank hard liquor yesterday. He also states that he snorted fentanyl yesterday. Medical History PTSD (post-traumatic stress disorder) Schizoaffective disorder, depressive type Suicidal ideation Severe recurrent major depression with psychotic features Opioid use disorder Social History Social History Household Members: Significant Other and Children Household Members Other:: that he is homeless Housing: House Do you presently have visiting nurse or other home services: No Unable to assess alcohol history related to: Refusing to respond Patient Tobacco Use Status: Current everyday Tobacco user Tobacco use type: Cigarette Cigarette Packs Per Day: 1 Cigarettes Per Day: 20.0 Years Smoked: 19 Smoked in Last 30 Days: Yes e-Cigarette/Vaping Use: Currently Using Patient Interested in Nicotine Replacement: Yes Patient Given Instructions on How to Stop Smoking: No Second Hand Smoke Exposure: No Use of substances other than those prescribed or required for medical reasons: Yes Substance Use Type: Crack/Cocaine, Marijuana, Methamphetamine and Opiates Substance Use Frequency: Chronic Longstanding Last Used Substance: Just Prior to Admission Currently Displaying Signs/Symptoms of Drug Intoxication Withdrawal: No Any prior treatment program specific to substance use: Yes Have you been hit, kicked, punched, or otherwise hurt by someone within the past year? If so, by whom?: No Do you feel safe in your current relationship?: Yes Is there a partner from a previous relationship who is making you feel unsafe now?: No Are you made to feel afraid or neglected: No Advance Directives: No Advance Directives Information Provided: Yes Do you have thoughts of harming others: None Do you have a plan to hurt others: No Plan Recently lost weight without trying: No Nutrition Risks: No Nutritional Risk Poor oral hygiene: No service: No Sexual orientation: Straight/Heterosexual Physical Exam Vital Signs: Vital Signs: Last Vital Signs Temp 98.7 F 04/30/24 08:39 Pulse 147 H 04/30/24 08:39 Resp 18 04/30/24 08:39 BP 131/73 04/30/24 08:39 Pulse Ox 97 04/30/24 08:39 O2 Del Method Room Air 04/30/24 08:39 BMI result Body Mass Index 27.4 Vital signs were normal Exam: General: Awake, alert in no distress Head: Normocephalic, atraumatic EENT: PERRL, Lids normal, sclera normal, conjunctiva normal, nose normal , ears normal, throat without erythema or exudates Neck: Supple, no adenopathy Lung: breath sounds symmetric, no wheezing, rales or rhonchi Chest: symmetric movement, nontender Heart: regular rate and rhythm, normal S1, S2 no murmurs or rubs Abdomen: soft, non-tender, nondistended, normal bowel sounds Back: no vertebral tenderness, no CVAT Extremities: no deformities, moves all extremities symmetrically. Patient has 2 superficial areas of laceration to his right bicep, and right proximal forearm, these are not suturable lacerations Neuro: Awake, alert, oriented, normal speech, cranial nerves intact, moves all extremities symmetrically Psych: Pleasant, cooperative Course Course Course Narrative: This is a rapid medical exam performed by Alicia Farias PA-C. The patient is a 34-year-old male with a history of polysubstance abuse, PTSD, schizoaffective disorder, depression who presents with SI. Patient states he was attempting to ?cut 1 of his veins and ?, and an attempt for self-harm. Patient also admits to hearing voices. The patient will be brought in to our behavioral health pad, he will have a care team assessment. We will be ordering screening labs, serum ethanol drug screen. Medications Administered Generic Name Dose Route Start Last Admin Trade Name Ramonq PRN Reason Stop Dose Admin Acetaminophen 650 mg 04/29/24 19:28 04/29/24 23:38 Acetaminophen 325 Mg Tablet PO 650 mg Q6H PRN Administration Headache/Pain Mild Scale (1-3) Chlorpromazine HCl 100 mg 04/29/24 22:53 04/29/24 23:39 Chlorpromazine Hcl 100 Mg Tablet PO 100 mg BEDTIME CYDNEY Administration Divalproex Sodium 500 mg 04/29/24 22:53 04/30/24 08:44 Divalproex Sodium 500 Mg Tablet.Dr PO 500 mg BID CYDNEY Administration Hydroxyzine HCl 25 mg 04/29/24 19:28 04/30/24 09:31 Hydroxyzine Hcl 25 Mg Tablet PO 25 mg Q6H PRN Administration mild anxiety Nicotine 21 mg 04/29/24 19:28 04/30/24 08:44 Nicotine 21 Mg Patch.Td24 TRANSDERMA 21 mg DAILY PRN Administration smoking cessation Nicotine Polacrilex 4 mg 04/29/24 19:28 04/30/24 17:46 Nicotine Polacrilex 2 Mg Gum BUCCAL 4 mg Q2H PRN Administration Nicotine Cravings Olanzapine 5 mg 04/30/24 11:45 04/30/24 12:26 Olanzapine 5 Mg Tablet PO 5 mg BID CYDNEY Administration Prazosin HCl 1 mg 04/29/24 22:53 04/29/24 23:39 Prazosin Hcl 1 Mg Capsule PO 1 mg BEDTIME CYDNEY Administration Protocol Topiramate 50 mg 04/29/24 22:53 04/30/24 08:44 Topiramate 25 Mg Tablet PO 50 mg BID@08,1999 CYDNEY Administration Discontinued Medications Generic Name Dose Route Start Last Admin Trade Name Freq PRN Reason Stop Dose Admin Bacitracin 1 appl 04/29/24 13:48 04/29/24 15:45 Bacitracin Oint 0.9 Gm Packet TOPICAL 04/29/24 13:49 1 appl ONCE ONE Administration Protocol Fluoxetine HCl 10 mg 04/30/24 09:00 04/30/24 08:44 Fluoxetine Hcl 10 Mg Capsule PO 10 mg DAILY CYDNEY Administration Methadone HCl 75 mg 04/30/24 09:00 04/30/24 07:55 Methadone Hcl 20 Mg/2 Ml Oral.Conc PO 75 mg DAILY CYDNEY Administration Methadone HCl 10 mg 04/30/24 11:39 04/30/24 12:26 Methadone Hcl 20 Mg/2 Ml Oral.Conc PO 04/30/24 11:40 10 mg ONCE ONE Administration Nicotine Polacrilex 2 mg 04/29/24 13:58 04/29/24 14:03 Nicotine Polacrilex 2 Mg Gum BUCCAL 2 mg Q2H PRN Administration Nicotine Cravings Olanzapine 5 mg 04/29/24 19:28 04/30/24 09:33 Olanzapine 5 Mg Tablet PO 5 mg TID PRN Administration agitation Olanzapine 2.5 mg 04/29/24 22:53 04/29/24 23:39 Olanzapine 2.5 Mg Tablet PO 2.5 mg BEDTIME CYDNEY Administration Medical Decision Making Medical Decision Making MDM Narrative: 34-year-old male with a history of opiate use disorder, depression, anxiety, schizophrenia, auditory hallucinations, PTSD who presents emergency department for evaluation of command auditory hallucinations and self cutting with symptoms starting 1 week prior and getting worse over the last 24 hours. Patient states that he did slip up in used intranasal fentanyl yesterday and did drink hard liquor. He was concerned that if he leaves the hospital he will hurt himself or hurt someone else. Vital signs were normal. Physical examination was unremarkable except for superficial self-inflicted lacerations to his right biceps and right forearm. Differential diagnosis: ?Includes but is not limited to depression, anxiety, auditory hallucinations, suicidal ideation, homicidal ideation, alcohol intoxication, fentanyl use disorder, anemia, electrolyte abnormalities Course: 18:11 Start physician observation My interpretation patient's laboratory evaluation is as follows: Normocytic anemia with an H&H of 11.7 and 33.8. CMP was normal. Urinalysis was positive for protein, blood, leukocyte esterase. Microscopic revealed greater than 20 RBCs, 0-5 WBCs, 0 2 squamous cells and no bacteria. Tox screen was positive for opiates, methadone, fentanyl, cocaine and marijuana. COVID-19, RSV and influenza were negative. Ethanol was below detectable limits. The patient was evaluated by the care team and the patient does meet criteria for IP LOC secondary to suicidal ideation, verbal aggression and dysregulation. The patient was placed on a Section 12. Patient will remain in the emergency department Behavioral Health Unit until disposition can be determined or until patient's symptoms improve over time. At the end of my shift, the patient's care was turned over to my colleague, Dr. Natali Perez. Admission/Observation Consideration of admission/observation: Escalation of care including admission/observation considered (Yes) Lab Data 04/29/24 14:13 04/29/24 14:13 Labs: Lab Results 04/29/24 Range/Units 14:13 WBC 9.6 (4.8-10.8) X10*3/uL RBC 3.78 L (4.60-5.80) X10*6/uL Hgb 11.7 L (14.0-18.0) g/dl Hct 33.8 L (42.0-52.0) % MCV 89.4 (80.0-98.0) fL MCH 31.0 (27.0-33.0) pg MCHC 34.6 (31.0-36.0) g/dl RDW 14.8 (11.0-16.0) % Plt Count 224 (160-400) X10*3/uL MPV 9.5 (9.4-12.4) fL Immature Gran % (Auto) 0.3 (0.0-0.4) % Neut % (Auto) 69.1 (45-73) % Lymph % (Auto) 21.7 (20-40) % [place] % (Auto) 8.4 (2-11) % Eos % (Auto) 0.2 (0-4) % Baso % (Auto) 0.3 (0-2) % Lymph # (Auto) 2.1 (1.2-4.9) X10*3/uL [place] # (Auto) 0.8 (0.1-1.2) X10*3/uL Eos # (Auto) 0.0 (0.0-0.4) X10*3/uL Baso # (Auto) 0.0 (0.0-0.2) X10*3/uL Abs Immat Gran (auto) 0.03 (0.00-0.03) X10*3/uL Absolute Neuts (auto) 6.6 (2.0-8.3) x10*3/uL Absolute Nucleated RBC 0.000 (0.0-0.012) X10*3/uL Nucleated RBC % (auto) 0.0 (0.0-0.2) /100WBC Sodium 140 (135-145) mmol/L Potassium 3.4 (3.3-5.1) mmol/L Chloride 106 (96-108) mmol/L Carbon Dioxide 23 (22-29) mmol/L Anion Gap 14 (12-20) BUN 14 (9-16) mg/dL Creatinine 0.69 (0.5-1.4) mg/dL Estim Creat Clear Calc 143.1 Estimated GFR > 60 Random Glucose 104 (60-115) mg/dL Calcium 9.6 (8.4-10.2) mg/dL Magnesium 2.3 (1.6-2.6) mg/dL Total Bilirubin 0.5 (0.0-1.0) mg/dL AST 22 (5-37) U/L ALT 18 (0-40) U/L Alkaline Phosphatase 54 (39-117) U/L Total Protein 8.1 H (6.5-8.0) g/dL Albumin 4.7 (3.5-5.0) g/dL Urine Color Dark Yellow Urine Appearance Cloudy Urine pH 6.0 (5.0-9.0) Ur Specific [place] 1.025 (1.005-1.025) Urine Protein 100 (2+) H (Neg-Trace) mg/dL Urine Glucose (UA) Negative (Negative) mg/dL Urine Ketones Negative (Negative) mg/dL Urine Blood Large (3+) H (Negative) Urine Nitrite Negative (Negative) Ur Leukocyte Esterase Trace H (Negative) Urine RBC >20 H (0-2) /HPF Urine WBC 0-5 (0-5) /HPF Ur Squamous Epith Cells 0-2 (0-2) /HPF Urine Bacteria None Seen (None Seen) Hyaline Casts 0-2 (0-2) /LPF Salicylates < 5.0 L (15-30) mg/dL Urine Opiates Screen POSITIVE H (Not Detect) Ur Buprenorphine Scrn Not Detected (Not Detect) ng/mL Ur Oxycodone Screen Not Detected (Not Detect) ng/mL Urine Methadone Screen Positive H (Not Detect) ng/mL Urine Fentanyl Screen POSITIVE H (Not Detect) Acetaminophen < 3 (<30) mcg/mL Ur Barbiturates Screen Not Detected (Not Detect) Ur Phencyclidine Scrn Not Detected (Not Detect) Ur Amphetamines Screen Not Detected (Not Detect) U Benzodiazepines Scrn Not Detected (Not Detect) Urine Cocaine Screen POSITIVE H (Not Detect) U Marijuana (THC) Screen POSITIVE H (Not Detect) Ethyl Alcohol < 10 mg/dL Influenza Type A (PCR) NEGATIVE (Negative) Influenza Type B (PCR) NEGATIVE (Negative) RSV RNA Qual (PCR) NEGATIVE (Negative) SARS-CoV-2 RNA (RT-PCR) NEGATIVE (Negative) Chronic Conditions Patient?s care impacted by: Other (Schizophrenia) Discharge Plan Discharge Clinical Impression: Auditory hallucination, Suicide ideation, Deliberate self-cutting, Cocaine use, Opiate use, Fentanyl use disorder, moderate Patient Disposition: Still a Patient Discharge Date/Time: 04/30/24 05:50
--- NOTE | 2024-04-29 13:53 | MHC.CARE ---
Pt meets the criteria for IPLOC secondary to SI, aggression verbally, and dysregulation. Section 12a in chart. Provider in agreement.
[2024-04-29] MEDS: Nicotine Polacrilex 2 MG GUM BUCCAL (14:03)
--- OUTSIDE RECORDS SUMMARY | 2024-04-29 14:23 | XMS_ITS | Encounter Summary ---
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 Social History Tobacco Use Types Packs/Day Years Used Date Smoking Tobacco: Never Assessed Sex and Gender Information Value Date Recorded Sex Assigned at Not on file Gender Identity Not on file Sexual Orientation Not on file documented as of this encounter Plan of Treatment Not on file documented as of this encounter Procedures Procedure Name Priority Date/Time Associated Diagnosis Comments VALPROIC ACID LEVEL, TOTAL Routine 03/29/2024 7:00 AM EST 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
--- OUTSIDE RECORDS SUMMARY | 2024-04-29 14:23 | XMS_ITS | Clinical Summary ---
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 from Last 3 Months Social History Tobacco Use Types Packs/Day Years Used Date Smoking Tobacco: Never Assessed Sex and Gender Information Value Date Recorded Sex Assigned at Not on file Gender Identity Not on file Sexual Orientation Not on file Plan of Treatment Health Maintenance Due Date Last Done Comments DTaP,Tdap,and Td Vaccines (1 - Tdap) 01/05/2007 Hepatitis B Vaccines (1 of 3 - 19+ 3-dose series) 01/05/2007 Cholesterol Screening (Lipid Panel) 02/23/2022 Depression Screening 02/23/2022 HIV Screening 02/23/2022 Hepatitis C Screening 02/23/2022 Social Influencers of Health Screening 02/23/2022 COVID-19 Vaccine (2023-2 5 season) 2023 Influenza Vaccine (#1) 2023 HIB Vaccines Aged Out No longer eligi ble based on patient's age to complete this topic HPV Vaccines Aged Out No longer eligi ble based on patient's age to complete this topic Hepatitis A Vaccines Aged Out No long er eligible based on patient's age to complete this topic IPV Vaccines Aged Out No longer eligi ble based on patient's age to complete this topic MMR Vaccines Aged Out No longer eligi ble based on patient's age to complete this topic Meningococcal ACWY Vaccine Aged Out N o longer eligible based on patient's age to complete this topic Pneumococcal Vaccine: Pediat rics (0 to 5 Years) and At-Risk Patients (6 to 64 Years) Aged Out No longer eligible b ased on patient's age to complete this topic RSV Immunization Patients Un kyara 20 months Aged Out No longer eligible b ased on patient's age to complete this topic Varicella Vaccines Aged Out No longer eligible based on patient's age to complete this topic Procedures Procedure Name Priority Date/Time Associated Diagnosis Comments VALPROIC ACID LEVEL, TOTAL Routine 03/29/2024 7:00 AM EST 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
--- OUTSIDE RECORDS SUMMARY | 2024-04-29 14:23 | XMS_ITS | Encounter Summary ---
Author Organization [facility] Address [address] [place] [address] Care Team Providers Care Dentures Lab Technician Name Role Phone Unavailable Primary Care Provider Unavailabl e Encounter Details Date Type Department Care Team (Late st Contact Info) Description 04/29/2024 Lab Requisition [facility] - Main Lab [address] [place] [address] [place] [address] Social History Tobacco Use Types Packs/Day Years Used Date Smoking Tobacco: Never Assessed Sex and Gender Information Value Date Recorded Sex Assigned at Not on file Gender Identity Not on file Sexual Orientation Not on file documented as of this encounter Plan of Treatment Scheduled Orders Name Type Priority Associated Diagnoses Orde r Schedule Valproic acid level, total Lab Routine Ordered: 04/29/2024 documented as of this encounter Visit Diagnoses Not on filedocumented in this encounter
[2024-04-29 14:30] LABS: MANUAL DIFF FLAG NO
[2024-04-29 14:31] LABS: Basophils Percent Auto 0.3 % (0-2); Eosinophils Percent Auto 0.2 % (0-4); Hematocrit 33.8 % (42.0-52.0); Hemoglobin 11.7 g/dl (14.0-18.0); Imm Gran Abs Auto 0.03 X10*3/uL (0.00-0.03); Imm Gran Pct Auto 0.3 % (0.0-0.4); Lymphocytes Absolute Auto 2.1 X10*3/uL (1.2-4.9); Lymphocytes Percent Auto 21.7 % (20-40); Mean Corpuscular HGB Conc 34.6 g/dl (31.0-36.0); Mean Corpuscular Volume 89.4 fL (80.0-98.0); Mean Platelet Volume 9.5 fL (9.4-12.4); Monocytes Absolute Auto 0.8 X10*3/uL (0.1-1.2); Monocytes Percent Auto 8.4 % (2-11); Neutrophils Absolute Auto 6.6 x10*3/uL (2.0-8.3); Neutrophils Percent Auto 69.1 % (45-73); Platelet Count 224 X10*3/uL (160-400); Red Blood Count 3.78 X10*6/uL (4.60-5.80); Red Cell Distribution Width 14.8 % (11.0-16.0); White Blood Count 9.6 X10*3/uL (4.8-10.8)
[2024-04-29 14:35] LABS: Appearance Urine Cloudy; Color Urine Dark Yellow; Glucose Urine UA Negative (Negative); Leukocyte Esterase Urine Trace (Negative); Nitrite Urine Negative (Negative); Specific Gravity - Urine 1.025 (1.005-1.025); UMIC TRIGGER UACC YES; Urine Blood Large (3+) (Negative); Urine Ketones Negative (Negative); Urine Protein 100 (2+) mg/dL (Neg-Trace)
[2024-04-29 14:38] LABS: Bacteria Urine None Seen (None Seen); Hyaline Casts Urine 0-2 /LPF (0-2); RBC Urine >20 /HPF (0-2); Squamous Epithelial Cell Urine 0-2 /HPF (0-2); WBC Urine 0-5 /HPF (0-5)
[2024-04-29 14:58] LABS: Amphetamine Screen Urine Not Detected (Not Detect); Barbiturates, Urine Not Detected (Not Detect); Benzodiazepines Screen Urine Not Detected (Not Detect); Buprenorphine Scr Not Detected (Not Detect); Cannabinoid Screen Urine POSITIVE (Not Detect); Cocaine Screen Urine POSITIVE (Not Detect); Fentanyl, urine POSITIVE (Not Detect); Methadone Screen, Urine Positive (Not Detect); Opiate Screen Urine POSITIVE (Not Detect); Oxycodone Screen Urine Not Detected (Not Detect); Phencyclidine Screen Urine Not Detected (Not Detect)
[2024-04-29 14:59] LABS: Acetaminophen LAB < 3 mcg/mL (<30); Alanine Aminotransferase 18 U/L (0-40); Albumin Level 4.7 g/dL (3.5-5.0); Alkaline Phosphatase 54 U/L (39-117); Anion Gap 14 (12-20); Aspartate Amino Transferase 22 U/L (5-37); Bilirubin Total 0.5 mg/dL (0.0-1.0); Blood Urea Nitrogen 14 mg/dL (9-16); Calcium 9.6 mg/dL (8.4-10.2); Carbon Dioxide 23 mmol/L (22-29); Chloride 106 mmol/L (96-108); Creatinine Clr Calc Pharmacy 143.1; Estimated Glomerular Filt Rate > 60; Ethanol < 10 mg/dL; Glucose Random 104 mg/dL (60-115); Magnesium 2.3 mg/dL (1.6-2.6); Potassium 3.4 mmol/L (3.3-5.1); Salicylate < 5.0 mg/dL (15-30); Sodium 140 mmol/L (135-145); Total Protein 8.1 g/dL (6.5-8.0)
--- NOTE | 2024-04-29 15:07 | ECG_ITS ---
Test Reason : qt check Blood Pressure : */* mmHG Vent. Rate : 75 BPM Atrial Rate : 75 BPM P-R Int : 114 ms QRS Dur : 92 ms QT Int : 368 ms P-R-T Axes : 72 83 24 degrees QTcB Int : 410 ms Normal sinus rhythm with sinus arrhythmia Nonspecific T wave abnormality Abnormal ECG When compared with ECG of 15-Feb-2024 14:15, Premature atrial complexes are no longer Present Nonspecific T wave abnormality now evident in Anterior leads Referred By: Eric Allen Electronically Signed By: Silvano Fry
[2024-04-29 15:13] LABS: Influenza A PCR NEGATIVE (Negative); Influenza B PCR NEGATIVE (Negative); Resp Syncy Virus RNA Qual PCR NEGATIVE (Negative); SARS COV2 PCR INHOUSE NEGATIVE (Negative)
--- NOTE | 2024-04-29 15:21 | PC.NURSE ---
methadone dose verified with Jesusita garcía. pt takes 75mg daily, last dosed 04/29/24. form faxed to pharmacy
[2024-04-29] MEDS: Bacitracin Oint 0.9 GM PACKET 1 APPL TOPICAL (15:45)
--- NOTE | 2024-04-29 17:21 | PHA.MEDREC ---
Pharmacy Consult ? Medication Reconciliation Pharmacy has completed the medication reconciliation.
[2024-04-29] MEDS: Nicotine Polacrilex 2 MG GUM 4 MG BUCCAL (23:38)
[2024-04-29] MEDS: Acetaminophen 325 MG TABLET 650 MG PO (23:38)
[2024-04-29] MEDS: chlorproMAZINE HCl 100 MG TABLET PO (23:39)
[2024-04-29] MEDS: Divalproex Sodium 500 MG TABLET.DR PO (23:39)
[2024-04-29] MEDS: Topiramate 25 MG TABLET 50 MG PO (23:39)
[2024-04-29] MEDS: OLANZapine 2.5 MG TABLET PO (23:39)
[2024-04-29] MEDS: Prazosin HCL 1 MG CAPSULE PO (23:39)
[2024-04-29 23:53] VITALS: BP 141/87; PULSE 88; TEMP 37.2; O2SAT 97
--- NOTE | 2024-04-30 01:33 | PC.ADMIT ---
Patient arrived on unit via w/c accompanied by security from [facility] at 2300. Solomon is on CV. He is alert and oriented x4. Cooperative with skin and safety check. Skin check revealed several self inflicted superficial lacerations to R upper arm and forearm. Patient engaged easily maintaining good eye contact. Upon admission to ED patient endorses distressing AH but denies at this time. Patient also endorsed upon admission to ED SI with no specific plan. Denies SI at this time. Patient also denies HI/VH. Solomon has recently had difficulty regulating his medications resulting in verbal aggression, agitation, increased anger and SI. Although patient denies and recent/current legal involvement he does have an extensive legal history of arrests, incarceration and probation related to assaults, theft and possession. Solomon reported having been inpatient at [facility] in the last 2 weeks and has recently completed and intake at [facility] and has appointment scheduled for May.06. Tox screen on admission positive for methadone, fentanyl, cocaine and cannabis. Patient reports using these substances 1 night before admission. Patient reported to that he cannot return to his prior living situation with his significant other until he is stabilized with his medications due to the children in the home being frightened of him. Solomon was oriented to the unit, placed on 15 minute checks per order and administered HS medications. Appears to be sleeping at this time. Patient reported he has already been immunized for flu this season. Accepted offer for NRT. ROE's completed and signed.
[2024-04-30] MEDS: methADONE HCl 20 MG/2 ML ORAL.CONC 75 MG PO (07:55)
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
[2024-04-30 08:39] VITALS: BP 131/73; PULSE 147; RESP 18; TEMP 37.1; O2SAT 97
[2024-04-30] MEDS: Nicotine Polacrilex 2 MG GUM 4 MG BUCCAL ×4 (08:43→20:47)
[2024-04-30] MEDS: Divalproex Sodium 500 MG TABLET.DR PO ×2 (08:44→20:47)
[2024-04-30] MEDS: Topiramate 25 MG TABLET 50 MG PO ×2 (08:44→20:46)
[2024-04-30] MEDS: FLUoxetine HCl 10 MG CAPSULE PO (08:44)
[2024-04-30] MEDS: Nicotine 21 MG PATCH.TD24 TRANSDERMA (08:44)
[2024-04-30] MEDS: hydrOXYzine HCL 25 MG TABLET PO (09:31)
[2024-04-30] MEDS: OLANZapine 5 MG TABLET PO ×3 (09:33→20:47)
--- NOTE | 2024-04-30 12:13 | HE.PHANOTE ---
RE METHADONE Pharmacy has received patients methadone verification form. Patient is confirmed to have received 75 mg of methadon on 04/29/24 with [place] [phone]
[2024-04-30] MEDS: methADONE HCl 20 MG/2 ML ORAL.CONC 10 MG PO (12:26)
[2024-04-30 19:30] VITALS: BP 111/56; PULSE 116; TEMP 36.4; O2SAT 98
[2024-04-30] MEDS: chlorproMAZINE HCl 100 MG TABLET PO (20:47)
[2024-04-30] MEDS: traZODone HCL 50 MG TABLET PO (20:47)
[2024-04-30] MEDS: Throat Lozenge, Medicated LOZENGE 1 LOZENGE MUCOUS MEM (20:47)
[2024-04-30] MEDS: Prazosin HCL 1 MG CAPSULE PO (20:48)
[2024-05-01] MEDS: methADONE HCl 20 MG/2 ML ORAL.CONC 85 MG PO (07:44)
[2024-05-01 07:49] VITALS: BP 119/78; PULSE 124; RESP 18; TEMP 36.2; O2SAT 98
[2024-05-01] MEDS: Nicotine 21 MG PATCH.TD24 TRANSDERMA (08:19)
[2024-05-01] MEDS: FLUoxetine HCl 20 MG CAPSULE PO (08:20)
[2024-05-01] MEDS: Divalproex Sodium 500 MG TABLET.DR PO (08:20)
[2024-05-01] MEDS: OLANZapine 5 MG TABLET PO ×3 (08:20→21:41)
[2024-05-01] MEDS: Topiramate 25 MG TABLET 50 MG PO ×2 (08:20→21:42)
[2024-05-01] MEDS: Nicotine Polacrilex 2 MG GUM 4 MG BUCCAL ×6 (08:20→21:45)
[2024-05-01] MEDS: Acetaminophen 325 MG TABLET 650 MG PO (08:36)
[2024-05-01 08:38] LABS: Valproate 53.5 mcg/mL (50.0-100.0)
[2024-05-01] MEDS: hydrOXYzine HCL 25 MG TABLET PO ×2 (08:53→17:02)
--- NOTE | 2024-05-01 11:20 | HO.PSYCHPN ---
Subjective Subjective Date of Service: 05/01/24 Reason For Visit: Psychosis Subjective Notes: Conditional Voluntary Interim History: met with patient. Discussed with Nursing. Overall reports anxiety is still high at times. Is sleeping excessively which he attributes to depression. Also feeling irritable with cravings. Intermittent hopelessness and SI. No hallucinations. Overall we discussed increasing methadone 95 mg. Will utilize hydroxyzine to 50 mg rather than 25 mg as needed. Medication Compliance: Yes Side effects from medications: No Attending Groups: Intermittent Review of Systems Acute medical concerns: No Review of Systems Review of Systems Yes all other systems are reviewed and are negative Mental Status Exam Mental Status Exam Narrative: Pleasant. Engaged. Hospital clothing. Some superficial scratches. Hygiene fair. Organized. Is anxious and dysphoric. Some irritability. Endorses suicidal thoughts but no current plans. Feeling supported in hospital. Endorses command auditory hallucinations to kill himself. No delusions. Insight and judgment fair Diagnostics Vital Signs (24Hr): Vital Signs - 24 hr 04/30/24 19:30 05/01/24 07:49 Temperature 97.6 F 97.1 F Pulse Rate 116 H 124 H Respiratory Rate 18 Blood Pressure 111/56 L 119/78 Pulse Oximetry 98 98 Oxygen Delivery Method Room Air Room Air BMI result Body Mass Index 27.4 Labs 04/29/24 14:13 04/29/24 14:13 Labs: Laboratory Results - last 48 hr 04/29/24 05/01/24 14:13 08:11 WBC 9.6 RBC 3.78 L Hgb 11.7 L Hct 33.8 L MCV 89.4 MCH 31.0 MCHC 34.6 RDW 14.8 Plt Count 224 MPV 9.5 Immature Gran % (Auto) 0.3 Neut % (Auto) 69.1 Lymph % (Auto) 21.7 [place] % (Auto) 8.4 Eos % (Auto) 0.2 Baso % (Auto) 0.3 Lymph # (Auto) 2.1 [place] # (Auto) 0.8 Eos # (Auto) 0.0 Baso # (Auto) 0.0 Abs Immat Gran (auto) 0.03 Absolute Neuts (auto) 6.6 Absolute Nucleated RBC 0.000 Nucleated RBC % (auto) 0.0 Sodium 140 Potassium 3.4 Chloride 106 Carbon Dioxide 23 Anion Gap 14 BUN 14 Creatinine 0.69 Estim Creat Clear Calc 143.1 Estimated GFR > 60 Random Glucose 104 Calcium 9.6 Magnesium 2.3 Total Bilirubin 0.5 AST 22 ALT 18 Alkaline Phosphatase 54 Total Protein 8.1 H Albumin 4.7 Urine Color Dark Yellow Urine Appearance Cloudy Urine pH 6.0 Ur Specific [place] 1.025 Urine Protein 100 (2+) H Urine Glucose (UA) Negative Urine Ketones Negative Urine Blood Large (3+) H Urine Nitrite Negative Ur Leukocyte Esterase Trace H Urine RBC >20 H Urine WBC 0-5 Ur Squamous Epith Cells 0-2 Urine Bacteria None Seen Hyaline Casts 0-2 Salicylates < 5.0 L Urine Opiates Screen POSITIVE H Ur Buprenorphine Scrn Not Detected Ur Oxycodone Screen Not Detected Urine Methadone Screen Positive H Urine Fentanyl Screen POSITIVE H Acetaminophen < 3 Ur Barbiturates Screen Not Detected Valproic Acid 53.5 Ur Phencyclidine Scrn Not Detected Ur Amphetamines Screen Not Detected U Benzodiazepines Scrn Not Detected Urine Cocaine Screen POSITIVE H U Marijuana (THC) Screen POSITIVE H Ethyl Alcohol < 10 Influenza Type A (PCR) NEGATIVE Influenza Type B (PCR) NEGATIVE RSV RNA Qual (PCR) NEGATIVE SARS-CoV-2 RNA (RT-PCR) NEGATIVE Medications Medications Current Medications Acetaminophen (Acetaminophen 325 Mg Tablet) 650 mg PO Q6H PRN PRN Reason: Headache/Pain Mild Scale (1-3) Last Admin: 05/01/24 08:36 Dose: 650 mg Al Hydroxide/Mg Hydroxide (Magnesium Hydrox/Alum Hydrox 30 Ml Oral.Susp) 30 ml PO Q6H PRN PRN Reason: Heartburn/Nausea Benzocaine (Throat Lozenge, Medicated Lozenge) 1 lozenge MUCOUS MEM Q2H PRN PRN Reason: Sore Throat Last Admin: 04/30/24 20:47 Dose: 1 lozenge Chlorpromazine HCl (Chlorpromazine Hcl 100 Mg Tablet) 100 mg PO BEDTIME [facility] Last Admin: 04/30/24 20:47 Dose: 100 mg Divalproex Sodium (Divalproex Sodium 500 Mg Tablet.Dr) 500 mg PO BID [facility] Last Admin: 05/01/24 08:20 Dose: 500 mg Fluoxetine HCl (Fluoxetine Hcl 20 Mg Capsule) 20 mg PO DAILY [facility] Last Admin: 05/01/24 08:20 Dose: 20 mg Hydroxyzine HCl (Hydroxyzine Hcl 25 Mg Tablet) 25 mg PO Q6H PRN PRN Reason: mild anxiety Last Admin: 05/01/24 08:53 Dose: 25 mg Magnesium Hydroxide (Milk Of Magnesia 30 Ml Oral.Susp) 30 ml PO DAILY PRN PRN Reason: Constipation Methadone HCl (Methadone Hcl 20 Mg/2 Ml Oral.Conc) 85 mg PO DAILY [facility] Last Admin: 05/01/24 07:44 Dose: 85 mg Nicotine (Nicotine 21 Mg Patch.Td24) 21 mg TRANSDERMA DAILY PRN PRN Reason: smoking cessation Last Admin: 05/01/24 08:19 Dose: 21 mg Nicotine Polacrilex (Nicotine Polacrilex 2 Mg Gum) 4 mg BUCCAL Q2H PRN PRN Reason: Nicotine Cravings Last Admin: 05/01/24 10:55 Dose: 4 mg Olanzapine (Olanzapine 5 Mg Tablet) 5 mg PO BID [facility] Last Admin: 05/01/24 08:20 Dose: 5 mg Olanzapine (Olanzapine 5 Mg Tablet) 5 mg PO Q4H PRN PRN Reason: agitation Last Admin: 05/01/24 10:24 Dose: 5 mg Prazosin HCl (Prazosin Hcl 1 Mg Capsule) 1 mg PO BEDTIME [facility]; Protocol Last Admin: 04/30/24 20:48 Dose: 1 mg Topiramate (Topiramate 25 Mg Tablet) 50 mg PO BID@0800,2000 [facility] Last Admin: 05/01/24 08:20 Dose: 50 mg Trazodone HCl (Trazodone Hcl 50 Mg Tablet) 50 mg PO BEDTIME MRX1 PRN PRN Reason: Insomnia Last Admin: 04/30/24 20:47 Dose: 50 mg Allergies Allergies Allergy/AdvReac Type Severity Reaction Status Date / Time No Known Allergies Allergy Verified 04/29/24 13:10 [No Known Allergies*] Assessment & Plan Assessment & Plan (1) Opioid use disorder, severe, dependence: Status: Acute Code(s): F11.20 - Opioid dependence, uncomplicated (2) Bipolar disorder, curr episode depressed, severe, w/psychotic features: Status: Acute Code(s): F31.5 - Bipolar disorder, current episode depressed, severe, with psychotic features Plan 34-year-old male with history of bipolar disorder with psychosis and substance use disorder. Presents with psychosocial stressors along with recently lowering methadone very quickly which contributed to cravings and relapse. Also noted mood disturbance despite adherence with medications with more depression, irritability, suicidal thoughts and command hallucinations. Overall will restart olanzapine 5 mg twice daily and as needed every 4 hours increase Prozac to 20 mg, maintain Depakote dosing get a level in the morning. Will increase methadone from 75 mg at 85 mg. Signed conditional voluntary. 05/01: Methadone increased to 95 mg. Addiction consult services review pending. Will increase hydroxyzine as needed dosing to 50 mg. Depakote level 53 and will increase total daily dose from 1000 mg to 1500 mg Reason for continued inpatient stay Substantial Risk for: harm to self Time Spent With Patient Time: Total time managing care of this patient today ____ minutes.
[2024-05-01] MEDS: Throat Lozenge, Medicated LOZENGE 1 LOZENGE MUCOUS MEM (12:41)
[2024-05-01] MEDS: methADONE HCl 20 MG/2 ML ORAL.CONC 10 MG PO (12:54)
[2024-05-01 20:00] VITALS: BP 158/77; PULSE 93; TEMP 36.9; O2SAT 99
[2024-05-01] MEDS: Divalproex Sodium 250 MG TABLET.DR 750 MG PO (21:40)
[2024-05-01] MEDS: chlorproMAZINE HCl 100 MG TABLET PO (21:41)
[2024-05-01 21:42] VITALS: BP 158/77
[2024-05-01] MEDS: Prazosin HCL 1 MG CAPSULE PO (21:42)
[2024-05-02] MEDS: Nicotine Polacrilex 2 MG GUM 4 MG BUCCAL ×6 (07:18→21:10)
[2024-05-02] MEDS: methADONE HCl 20 MG/2 ML ORAL.CONC 95 MG PO (07:29)
[2024-05-02 07:43] VITALS: BP 116/80; PULSE 117; RESP 18; TEMP 36.4; O2SAT 99
[2024-05-02] MEDS: OLANZapine 5 MG TABLET PO ×2 (08:10→12:24)
[2024-05-02] MEDS: Divalproex Sodium 250 MG TABLET.DR 750 MG PO ×2 (08:10→21:03)
[2024-05-02] MEDS: FLUoxetine HCl 20 MG CAPSULE PO (08:10)
[2024-05-02] MEDS: Topiramate 25 MG TABLET 50 MG PO ×2 (08:10→21:07)
[2024-05-02] MEDS: Nicotine 21 MG PATCH.TD24 TRANSDERMA (08:14)
[2024-05-02] MEDS: Throat Lozenge, Medicated LOZENGE 1 LOZENGE MUCOUS MEM (08:51)
[2024-05-02] MEDS: hydrOXYzine HCL 50 MG TABLET PO ×2 (09:19→16:21)
--- NOTE | 2024-05-02 09:51 | HO.PSYCHPN ---
Subjective Subjective Date of Service: 05/02/24 Reason For Visit: Psychosis Interim History: Met with patient; discussed with team Patient says that AH is better however it always comes back when he ends up fighting with his girlfriend. He says that when he gets angry and riled up AH returns and affects him. Agrees to increase Zyprexa at bedtime dose to 10 mg. Also agrees to try clonidine to see if that can help with calming him down during girlfriend arguments. Since increasing Zyprexa agrees to make Thorazine a p.r.n. Otherwise denies any SI or HI; denies AVH. Mental Status Exam Mental Status Exam Narrative: Pt is alert and oriented; behavior is cooperative, friendly and calm; patient is not in distress; dressed in casual attire with unkempt hair but adequate hygiene; mood is described as ok and affect congruent, somewhat constricted; eye contact appropriate; Speech is normal rate, volume and prosody and not pressured; no psychomotor agitation/retardation present; thought process is organized and goal directed; Thought content is on tx; otherwise pertinent to relevant topics and without any delusional content, paranoid ideations or grandiosity; denies any SI/HI. Denies AVH and there is no evidence of perceptual disturbance. Patients insight and judgment fair Diagnostics Vital Signs (24Hr): Vital Signs - 24 hr 05/01/24 20:00 05/01/24 21:42 05/02/24 07:43 Temperature 98.4 F 97.6 F Pulse Rate 93 117 H Respiratory Rate 18 Blood Pressure 158/77 H 158/77 H 116/80 Pulse Oximetry 99 99 Oxygen Delivery Method Room Air Room Air BMI result Body Mass Index 27.4 Labs 04/29/24 14:13 04/29/24 14:13 Labs: Laboratory Results - last 48 hr 05/01/24 08:11 Valproic Acid 53.5 Medications Medications Current Medications Acetaminophen (Acetaminophen 325 Mg Tablet) 650 mg PO Q6H PRN PRN Reason: Headache/Pain Mild Scale (1-3) Last Admin: 05/01/24 08:36 Dose: 650 mg Al Hydroxide/Mg Hydroxide (Magnesium Hydrox/Alum Hydrox 30 Ml Oral.Susp) 30 ml PO Q6H PRN PRN Reason: Heartburn/Nausea Benzocaine (Throat Lozenge, Medicated Lozenge) 1 lozenge MUCOUS MEM Q2H PRN PRN Reason: Sore Throat Last Admin: 05/02/24 08:51 Dose: 1 lozenge Chlorpromazine HCl (Chlorpromazine Hcl 100 Mg Tablet) 100 mg PO BEDTIME [facility] Last Admin: 05/01/24 21:41 Dose: 100 mg Divalproex Sodium (Divalproex Sodium 250 Mg Tablet.Dr) 750 mg PO BID [facility] Last Admin: 05/02/24 08:10 Dose: 750 mg Fluoxetine HCl (Fluoxetine Hcl 20 Mg Capsule) 20 mg PO DAILY [facility] Last Admin: 05/02/24 08:10 Dose: 20 mg Hydroxyzine HCl (Hydroxyzine Hcl 50 Mg Tablet) 50 mg PO Q6H PRN PRN Reason: mild anxiety Last Admin: 05/02/24 09:19 Dose: 50 mg Magnesium Hydroxide (Milk Of Magnesia 30 Ml Oral.Susp) 30 ml PO DAILY PRN PRN Reason: Constipation Methadone HCl (Methadone Hcl 20 Mg/2 Ml Oral.Conc) 95 mg PO DAILY [facility] Last Admin: 05/02/24 07:29 Dose: 95 mg Nicotine (Nicotine 21 Mg Patch.Td24) 21 mg TRANSDERMA DAILY PRN PRN Reason: smoking cessation Last Admin: 05/02/24 08:14 Dose: 21 mg Nicotine Polacrilex (Nicotine Polacrilex 2 Mg Gum) 4 mg BUCCAL Q2H PRN PRN Reason: Nicotine Cravings Last Admin: 05/02/24 09:19 Dose: 4 mg Olanzapine (Olanzapine 5 Mg Tablet) 5 mg PO BID [facility] Last Admin: 05/02/24 08:10 Dose: 5 mg Olanzapine (Olanzapine 5 Mg Tablet) 5 mg PO Q4H PRN PRN Reason: agitation Last Admin: 05/01/24 10:24 Dose: 5 mg Prazosin HCl (Prazosin Hcl 1 Mg Capsule) 1 mg PO BEDTIME [facility]; Protocol Last Admin: 05/01/24 21:42 Dose: 1 mg Topiramate (Topiramate 25 Mg Tablet) 50 mg PO BID@0800,1999 [facility] Last Admin: 05/02/24 08:10 Dose: 50 mg Trazodone HCl (Trazodone Hcl 50 Mg Tablet) 50 mg PO BEDTIME MRX1 PRN PRN Reason: Insomnia Last Admin: 04/30/24 20:47 Dose: 50 mg Allergies Allergies Allergy/AdvReac Type Severity Reaction Status Date / Time No Known Allergies Allergy Verified 04/29/24 13:10 [No Known Allergies*] Assessment & Plan Assessment & Plan (1) Opioid use disorder, severe, dependence: Status: Acute Code(s): F11.20 - Opioid dependence, uncomplicated (2) Bipolar disorder, curr episode depressed, severe, w/psychotic features: Status: Acute Code(s): F31.5 - Bipolar disorder, current episode depressed, severe, with psychotic features Plan 34-year-old male with history of bipolar disorder with psychosis and substance use disorder. Presents with psychosocial stressors along with recently lowering methadone very quickly which contributed to cravings and relapse. Also noted mood disturbance despite adherence with medications with more depression, irritability, suicidal thoughts and command hallucinations. Overall will restart olanzapine 5 mg twice daily and as needed every 4 hours increase Prozac to 20 mg, maintain Depakote dosing get a level in the morning. Will increase methadone from 75 mg at 85 mg. Signed conditional voluntary. 05/01: Methadone increased to 95 mg. Addiction consult services review pending. Will increase hydroxyzine as needed dosing to 50 mg. Depakote level 53 and will increase total daily dose from 1000 mg to 1500 mg 05/02 Patient says that AH is better however it always comes back when he ends up fighting with his girlfriend. He says that when he gets angry and riled up AH returns and affects him. Agrees to increase Zyprexa at bedtime dose to 10 mg. Also agrees to try clonidine to see if that can help with calming him down during girlfriend arguments. Since increasing Zyprexa agrees to make Thorazine a p.r.n. Otherwise denies any SI or HI; denies AVH. -order Depakote level Patient educated on: diagnosis, medication risk/benefits and therapeutic strategies Informed Consent: understands Reason for continued inpatient stay Substantial Risk for: rapid decompensation Time Spent With Patient Time: Total time managing care of this patient today ____ minutes.
[2024-05-02 21:00] VITALS: BP 133/74; PULSE 94; TEMP 36.4; O2SAT 99
[2024-05-02 21:07] VITALS: BP 133/74
[2024-05-02] MEDS: Prazosin HCL 1 MG CAPSULE PO (21:07)
[2024-05-02] MEDS: OLANZapine 10 MG TABLET PO (21:07)
[2024-05-03] MEDS: Nicotine Polacrilex 2 MG GUM 4 MG BUCCAL ×6 (05:28→20:14)
[2024-05-03] MEDS: methADONE HCl 20 MG/2 ML ORAL.CONC 95 MG PO (07:41)
[2024-05-03 08:00] VITALS: BP 127/78; PULSE 106; RESP 18; TEMP 36.6; O2SAT 98
[2024-05-03] MEDS: FLUoxetine HCl 20 MG CAPSULE PO (08:10)
[2024-05-03] MEDS: OLANZapine 5 MG TABLET PO ×3 (08:11→16:53)
[2024-05-03] MEDS: Topiramate 25 MG TABLET 50 MG PO ×2 (08:11→21:49)
[2024-05-03] MEDS: Nicotine 21 MG PATCH.TD24 TRANSDERMA (08:11)
[2024-05-03] MEDS: Divalproex Sodium 250 MG TABLET.DR 750 MG PO ×2 (08:11→21:49)
[2024-05-03] MEDS: hydrOXYzine HCL 50 MG TABLET PO ×3 (08:11→21:51)
--- NOTE | 2024-05-03 09:44 | HO.PSYCHPN ---
Subjective Subjective Date of Service: 05/03/24 Reason For Visit: Psychosis Interim History: met with patient; discussed with team pt remains feeling irritable and says he's still feeling prone to getting angry. Today, patient got angry, aggressive toward an intrusive peer who is manic. Pt says regarding this peer we were in group and he kept disrupting group..he kept disrupting...and i'm trying to learn in group...so i told him to stop but he kept disrupting... he says he started getting angry and voice said to throw something at him which patient did, throwing a water container at patient, hitting him in torso...pt still angry but was able to be re-directed (and team determined that peer was not appropriate for groups)...Later, charge nurse reported to flex o writer operator that this same peer was taunting Patient, and gave him the middle finger which sent patient into a rage, went after patient, banging on door behind which patient was hiding (peer later told staff he specifically taunted this patient since staff would protect him from harm should patient come after him...). Security called and patient was redirectable, though took some time for him to calm down. Pt explained this to flex o writer operator and agreed that even if he feels he's being messed with that he has to remain in good behavioral control. Pt said this is also his problem in the community and said he knows he has to learn to be in better control. To that end he said Zyprexa does not seem to help much. Flavor Tank Tender discussed options and pt said his outpt provider considered a switch to Risperdal and flex o writer operator agreed to try it while on the unit. started on risperdal; if helps, will consider this as treatment in place of zyprexa increased Methadone Mental Status Exam Mental Status Exam Narrative: Pt is alert and oriented; behavior today, with increased irritability and aggression toward select peer; otherwise is mostly cooperative, friendly and calm; patient is not in distress; dressed in casual attire with unkempt hair, scruffy, but adequate hygiene; mood is described as irritable and affect congruent, more constricted; eye contact appropriate; Speech is normal rate, volume and prosody and not pressured; intermittent psychomotor agitation present; thought process is organized and goal directed; Thought content is on anger issues, intrusive peer, tx; otherwise pertinent to relevant topics and without any delusional content, paranoid ideations or grandiosity; denies any SI/HI. intermittent AH that seems to be more mood congruent; Patients insight and judgment impaired, but overall adequate. Diagnostics Vital Signs (24Hr): Vital Signs - 24 hr 05/02/24 21:00 05/02/24 21:07 05/03/24 08:00 Temperature 97.5 F 97.9 F Pulse Rate 94 106 H Respiratory Rate 18 Blood Pressure 133/74 133/74 127/78 Pulse Oximetry 99 98 Oxygen Delivery Method Room Air Room Air BMI result Body Mass Index 27.4 Labs 04/29/24 14:13 04/29/24 14:13 Labs: Laboratory Results - last 48 hr 04/29/24 14:13 WBC 9.6 RBC 3.78 L Hgb 11.7 L Hct 33.8 L MCV 89.4 MCH 31.0 MCHC 34.6 RDW 14.8 Plt Count 224 MPV 9.5 Immature Gran % (Auto) 0.3 Neut % (Auto) 69.1 Lymph % (Auto) 21.7 [place] % (Auto) 8.4 Eos % (Auto) 0.2 Baso % (Auto) 0.3 Lymph # (Auto) 2.1 [place] # (Auto) 0.8 Eos # (Auto) 0.0 Baso # (Auto) 0.0 Abs Immat Gran (auto) 0.03 Absolute Neuts (auto) 6.6 Absolute Nucleated RBC 0.000 Nucleated RBC % (auto) 0.0 Sodium 140 Potassium 3.4 Chloride 106 Carbon Dioxide 23 Anion Gap 14 BUN 14 Creatinine 0.69 Estim Creat Clear Calc 143.1 Estimated GFR > 60 Random Glucose 104 Calcium 9.6 Magnesium 2.3 Total Bilirubin 0.5 AST 22 ALT 18 Alkaline Phosphatase 54 Total Protein 8.1 H Albumin 4.7 Urine Color Dark Yellow Urine Appearance Cloudy Urine pH 6.0 Ur Specific [place] 1.025 Urine Protein 100 (2+) H Urine Glucose (UA) Negative Urine Ketones Negative Urine Blood Large (3+) H Urine Nitrite Negative Ur Leukocyte Esterase Trace H Urine RBC >20 H Urine WBC 0-5 Ur Squamous Epith Cells 0-2 Urine Bacteria None Seen Hyaline Casts 0-2 Salicylates < 5.0 L Urine Opiates Screen POSITIVE H Ur Buprenorphine Scrn Not Detected Ur Oxycodone Screen Not Detected Urine Methadone Screen Positive H Urine Fentanyl Screen POSITIVE H Acetaminophen < 3 Ur Barbiturates Screen Not Detected Ur Phencyclidine Scrn Not Detected Ur Amphetamines Screen Not Detected U Benzodiazepines Scrn Not Detected Urine Cocaine Screen POSITIVE H U Marijuana (THC) Screen POSITIVE H Ethyl Alcohol < 10 Influenza Type A (PCR) NEGATIVE Influenza Type B (PCR) NEGATIVE RSV RNA Qual (PCR) NEGATIVE SARS-CoV-2 RNA (RT-PCR) NEGATIVE Medications Medications Current Medications Acetaminophen (Acetaminophen 325 Mg Tablet) 650 mg PO Q6H PRN PRN Reason: Headache/Pain Mild Scale (1-3) Last Admin: 05/01/24 08:36 Dose: 650 mg Al Hydroxide/Mg Hydroxide (Magnesium Hydrox/Alum Hydrox 30 Ml Oral.Susp) 30 ml PO Q6H PRN PRN Reason: Heartburn/Nausea Benzocaine (Throat Lozenge, Medicated Lozenge) 1 lozenge MUCOUS MEM Q2H PRN PRN Reason: Sore Throat Last Admin: 05/02/24 08:51 Dose: 1 lozenge Chlorpromazine HCl (Chlorpromazine Hcl 100 Mg Tablet) 100 mg PO BEDTIME PRN PRN Reason: sleep/restless Clonidine HCl (Clonidine Hcl 0.1 Mg Tablet) 0.1 mg PO Q4H PRN; Protocol PRN Reason: moderate anxiety Divalproex Sodium (Divalproex Sodium 250 Mg Tablet.Dr) 750 mg PO BID [facility] Last Admin: 05/03/24 08:11 Dose: 750 mg Fluoxetine HCl (Fluoxetine Hcl 20 Mg Capsule) 20 mg PO DAILY [facility] Last Admin: 05/03/24 08:10 Dose: 20 mg Hydroxyzine HCl (Hydroxyzine Hcl 50 Mg Tablet) 50 mg PO Q6H PRN PRN Reason: mild anxiety Last Admin: 05/03/24 08:11 Dose: 50 mg Magnesium Hydroxide (Milk Of Magnesia 30 Ml Oral.Susp) 30 ml PO DAILY PRN PRN Reason: Constipation Methadone HCl (Methadone Hcl 20 Mg/2 Ml Oral.Conc) 95 mg PO DAILY [facility] Last Admin: 05/03/24 07:41 Dose: 95 mg Nicotine (Nicotine 21 Mg Patch.Td24) 21 mg TRANSDERMA DAILY PRN PRN Reason: smoking cessation Last Admin: 05/03/24 08:11 Dose: 21 mg Nicotine Polacrilex (Nicotine Polacrilex 2 Mg Gum) 4 mg BUCCAL Q2H PRN PRN Reason: Nicotine Cravings Last Admin: 05/03/24 09:05 Dose: 4 mg Olanzapine (Olanzapine 5 Mg Tablet) 5 mg PO Q4H PRN PRN Reason: agitation Last Admin: 05/02/24 12:24 Dose: 5 mg Olanzapine (Olanzapine 5 Mg Tablet) 5 mg PO DAILY [facility] Last Admin: 05/03/24 08:11 Dose: 5 mg Olanzapine (Olanzapine 10 Mg Tablet) 10 mg PO BEDTIME [facility] Last Admin: 05/02/24 21:07 Dose: 10 mg Prazosin HCl (Prazosin Hcl 1 Mg Capsule) 1 mg PO BEDTIME [facility]; Protocol Last Admin: 05/02/24 21:07 Dose: 1 mg Topiramate (Topiramate 25 Mg Tablet) 50 mg PO BID@0800,1999 [facility] Last Admin: 05/03/24 08:11 Dose: 50 mg Trazodone HCl (Trazodone Hcl 50 Mg Tablet) 50 mg PO BEDTIME MRX1 PRN PRN Reason: Insomnia Last Admin: 04/30/24 20:47 Dose: 50 mg Allergies Allergies Allergy/AdvReac Type Severity Reaction Status Date / Time No Known Allergies Allergy Verified 04/29/24 13:10 [No Known Allergies*] Assessment & Plan Assessment & Plan (1) Bipolar disorder, curr episode depressed, severe, w/psychotic features: Status: Acute Code(s): F31.5 - Bipolar disorder, current episode depressed, severe, with psychotic features (2) Opioid use disorder, severe, dependence: Status: Acute Code(s): F11.20 - Opioid dependence, uncomplicated Plan 34-year-old male with history of bipolar disorder with psychosis and substance use disorder. Presents with psychosocial stressors along with recently lowering methadone very quickly which contributed to cravings and relapse. Also noted mood disturbance despite adherence with medications with more depression, irritability, suicidal thoughts and command hallucinations. Overall will restart olanzapine 5 mg twice daily and as needed every 4 hours increase Prozac to 20 mg, maintain Depakote dosing get a level in the morning. Will increase methadone from 75 mg at 85 mg. Signed conditional voluntary. 05/01: Methadone increased to 95 mg. Addiction consult services review pending. Will increase hydroxyzine as needed dosing to 50 mg. Depakote level 53 and will increase total daily dose from 1000 mg to 1500 mg 05/02 Patient says that AH is better however it always comes back when he ends up fighting with his girlfriend. He says that when he gets angry and riled up AH returns and affects him. Agrees to increase Zyprexa at bedtime dose to 10 mg. Also agrees to try clonidine to see if that can help with calming him down during girlfriend arguments. Since increasing Zyprexa agrees to make Thorazine a p.r.n. Otherwise denies any SI or HI; denies AVH. -order Depakote level Discussed substance abuse treatment: pt asking for titration of Methadone to help him remain stable in community; otherwise, he declines additional help with services/programs regarding substance abuse tx. 05/03 pt remains feeling irritable and says he's still feeling prone to getting angry. Incident: Today, patient got angry, aggressive toward an intrusive peer who is manic. Pt says regarding this peer we were in group and he kept disrupting group..he kept disrupting...and i'm trying to learn in group...so i told him to stop but he kept disrupting... he says he started getting angry and voice said to throw something at him which patient did, throwing a water container at patient, hitting him in torso...pt still angry but was able to be re-directed (and team determined that peer was not appropriate for groups)...Later, charge nurse reported to flex o writer operator that this same peer was taunting Patient, and gave him the middle finger which sent patient into a rage, went after patient, banging on door behind which patient was hiding (peer later told staff he specifically taunted this patient since staff would protect him from harm should patient come after him...). Security called and patient was redirectable, though took some time for him to calm down. Pt explained this to flex o writer operator and agreed that even if he feels he's being messed with that he has to remain in good behavioral control. Pt said this is also his problem in the community and said he knows he has to learn to be in better control which he wants. -To that end he said Zyprexa does not seem to help much. -Flavor Tank Tender discussed options and pt said his outpt provider considered a switch to Risperdal and flex o writer operator agreed to try it while on the unit. impression: pt typically in behavioral and impulse control over past several admissions and first time this flex o writer operator has seen pt be aggressive on unit. In this situation, pt was only aggressive toward this one individual peer (who is manic, intrusive and was antagonistic) and otherwise, appropriate with peers and staff. If patient can remain in behavioral control, he should remain on unit for continued med management (agitation likely due to combo of chronically low frustration tolerance, intrusive peer, AH? and med management) -regarding dx: not sure if bipolar, schizoaffective...or if AH mood congruent (and separate from manic/depression); will leave as is for now Med Plan: -will start him on low dose Risperdal; if helps will consider this as treatment in place of zyprexa -continue zyprexa for now (was increased from 5mg bId during this admission to 5mg AM and 10mg qhs but no obvious benefit yet) -changed Thorazine qhs to PRN, since raised bedtime Zyprexa -Continue depakote 750mg bID; ordered depakote level (pt prefers divided dosing) -increased Methadone for continued cravings Patient educated on: diagnosis, medication risk/benefits, substance abuse and therapeutic strategies Informed Consent: understands Reason for continued inpatient stay Substantial Risk for: rapid decompensation Time Spent With Patient Time: Total time managing care of this patient today ____ minutes.
[2024-05-03] MEDS: methADONE HCl 20 MG/2 ML ORAL.CONC 5 MG PO (15:08)
[2024-05-03] MEDS: risperiDONE 1 MG TABLET PO ×2 (18:07→21:50)
[2024-05-03 20:00] VITALS: BP 145/79; PULSE 104; RESP 16; TEMP 36.6; O2SAT 98
[2024-05-03] MEDS: OLANZapine 10 MG TABLET PO (21:49)
[2024-05-03 21:50] VITALS: BP 145/79
[2024-05-03] MEDS: Prazosin HCL 1 MG CAPSULE PO (21:50)
[2024-05-03] MEDS: chlorproMAZINE HCl 100 MG TABLET PO (21:50)
[2024-05-03] MEDS: risperiDONE 0.5 MG TABLET PO (21:51)
[2024-05-04] MEDS: methADONE HCl 20 MG/2 ML ORAL.CONC 95 MG PO (07:46)
[2024-05-04 08:00] VITALS: BP 129/89; PULSE 122; RESP 18; TEMP 36.4; O2SAT 99
[2024-05-04 08:24] LABS: Valproate 75.1 mcg/mL (50.0-100.0)
[2024-05-04] MEDS: FLUoxetine HCl 20 MG CAPSULE PO (08:28)
[2024-05-04] MEDS: Divalproex Sodium 250 MG TABLET.DR 750 MG PO ×2 (08:28→20:57)
[2024-05-04] MEDS: Topiramate 25 MG TABLET 50 MG PO ×2 (08:29→20:57)
[2024-05-04] MEDS: risperiDONE 1 MG TABLET PO ×3 (08:29→20:57)
[2024-05-04] MEDS: risperiDONE 0.5 MG TABLET PO ×2 (08:29→12:47)
[2024-05-04] MEDS: OLANZapine 5 MG TABLET PO (08:29)
[2024-05-04] MEDS: Nicotine Polacrilex 2 MG GUM 4 MG BUCCAL ×5 (12:47→20:57)
--- NOTE | 2024-05-04 13:42 | HO.PSYCHPN ---
Subjective Subjective Date of Service: 05/04/24 Reason For Visit: Psychosis Subjective Notes: Conditional Voluntary Interim History: Active on unit, social with peers. attending groups. Patient reports feeling good today; He reports sleeping well last night. Discussed his plan to follow up with his outpatient providers; states he has an appointment on Thursday. denies SI/HI/VH/AH. Valproic acid level 75.1 on 05/04/24. Plan to discharge home tomorrow. Medication Compliance: Yes Side effects from medications: No Attending Groups: Yes Mental Status Exam Mental Status Exam Narrative: Pt is alert and oriented; behavior is cooperative, calm; dressed in casual attire; mood is described as good ; eye contact appropriate; Speech is normal rate, volume and not pressured; thought process is organized; Thought content is on tx and discharge; denies SI/HI/VH/AH. Diagnostics Vital Signs (24Hr): Vital Signs - 24 hr 05/03/24 20:00 05/03/24 21:50 05/04/24 08:00 Temperature 97.9 F 97.5 F Pulse Rate 104 H 122 H Respiratory Rate 16 18 Blood Pressure 145/79 H 145/79 H 129/89 Pulse Oximetry 98 99 Oxygen Delivery Method Room Air Room Air BMI result Body Mass Index 27.4 Labs 04/29/24 14:13 04/29/24 14:13 Labs: Laboratory Results - last 48 hr 04/29/24 05/04/24 14:13 07:46 WBC 9.6 RBC 3.78 L Hgb 11.7 L Hct 33.8 L MCV 89.4 MCH 31.0 MCHC 34.6 RDW 14.8 Plt Count 224 MPV 9.5 Immature Gran % (Auto) 0.3 Neut % (Auto) 69.1 Lymph % (Auto) 21.7 [place] % (Auto) 8.4 Eos % (Auto) 0.2 Baso % (Auto) 0.3 Lymph # (Auto) 2.1 [place] # (Auto) 0.8 Eos # (Auto) 0.0 Baso # (Auto) 0.0 Abs Immat Gran (auto) 0.03 Absolute Neuts (auto) 6.6 Absolute Nucleated RBC 0.000 Nucleated RBC % (auto) 0.0 Sodium 140 Potassium 3.4 Chloride 106 Carbon Dioxide 23 Anion Gap 14 BUN 14 Creatinine 0.69 Estim Creat Clear Calc 143.1 Estimated GFR > 60 Random Glucose 104 Calcium 9.6 Magnesium 2.3 Total Bilirubin 0.5 AST 22 ALT 18 Alkaline Phosphatase 54 Total Protein 8.1 H Albumin 4.7 Urine Color Dark Yellow Urine Appearance Cloudy Urine pH 6.0 Ur Specific [place] 1.025 Urine Protein 100 (2+) H Urine Glucose (UA) Negative Urine Ketones Negative Urine Blood Large (3+) H Urine Nitrite Negative Ur Leukocyte Esterase Trace H Urine RBC >20 H Urine WBC 0-5 Ur Squamous Epith Cells 0-2 Urine Bacteria None Seen Hyaline Casts 0-2 Salicylates < 5.0 L Urine Opiates Screen POSITIVE H Ur Buprenorphine Scrn Not Detected Ur Oxycodone Screen Not Detected Urine Methadone Screen Positive H Urine Fentanyl Screen POSITIVE H Acetaminophen < 3 Ur Barbiturates Screen Not Detected Valproic Acid 75.1 Ur Phencyclidine Scrn Not Detected Ur Amphetamines Screen Not Detected U Benzodiazepines Scrn Not Detected Urine Cocaine Screen POSITIVE H U Marijuana (THC) Screen POSITIVE H Ethyl Alcohol < 10 Influenza Type A (PCR) NEGATIVE Influenza Type B (PCR) NEGATIVE RSV RNA Qual (PCR) NEGATIVE SARS-CoV-2 RNA (RT-PCR) NEGATIVE Medications Medications Current Medications Acetaminophen (Acetaminophen 325 Mg Tablet) 650 mg PO Q6H PRN PRN Reason: Headache/Pain Mild Scale (1-3) Last Admin: 05/01/24 08:36 Dose: 650 mg Al Hydroxide/Mg Hydroxide (Magnesium Hydrox/Alum Hydrox 30 Ml Oral.Susp) 30 ml PO Q6H PRN PRN Reason: Heartburn/Nausea Benzocaine (Throat Lozenge, Medicated Lozenge) 1 lozenge MUCOUS MEM Q2H PRN PRN Reason: Sore Throat Last Admin: 05/02/24 08:51 Dose: 1 lozenge Chlorpromazine HCl (Chlorpromazine Hcl 100 Mg Tablet) 100 mg PO BEDTIME PRN PRN Reason: sleep/restless Last Admin: 05/03/24 21:50 Dose: 100 mg Divalproex Sodium (Divalproex Sodium 250 Mg Tablet.Dr) 750 mg PO BID [facility] Last Admin: 05/04/24 08:28 Dose: 750 mg Fluoxetine HCl (Fluoxetine Hcl 20 Mg Capsule) 20 mg PO DAILY [facility] Last Admin: 05/04/24 08:28 Dose: 20 mg Hydroxyzine HCl (Hydroxyzine Hcl 50 Mg Tablet) 50 mg PO Q6H PRN PRN Reason: mild anxiety Last Admin: 05/03/24 21:51 Dose: 50 mg Magnesium Hydroxide (Milk Of Magnesia 30 Ml Oral.Susp) 30 ml PO DAILY PRN PRN Reason: Constipation Methadone HCl (Methadone Hcl 20 Mg/2 Ml Oral.Conc) 100 mg PO DAILY [facility] Nicotine (Nicotine 21 Mg Patch.Td24) 21 mg TRANSDERMA DAILY PRN PRN Reason: smoking cessation Last Admin: 05/03/24 08:11 Dose: 21 mg Nicotine Polacrilex (Nicotine Polacrilex 2 Mg Gum) 4 mg BUCCAL Q2H PRN PRN Reason: Nicotine Cravings Last Admin: 05/04/24 12:47 Dose: 4 mg Olanzapine (Olanzapine 5 Mg Tablet) 5 mg PO DAILY [facility] Last Admin: 05/04/24 08:29 Dose: 5 mg Olanzapine (Olanzapine 10 Mg Tablet) 10 mg PO BEDTIME [facility] Last Admin: 05/03/24 21:49 Dose: 10 mg Prazosin HCl (Prazosin Hcl 1 Mg Capsule) 1 mg PO BEDTIME [facility]; Protocol Last Admin: 05/03/24 21:50 Dose: 1 mg Risperidone (Risperidone 0.5 Mg Tablet) 0.5 mg PO TID PRN PRN Reason: mild irritablility/AH Last Admin: 05/04/24 12:47 Dose: 0.5 mg Risperidone (Risperidone 1 Mg Tablet) 1 mg PO TID [facility] Topiramate (Topiramate 25 Mg Tablet) 50 mg PO BID@0800,2000 [facility] Last Admin: 05/04/24 08:29 Dose: 50 mg Trazodone HCl (Trazodone Hcl 50 Mg Tablet) 50 mg PO BEDTIME MRX1 PRN PRN Reason: Insomnia Last Admin: 04/30/24 20:47 Dose: 50 mg Allergies Allergies Allergy/AdvReac Type Severity Reaction Status Date / Time No Known Allergies Allergy Verified 04/29/24 13:10 [No Known Allergies*] Assessment & Plan Assessment & Plan (1) Bipolar disorder, curr episode depressed, severe, w/psychotic features: Status: Acute Code(s): F31.5 - Bipolar disorder, current episode depressed, severe, with psychotic features (2) Opioid use disorder, severe, dependence: Status: Acute Code(s): F11.20 - Opioid dependence, uncomplicated Plan 34-year-old male with history of bipolar disorder with psychosis and substance use disorder. Presents with psychosocial stressors along with recently lowering methadone very quickly which contributed to cravings and relapse. Also noted mood disturbance despite adherence with medications with more depression, irritability, suicidal thoughts and command hallucinations. Overall will restart olanzapine 5 mg twice daily and as needed every 4 hours increase Prozac to 20 mg, maintain Depakote dosing get a level in the morning. Will increase methadone from 75 mg at 85 mg. Signed conditional voluntary. 05/01: Methadone increased to 95 mg. Addiction consult services review pending. Will increase hydroxyzine as needed dosing to 50 mg. Depakote level 53 and will increase total daily dose from 1000 mg to 1500 mg 05/02 Patient says that AH is better however it always comes back when he ends up fighting with his girlfriend. He says that when he gets angry and riled up AH returns and affects him. Agrees to increase Zyprexa at bedtime dose to 10 mg. Also agrees to try clonidine to see if that can help with calming him down during girlfriend arguments. Since increasing Zyprexa agrees to make Thorazine a p.r.n. Otherwise denies any SI or HI; denies AVH. -order Depakote level Discussed substance abuse treatment: pt asking for titration of Methadone to help him remain stable in community; otherwise, he declines additional help with services/programs regarding substance abuse tx. 05/03 pt remains feeling irritable and says he's still feeling prone to getting angry. Incident: Today, patient got angry, aggressive toward an intrusive peer who is manic. Pt says regarding this peer we were in group and he kept disrupting group..he kept disrupting...and i'm trying to learn in group...so i told him to stop but he kept disrupting... he says he started getting angry and voice said to throw something at him which patient did, throwing a water container at patient, hitting him in torso...pt still angry but was able to be re-directed (and team determined that peer was not appropriate for groups)...Later, charge nurse reported to mortgage underwriter that this same peer was taunting Patient, and gave him the middle finger which sent patient into a rage, went after patient, banging on door behind which patient was hiding (peer later told staff he specifically taunted this patient since staff would protect him from harm should patient come after him...). Security called and patient was redirectable, though took some time for him to calm down. Pt explained this to mortgage underwriter and agreed that even if he feels he's being messed with that he has to remain in good behavioral control. Pt said this is also his problem in the community and said he knows he has to learn to be in better control which he wants. -To that end he said Zyprexa does not seem to help much. -Machine Maintenance Supervisor discussed options and pt said his outpt provider considered a switch to Risperdal and mortgage underwriter agreed to try it while on the unit. impression: pt typically in behavioral and impulse control over past several admissions and first time this mortgage underwriter has seen pt be aggressive on unit. In this situation, pt was only aggressive toward this one individual peer (who is manic, intrusive and was antagonistic) and otherwise, appropriate with peers and staff. If patient can remain in behavioral control, he should remain on unit for continued med management (agitation likely due to combo of chronically low frustration tolerance, intrusive peer, AH? and med management) -regarding dx: not sure if bipolar, schizoaffective...or if AH mood congruent (and separate from manic/depression); will leave as is for now 05/04: Active on unit, social with peers. attending groups. Patient reports feeling good today; He reports sleeping well last night. Discussed his plan to follow up with his outpatient providers; states he has an appointment on Thursday. denies SI/HI/VH/AH. Valproic acid level 75.1 on 05/04/24. Plan to discharge home tomorrow. Med Plan: -will start him on low dose Risperdal; if helps will consider this as treatment in place of zyprexa -continue zyprexa for now (was increased from 5mg bId during this admission to 5mg AM and 10mg qhs but no obvious benefit yet) -changed Thorazine qhs to PRN, since raised bedtime Zyprexa -Continue depakote 750mg bID; ordered depakote level (pt prefers divided dosing) -increased Methadone for continued cravings Patient educated on: diagnosis and medication risk/benefits Reason for continued inpatient stay Substantial Risk for: stable for discharge Time Spent With Patient Time: Total time managing care of this patient today _20___ minutes.
[2024-05-04] MEDS: hydrOXYzine HCL 50 MG TABLET PO (14:00)
[2024-05-04 19:42] VITALS: BP 111/72; PULSE 120; RESP 16; TEMP 37.2; O2SAT 98
[2024-05-04] MEDS: Prazosin HCL 1 MG CAPSULE PO (20:57)
[2024-05-04] MEDS: chlorproMAZINE HCl 100 MG TABLET PO (20:57)
[2024-05-04] MEDS: OLANZapine 10 MG TABLET PO (20:57)
[2024-05-05] MEDS: methADONE HCl 20 MG/2 ML ORAL.CONC 100 MG PO (08:15)
[2024-05-05 08:34] VITALS: BP 108/53; PULSE 112; TEMP 36.8; O2SAT 96
[2024-05-05] MEDS: Topiramate 25 MG TABLET 50 MG PO (09:03)
[2024-05-05] MEDS: OLANZapine 5 MG TABLET PO (09:03)
[2024-05-05] MEDS: risperiDONE 1 MG TABLET PO (09:04)
[2024-05-05] MEDS: Naloxone HCl Nasal TAKE HOME 4 MG SPRAY 8 MG NOSTRILALT (09:04)
[2024-05-05] MEDS: Divalproex Sodium 250 MG TABLET.DR 750 MG PO (09:04)
[2024-05-05] MEDS: FLUoxetine HCl 20 MG CAPSULE PO (09:04)
[2024-05-05] MEDS: Nicotine Polacrilex 2 MG GUM 4 MG BUCCAL (09:08)
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
== END 2024-05-05 11:35 | disposition home or self-care (01) | DRG 885 ==
LOC: HO.ED 18:19 → HO.PM5 19:44
PROVIDERS: Physician Assistant Medical; Psychiatry & Neurology Psychiatry; Admitting Provider Psychiatry & Neurology Psychiatry; Emergency Provider Emergency Medicine Emergency Medical Services; PCP Internal Medicine; Visit Provider Psychiatry & Neurology Psychiatry
DX: F31.5 Bipolar disorder, current episode depressed, severe, with psychotic features (principal); F11.20 Opioid dependence, uncomplicated; R45.851 Suicidal ideations; F43.10 Post-traumatic stress disorder, unspecified; F17.210 Nicotine dependence, cigarettes, uncomplicated; Z71.6 Tobacco abuse counseling; Z20.822 Contact with and (suspected) exposure to COVID-19; Z79.899 Other long term (current) drug therapy
CPT/HCPCS: 0241U; 36415; 80053; 80143; 80164; 80179; 80307; 81001; 83735; 85025; 93005; 99285; S9485

== ENCOUNTER → 2024-04-29 15:07 | Outpatient (BNV) | payer MEDICARE, MEDICAID, SELFPAY | PROVIDERS: Admitting Provider Psychiatry & Neurology Psychiatry; Emergency Provider Emergency Medicine Emergency Medical Services; PCP Internal Medicine; Visit Provider Internal Medicine Cardiovascular Disease | DX: I49.9 Cardiac arrhythmia, unspecified (principal); R94.31 Abnormal electrocardiogram [ECG] [EKG] | CPT/HCPCS: 93010 ==

== ENCOUNTER → 2024-04-29 19:29 | Outpatient (BNV) | payer MEDICARE, MEDICAID, SELFPAY | PROVIDERS: Admitting Provider Psychiatry & Neurology Psychiatry; Emergency Provider Emergency Medicine Emergency Medical Services; PCP Internal Medicine; Visit Provider Psychiatry & Neurology Psychiatry | DX: F11.20 Opioid dependence, uncomplicated (principal); F31.5 Bipolar disorder, current episode depressed, severe, with psychotic features | CPT/HCPCS: 90792 ==

== ENCOUNTER 2024-07-15 07:08 | Inpatient (IN) | payer MEDICARE, MEDICAID, SELFPAY ==
--- NOTE | 2024-07-15 | ECG_ITS ---
Test Reason : COCAIN USE Blood Pressure : */* mmHG Vent. Rate : 71 BPM Atrial Rate : 71 BPM P-R Int : 122 ms QRS Dur : 96 ms QT Int : 420 ms P-R-T Axes : 69 70 27 degrees QTcB Int : 456 ms Normal sinus rhythm with sinus arrhythmia Minimal voltage criteria for LVH, may be normal variant ( Sokolow-Fried ) Borderline ECG When compared with ECG of 29-Apr-2024 15:10, Nonspecific T wave abnormality no longer evident in Anterolateral leads Referred By: Generic ED Physician Electronically Signed By: ARABELLA BARNHART
[2024-07-15 07:10] VITALS: BP 136/83; PULSE 81; RESP 20; TEMP 36.4; O2SAT 95; BMI 25.9
[2024-07-15 07:35] LABS: MANUAL DIFF FLAG NO
--- NOTE | 2024-07-15 07:36 | ED.PSYCH ---
HPI - Psych General Chief Complaint: Psychiatric Symptoms Stated Complaint: Crisis Time Seen by Provider: 07/15/24 07:19 Source: patient and old records reviewed Mode of arrival: ambulatory Limitations: no limitations History of Present Illness ED Provider: CRISTÓBAL COFFMAN Narrative: 34 yo male with PMH of bipolar, PTSD, cocaine use, opiate use, depression here with c/o SI and depression he is having AH telling him to harm himself. He did use multiple drugs yesterday and has been taking any pills on the street he can to overdose. He has hx of same in past. He has superficial abrasions to L upper arm with kitchen knife. He has not been on his medications for 1.5 months MD complaint: suicidal ideation and feels depressed Onset (ago): day(s) Duration: getting worse History of same: Yes Relieving factors: none Exacerbating factors: drug use Context: recent drug abuse and significant life stressor Associated psychiatric symptoms: depression, suicidal ideation and auditory hallucinations Associated symptoms: denies other symptoms Treatments prior to arrival: none If self harm: admits thoughts of self harm and self-inflicted trauma (superficial abrasions L upper arm lateral ) Related Data Home Medications ?Medication ?Instructions ?Recorded ?Confirmed methadone 10 mg/mL oral 80 mg PO DAILY 07/15/24 07/15/24 concentrate (Methadose) Allergies Allergy/AdvReac Type Severity Reaction Status Date / Time No Known Allergies Allergy Verified 07/15/24 07:14 [No Known Allergies*] Review of Systems Review of Systems: Constitutional : No Fever, No Chills ENT/Mouth : No Ear Pain, No Nasal Congestion, No sore throat Eyes: No Eye Pain, No Swelling, No Redness Cardiovascular : No Chest Pain, No SOB Respiratory : No Cough, No Sputum, No Dyspnea Gastrointestinal : No Nausea, No Vomiting, No Diarrhea, No Hematochezia, No Melena Genitourinary : No Dysuria, No Urinary Frequency, No Hematuria Musculoskeletal : No Myalgias Skin : No Skin Lesions, No rash Neuro : No Weakness, No Numbness, No Paresthesias, No Dizziness, No Headache Psych : positive Anxiety, positive Depression, positive SI no HI Heme/Lymph: No Lymphadenopathy Endocrine : No Polyuria, No Polydipsia All other systems reviewed and are negative PMFSH Past Medical History Attestation statement: The following information was validated with the patient. Source: old records reviewed Medical History Deliberate self-cutting Suicide ideation Auditory hallucination PTSD (post-traumatic stress disorder) Schizoaffective disorder, depressive type Suicidal ideation Severe recurrent major depression with psychotic features Opioid use disorder Social History Social History Household Members: None Household Members Other:: that he is homeless Housing: Apartment Do you presently have visiting nurse or other home services: No Unable to assess alcohol history related to: Refusing to respond Patient Tobacco Use Status: Current everyday Tobacco user Tobacco use type: Cigarette Cigarette Packs Per Day: 0.5 Cigarettes Per Day: 10.0 Years Smoked: 23 years Smoked in Last 30 Days: Yes e-Cigarette/Vaping Use: Former Use Patient Interested in Nicotine Replacement: Yes (patch, lozenge gum) Patient Given Instructions on How to Stop Smoking: Yes Date Education Initiated: 07/15/24 Second Hand Smoke Exposure: No Use of substances other than those prescribed or required for medical reasons: Yes Substance Use Type: Crack/Cocaine, Marijuana, Opiates and Painkillers Substance Use Type Other:: fentanyl Substance Use Frequency: Recent Binge Last Used Substance: Just Prior to Admission Currently Displaying Signs/Symptoms of Drug Intoxication Withdrawal: No Any prior treatment program specific to substance use: Yes Have you been hit, kicked, punched, or otherwise hurt by someone within the past year? If so, by whom?: No Do you feel safe in your current relationship?: No Current Relationship Is there a partner from a previous relationship who is making you feel unsafe now?: No Are you made to feel afraid or neglected: No Advance Directives: No Advance Directives Information Provided: Yes Do you have thoughts of harming others: None Do you have a plan to hurt others: No Plan Recently lost weight without trying: Yes How much weight loss: 14-23 pounds Nutrition Risks: No Nutritional Risk service: No Sexual orientation: Straight/Heterosexual Physical Exam Vital Signs: Vital Signs: Last Vital Signs Temp 97.8 F 07/16/24 08:00 Pulse 68 07/16/24 10:54 Resp 16 07/16/24 08:00 BP 114/70 07/16/24 10:54 Pulse Ox 92 07/16/24 08:00 O2 Del Method Room Air 07/16/24 08:00 BMI result Body Mass Index 25.9 Appearance: Alert. Oriented X3. No acute distress. Eyes: Pupils equal, round and reactive to light. ENT: Pharynx normal. Neck: Normal inspection. Neck supple. CVS: Normal heart rate and rhythm. Pulses normal. Respiratory: No respiratory distress. Breath sounds normal. Abdomen: Soft and nontender. Skin: Skin warm and dry. Normal skin color. Normal skin turgor. Extremities: No lower extremity edema. No calf ttp LUE superficial linear abrasions upper arm Neuro: Oriented X 3. No motor deficit. No sensory deficit. CN2-12 intact Course Course Course Narrative: Time: 22:25 Date: 07/15/24 Provider: Fatmata Gutiérrez DO Physician observation ended at 2224 Patient to be admitted as inpatient to psychiatry. Medications Administered Generic Name Dose Route Start Last Admin Trade Name Freq PRN Reason Stop Dose Admin Clonidine HCl 0.1 mg 07/16/24 10:30 07/16/24 10:56 Clonidine Hcl 0.1 Mg Tablet PO 0.1 mg TID CYDNEY Administration Protocol Hydroxyzine HCl 25 mg 07/15/24 18:34 07/16/24 09:28 Hydroxyzine Hcl 25 Mg Tablet PO 25 mg Q6H PRN Administration mild anxiety Lorazepam 1 mg 07/15/24 18:34 07/15/24 23:48 Lorazepam 1 Mg Tablet PO 1 mg Q2H PRN Administration CIWA 6-10 Melatonin 3 mg 07/15/24 21:00 07/15/24 23:48 Melatonin 3 Mg Tablet PO 3 mg BEDTIME CYDNEY Administration Olanzapine 5 mg 07/16/24 10:40 07/16/24 10:56 Olanzapine 5 Mg Tablet PO 5 mg BID CYDNEY Administration Trazodone HCl 50 mg 07/15/24 18:34 07/15/24 23:48 Trazodone Hcl 50 Mg Tablet PO 50 mg BEDTIME [id number] PRN Administration Insomnia Discontinued Medications Generic Name Dose Route Start Last Admin Trade Name Freq PRN Reason Stop Dose Admin Methadone HCl 80 mg 07/15/24 09:19 07/15/24 09:55 Methadone Hcl 20 Mg/2 Ml Oral.Conc PO 07/15/24 09:20 80 mg ONCE ONE Administration Methadone HCl 80 mg 07/16/24 09:00 07/16/24 07:59 Methadone Hcl 20 Mg/2 Ml Oral.Conc PO 80 mg DAILY CYDNEY Administration Methadone HCl 10 mg 07/16/24 11:00 07/16/24 11:00 Methadone Hcl 20 Mg/2 Ml Oral.Conc PO 07/16/24 11:01 10 mg ONCE ONE Administration Nicotine Polacrilex 2 mg 07/15/24 13:35 07/15/24 23:48 Nicotine Polacrilex 2 Mg Gum BUCCAL 2 mg Q2H PRN Administration Nicotine Cravings Nicotine Polacrilex 4 mg 07/15/24 18:34 07/16/24 09:29 Nicotine Polacrilex 2 Mg Gum BUCCAL 4 mg Q2H PRN Administration Nicotine Cravings Nicotine Polacrilex 4 mg 07/16/24 11:37 07/16/24 11:48 Nicotine Polacrilex Lozenge 4 Mg Lozenge BUCCAL 4 mg Q2H PRN Administration Nicotine Cravings Medical Decision Making Medical Decision Making MDM Narrative: 34 yo male with PMH of bipolar, PTSD, cocaine use, opiate use, depression here with c/o drug use and SI at this time will need basic labs, CARE team consult. He has hx of same in the past. He denies any other issues or complaints. Self inflicted trauma is very superficial. Differential Diagnosis Differential Diagnoses: The differential diagnosis associated with the presentation includes depression, SI, drug use Admission/Observation Consideration of admission/observation: Escalation of care including admission/observation considered physician observation started at 742am Consult Healthcare Provider Management of the patient was discussed with: Behavioral Health Provider Lab Data [facility] Lab Attestation statement: I reviewed the patient's lab results. 07/15/24 07:27 07/16/24 07:52 Labs: Lab Results 07/15/24 07/15/24 07/15/24 Range/Units 07:27 07:30 08:08 WBC 8.8 (4.8-10.8) X10*3/uL RBC 4.00 L (4.60-5.80) X10*6/uL Hgb 12.6 L (14.0-18.0) g/dl Hct 36.4 L (42.0-52.0) % MCV 91.0 (80.0-98.0) fL MCH 31.5 (27.0-33.0) pg MCHC 34.6 (31.0-36.0) g/dl RDW 12.9 (11.0-16.0) % Plt Count 203 (160-400) X10*3/uL MPV 10.8 (9.4-12.4) fL Immature Gran % (Auto) 0.2 (0.0-0.4) % Neut % (Auto) 58.8 (45-73) % Lymph % (Auto) 31.5 (20-40) % Piatt % (Auto) 7.6 (2-11) % Eos % (Auto) 1.6 (0-4) % Baso % (Auto) 0.3 (0-2) % Lymph # (Auto) 2.8 (1.2-4.9) X10*3/uL Piatt # (Auto) 0.7 (0.1-1.2) X10*3/uL Eos # (Auto) 0.1 (0.0-0.4) X10*3/uL Baso # (Auto) 0.0 (0.0-0.2) X10*3/uL Abs Immat Gran (auto) 0.02 (0.00-0.03) X10*3/uL Absolute Neuts (auto) 5.2 (2.0-8.3) x10*3/uL Absolute Nucleated RBC 0.000 (0.0-0.012) X10*3/uL Nucleated RBC % (auto) 0.0 (0.0-0.2) /100WBC Sodium 143 (135-145) mmol/L Potassium 3.3 (3.3-5.1) mmol/L Chloride 103 (96-108) mmol/L Carbon Dioxide 31 H (22-29) mmol/L Anion Gap 12 (12-20) BUN 16 (9-16) mg/dL Creatinine 0.71 (0.5-1.4) mg/dL Estim Creat Clear Calc 139.1 Estimated GFR > 60 Random Glucose 101 (60-115) mg/dL Calcium 10.0 (8.4-10.2) mg/dL Total Bilirubin 0.5 (0.0-1.0) mg/dL AST 20 (5-37) U/L ALT 13 (0-40) U/L Alkaline Phosphatase 56 (39-117) U/L Total Protein 7.3 (6.5-8.0) g/dL Albumin 4.5 (3.5-5.0) g/dL Urine Color Dark Yellow Urine Appearance Cloudy Urine pH 6.0 (5.0-9.0) Ur Specific [place] 1.025 (1.005-1.025) Urine Protein 100 (2+) H (Neg-Trace) mg/dL Urine Glucose (UA) Negative (Negative) mg/dL Urine Ketones Trace (Negative) mg/dL Urine Blood Large (3+) H (Negative) Urine Nitrite Negative (Negative) Ur Leukocyte Esterase Trace H (Negative) Urine RBC 11-20 H (0-2) /HPF Urine WBC 0-5 (0-5) /HPF Ur Squamous Epith Cells 3-5 (0-2) /HPF Urine Bacteria None Seen (None Seen) Hyaline Casts 3-5 (0-2) /LPF Urine Yeast Present Salicylates < 5.0 L (15-30) mg/dL Urine Opiates Screen POSITIVE H (Not Detect) Ur Buprenorphine Scrn Not Detected (Not Detect) ng/mL Ur Oxycodone Screen Not Detected (Not Detect) ng/mL Urine Methadone Screen Positive H (Not Detect) ng/mL Urine Fentanyl Screen POSITIVE H (Not Detect) Acetaminophen < 3 (<30) mcg/mL Ur Barbiturates Screen Not Detected (Not Detect) Valproic Acid < 12.5 L (50.0-100.0) mcg/mL Ur Phencyclidine Scrn Not Detected (Not Detect) Ur Amphetamines Screen Not Detected (Not Detect) U Benzodiazepines Scrn Not Detected (Not Detect) Urine Cocaine Screen POSITIVE H (Not Detect) U Marijuana (THC) Screen POSITIVE H (Not Detect) Ethyl Alcohol < 10 mg/dL Influenza Type A (PCR) NEGATIVE (Negative) Influenza Type B (PCR) NEGATIVE (Negative) RSV RNA Qual (PCR) NEGATIVE (Negative) SARS-CoV-2 RNA (RT-PCR) NEGATIVE (Negative) Independent Interpretation I performed an independent interpretation of an: EKG Interpretation: Rate: 71 Rhythm: NSR [place]: normal Normal P waves. Normal [place]. Normal QRS complex. ST T wave : no YUNIOR, nonspecific ST T wave changes qTC: 456 prior studies: no acute ischemia The study has been interpreted contemporaneously by me. . External Record Review External record reviewed: Inpatient record and Outpatient record Social Determinants Patient?s care significantly limited by Social Determinants of Health including: Problems related to primary support group Discharge Plan Discharge Clinical Impression: Depression Qualifiers: Depression Type: unspecified Qualified Code(s): F32.A - Depression, unspecified Patient Disposition: Admitted As Inpatient Interventions: Admission Worksheet (ED) Last Done: 07/15/24 22:27 Discharge Date/Time: 07/15/24 22:28
[2024-07-15 07:40] LABS: Appearance Urine Cloudy; Color Urine Dark Yellow; Glucose Urine UA Negative (Negative); Leukocyte Esterase Urine Trace (Negative); Nitrite Urine Negative (Negative); Specific Gravity - Urine 1.025 (1.005-1.025); UMIC TRIGGER UACC YES; Urine Blood Large (3+) (Negative); Urine Ketones Trace mg/dL (Negative); Urine Protein 100 (2+) mg/dL (Neg-Trace)
[2024-07-15 07:48] LABS: Amphetamine Screen Urine Not Detected (Not Detect); Barbiturates, Urine Not Detected (Not Detect); Benzodiazepines Screen Urine Not Detected (Not Detect); Buprenorphine Scr Not Detected (Not Detect); Cannabinoid Screen Urine POSITIVE (Not Detect); Cocaine Screen Urine POSITIVE (Not Detect); Fentanyl, urine POSITIVE (Not Detect); Methadone Screen, Urine Positive (Not Detect); Opiate Screen Urine POSITIVE (Not Detect); Oxycodone Screen Urine Not Detected (Not Detect); Phencyclidine Screen Urine Not Detected (Not Detect)
[2024-07-15 07:52] LABS: Alanine Aminotransferase 13 U/L (0-40); Albumin Level 4.5 g/dL (3.5-5.0); Alkaline Phosphatase 56 U/L (39-117); Anion Gap 12 (12-20); Aspartate Amino Transferase 20 U/L (5-37); Bilirubin Total 0.5 mg/dL (0.0-1.0); Blood Urea Nitrogen 16 mg/dL (9-16); Carbon Dioxide 31 mmol/L (22-29); Chloride 103 mmol/L (96-108); Creatinine Clr Calc Pharmacy 139.1; Estimated Glomerular Filt Rate > 60; Glucose Random 101 mg/dL (60-115); Potassium 3.3 mmol/L (3.3-5.1); Sodium 143 mmol/L (135-145); Total Protein 7.3 g/dL (6.5-8.0)
--- OUTSIDE RECORDS SUMMARY | 2024-07-15 07:55 | XMS_ITS | Encounter Summary ---
Author Organization [facility] Address [address] [place] [address] Care Team Providers Care Forestry Farm Laborer Name Role Phone Unavailable Primary Care Provider Unavailabl e Encounter Details Date Type Department Care Team (Late st Contact Info) Description 03/29/2024 Lab Requisition [facility] - Main Lab [address] [place] [address] [place] [address] Other manager intermediate (current) drug therapy Social History Tobacco Use Types Packs/Day Years Used Date Smoking Tobacco: Never Assessed Sex and Gender Information Value Date Recorded Sex Assigned at Not on file Legal Sex Male 10:48 PM EST Gender Identity Not on file Sexual Orientation Not on file documented as of this encounter Plan of Treatment Not on file documented as of this encounter Procedures Procedure Name Priority Date/Time Associated Diagnosis Comments VALPROIC ACID LEVEL, TOTAL Routine 03/29/2024 7:00 AM EST Other manager intermediate (current) drug therapy documented in this encounter Results * Valproic acid level, total (03/29/2024 7:00 AM EST) Valproic Acid, Total 82 50 - 100 mcg/mL LAB CHEMISTRY METHOD 03/29/2024 12:19 PM EST [facility] Blood Venous blood specimen / Unknown Venipuncture / Unknown 03/29/2024 7:00 AM EST 03/29/2024 10:39 AM EST us Adrianne Pulido LAB BLOOD ORDERABLES Final Resu lt [facility] [address] [place] [address], [place] [phone] documented in this encounter Visit Diagnoses Diagnosis Other skilled nursing (current) drug therapy documented in this encounter
--- OUTSIDE RECORDS SUMMARY | 2024-07-15 07:55 | XMS_ITS | Encounter Summary ---
Author Organization [facility] Address [address] [place] [address] Care Team Providers Care Fence Rider Name Role Phone Unavailable Primary Care Provider Unavailabl e Encounter Details Date Type Department Care Team (Late st Contact Info) Description 04/29/2024 Lab Requisition [facility] - Main Lab [address] [place] [address] Adrianne Pulido [address] [place] [id number] Social History Tobacco Use Types Packs/Day [...]
--- OUTSIDE RECORDS SUMMARY | 2024-07-15 07:55 | XMS_ITS | Clinical Summary ---
Author Organization [facility] Address [address] [place] [address] Phone Care Team Providers Care Tone Cabinet Assembler Name Role Phone Unavailable Primary Care Provider Unavailabl e Encounters Date Type Department Care Team Description 04/29/2024 Lab Requisition [facility] - Main Lab [address] [facility] [employer] [address] Adrianne Pulido from Last 3 Months Social History Tobacco [...] Influencers of Health Screening 02/23/2022 COVID-19 Vaccine ( - 2023-2 5 season) 2023 Influenza Vaccine (Season Ended) 2024 HIB Vaccines Aged Out No longer eligi [...] patient's age to complete this topic Meningococcal B Vaccine Aged Out No l onger eligible based on patient's age to complete [...]
[2024-07-15 07:56] LABS: Basophils Percent Auto 0.3 % (0-2); Eosinophils Absolute Auto 0.1 X10*3/uL (0.0-0.4); Eosinophils Percent Auto 1.6 % (0-4); Hematocrit 36.4 % (42.0-52.0); Hemoglobin 12.6 g/dl (14.0-18.0); Imm Gran Abs Auto 0.02 X10*3/uL (0.00-0.03); Imm Gran Pct Auto 0.2 % (0.0-0.4); Lymphocytes Absolute Auto 2.8 X10*3/uL (1.2-4.9); Lymphocytes Percent Auto 31.5 % (20-40); Mean Corpuscular HGB Conc 34.6 g/dl (31.0-36.0); Mean Corpuscular Hemoglobin 31.5 pg (27.0-33.0); Mean Platelet Volume 10.8 fL (9.4-12.4); Monocytes Absolute Auto 0.7 X10*3/uL (0.1-1.2); Monocytes Percent Auto 7.6 % (2-11); Neutrophils Absolute Auto 5.2 x10*3/uL (2.0-8.3); Neutrophils Percent Auto 58.8 % (45-73); Platelet Count 203 X10*3/uL (160-400); Red Cell Distribution Width 12.9 % (11.0-16.0); White Blood Count 8.8 X10*3/uL (4.8-10.8)
[2024-07-15 08:01] LABS: Acetaminophen LAB < 3 mcg/mL (<30); Salicylate < 5.0 mg/dL (15-30)
[2024-07-15 08:02] LABS: Bacteria Urine None Seen (None Seen); WBC Urine 0-5 /HPF (0-5)
[2024-07-15 08:29] LABS: Influenza A PCR NEGATIVE (Negative); Influenza B PCR NEGATIVE (Negative); Resp Syncy Virus RNA Qual PCR NEGATIVE (Negative); SARS COV2 PCR INHOUSE NEGATIVE (Negative)
[2024-07-15 08:38] LABS: Valproate < 12.5 mcg/mL (50.0-100.0)
--- NOTE | 2024-07-15 09:12 | PC.NURSE ---
Call placed to [facility] for verification of Pts Methadone dose. Spoke with TRENT Kessler who verifies the following: Pt dosed with 80mg Methadone on 07/13/24 @ 0813. Pt also given two 80mg take home doses intended for 07/14/24 & 07/15/24. Information read back for accuracy. Methadone verification for completed, faxed to pharmacy and placed in Pts chart.
--- NOTE | 2024-07-15 09:34 | HE.PHANOTE ---
Addendum entered by Dom Lawler [facility] 07/15/24 19:32: received 2 take home doses for 07/14 & 07/15 Original Note: METHADONE CONFIRMATION FORM PATIENT TAKES 80MG FROM [facility] LAST DOSE 07/13/24 AT 813
[2024-07-15] MEDS: methADONE HCl 20 MG/2 ML ORAL.CONC 80 MG PO (09:55)
[2024-07-15 10:20] VITALS: BP 108/74; PULSE 68; RESP 14; TEMP 36.8; O2SAT 94
--- NOTE | 2024-07-15 10:53 | PC.NURSE ---
Pt will be transitioning to pod. RN to RN report completed with JASMYNE Hurst.
--- NOTE | 2024-07-15 11:50 | PC.NURSE ---
Patient states he has not taken any medications other than methadone in last 1.5 months- unsure of what he was taking for medications prior to stoping them
--- NOTE | 2024-07-15 12:43 | MHC.CARE ---
Pt meets the criteria for IPLOC. Section 12a in chart. Provider in agreement.
[2024-07-15] MEDS: Nicotine Polacrilex 2 MG GUM BUCCAL ×2 (13:53→23:48)
--- NOTE | 2024-07-15 20:36 | PHA.MEDREC ---
Pharmacy Consult ? Medication Reconciliation Pharmacy has REVIEWED the medication reconciliation COMPLETED by nursing. Pt has not taken any medications in over 1.5 months.
[2024-07-15 22:14] LABS: Ethanol < 10 mg/dL
[2024-07-15 22:30] VITALS: BP 121/61; PULSE 64; RESP 16; TEMP 36.7; O2SAT 96
[2024-07-15] MEDS: Melatonin 3 MG TABLET PO (23:48)
[2024-07-15] MEDS: LORazepam 1 MG TABLET PO (23:48)
[2024-07-15] MEDS: traZODone HCL 50 MG TABLET PO (23:48)
[2024-07-16 00:23] VITALS: BMI 25.8
--- NOTE | 2024-07-16 04:21 | PC.ADMIT ---
Pt is a 34 yo male admitted to the unit from the [facility] ED POD after referral from the CARE team. Pt arrived on unit at 2230 on 07/15/24. Legal status: CV. Pt denies any medical issues. Pt reports being sober for 1.5 years and relapsing into substance use again d/t family issue with his Baby Mark . Utox was + for opiates, methadone, fentanyl, THC, cocaine. States that he only drinks alcohol q 3-4 months but when he does he drinks to excess. Refused addiction consult. Pt states that just prior to admission he used substances and drank 6 beers and a pint of vodka in an effort to mix drugs and etoh to end his life. Pt was also stating that he has been going through life stressors that he would not elaborate on. Pt also reports SIB of cutting and evidence of such is on his left upper arm, many horizontal, superficial cuts that have healed over somewhat. Pt also reports a 20 pound wt loss in last 2 months d/t lack of desire to eat because of depression. Pt presents as disheveled, dressed in [facility]. Skin check unremarkable other than several tattoos and the superficial cuts on left upper arm. Pt is linear and organized in his thinking. Pt is pleasant and cooperative. Provider transplant nurse practitioner Samantha was notified of admission and orders obtained. Pt is on a CIWA q4h. Pt also on 80mg methadone. Pt placed on 15 minute safety checks and reports feeling safe here in the hospital.
[2024-07-16] MEDS: methADONE HCl 20 MG/2 ML ORAL.CONC 80 MG PO (07:59)
[2024-07-16 08:00] VITALS: BP 109/51; PULSE 54; RESP 16; TEMP 36.6; O2SAT 92
[2024-07-16 08:34] LABS: Alanine Aminotransferase 12 U/L (0-40); Albumin Level 3.8 g/dL (3.5-5.0); Alkaline Phosphatase 50 U/L (39-117); Anion Gap 11 (12-20); Aspartate Amino Transferase 16 U/L (5-37); Bilirubin Total 0.4 mg/dL (0.0-1.0); Blood Urea Nitrogen 10 mg/dL (9-16); Calcium 9.4 mg/dL (8.4-10.2); Carbon Dioxide 28 mmol/L (22-29); Chloride 108 mmol/L (96-108); Cholesterol 142 mg/dL (<200); Creatinine Clr Calc Pharmacy 131.7; Estimated Glomerular Filt Rate > 60; Glucose Random 98 mg/dL (60-115); HDL Cholesterol 34 mg/dL (>40); LDL Cholesterol Calculated 91 mg/dL (<100); Potassium 3.5 mmol/L (3.3-5.1); Sodium 143 mmol/L (135-145); Total Protein 6.4 g/dL (6.5-8.0); Triglycerides 89 mg/dL (<150)
[2024-07-16 08:45] LABS: Estimated Average Glucose 103 mg/dL; Hemoglobin A1C 107.4688 umol/L; Hemoglobin A1c % 5.2 % (<6.0); Total Hemoglobin (HGBA1C) 3270.4308 umol/L
[2024-07-16 08:49] LABS: TSH reflex Free T4 0.46 uIU/mL (0.32-4.0)
[2024-07-16] MEDS: hydrOXYzine HCL 25 MG TABLET PO (09:28)
[2024-07-16] MEDS: Nicotine Polacrilex 2 MG GUM 4 MG BUCCAL (09:29)
[2024-07-16 10:54] VITALS: BP 114/70; PULSE 68
[2024-07-16] MEDS: cloNIDine HCL 0.1 MG TABLET PO ×2 (10:56→23:44)
[2024-07-16] MEDS: OLANZapine 5 MG TABLET PO ×2 (10:56→23:44)
[2024-07-16] MEDS: methADONE HCl 20 MG/2 ML ORAL.CONC 10 MG PO (11:00)
--- NOTE | 2024-07-16 11:01 | MHC.RECOVRN ---
Received Addiction Medicine consult for polysubstance dependence, methadone dose increase? Pt had been receiving 80 mg daily. Provider added 10 mg today and ordered 90 mg daily starting tomorrow. Spoke with provider, provider would like [facility] to check in with patient on Thursday.
[2024-07-16] MEDS: Nicotine Polacrilex Lozenge 4 MG LOZENGE BUCCAL (11:48)
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
[2024-07-16 19:15] VITALS: BP 100/58; PULSE 58; RESP 16; TEMP 36.6; O2SAT 97
[2024-07-16 23:44] VITALS: BP 100/62
[2024-07-16] MEDS: traZODone HCL 50 MG TABLET PO (23:44)
[2024-07-16] MEDS: Melatonin 3 MG TABLET PO (23:44)
[2024-07-16] MEDS: Divalproex Sodium 500 MG TABLET.DR PO (23:44)
[2024-07-17 07:31] VITALS: BP 105/59; PULSE 51; RESP 16; TEMP 36.4; O2SAT 97
[2024-07-17] MEDS: methADONE HCl 20 MG/2 ML ORAL.CONC 90 MG PO (08:02)
[2024-07-17] MEDS: Divalproex Sodium 500 MG TABLET.DR PO ×2 (08:36→20:52)
[2024-07-17] MEDS: OLANZapine 5 MG TABLET PO ×2 (08:36→20:52)
[2024-07-17 08:39] VITALS: BP 115/71; PULSE 66; RESP 16; TEMP 36.8; O2SAT 95
[2024-07-17] MEDS: cloNIDine HCL 0.1 MG TABLET PO ×3 (08:42→20:52)
[2024-07-17] MEDS: Nicotine Polacrilex 2 MG GUM 4 MG BUCCAL ×4 (08:42→20:55)
--- NOTE | 2024-07-17 12:56 | MHC.RECOVRN ---
Met with pt in 324-3 to follow up after provider increased methadone from 80 to 90 mg yesterday. Pt laying in bed, eyes closed, wakes to voice. Appears comfortable. Pt reports he had been using 3-4 bundles heroin/fentanyl IN prior to arrival. Pt has been going to [facility] and titrating methadone. Pt reports he had been on 80 mg for a little bit. Pt reports he requested increase in dose due to cravings, inability to sleep, and diaphoresis. Pt educated regarding dose increase and will check in again tomorrow. Pt denies questions or concerns for t/w.
--- NOTE | 2024-07-17 14:36 | P.PNPSI_ITS ---
Subjective Subjective Date of Service: 07/17/24 Reason For Visit: Decompensation Interim History: I'm getting there . Patient feels improved since admission. Withdrawals improved. Tolerating restarting medications but says he feels tired. Slept better last night. Remains depressed he says. Denies SI. Hopeful. Review of Systems Review of Systems Constitutional : No Fever, No Chills ENT/Mouth : No Ear Pain, No Nasal Congestion, No sore throat Eyes: No Eye Pain, No Swelling, No Redness Cardiovascular : No Chest Pain, No SOB Respiratory : No Cough, No Sputum, No Dyspnea Gastrointestinal : No Nausea, No Vomiting, No Diarrhea, No Hematochezia, No Melena Genitourinary : No Dysuria, No Urinary Frequency, No Hematuria Musculoskeletal : No Myalgias Skin : No Skin Lesions, No rash Neuro : No Weakness, No Numbness, No Paresthesias, No Dizziness, No Headache Psych : positive Anxiety, positive Depression, positive SI no HI Heme/Lymph: No Lymphadenopathy Endocrine : No Polyuria, No Polydipsia All other systems reviewed and are negative Mental Status Exam Mental Status Exam Narrative: General appearance: hospital dress fair hygiene.? Eye contact: WNL. Musculoskeletal: restless. uncomfortable. psychomotor agitation or retardation. Normal posture.??? Manner/behavior: cooperative Speech:? Fluent, with normal rate, tone and volume. Language: No receptive or expressive language impairment? Mood: depressed. Affect: Constricted, congruent to mood and without lability. Irritable. Thought process/associations: Linear with no flight of ideas or loose associations.?? Thought content:?No delusions or paranoia.?? Hallucinations: CAH to self harm. Suicidality/self-destructive behavior: SI feels safe on unit. ? Homicidally/violence: none.? Reliability: fair.? ? Judgment: poor.? ? Insight: poor Cognition: Alert and oriented to time, place and person. Attention, concentration and fund of knowledge are normal.? Impulse control and emotional regulation: poor Intelligence estimate: average.? Diagnostics Vital Signs (24Hr): Vital Signs - 24 hr 07/16/24 19:15 07/16/24 23:44 07/17/24 07:31 Temperature 98 F 97.6 F Pulse Rate 58 51 Respiratory Rate 16 16 Blood Pressure 100/58 L 100/62 105/59 L Pulse Oximetry 97 97 Oxygen Delivery Method Room Air Room Air 07/17/24 08:39 Temperature 98.2 F Pulse Rate 66 Respiratory Rate 16 Blood Pressure 115/71 Pulse Oximetry 95 Oxygen Delivery Method Room Air BMI result Body Mass Index 25.8 Labs 07/15/24 07:27 07/16/24 07:52 Labs: Laboratory Results - last 48 hr 07/15/24 07/16/24 07:27 07:52 Sodium 143 Potassium 3.5 Chloride 108 Carbon Dioxide 28 Anion Gap 11 L BUN 10 Creatinine 0.75 Estim Creat Clear Calc 131.7 Estimated GFR > 60 Random Glucose 98 Estimat Average Glucose 103 Hemoglobin A1c % 5.2 Calcium 9.4 Total Bilirubin 0.4 AST 16 ALT 12 Alkaline Phosphatase 50 Total Protein 6.4 L Albumin 3.8 Triglycerides 89 Cholesterol 142 LDL Cholesterol, Calc 91 HDL Cholesterol 34 L TSH 0.46 Ethyl Alcohol < 10 Medications Medications Current Medications Acetaminophen (Acetaminophen 325 Mg Tablet) 650 mg PO Q6H PRN PRN Reason: Headache/Pain, Scale 1-10 Al Hydroxide/Mg Hydroxide (Magnesium Hydrox/Alum Hydrox 30 Ml Oral.Susp) 30 ml PO Q6H PRN PRN Reason: Heartburn/Nausea Clonidine HCl (Clonidine Hcl 0.1 Mg Tablet) 0.1 mg PO TID REPLACED BY [facility]; Protocol Last Admin: 07/17/24 08:42 Dose: 0.1 mg Divalproex Sodium (Divalproex Sodium 500 Mg Tablet.Dr) 500 mg PO BID REPLACED BY [facility] Last Admin: 07/17/24 08:36 Dose: 500 mg Hydroxyzine HCl (Hydroxyzine Hcl 25 Mg Tablet) 25 mg PO Q6H PRN PRN Reason: mild anxiety Last Admin: 07/16/24 09:28 Dose: 25 mg Lorazepam (Lorazepam 1 Mg Tablet) 1 mg PO Q2H PRN PRN Reason: CIWA 6-10 Last Admin: 07/15/24 23:48 Dose: 1 mg Lorazepam (Lorazepam 1 Mg Tablet) 2 mg PO Q2H PRN PRN Reason: CIWA 11 and above Magnesium Hydroxide (Milk Of Magnesia 30 Ml Oral.Susp) 30 ml PO DAILY PRN PRN Reason: Constipation Melatonin (Melatonin 3 Mg Tablet) 3 mg PO BEDTIME REPLACED BY [facility] Last Admin: 07/16/24 23:44 Dose: 3 mg Methadone HCl (Methadone Hcl 20 Mg/2 Ml Oral.Conc) 90 mg PO DAILY REPLACED BY [facility] Last Admin: 07/17/24 08:02 Dose: 90 mg Nicotine Polacrilex (Nicotine Polacrilex 2 Mg Gum) 4 mg BUCCAL Q2H PRN PRN Reason: Nicotine Cravings Last Admin: 07/17/24 12:17 Dose: 4 mg Olanzapine (Olanzapine 5 Mg Tablet) 5 mg PO TID PRN PRN Reason: agitation Olanzapine (Olanzapine 5 Mg Tablet) 5 mg PO BID REPLACED BY [facility] Last Admin: 07/17/24 08:36 Dose: 5 mg Trazodone HCl (Trazodone Hcl 50 Mg Tablet) 50 mg PO BEDTIME MRX1 PRN PRN Reason: Insomnia Last Admin: 07/16/24 23:44 Dose: 50 mg Allergies Allergies Allergy/AdvReac Type Severity Reaction Status Date / Time No Known Allergies Allergy Verified 07/15/24 07:14 [No Known Allergies*] Assessment & Plan Assessment & Plan (1) Bipolar disorder, curr episode depressed, severe, w/psychotic features: Status: Acute Code(s): F31.5 - Bipolar disorder, current episode depressed, severe, with psychotic features (2) Polysubstance (including opioids) dependence with physiol dependence: Status: Acute Code(s): F19.20 - Other psychoactive substance dependence, uncomplicated (3) PTSD (post-traumatic stress disorder): Status: Acute Code(s): F43.10 - Post-traumatic stress disorder, unspecified (4) Opioid use disorder, severe, dependence: Status: Acute Code(s): F11.20 - Opioid dependence, uncomplicated (5) Cocaine use disorder: Status: Acute Code(s): F14.10 - Cocaine abuse, uncomplicated (6) Cannabis use disorder, severe, dependence: Status: Acute Code(s): F12.20 - Cannabis dependence, uncomplicated Plan 34 yo male with history of bipolar disorder, PTSD, polysubstance dependence admitted with depression, SI, command AH to self harm, relapse on drug use, non- adherence to OP treatment. PLAN: - Admit to inpatient psychiatry - CV - Collateral information from family and providers. - Milieu treatment and group therapy. - Medications: Increase Methadone to 90 mg (he was on 100 mg + in the past) Restart Depakote 500 mg BID Restart Olanzapine 5 mg BID Clonidine 0.1 mg TID. - Social work evaluation. - Disposition planning. 07/17: Continue current management and treatment plan. Reason for continued inpatient stay Substantial Risk for: harm to self, inability to function and rapid decompensation Time Spent With Patient Time: Total time managing care of this patient today ____ minutes.
[2024-07-17 15:01] VITALS: BP 103/57; PULSE 75; RESP 16; TEMP 36.8; O2SAT 95
[2024-07-17 20:00] VITALS: BP 101/59; PULSE 76; RESP 16; TEMP 37.1; O2SAT 98
[2024-07-17 20:52] VITALS: BP 101/59
[2024-07-17] MEDS: Melatonin 3 MG TABLET PO (20:52)
[2024-07-17] MEDS: traZODone HCL 50 MG TABLET PO (20:52)
[2024-07-17] MEDS: hydrOXYzine HCL 25 MG TABLET PO (20:52)
[2024-07-18] MEDS: Nicotine Polacrilex 2 MG GUM 4 MG BUCCAL ×4 (02:23→21:28)
[2024-07-18 07:40] VITALS: BP 116/61; PULSE 66; RESP 16; TEMP 36.7; O2SAT 96
[2024-07-18] MEDS: methADONE HCl 20 MG/2 ML ORAL.CONC 90 MG PO (07:55)
[2024-07-18] MEDS: cloNIDine HCL 0.1 MG TABLET PO ×2 (08:15→21:26)
[2024-07-18] MEDS: Divalproex Sodium 500 MG TABLET.DR PO ×2 (08:15→21:26)
[2024-07-18] MEDS: OLANZapine 5 MG TABLET PO ×3 (08:15→21:26)
--- NOTE | 2024-07-18 13:40 | MHC.RECOVRN ---
Met with pt to follow up regarding methadone dose. Pt laying in bed, awake, alert, easily engages in conversation, appears comfortable. Pt reports he vomited approx 1 hour ago, did not inform staff. RN made aware. Pt continues to report cravings, difficulty sleeping, diaphoresis. Requesting increase in methadone dose. Pt denies other questions or concerns for t/w. Discussed with Cara Moss APRN.
--- NOTE | 2024-07-18 14:48 | P.PNPSI_ITS ---
Subjective Subjective Date of Service: 07/18/24 Reason For Visit: Decompensation Interim History: feeling better on methadone 90 mg, had been craving. reports low mood, agreeable to continue on restarted medication and allow several days to get through cocaine withdrawal prior to re-evaluating mood. per staff, dep/anx 9. c/o AVH. watching TV. good sleep and appetite. slept 8 hours. methadone increased to 90 over w/e. Mental Status Exam Mental Status Exam Narrative: General appearance: own attire. fair hygiene.? Eye contact: WNL. Musculoskeletal: no psychomotor agitation or retardation. Normal posture.??? Manner/behavior: cooperative Speech:? Fluent, with normal rate, tone and volume. Language: No receptive or expressive language impairment? Mood: can't tell. Affect: Constricted, without lability. Thought process/associations: Linear with no flight of ideas or loose associations.?? Thought content:?No delusions or paranoia.?? Hallucinations: none Suicidality/self-destructive behavior: none expressed.? Homicidally/violence: none expressed. Reliability: fair.? ? Judgment: poor.? ? Insight: poor Cognition: Alert and oriented to time, place and person. Attention, concentration and fund of knowledge are normal.? Impulse control and emotional regulation: poor Intelligence estimate: average.? Diagnostics Vital Signs (24Hr): Vital Signs - 24 hr 07/17/24 15:01 07/17/24 20:00 07/17/24 20:52 Temperature 98.2 F 98.7 F Pulse Rate 75 76 Respiratory Rate 16 16 Blood Pressure 103/57 L 101/59 L 101/59 L Pulse Oximetry 95 98 Oxygen Delivery Method Room Air Room Air 07/18/24 07:40 Temperature 98.0 F Pulse Rate 66 Respiratory Rate 16 Blood Pressure 116/61 Pulse Oximetry 96 Oxygen Delivery Method Room Air BMI result Body Mass Index 25.8 Labs 07/15/24 07:27 07/16/24 07:52 Medications Medications Current Medications Acetaminophen (Acetaminophen 325 Mg Tablet) 650 mg PO Q6H PRN PRN Reason: Headache/Pain, Scale 1-10 Al Hydroxide/Mg Hydroxide (Magnesium Hydrox/Alum Hydrox 30 Ml Oral.Susp) 30 ml PO Q6H PRN PRN Reason: Heartburn/Nausea Clonidine HCl (Clonidine Hcl 0.1 Mg Tablet) 0.1 mg PO TID [facility]; Protocol Last Admin: 07/18/24 08:15 Dose: 0.1 mg Divalproex Sodium (Divalproex Sodium 500 Mg Tablet.Dr) 500 mg PO BID [facility] Last Admin: 07/18/24 08:15 Dose: 500 mg Hydroxyzine HCl (Hydroxyzine Hcl 50 Mg Tablet) 50 mg PO Q4H PRN PRN Reason: mild anxiety Lorazepam (Lorazepam 1 Mg Tablet) 1 mg PO Q2H PRN PRN Reason: CIWA 6-10 Last Admin: 07/15/24 23:48 Dose: 1 mg Lorazepam (Lorazepam 1 Mg Tablet) 2 mg PO Q2H PRN PRN Reason: CIWA 11 and above Magnesium Hydroxide (Milk Of Magnesia 30 Ml Oral.Susp) 30 ml PO DAILY PRN PRN Reason: Constipation Melatonin (Melatonin 3 Mg Tablet) 3 mg PO BEDTIME [facility] Last Admin: 07/17/24 20:52 Dose: 3 mg Methadone HCl (Methadone Hcl 20 Mg/2 Ml Oral.Conc) 90 mg PO DAILY [facility] Last Admin: 07/18/24 07:55 Dose: 90 mg Nicotine Polacrilex (Nicotine Polacrilex 2 Mg Gum) 4 mg BUCCAL Q2H PRN PRN Reason: Nicotine Cravings Last Admin: 07/18/24 12:09 Dose: 4 mg Olanzapine (Olanzapine 5 Mg Tablet) 5 mg PO TID PRN PRN Reason: agitation Olanzapine (Olanzapine 5 Mg Tablet) 5 mg PO BID [facility] Last Admin: 07/18/24 08:15 Dose: 5 mg Trazodone HCl (Trazodone Hcl 50 Mg Tablet) 50 mg PO BEDTIME MRX1 PRN PRN Reason: Insomnia Last Admin: 07/17/24 20:52 Dose: 50 mg Allergies Allergies Allergy/AdvReac Type Severity Reaction Status Date / Time No Known Allergies Allergy Verified 07/15/24 07:14 [No Known Allergies*] Assessment & Plan Assessment & Plan (1) Bipolar disorder, curr episode depressed, severe, w/psychotic features: Status: Acute Code(s): F31.5 - Bipolar disorder, current episode depressed, severe, with psychotic features (2) Polysubstance (including opioids) dependence with physiol dependence: Status: Acute Code(s): F19.20 - Other psychoactive substance dependence, uncomplicated (3) PTSD (post-traumatic stress disorder): Status: Acute Code(s): F43.10 - Post-traumatic stress disorder, unspecified (4) Opioid use disorder, severe, dependence: Status: Acute Code(s): F11.20 - Opioid dependence, uncomplicated (5) Cocaine use disorder: Status: Acute Code(s): F14.10 - Cocaine abuse, uncomplicated (6) Cannabis use disorder, severe, dependence: Status: Acute Code(s): F12.20 - Cannabis dependence, uncomplicated Plan 34 yo male with history of bipolar disorder, PTSD, polysubstance dependence admitted with depression, SI, command AH to self harm, relapse on drug use, non- adherence to OP treatment. PLAN: - Admit to inpatient psychiatry - CV - Collateral information from family and providers. - Milieu treatment and group therapy. - Medications: Increase Methadone to 90 mg (he was on 100 mg + in the past) Restart Depakote 500 mg BID Restart Olanzapine 5 mg BID Clonidine 0.1 mg TID. - Social work evaluation. - Disposition planning. 07/17: Continue current management and treatment plan. 07/18: continue current mgmt. re-evaluate mood mgmt after several days, once through cocaine withdrawal. Reason for continued inpatient stay Substantial Risk for: harm to self, inability to function and rapid decompensation Time Spent With Patient Time: Total time managing care of this patient today __25__ minutes.
[2024-07-18 20:00] VITALS: BP 109/61; PULSE 75; RESP 16; TEMP 36.6; O2SAT 96
[2024-07-18] MEDS: Melatonin 3 MG TABLET PO (21:25)
[2024-07-18 21:26] VITALS: BP 109/61
[2024-07-18] MEDS: traZODone HCL 50 MG TABLET PO (21:26)
[2024-07-18] MEDS: hydrOXYzine HCL 50 MG TABLET PO (21:26)
[2024-07-19] MEDS: Nicotine Polacrilex 2 MG GUM 4 MG BUCCAL ×6 (05:57→21:11)
[2024-07-19] MEDS: hydrOXYzine HCL 50 MG TABLET PO ×3 (06:41→14:27)
[2024-07-19 07:42] VITALS: BP 90/55; PULSE 76; RESP 16; TEMP 36.8; O2SAT 99
[2024-07-19] MEDS: methADONE HCl 20 MG/2 ML ORAL.CONC 90 MG PO (08:06)
[2024-07-19 08:23] VITALS: BP 110/68; PULSE 73
[2024-07-19] MEDS: OLANZapine 5 MG TABLET PO ×2 (08:39→21:05)
[2024-07-19] MEDS: Divalproex Sodium 500 MG TABLET.DR PO ×2 (08:40→21:05)
[2024-07-19] MEDS: cloNIDine HCL 0.1 MG TABLET PO ×3 (08:40→21:04)
[2024-07-19 14:26] VITALS: BP 111/67
--- NOTE | 2024-07-19 15:27 | P.PNPSI_ITS ---
Subjective Subjective Date of Service: 07/19/24 Reason For Visit: Decompensation Interim History: mood up. denies SI/AVH. asking for discharge. per staff, slept 8 hours. dep/anx 9. vomited x3 yesterday after lunch, feeling fine since. Mental Status Exam Mental Status Exam Narrative: General appearance: own attire. fair hygiene.? Eye contact: WNL. Musculoskeletal: no psychomotor agitation or retardation. Normal posture.??? Manner/behavior: cooperative Speech:? Fluent, with normal rate, tone and volume. Language: No receptive or expressive language impairment? Mood: up. Affect: more flexible, without lability. Thought process/associations: Linear with no flight of ideas or loose associations.?? Thought content:?No delusions or paranoia.?? Hallucinations: none Suicidality/self-destructive behavior: none Homicidally/violence: none expressed. Reliability: fair.? ? Judgment: poor.? ? Insight: poor Cognition: Alert and oriented to time, place and person. Attention, concentration and fund of knowledge are normal.? Impulse control and emotional regulation: poor Intelligence estimate: below average.? Diagnostics Vital Signs (24Hr): Vital Signs - 24 hr 07/18/24 20:00 07/18/24 21:26 07/19/24 07:42 Temperature 97.9 F 98.2 F Pulse Rate 75 76 Respiratory Rate 16 16 Blood Pressure 109/61 109/61 90/55 L Pulse Oximetry 96 99 Oxygen Delivery Method Room Air Room Air 07/19/24 08:23 07/19/24 14:26 Temperature Pulse Rate 73 Respiratory Rate Blood Pressure 110/68 111/67 Pulse Oximetry Oxygen Delivery Method BMI result Body Mass Index 25.8 Labs 07/15/24 07:27 07/16/24 07:52 Medications Medications Current Medications Acetaminophen (Acetaminophen 325 Mg Tablet) 650 mg PO Q6H PRN PRN Reason: Headache/Pain, Scale 1-10 Al Hydroxide/Mg Hydroxide (Magnesium Hydrox/Alum Hydrox 30 Ml Oral.Susp) 30 ml PO Q6H PRN PRN Reason: Heartburn/Nausea Clonidine HCl (Clonidine Hcl 0.1 Mg Tablet) 0.1 mg PO TID [facility]; Protocol Last Admin: 07/19/24 14:26 Dose: 0.1 mg Divalproex Sodium (Divalproex Sodium 500 Mg Tablet.) 500 mg PO BID [facility] Last Admin: 07/19/24 08:40 Dose: 500 mg Hydroxyzine HCl (Hydroxyzine Hcl 50 Mg Tablet) 50 mg PO Q4H PRN PRN Reason: mild anxiety Last Admin: 07/19/24 14:27 Dose: 50 mg Magnesium Hydroxide (Milk Of Magnesia 30 Ml Oral.Susp) 30 ml PO DAILY PRN PRN Reason: Constipation Melatonin (Melatonin 3 Mg Tablet) 3 mg PO BEDTIME [facility] Last Admin: 07/18/24 21:25 Dose: 3 mg Methadone HCl (Methadone Hcl 20 Mg/2 Ml Oral.Conc) 90 mg PO DAILY [facility] Last Admin: 07/19/24 08:06 Dose: 90 mg Nicotine Polacrilex (Nicotine Polacrilex 2 Mg Gum) 4 mg [place] Q2H PRN PRN Reason: Nicotine Cravings Last Admin: 07/19/24 12:47 Dose: 4 mg Olanzapine (Olanzapine 5 Mg Tablet) 5 mg PO TID PRN PRN Reason: agitation Last Admin: 07/18/24 21:26 Dose: 5 mg Olanzapine (Olanzapine 5 Mg Tablet) 5 mg PO BID [facility] Last Admin: 07/19/24 08:39 Dose: 5 mg Trazodone HCl (Trazodone Hcl 50 Mg Tablet) 50 mg PO BEDTIME MRX1 PRN PRN Reason: Insomnia Last Admin: 07/18/24 21:26 Dose: 50 mg Allergies Allergies Allergy/AdvReac Type Severity Reaction Status Date / Time No Known Allergies Allergy Verified 07/15/24 07:14 [No Known Allergies*] Assessment & Plan Assessment & Plan (1) Bipolar disorder, curr episode depressed, severe, w/psychotic features: Status: Acute Code(s): F31.5 - Bipolar disorder, current episode depressed, severe, with psychotic features (2) Polysubstance (including opioids) dependence with physiol dependence: Status: Acute Code(s): F19.20 - Other psychoactive substance dependence, uncomplicated (3) PTSD (post-traumatic stress disorder): Status: Acute Code(s): F43.10 - Post-traumatic stress disorder, unspecified (4) Opioid use disorder, severe, dependence: Status: Acute Code(s): F11.20 - Opioid dependence, uncomplicated (5) Cocaine use disorder: Status: Acute Code(s): F14.10 - Cocaine abuse, uncomplicated (6) Cannabis use disorder, severe, dependence: Status: Acute Code(s): F12.20 - Cannabis dependence, uncomplicated Plan 34 yo male with history of bipolar disorder, PTSD, polysubstance dependence admitted with depression, SI, command AH to self harm, relapse on drug use, non- adherence to OP treatment. PLAN: - Admit to inpatient psychiatry - CV - Collateral information from family and providers. - Milieu treatment and group therapy. - Medications: Increase Methadone to 90 mg (he was on 100 mg + in the past) Restart Depakote 500 mg BID Restart Olanzapine 5 mg BID Clonidine 0.1 mg TID. - Social work evaluation. - Disposition planning. 07/17: Continue current management and treatment plan. 07/18: continue current mgmt. re-evaluate mood mgmt after several days, once through cocaine withdrawal. 07/19: mood improved, denying SI or AVH. asking for discharge. continue current mgmt, plan for D/C. Reason for continued inpatient stay Substantial Risk for: inability to function and rapid decompensation Time Spent With Patient Time: Total time managing care of this patient today _25___ minutes.
[2024-07-19 20:00] VITALS: BP 113/55; PULSE 86; RESP 16; TEMP 37.2; O2SAT 96
[2024-07-19] MEDS: Melatonin 3 MG TABLET PO (21:04)
[2024-07-19] MEDS: traZODone HCL 50 MG TABLET PO (21:11)
[2024-07-20] MEDS: Nicotine Polacrilex 2 MG GUM 4 MG BUCCAL ×7 (03:04→22:06)
[2024-07-20 07:34] VITALS: BP 110/68; PULSE 80; RESP 16; TEMP 36.8; O2SAT 98
[2024-07-20] MEDS: methADONE HCl 20 MG/2 ML ORAL.CONC 90 MG PO (08:21)
[2024-07-20 08:51] VITALS: BP 110/68
[2024-07-20] MEDS: hydrOXYzine HCL 50 MG TABLET PO ×2 (08:51→13:23)
[2024-07-20] MEDS: cloNIDine HCL 0.1 MG TABLET PO ×3 (08:51→21:58)
[2024-07-20] MEDS: Divalproex Sodium 500 MG TABLET.DR PO ×2 (08:51→21:59)
[2024-07-20] MEDS: OLANZapine 5 MG TABLET PO ×2 (08:52→21:59)
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
[2024-07-20 15:45] VITALS: BP 122/67; PULSE 87
[2024-07-20 15:53] VITALS: BP 122/67
[2024-07-20 19:35] VITALS: BP 94/53; PULSE 80; RESP 16; TEMP 36.6; O2SAT 97
[2024-07-20 20:19] LABS: MANUAL DIFF FLAG NO
[2024-07-20 20:20] LABS: Basophils Absolute Auto 0.1 X10*3/uL (0.0-0.2); Basophils Percent Auto 0.7 % (0-2); Eosinophils Absolute Auto 0.2 X10*3/uL (0.0-0.4); Eosinophils Percent Auto 2.3 % (0-4); Hematocrit 35.7 % (42.0-52.0); Hemoglobin 12.3 g/dl (14.0-18.0); Imm Gran Abs Auto 0.04 X10*3/uL (0.00-0.03); Imm Gran Pct Auto 0.6 % (0.0-0.4); Lymphocytes Absolute Auto 3.1 X10*3/uL (1.2-4.9); Lymphocytes Percent Auto 42.2 % (20-40); Mean Corpuscular HGB Conc 34.5 g/dl (31.0-36.0); Mean Corpuscular Hemoglobin 31.8 pg (27.0-33.0); Mean Corpuscular Volume 92.2 fL (80.0-98.0); Monocytes Absolute Auto 0.7 X10*3/uL (0.1-1.2); Monocytes Percent Auto 9.8 % (2-11); Neutrophils Absolute Auto 3.2 x10*3/uL (2.0-8.3); Neutrophils Percent Auto 44.4 % (45-73); Platelet Count 179 X10*3/uL (160-400); Red Blood Count 3.87 X10*6/uL (4.60-5.80); Red Cell Distribution Width 13.2 % (11.0-16.0); White Blood Count 7.3 X10*3/uL (4.8-10.8)
[2024-07-20 20:33] LABS: Valproate 62.9 mcg/mL (50.0-100.0)
[2024-07-20 20:35] LABS: Alanine Aminotransferase 34 U/L (0-40); Alkaline Phosphatase 58 U/L (39-117); Aspartate Amino Transferase 23 U/L (5-37); Bilirubin Direct < 0.2 mg/dL (0.0-0.5); Bilirubin Total 0.2 mg/dL (0.0-1.0); Total Protein 6.9 g/dL (6.5-8.0)
[2024-07-20 20:57] LABS: Ammonia 48 umol/L (13-55)
[2024-07-20 21:58] VITALS: BP 106/61
[2024-07-20] MEDS: Melatonin 3 MG TABLET PO (21:59)
[2024-07-21] MEDS: Nicotine Polacrilex 2 MG GUM 4 MG BUCCAL ×4 (00:50→10:26)
[2024-07-21 07:37] VITALS: BP 108/57; PULSE 63; RESP 16; TEMP 36.5; O2SAT 99
[2024-07-21] MEDS: methADONE HCl 20 MG/2 ML ORAL.CONC 90 MG PO (07:42)
[2024-07-21] MEDS: Divalproex Sodium 500 MG TABLET.DR PO (08:14)
[2024-07-21] MEDS: cloNIDine HCL 0.1 MG TABLET PO (08:14)
[2024-07-21] MEDS: OLANZapine 5 MG TABLET PO (08:15)
[2024-07-21] MEDS: hydrOXYzine HCL 50 MG TABLET PO (10:26)
== END 2024-07-21 10:40 | disposition home or self-care (01) | DRG 885 ==
LOC: HO.ED 10:52 → HO.PADLT16 19:00
PROVIDERS: Admitting Provider Psychiatry & Neurology Psychiatry; Emergency Provider Emergency Medicine; Visit Provider Psychiatry & Neurology Psychiatry
DX: F31.5 Bipolar disorder, current episode depressed, severe, with psychotic features (principal); F11.20 Opioid dependence, uncomplicated; F19.20 Other psychoactive substance dependence, uncomplicated; F14.10 Cocaine abuse, uncomplicated; F43.12 Post-traumatic stress disorder, chronic; F12.20 Cannabis dependence, uncomplicated; F17.210 Nicotine dependence, cigarettes, uncomplicated; Z71.6 Tobacco abuse counseling; Z79.899 Other long term (current) drug therapy
CPT/HCPCS: 0241U; 36415; 80053; 80061; 80076; 80143; 80164; 80179; 80307; 81001; 82140; 83036; 84443; 85025; 93005; 99285; S9485

== ENCOUNTER → 2024-07-15 07:20 | Outpatient (BNV) | payer MEDICARE, MEDICAID, SELFPAY | PROVIDERS: Admitting Provider Psychiatry & Neurology Psychiatry; Emergency Provider Emergency Medicine; Visit Provider Internal Medicine | DX: F14.90 Cocaine use, unspecified, uncomplicated (principal) | CPT/HCPCS: 93010 ==

== ENCOUNTER → 2024-07-15 18:34 | Outpatient (BNV) | payer MEDICARE, MEDICAID, SELFPAY | PROVIDERS: Admitting Provider Psychiatry & Neurology Psychiatry; Emergency Provider Emergency Medicine; Visit Provider Psychiatry & Neurology Psychiatry | DX: F31.5 Bipolar disorder, current episode depressed, severe, with psychotic features (principal); F19.20 Other psychoactive substance dependence, uncomplicated; F43.10 Post-traumatic stress disorder, unspecified; F11.20 Opioid dependence, uncomplicated; F14.10 Cocaine abuse, uncomplicated; F12.20 Cannabis dependence, uncomplicated | CPT/HCPCS: 90792; 99231; 99232 ==

== ENCOUNTER 2024-07-25 08:52 | Inpatient (IN) | payer MEDICARE, MEDICAID, SELFPAY ==
[2024-07-25] VITALS (7 sets, daily range): BP systolic 101–125; BP diastolic 55–80; PULSE 63–86; RESP 12–19; TEMP 36.2–36.8; O2SAT 96–100; BMI 26.6
--- NOTE | 2024-07-25 09:05 | PC.NURSE ---
non adherent dressing applied to new superficial lacerations to R upper arm, pt reports increased self injury behavior w SI thoughts, plan to OD on fentanyl, supervisor records change process activated from triage.
--- NOTE | 2024-07-25 09:29 | ED_ITS ---
HPI - Psych General Chief Complaint: Psychiatric Symptoms Stated Complaint: crisis Time Seen by Provider: 07/25/24 09:16 Source: patient Mode of arrival: ambulatory Limitations: no limitations History of Present Illness ED Provider: Olga Lidia Martinez PA-C HPI Narrative: 34 yo male with past medical history significant for schizophrenia with auditory hallucinations, bipolar disorder, PTSD, polysubstance use, and depression presents to the ED with c/o auditory hallucinations to commit self harm, & suicidal ideation w/ plan to intentionally overdose or jump off his 4th story building. He indicates he was inpatient at this facility in the psych unit and was discharged last week. States he was not able to make his follow up appointment with [facility], however he reports he did fill his prescriptions and had taken them up until Thursday. Last used fentanyl/cocaine yesterday intra-nasally and has been taking any pills on the street he can to overdose. He has hx of same in past. Also reports self inflicted cuts to right upper arm x this AM. Denies HI, CP/SOB, abd pain MD complaint: suicidal ideation, feels depressed, substance abuse and hallucinations Related Data Home Medications ?Medication ?Instructions ?Recorded ?Confirmed melatonin 3 mg tablet 3 mg PO BEDTIME PRN Sleep 07/25/24 07/25/24 Previous Rx's ?Medication ?Instructions ?Recorded clonidine HCl 0.1 mg tablet 0.1 mg PO TID 30 days #90 tabs 07/20/24 divalproex 500 mg tablet,delayed 500 mg PO BID 30 days #60 tabs 07/20/24 release hydroxyzine HCl 50 mg tablet 50 mg PO TID PRN mild anxiety 30 07/20/24 days #90 tabs methadone 10 mg/mL oral 90 mg (9 mL) PO DAILY #0 mL 07/20/24 concentrate (Methadose) naloxone 4 mg/actuation nasal 4 mg intranasal Q2M PRN opioid 07/20/24 spray (Narcan) overdose 1 day #2 ea olanzapine 5 mg tablet 5 mg PO BID 30 days #60 tabs 07/20/24 trazodone 50 mg tablet 50 mg PO BEDTIME PRN Insomnia 30 07/20/24 days #30 tabs Allergies Allergy/AdvReac Type Severity Reaction Status Date / Time No Known Allergies Allergy Verified 07/25/24 09:04 [No Known Allergies*] Review of Systems 2 Review of Systems: Yes all other systems are reviewed and are negative Constitutional: Constitutional: Reports as per [facility] Past Medical History Attestation statement: The following information was validated with the patient. Medical History Deliberate self-cutting Suicide ideation Auditory hallucination PTSD (post-traumatic stress disorder) Schizoaffective disorder, depressive type Suicidal ideation Severe recurrent major depression with psychotic features Opioid use disorder Social History Social History Household Members: None Household Members Other:: that he is homeless Housing: Apartment Do you presently have visiting nurse or other home services: No Unable to assess alcohol history related to: Refusing to respond Alcohol intake: current Alcohol intake frequency: holidays/special occasions only Alcohol type: hard liquor Patient Tobacco Use Status: Current everyday Tobacco user Tobacco use type: Cigarette Cigarette Packs Per Day: 1 Cigarettes Per Day: 20.0 Years Smoked: 23 years Smoked in Last 30 Days: Yes e-Cigarette/Vaping Use: Former Use Patient Interested in Nicotine Replacement: Yes Patient Given Instructions on How to Stop Smoking: No Second Hand Smoke Exposure: No Use of substances other than those prescribed or required for medical reasons: Yes Substance Use Type: Crack/Cocaine and Marijuana Substance Use Type Other:: fentanyl Substance Use Frequency: Daily Last Used Substance: Just Prior to Admission Currently Displaying Signs/Symptoms of Drug Intoxication Withdrawal: No Any prior treatment program specific to substance use: Yes ([facility]) Have you been hit, kicked, punched, or otherwise hurt by someone within the past year? If so, by whom?: No Do you feel safe in your current relationship?: Yes Is there a partner from a previous relationship who is making you feel unsafe now?: No Are you made to feel afraid or neglected: No Advance Directives: No Advance Directives Information Provided: Yes Do you have thoughts of harming others: None Do you have a plan to hurt others: No Plan Recently lost weight without trying: Yes How much weight loss: 2-13 pounds Eating poorly because of decreased appetite: Yes Nutrition screen score: 4 Nutrition Risks: Anorexia Poor oral hygiene: No service: No Sexual orientation: Straight/Heterosexual Physical Exam 2 Vital Signs: Vital Signs: Last Vital Signs Temp 98.5 F 07/27/24 07:37 Pulse 60 07/27/24 07:37 Resp 16 07/27/24 07:37 BP 114/72 07/27/24 07:37 Pulse Ox 98 07/27/24 07:37 O2 Del Method Room Air 07/27/24 07:37 BMI result Body Mass Index 26.6 Const: General: cooperative, healthy appearing and no acute distress O rientation/consciousness: patient oriented x3 Limitations: no limitations HEENT: Head: Yes normal to inspection and Yes atraumatic Ears: hearing grossly normal bilaterally General nose exam: Normal external nose present Face and sinus: Yes normal facial exam Eyes: General: appearance normal, both eyes and all related structures EOM: EOMs intact bilaterally Neck: Neck: Yes normal visual inspection and Yes no meningeal signs Resp: Effort & Inspection: normal respiratory effort and no respiratory distress Auscultation: clear to auscultation bilaterally Cardio: Rate: regular rate Heart sounds: S1 normal heart sound present and S2 normal heart sound present GI: Inspection: Yes normal to inspection Skin: Other: Superficial lacerations noted to right upper arm Rashes: no rashes Wounds: no wounds Neuro: General: patient oriented x3, gait normal, tone normal, moves all extremities, no meningeal signs, no focal motor deficits and CN's II-XI intact bilaterally Cranial nerves: Yes CN's II-XII intact bilaterally Gait exam (Neuro): Normal gait present Extrem: General: Yes normal to inspection Psych: Thought content: Suicidality present, no homicidality and Depressive thoughts present Course Course Course Narrative: -tox screen positive for opiates, methadone, fentanyl, cocaine, marijuana -patient was evaluated by CARE team and will be dual diagnosis admission/bed search. We will continue to monitor. Physician observation initiated at 15:27 -1800--ED care transferred to [facility] pending inpt BS Reevaluation(s) Reevaluation #1: Time: 16:00 Date: 07/26/24 Provider: Fatmata Gutiérrez DO Physician observation ended at 1600 Patient to be admitted as inpatient to psychiatry Medications Administered Generic Name Dose Route Start Last Admin Trade Name Freq PRN Reason Stop Dose Admin Acetaminophen 650 mg 07/26/24 15:30 07/27/24 08:33 Acetaminophen 325 Mg Tablet PO 650 mg Q6H PRN Administration Headache/Pain, Scale 1-10 Clonidine HCl 0.1 mg 07/25/24 21:00 07/27/24 08:33 Clonidine Hcl 0.1 Mg Tablet PO 0.1 mg TID CYDNEY Administration Protocol Divalproex Sodium 500 mg 07/25/24 21:00 07/27/24 08:33 Divalproex Sodium 500 Mg Tablet.Dr PO 500 mg BID CYDNEY Administration Hydroxyzine HCl 50 mg 07/25/24 21:00 07/26/24 14:34 Hydroxyzine Hcl 50 Mg Tablet PO 50 mg TID PRN Administration mild anxiety Methadone HCl 100 mg 07/27/24 09:00 07/27/24 08:08 Methadone Hcl 20 Mg/2 Ml Oral.Conc PO 100 mg DAILY CYDNEY Administration Nicotine Polacrilex 4 mg 07/26/24 16:35 07/27/24 08:34 Nicotine Polacrilex 2 Mg Gum BUCCAL 4 mg Q1H PRN Administration Nicotine Cravings Olanzapine 5 mg 07/25/24 21:00 07/27/24 08:33 Olanzapine 5 Mg Tablet PO 5 mg BID CYDNEY Administration Trazodone HCl 50 mg 07/26/24 21:00 07/26/24 22:56 Trazodone Hcl 50 Mg Tablet PO 50 mg BEDTIME MRX1 PRN Administration Insomnia Discontinued Medications Generic Name Dose Route Start Last Admin Trade Name Freq PRN Reason Stop Dose Admin Methadone HCl 90 mg 07/25/24 15:30 07/26/24 08:38 Methadone Hcl 20 Mg/2 Ml Oral.Conc PO 90 mg DAILY CYDNEY Administration Methadone HCl 10 mg 07/26/24 16:06 07/26/24 16:18 Methadone Hcl 20 Mg/2 Ml Oral.Conc PO 07/26/24 16:07 10 mg ONCE ONE Administration Nicotine Polacrilex 2 mg 07/26/24 14:28 07/26/24 16:31 Nicotine Polacrilex 2 Mg Gum BUCCAL 2 mg Q2H PRN Administration Nicotine Cravings Medical Decision Making Medical Decision Making MDM Narrative: 34 yo male with past medical history significant for schizophrenia with auditory hallucinations, bipolar disorder, PTSD, polysubstance use, and depression presents to the ED with c/o auditory hallucinations to commit self harm, & suicidal ideation w/ plan to intentionally overdose or jump off his 4th story building. On exam VSS, NAD, appears depressed. Acting appropriate. Concern for SI with plan and substance abuse. Patient recently discharged from our facility Plan: Tox screen, ethanol, CARE team consult Differential Diagnosis Differential Diagnoses: The differential diagnosis associated with the presentation includes As above Admission/Observation Consideration of admission/observation: Escalation of care including admission/observation considered Consult Healthcare Provider Management of the patient was discussed with: Behavioral Health Provider Lab Data [facility] Lab Attestation statement: I reviewed the patient's lab results. 07/26/24 11:11 07/26/24 11:11 Labs: Lab Results 07/25/24 07/26/24 Range/Units 10:15 11:11 WBC 6.5 (4.8-10.8) X10*3/uL RBC 3.91 L (4.60-5.80) X10*6/uL Hgb 12.3 L (14.0-18.0) g/dl Hct 35.7 L (42.0-52.0) % MCV 91.3 (80.0-98.0) fL MCH 31.5 (27.0-33.0) pg MCHC 34.5 (31.0-36.0) g/dl RDW 12.8 (11.0-16.0) % Plt Count 186 (160-400) X10*3/uL MPV 10.1 (9.4-12.4) fL Immature Gran % (Auto) 0.3 (0.0-0.4) % Neut % (Auto) 42.0 L (45-73) % Lymph % (Auto) 46.6 H (20-40) % [place] % (Auto) 8.4 (2-11) % Eos % (Auto) 2.1 (0-4) % Baso % (Auto) 0.6 (0-2) % Lymph # (Auto) 3.1 (1.2-4.9) X10*3/uL [place] # (Auto) 0.6 (0.1-1.2) X10*3/uL Eos # (Auto) 0.1 (0.0-0.4) X10*3/uL Baso # (Auto) 0.0 (0.0-0.2) X10*3/uL Abs Immat Gran (auto) 0.02 (0.00-0.03) X10*3/uL Absolute Neuts (auto) 2.7 (2.0-8.3) x10*3/uL Absolute Nucleated RBC 0.000 (0.0-0.012) X10*3/uL Nucleated RBC % (auto) 0.0 (0.0-0.2) /100WBC Sodium 141 (135-145) mmol/L Potassium 4.1 (3.3-5.1) mmol/L Chloride 106 (96-108) mmol/L Carbon Dioxide 28 (22-29) mmol/L Anion Gap 11 L (12-20) BUN 22 H (9-16) mg/dL Creatinine 0.73 (0.5-1.4) mg/dL Estim Creat Clear Calc 135.3 Estimated GFR > 60 Random Glucose 101 (60-115) mg/dL Calcium 9.2 (8.4-10.2) mg/dL Total Bilirubin 0.4 (0.0-1.0) mg/dL AST 27 (5-37) U/L ALT 32 (0-40) U/L Alkaline Phosphatase 50 (39-117) U/L Total Protein 6.7 (6.5-8.0) g/dL Albumin 3.9 (3.5-5.0) g/dL Urine Opiates Screen POSITIVE H (Not Detect) Ur Buprenorphine Scrn Not Detected (Not Detect) ng/mL Ur Oxycodone Screen Not Detected (Not Detect) ng/mL Urine Methadone Screen Positive H (Not Detect) ng/mL Urine Fentanyl Screen POSITIVE H (Not Detect) Ur Barbiturates Screen Not Detected (Not Detect) Ur Phencyclidine Scrn Not Detected (Not Detect) Ur Amphetamines Screen Not Detected (Not Detect) U Benzodiazepines Scrn Not Detected (Not Detect) Urine Cocaine Screen POSITIVE H (Not Detect) U Marijuana (THC) Screen POSITIVE H (Not Detect) Ethyl Alcohol < 10 < 10 mg/dL Radiology Impression Discussion of test interpretation with radiology: I have reviewed the radiologist's reading. External Record Review External record reviewed: Inpatient record, Office record, Outpatient record, Prior outpatient labs, Prior outpatient radiology, Primary care record and Outside ED record Tests considered The following testing was considered but not selected: As above Prescription Management I considered prescription management with: Other Chronic Conditions Patient?s care impacted by: Other Social Determinants Patient?s care significantly limited by Social Determinants of Health including: Inadequate housing, Low income, Alcoholism and drug addiction in family, Problems related to primary support group, Unemployment, Problems related to employment and Other Social Determinant of Health Discharge Plan Discharge Clinical Impression: Suicidal ideation, Intentional self-harm Patient Disposition: Admitted As Inpatient Interventions: Admission Worksheet (ED) Last Done: 07/26/24 15:30 Discharge Date/Time: 07/26/24 16:06
--- NOTE | 2024-07-25 10:30 | PC.NURSE ---
Patient presents to ED with +SI w/plan. Patient has PMH of schizophrenia. Patient states I have been hearing hallucination and seeing things that aren't there, telling me to hurt myself . Patient has non adherent dressing to right upper arm from triage, patient was self cutting and had plans to jump out apartment window or overdose on fentanyl . Denies SOB. VSS and up to date. Patient did complain of stomach pain rated 9/10, patient states I haven't eaten since Thursday . Stomach soft non distended, no tenderness. + bowel sounds. Patient was changed over in triage and currently has sitter in place. Labs collected. UA collected, urine dark yellow, very concentrated, no odor. Patient able to ambulate independently w/o assistive device. Patient calm and cooperative.
[2024-07-25 10:33] LABS: Amphetamine Screen Urine Not Detected (Not Detect); Barbiturates, Urine Not Detected (Not Detect); Benzodiazepines Screen Urine Not Detected (Not Detect); Buprenorphine Scr Not Detected (Not Detect); Cannabinoid Screen Urine POSITIVE (Not Detect); Cocaine Screen Urine POSITIVE (Not Detect); Fentanyl, urine POSITIVE (Not Detect); Methadone Screen, Urine Positive (Not Detect); Opiate Screen Urine POSITIVE (Not Detect); Oxycodone Screen Urine Not Detected (Not Detect); Phencyclidine Screen Urine Not Detected (Not Detect)
[2024-07-25 10:36] LABS: Ethanol < 10 mg/dL
--- OUTSIDE RECORDS SUMMARY | 2024-07-25 10:56 | XMS_ITS | Encounter Summary ---
Author Organization [facility] Address [address] [place] [address] Care Team Providers Care Senior Loan Processor Name Role Phone Unavailable Primary Care Provider Unavailabl e Encounter Details Date Type Department Care Team (Late st Contact Info) Description 03/29/2024 Lab Requisition [facility] - Main Lab [address] [place] [address] [place] [address] Other snf (current) drug therapy Social History Tobacco Use [...] TOTAL Routine 03/29/2024 7:00 AM EST Other director long term care (current) drug therapy documented in this encounter Results * Valproic acid level, total (03/29/2024 7:00 AM EST) Valproic Acid, Total 82 50 - 100 mcg/mL LAB CHEMISTRY METHOD 03/29/2024 12:19 PM EST [facility] Blood Venous blood specimen / Unknown Venipuncture / Unknown 03/29/2024 7:00 AM EST 03/29/2024 10:39 AM EST us Adrianne Pulido LAB BLOOD ORDERABLES Final Resu lt [facility] [address] [place] [address], [place] [phone] documented in this encounter Visit Diagnoses Diagnosis Other director long term care (current) drug therapy documented in this encounter
--- OUTSIDE RECORDS SUMMARY | 2024-07-25 10:56 | XMS_ITS | Encounter Summary ---
Author Organization [facility] Address [address] [place] [address] Care Team Providers Care School Age Teacher Name Role Phone Unavailable Primary Care Provider Unavailabl e Encounter Details Date Type Department Care Team (Late st Contact Info) Description 04/29/2024 Lab Requisition [facility] - Main Lab [address] [place] [address] Adrianne Pulido [address] [place] [id number] Social History Tobacco Use Types Packs/Day [...]
--- OUTSIDE RECORDS SUMMARY | 2024-07-25 10:56 | XMS_ITS | Clinical Summary ---
Author Organization [address] [facility] Address [address] [place] [address] Phone Care Team Providers Care Nutrition Aide Name Role Phone Unavailable Primary Care Provider Unavailabl e Encounters Date Type Department Care Team Description 04/29/[address] [facility] - Main Lab [address] [facility] [place] [address] Adrianne Pulido from Last 3 [...]
--- NOTE | 2024-07-25 11:13 | HE.PHANOTE ---
METHADONE Dose: 90mg, last dosed on 07/22/2024 @1208 per TRENT Carney at [facility]
--- NOTE | 2024-07-25 12:05 | MHC.EDTECH ---
patient requested something to eat. Gave patient a turkey, sandwich, bradley faviola, jello,and cheese stick. Patient is calm and alert no distress, nurse aware.
[2024-07-25] MEDS: methADONE HCl 20 MG/2 ML ORAL.CONC 90 MG PO (17:38)
--- NOTE | 2024-07-25 17:41 | PC.NURSE ---
delay in medication administration d/t medication not being verified by pharmacy. still pending the rest of home medication to be verified. will administer medication when able. 1:[address]
--- NOTE | 2024-07-25 20:11 | PHA.MEDREC ---
Addendum entered by Kira Pulido RPh 07/25/24 20:14: REVIEWED BY LAMAR Original Note: Pharmacy Consult ? Medication Reconciliation Pharmacy reviewed med rec done by nursing. Patient confirmed the medications confirmed on the med rec are correct.
[2024-07-25] MEDS: OLANZapine 5 MG TABLET PO (20:56)
[2024-07-25] MEDS: Divalproex Sodium 500 MG TABLET.DR PO (20:56)
[2024-07-25] MEDS: cloNIDine HCL 0.1 MG TABLET PO (20:56)
--- NOTE | 2024-07-26 | ECG_ITS ---
Test Reason : CHECK PROLONGED QT Blood Pressure : */* mmHG Vent. Rate : 63 BPM Atrial Rate : 63 BPM P-R Int : 118 ms QRS Dur : 94 ms QT Int : 466 ms P-R-T Axes : 64 60 45 degrees QTcB Int : 476 ms Normal sinus rhythm Minimal voltage criteria for LVH, may be normal variant ( Sokolow-Fried ) Borderline ECG When compared with ECG of 15-Jul-2024 07:20, No significant changes seen Referred By: Olga Lidia Martinez Electronically Signed By: ARABELLA BARNHART
[2024-07-26 06:19] VITALS: RESP 16
--- NOTE | 2024-07-26 07:49 | PC.NURSE ---
Assumed care of patient at 0645, patient appears to be in no apparent distress this am, sleeping, respirations even and unlabored. Continue plan of care for dual dx bedsearch
[2024-07-26 08:01] VITALS: BP 108/72; PULSE 54; RESP 16; TEMP 36.4; O2SAT 98
[2024-07-26 08:11] VITALS: BP 108/72
[2024-07-26] MEDS: cloNIDine HCL 0.1 MG TABLET PO ×3 (08:11→21:02)
[2024-07-26] MEDS: Divalproex Sodium 500 MG TABLET.DR PO ×2 (08:11→21:02)
[2024-07-26] MEDS: OLANZapine 5 MG TABLET PO ×2 (08:11→21:02)
[2024-07-26] MEDS: methADONE HCl 20 MG/2 ML ORAL.CONC 90 MG PO (08:38)
[2024-07-26 11:16] LABS: MANUAL DIFF FLAG NO
[2024-07-26 11:17] LABS: Basophils Percent Auto 0.6 % (0-2); Eosinophils Absolute Auto 0.1 X10*3/uL (0.0-0.4); Eosinophils Percent Auto 2.1 % (0-4); Hematocrit 35.7 % (42.0-52.0); Hemoglobin 12.3 g/dl (14.0-18.0); Imm Gran Abs Auto 0.02 X10*3/uL (0.00-0.03); Imm Gran Pct Auto 0.3 % (0.0-0.4); Lymphocytes Absolute Auto 3.1 X10*3/uL (1.2-4.9); Lymphocytes Percent Auto 46.6 % (20-40); Mean Corpuscular HGB Conc 34.5 g/dl (31.0-36.0); Mean Corpuscular Hemoglobin 31.5 pg (27.0-33.0); Mean Corpuscular Volume 91.3 fL (80.0-98.0); Mean Platelet Volume 10.1 fL (9.4-12.4); Monocytes Absolute Auto 0.6 X10*3/uL (0.1-1.2); Monocytes Percent Auto 8.4 % (2-11); Neutrophils Absolute Auto 2.7 x10*3/uL (2.0-8.3); Platelet Count 186 X10*3/uL (160-400); Red Blood Count 3.91 X10*6/uL (4.60-5.80); Red Cell Distribution Width 12.8 % (11.0-16.0); White Blood Count 6.5 X10*3/uL (4.8-10.8)
[2024-07-26 12:04] LABS: Alanine Aminotransferase 32 U/L (0-40); Albumin Level 3.9 g/dL (3.5-5.0); Anion Gap 11 (12-20); Aspartate Amino Transferase 27 U/L (5-37); Bilirubin Total 0.4 mg/dL (0.0-1.0); Blood Urea Nitrogen 22 mg/dL (9-16); Calcium 9.2 mg/dL (8.4-10.2); Carbon Dioxide 28 mmol/L (22-29); Chloride 106 mmol/L (96-108); Creatinine Clr Calc Pharmacy 135.3; Estimated Glomerular Filt Rate > 60; Ethanol < 10 mg/dL; Glucose Random 101 mg/dL (60-115); Potassium 4.1 mmol/L (3.3-5.1); Sodium 141 mmol/L (135-145); Total Protein 6.7 g/dL (6.5-8.0)
[2024-07-26] MEDS: hydrOXYzine HCL 50 MG TABLET PO (14:34)
[2024-07-26] MEDS: Nicotine Polacrilex 2 MG GUM BUCCAL ×2 (14:51→16:31)
[2024-07-26 16:00] VITALS: BP 124/72; PULSE 80; RESP 16; TEMP 36.9; O2SAT 97; BMI 26.6
[2024-07-26] MEDS: methADONE HCl 20 MG/2 ML ORAL.CONC 10 MG PO (16:18)
[2024-07-26] MEDS: Acetaminophen 325 MG TABLET 650 MG PO (16:30)
[2024-07-26 17:00] LABS: Alkaline Phosphatase 50 U/L (39-117)
--- NOTE | 2024-07-26 17:43 | PC.NURSE ---
Solomon was admitted to at 1545 from [facility]? on CV for treatment of? psychosis, self injurious behavior, substance use and SI. On admission he is fully oriented, pleasant and cooperative.? Mood is depressed. Affect is broad. He reports [facility] telling him to cut his throat. He did superficially cut his RUE prior to admission. He has older healing cuts on LUE. Thought process is organized. He denies ideation, plan or intent to harm others and agrees to approach staff if intending to harm himself.? Pt reports 15lb weight loss with poor appetite. Sleep is reportedly poor but attributable to daily cocaine use.? Pt was discharged from on 07/21 and reports that since that time he has used cocaine, fentanyl and marijuana daily in addition to his methadone maintenance daily ( no methadone yesterday.) Pt denies physical complaint. Safety Checks are q 15 minutes.
[2024-07-26] MEDS: Nicotine Polacrilex 2 MG GUM 4 MG BUCCAL ×2 (19:45→22:56)
[2024-07-26 20:00] VITALS: BP 105/60; PULSE 72; RESP 16; TEMP 36.7; O2SAT 97
[2024-07-26 21:02] VITALS: BP 106/60
[2024-07-26] MEDS: traZODone HCL 50 MG TABLET PO (22:56)
[2024-07-27] MEDS: Nicotine Polacrilex 2 MG GUM 4 MG BUCCAL ×6 (06:11→21:19)
[2024-07-27 07:37] VITALS: BP 114/72; PULSE 60; RESP 16; TEMP 36.9; O2SAT 98
[2024-07-27] MEDS: methADONE HCl 20 MG/2 ML ORAL.CONC 100 MG PO (08:08)
[2024-07-27] MEDS: OLANZapine 5 MG TABLET PO ×3 (08:33→21:19)
[2024-07-27] MEDS: Acetaminophen 325 MG TABLET 650 MG PO ×2 (08:33→21:19)
[2024-07-27] MEDS: cloNIDine HCL 0.1 MG TABLET PO ×3 (08:33→21:19)
[2024-07-27] MEDS: Divalproex Sodium 500 MG TABLET.DR PO ×2 (08:33→21:19)
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
[2024-07-27] MEDS: hydrOXYzine HCL 50 MG TABLET PO ×2 (09:39→21:19)
[2024-07-27] MEDS: Lidocaine 4 % Patch ADH..PATCH 1 PATCH TRANSDERMA (12:11)
--- NOTE | 2024-07-27 15:27 | MHC.CLN ---
RE: CONSULT PT REPORTED 15# WT LOSS WITH POOR PO INTAKE CURRENT WT 79KG (07/26/24) PREVIOUS WT 81.4KG (02/16/24) PT WITH 5# WT LOSS X 6 MONTHS DOES NOT QUALIFY FOR SIGNIFICANT WT LOSS PT REPORTS COCAINE ABUSE AND FENTANYL WHICH CAN BE CONTRIBUTORS TO POOR PO AND WT LOSS PT ALSO REMAINS OVER WEIGHT FOR HT REGULAR DIET PT WITH ORDER FOR 8OZ ENSURE TID -NOT WARRANTED AT THIS TIME MONITOR PO INTAKE PT WITH VERY LOW NUTRITION RISK CONTINUE CURRENT CARE PLAN
[2024-07-27 15:49] VITALS: BP 125/64
[2024-07-27 20:00] VITALS: BP 112/60; PULSE 67; RESP 16; TEMP 36.4; O2SAT 97
[2024-07-27] MEDS: traZODone HCL 50 MG TABLET PO (21:19)
[2024-07-28] MEDS: Nicotine Polacrilex 2 MG GUM 4 MG BUCCAL ×6 (01:05→21:59)
[2024-07-28 07:00] VITALS: BP 93/65; PULSE 69; RESP 20; TEMP 36.6; O2SAT 98; BMI 27.5
[2024-07-28] MEDS: methADONE HCl 20 MG/2 ML ORAL.CONC 110 MG PO (07:43)
[2024-07-28] MEDS: Divalproex Sodium 500 MG TABLET.DR PO ×2 (08:19→21:59)
[2024-07-28] MEDS: OLANZapine 5 MG TABLET PO ×4 (08:19→21:59)
[2024-07-28] MEDS: Lidocaine 4 % Patch ADH..PATCH 1 PATCH TRANSDERMA (08:20)
[2024-07-28] MEDS: cloNIDine HCL 0.1 MG TABLET PO ×3 (08:20→21:59)
[2024-07-28] MEDS: Acetaminophen 325 MG TABLET 650 MG PO (08:25)
[2024-07-28] MEDS: hydrOXYzine HCL 50 MG TABLET PO (10:00)
--- NOTE | 2024-07-28 15:24 | HO.PSYCHPN ---
Subjective Subjective Date of Service: 07/28/24 Reason For Visit: Psychosis Interim History: calm, cooperative. +AH. no CAH. +SI. feels well opioid-kelsey on methadone 110 mg daily. per staff, dep 5 anx 4. +AH. CAH to cut self yesterday. eating. no SIB. slept 6 hours. Mental Status Exam Mental Status Exam Narrative: General appearance: own attire. fair hygiene.? Eye contact: WNL. Musculoskeletal: no psychomotor agitation or retardation. Normal posture.??? Manner/behavior: cooperative Speech:? Fluent, with normal rate, tone and volume. Language: No receptive or expressive language impairment? Mood: improving Affect: flexible, without lability. Thought process/associations: Linear with no flight of ideas or loose associations.?? Thought content:?No delusions or paranoia.?? Hallucinations: AH, no CAH Suicidality: +SI Homicidally/violence: none Reliability: fair.? ? Judgment: poor.? ? Insight: poor Cognition: Alert and oriented to time, place and person. Attention, concentration and fund of knowledge are normal.? Impulse control and emotional regulation: fair Intelligence estimate: below average.? Diagnostics Vital Signs (24Hr): Vital Signs - 24 hr 07/27/24 15:49 07/27/24 20:00 07/28/24 07:00 Temperature 97.5 F 98 F Pulse Rate 67 69 Respiratory Rate 16 20 Blood Pressure 125/64 112/60 93/65 Pulse Oximetry 97 98 Oxygen Delivery Method Room Air Room Air BMI result Body Mass Index 27.5 Labs 07/26/24 11:11 07/26/24 11:11 Labs: Laboratory Results - last 48 hr 07/26/24 11:11 Alkaline Phosphatase 50 Medications Medications Current Medications Acetaminophen (Acetaminophen 325 Mg Tablet) 650 mg PO Q6H PRN PRN Reason: Headache/Pain, Scale 1-10 Last Admin: 07/28/24 08:25 Dose: 650 mg Al Hydroxide/Mg Hydroxide (Magnesium Hydrox/Alum Hydrox 30 Ml Oral.Susp) 30 ml PO Q6H PRN PRN Reason: Heartburn/Nausea Clonidine HCl (Clonidine Hcl 0.1 Mg Tablet) 0.1 mg PO TID [facility]; Protocol Last Admin: 07/28/24 08:20 Dose: 0.1 mg Divalproex Sodium (Divalproex Sodium 500 Mg Tablet.) 500 mg PO BID [facility] Last Admin: 07/28/24 08:19 Dose: 500 mg Hydroxyzine HCl (Hydroxyzine Hcl 50 Mg Tablet) 50 mg PO TID PRN PRN Reason: mild anxiety Last Admin: 07/28/24 10:00 Dose: 50 mg Hydroxyzine HCl (Hydroxyzine Hcl 25 Mg Tablet) 25 mg PO Q6H PRN PRN Reason: mild anxiety Lidocaine (Lidocaine 4 % Patch Adh..Patch) 1 patch TRANSDERMA DAILY [facility]; Protocol Last Admin: 07/28/24 08:20 Dose: 1 patch Magnesium Hydroxide (Milk Of Magnesia 30 Ml Oral.Susp) 30 ml PO DAILY PRN PRN Reason: Constipation Melatonin (Melatonin 3 Mg Tablet) 3 mg PO BEDTIME PRN PRN Reason: Insomnia Methadone HCl (Methadone Hcl 20 Mg/2 Ml Oral.Conc) 110 mg PO DAILY [facility] Last Admin: 07/28/24 07:43 Dose: 110 mg Naloxone HCl (Naloxone Hcl Nasal 4 Mg [place]) 4 mg NOSTRILALT Q2M PRN PRN Reason: opioid overdose Nicotine Polacrilex (Nicotine Polacrilex 2 Mg Gum) 4 mg BUCCAL Q1H PRN PRN Reason: Nicotine Cravings Last Admin: 07/28/24 08:19 Dose: 4 mg Olanzapine (Olanzapine 5 Mg Tablet) 5 mg PO BID [facility] Last Admin: 07/28/24 08:19 Dose: 5 mg Olanzapine (Olanzapine 5 Mg Tablet) 5 mg PO Q4H PRN PRN Reason: agitation or AH Last Admin: 07/28/24 11:28 Dose: 5 mg Trazodone HCl (Trazodone Hcl 50 Mg Tablet) 50 mg PO BEDTIME MRX1 PRN PRN Reason: Insomnia Last Admin: 07/27/24 21:19 Dose: 50 mg Allergies Allergies Allergy/AdvReac Type Severity Reaction Status Date / Time No Known Allergies Allergy Verified 07/25/24 09:04 [No Known Allergies*] Assessment & Plan Assessment & Plan (1) Schizoaffective disorder, depressive type: Status: Acute Code(s): F25.1 - Schizoaffective disorder, depressive type (2) PTSD (post-traumatic stress disorder): Status: Acute Code(s): F43.10 - Post-traumatic stress disorder, unspecified (3) Cocaine use disorder: Status: Acute Code(s): F14.10 - Cocaine abuse, uncomplicated (4) Opioid use disorder, severe, dependence: Status: Acute Code(s): F11.20 - Opioid dependence, uncomplicated Plan 07/27: methadone increased to 100 mg daily as of yesterday; increase again to 110 mg daily tomorrow as pt c/o cravings and does not appear sedated. asking for ensure TID due to weight loss; so ordered. c/o right costal pain, lidoderm ordered. otherwise continue/restart usual outpt medications. clearly unable to remain sober and engaging in risky self-harm behaviors in recent days with severe CAH to suicide. 07/28: affect full range and flexible, does continue to endorse SI and AH. no longer CAH, however. continue current mgmt. section 35 tomorrow. Reason for continued inpatient stay Substantial Risk for: harm to self, inability to function and rapid decompensation Time Spent With Patient Time: Total time managing care of this patient today __25__ minutes.
[2024-07-28 15:52] VITALS: BP 105/65
[2024-07-28 20:00] VITALS: BP 124/80; PULSE 78; RESP 16; TEMP 37.1; O2SAT 98
[2024-07-28 20:45] VITALS: BP 124/76
[2024-07-28] MEDS: traZODone HCL 50 MG TABLET PO (22:00)
[2024-07-29] MEDS: Nicotine Polacrilex 2 MG GUM 4 MG BUCCAL ×7 (02:22→21:02)
[2024-07-29 07:05] VITALS: BP 121/74; PULSE 78; RESP 16; TEMP 36.5; O2SAT 98
[2024-07-29] MEDS: methADONE HCl 20 MG/2 ML ORAL.CONC 110 MG PO (08:12)
[2024-07-29 08:29] VITALS: BP 121/74
[2024-07-29] MEDS: cloNIDine HCL 0.1 MG TABLET PO ×3 (08:29→22:27)
[2024-07-29] MEDS: Divalproex Sodium 500 MG TABLET.DR PO ×2 (08:30→22:27)
[2024-07-29] MEDS: OLANZapine 5 MG TABLET PO ×2 (08:30→22:27)
[2024-07-29] MEDS: Lidocaine 4 % Patch ADH..PATCH 1 PATCH TRANSDERMA (08:30)
[2024-07-29] MEDS: hydrOXYzine HCL 50 MG TABLET PO (10:53)
--- NOTE | 2024-07-29 14:31 | P.PNPSI_ITS ---
Subjective Subjective Date of Service: 07/29/24 Reason For Visit: Psychosis Interim History: Met with patient; discussed with team; reviewed chart Patient guarded. Polite but says does not really want to work with this technical publications writer. He endorses AH and says that he is still depressed; he says he still has suicidal ideation but less. Commercial Leasing Manager inquired about medication changes however patient said he wanted to wait for Dr. Armendariz to return. Mental Status Exam Mental Status Exam Narrative: General appearance: own attire. fair hygiene.? Eye contact: WNL. Musculoskeletal: no psychomotor agitation or retardation. Normal posture.??? Manner/behavior: Mostly cooperative Speech:? Fluent, with normal rate, tone and volume. Language: No receptive or expressive language impairment? Mood: still depressed Affect: flexible, without lability. Thought process/associations: Linear with no flight of ideas or loose associations.?? Thought content:?No delusions or paranoia.?? Hallucinations: AH, Suicidality: +SI Homicidally/violence: none Reliability: fair.? ? Judgment/ Insight: Impaired Cognition: Alert and oriented to time, place and person. Attention, concentration and fund of knowledge are normal.? Impulse control and emotional regulation: fair Intelligence estimate: below average.? Diagnostics Vital Signs (24Hr): Vital Signs - 24 hr 07/28/24 15:52 07/28/24 20:00 07/28/24 20:45 Temperature 98.8 F Pulse Rate 78 Respiratory Rate 16 Blood Pressure 105/65 124/80 124/76 Pulse Oximetry 98 Oxygen Delivery Method Room Air 07/29/24 07:05 07/29/24 08:29 Temperature 97.7 F Pulse Rate 78 Respiratory Rate 16 Blood Pressure 121/74 121/74 Pulse Oximetry 98 Oxygen Delivery Method Room Air BMI result Body Mass Index 27.5 Labs 07/26/24 11:11 07/26/24 11:11 Medications Medications Current Medications Acetaminophen (Acetaminophen 325 Mg Tablet) 650 mg PO Q6H PRN PRN Reason: Headache/Pain, Scale 1-10 Last Admin: 07/28/24 08:25 Dose: 650 mg Al Hydroxide/Mg Hydroxide (Magnesium Hydrox/Alum Hydrox 30 Ml Oral.Susp) 30 ml PO Q6H PRN PRN Reason: Heartburn/Nausea Clonidine HCl (Clonidine Hcl 0.1 Mg Tablet) 0.1 mg PO TID [facility]; Protocol Last Admin: 07/29/24 08:29 Dose: 0.1 mg Divalproex Sodium (Divalproex Sodium 500 Mg Tablet.Dr) 500 mg PO BID [facility] Last Admin: 07/29/24 08:30 Dose: 500 mg Hydroxyzine HCl (Hydroxyzine Hcl 50 Mg Tablet) 50 mg PO TID PRN PRN Reason: mild anxiety Last Admin: 07/29/24 10:53 Dose: 50 mg Hydroxyzine HCl (Hydroxyzine Hcl 25 Mg Tablet) 25 mg PO Q6H PRN PRN Reason: mild anxiety Lidocaine (Lidocaine 4 % Patch Adh..Patch) 1 patch TRANSDERMA DAILY [facility]; Protocol Last Admin: 07/29/24 08:30 Dose: 1 patch Magnesium Hydroxide (Milk Of Magnesia 30 Ml Oral.Susp) 30 ml PO DAILY PRN PRN Reason: Constipation Melatonin (Melatonin 3 Mg Tablet) 3 mg PO BEDTIME PRN PRN Reason: Insomnia Methadone HCl (Methadone Hcl 20 Mg/2 Ml Oral.Conc) 110 mg PO DAILY [facility] Last Admin: 07/29/24 08:12 Dose: 110 mg Naloxone HCl (Naloxone Hcl Nasal 4 Mg [place]) 4 mg NOSTRILALT Q2M PRN PRN Reason: opioid overdose Nicotine Polacrilex (Nicotine Polacrilex 2 Mg Gum) 4 mg BUCCAL Q1H PRN PRN Reason: Nicotine Cravings Last Admin: 07/29/24 13:57 Dose: 4 mg Olanzapine (Olanzapine 5 Mg Tablet) 5 mg PO BID [facility] Last Admin: 07/29/24 08:30 Dose: 5 mg Olanzapine (Olanzapine 5 Mg Tablet) 5 mg PO Q4H PRN PRN Reason: agitation or AH Last Admin: 07/28/24 19:34 Dose: 5 mg Trazodone HCl (Trazodone Hcl 50 Mg Tablet) 50 mg PO BEDTIME MRX1 PRN PRN Reason: Insomnia Last Admin: 07/28/24 22:00 Dose: 50 mg Allergies Allergies Allergy/AdvReac Type Severity Reaction Status Date / Time No Known Allergies Allergy Verified 07/25/24 09:04 [No Known Allergies*] Assessment & Plan Assessment & Plan (1) Schizoaffective disorder, depressive type: Status: Acute Code(s): F25.1 - Schizoaffective disorder, depressive type (2) PTSD (post-traumatic stress disorder): Status: Acute Code(s): F43.10 - Post-traumatic stress disorder, unspecified (3) Cocaine use disorder: Status: Acute Code(s): F14.10 - Cocaine abuse, uncomplicated (4) Opioid use disorder, severe, dependence: Status: Acute Code(s): F11.20 - Opioid dependence, uncomplicated Plan SI with plan to overdose or jump from 4th floor window of apartment. reported CAH to slit his own throat. superficially cur upper left arm with a knife. 07/27: methadone increased to 100 mg daily as of yesterday; increase again to 110 mg daily tomorrow as pt c/o cravings and does not appear sedated. asking for ensure TID due to weight loss; so ordered. c/o right costal pain, lidoderm ordered. otherwise continue/restart usual outpt medications. clearly unable to remain sober and engaging in risky self-harm behaviors in recent days with severe CAH to suicide. 07/28: affect full range and flexible, does continue to endorse SI and AH. no longer CAH, however. continue current mgmt. 07/29 Patient guarded. Polite but says does not really want to work with this technical publications writer. He endorses AH and says that he is still depressed; he says he still has suicidal ideation but less. Commercial Leasing Manager inquired about medication changes however patient said he wanted to wait for Dr. Armendariz to return. -primary team considering section 35 . Patient educated on: diagnosis and medication risk/benefits Informed Consent: understands Reason for continued inpatient stay Substantial Risk for: rapid decompensation Time Spent With Patient Time: Total time managing care of this patient today ____ minutes.
[2024-07-29 15:24] VITALS: BP 100/60
[2024-07-29 19:16] VITALS: BP 110/55; PULSE 87; RESP 16; TEMP 37.1; O2SAT 98
[2024-07-29 22:27] VITALS: BP 101/63
[2024-07-29] MEDS: traZODone HCL 50 MG TABLET PO (22:27)
[2024-07-30] MEDS: Nicotine Polacrilex 2 MG GUM 4 MG BUCCAL ×7 (04:00→22:07)
[2024-07-30 07:46] VITALS: BP 106/60; PULSE 74; RESP 16; TEMP 36.9; O2SAT 99
[2024-07-30] MEDS: methADONE HCl 20 MG/2 ML ORAL.CONC 110 MG PO (08:02)
[2024-07-30 08:51] VITALS: BP 106/60
[2024-07-30] MEDS: Divalproex Sodium 500 MG TABLET.DR PO ×2 (08:51→22:10)
[2024-07-30] MEDS: cloNIDine HCL 0.1 MG TABLET PO ×3 (08:51→22:10)
[2024-07-30] MEDS: OLANZapine 5 MG TABLET PO ×4 (08:51→22:11)
[2024-07-30] MEDS: Lidocaine 4 % Patch ADH..PATCH 1 PATCH TRANSDERMA (08:51)
[2024-07-30] MEDS: hydrOXYzine HCL 50 MG TABLET PO (11:26)
--- NOTE | 2024-07-30 11:41 | HO.PSYCHPN ---
Subjective Subjective Date of Service: 07/30/24 Reason For Visit: Psychosis Subjective Notes: Conditional Voluntary Interim History: Patient was seen and discussed in rounds today. Records and plans were reviewed. He has been stable, doing better. Mostly isolative. Flat affect. Passive SI reported. Eating and sleeping adequately. No groups attended. Medication compliant with no complaints or side effects. No changes Review of Systems Review of Systems Yes all other systems are reviewed and are negative Mental Status Exam Mental Status Exam Narrative: In today's visit he is alert, oriented and pleasant. Normal speech. Moderate eye contact. Affect is constricted. No acute signs of psychosis. No delusions. Cognitively is grossly intact. Moves all limbs. No gait abnormalities. Judgment is intact Diagnostics Vital Signs (24Hr): Vital Signs - 24 hr 07/29/24 15:24 07/29/24 19:16 07/29/24 22:27 Temperature 98.7 F Pulse Rate 87 Respiratory Rate 16 Blood Pressure 100/60 110/55 L 101/63 Pulse Oximetry 98 Oxygen Delivery Method Room Air 07/30/24 07:46 07/30/24 08:51 Temperature 98.4 F Pulse Rate 74 Respiratory Rate 16 Blood Pressure 106/60 106/60 Pulse Oximetry 99 Oxygen Delivery Method Room Air BMI result Body Mass Index 27.5 Labs 07/26/24 11:11 07/26/24 11:11 Medications Medications Current Medications Acetaminophen (Acetaminophen 325 Mg Tablet) 650 mg PO Q6H PRN PRN Reason: Headache/Pain, Scale 1-10 Last Admin: 07/28/24 08:25 Dose: 650 mg Al Hydroxide/Mg Hydroxide (Magnesium Hydrox/Alum Hydrox 30 Ml Oral.Susp) 30 ml PO Q6H PRN PRN Reason: Heartburn/Nausea Clonidine HCl (Clonidine Hcl 0.1 Mg Tablet) 0.1 mg PO TID [facility]; Protocol Last Admin: 07/30/24 08:51 Dose: 0.1 mg Divalproex Sodium (Divalproex Sodium 500 Mg Tablet.) 500 mg PO BID [facility] Last Admin: 07/30/24 08:51 Dose: 500 mg Hydroxyzine HCl (Hydroxyzine Hcl 50 Mg Tablet) 50 mg PO TID PRN PRN Reason: mild anxiety Last Admin: 07/30/24 11:26 Dose: 50 mg Hydroxyzine HCl (Hydroxyzine Hcl 25 Mg Tablet) 25 mg PO Q6H PRN PRN Reason: mild anxiety Lidocaine (Lidocaine 4 % Patch Adh..Patch) 1 patch TRANSDERMA DAILY [facility]; Protocol Last Admin: 07/30/24 08:51 Dose: 1 patch Magnesium Hydroxide (Milk Of Magnesia 30 Ml Oral.Susp) 30 ml PO DAILY PRN PRN Reason: Constipation Melatonin (Melatonin 3 Mg Tablet) 3 mg PO BEDTIME PRN PRN Reason: Insomnia Methadone HCl (Methadone Hcl 20 Mg/2 Ml Oral.Conc) 110 mg PO DAILY [facility] Last Admin: 07/30/24 08:02 Dose: 110 mg Naloxone HCl (Naloxone Hcl Nasal 4 Mg [place]) 4 mg NOSTRILALT Q2M PRN PRN Reason: opioid overdose Nicotine Polacrilex (Nicotine Polacrilex 2 Mg Gum) 4 mg BUCCAL Q1H PRN PRN Reason: Nicotine Cravings Last Admin: 07/30/24 10:03 Dose: 4 mg Olanzapine (Olanzapine 5 Mg Tablet) 5 mg PO BID [facility] Last Admin: 07/30/24 08:51 Dose: 5 mg Olanzapine (Olanzapine 5 Mg Tablet) 5 mg PO Q4H PRN PRN Reason: agitation or AH Last Admin: 07/28/24 19:34 Dose: 5 mg Trazodone HCl (Trazodone Hcl 50 Mg Tablet) 50 mg PO BEDTIME MRX1 PRN PRN Reason: Insomnia Last Admin: 07/29/24 22:27 Dose: 50 mg Allergies Allergies Allergy/AdvReac Type Severity Reaction Status Date / Time No Known Allergies Allergy Verified 07/25/24 09:04 [No Known Allergies*] Assessment & Plan Assessment & Plan (1) Schizoaffective disorder, depressive type: Status: Acute Code(s): F25.1 - Schizoaffective disorder, depressive type (2) PTSD (post-traumatic stress disorder): Status: Acute Code(s): F43.10 - Post-traumatic stress disorder, unspecified (3) Cocaine use disorder: Status: Acute Code(s): F14.10 - Cocaine abuse, uncomplicated (4) Opioid use disorder, severe, dependence: Status: Acute Code(s): F11.20 - Opioid dependence, uncomplicated Plan SI with plan to overdose or jump from 4th floor window of apartment. reported CAH to slit his own throat. superficially cur upper left arm with a knife. 07/27: methadone increased to 100 mg daily as of yesterday; increase again to 110 mg daily tomorrow as pt c/o cravings and does not appear sedated. asking for ensure TID due to weight loss; so ordered. c/o right costal pain, lidoderm ordered. otherwise continue/restart usual outpt medications. clearly unable to remain sober and engaging in risky self-harm behaviors in recent days with severe CAH to suicide. 07/28: affect full range and flexible, does continue to endorse SI and AH. no longer CAH, however. continue current mgmt. 07/29 Patient guarded. Polite but says does not really want to work with this race and sports book writer. He endorses AH and says that he is still depressed; he says he still has suicidal ideation but less. Complaint Adjuster inquired about medication changes however patient said he wanted to wait for Dr. Armendariz to return. -primary team considering section 35 . 07/30: Continue current regimen and plans Reason for continued inpatient stay Substantial Risk for: med/psych decompensation Time Spent With Patient Time: Total time managing care of this patient today ____ minutes.
[2024-07-30 15:33] VITALS: BP 107/60
[2024-07-30 19:46] VITALS: BP 116/56; PULSE 90; RESP 16; TEMP 36.9; O2SAT 97
[2024-07-30 22:10] VITALS: BP 119/65
[2024-07-30] MEDS: traZODone HCL 50 MG TABLET PO (22:11)
[2024-07-31] MEDS: Nicotine Polacrilex 2 MG GUM 4 MG BUCCAL ×7 (02:14→22:11)
[2024-07-31] MEDS: traZODone HCL 50 MG TABLET PO ×2 (02:14→21:26)
[2024-07-31 07:47] VITALS: BP 120/67; PULSE 73; RESP 16; TEMP 36.4; O2SAT 98
[2024-07-31] MEDS: methADONE HCl 20 MG/2 ML ORAL.CONC 110 MG PO (07:53)
[2024-07-31 08:48] VITALS: BP 110/70
[2024-07-31] MEDS: Divalproex Sodium 500 MG TABLET.DR PO ×2 (08:48→21:20)
[2024-07-31] MEDS: OLANZapine 5 MG TABLET PO ×3 (08:48→21:20)
[2024-07-31] MEDS: cloNIDine HCL 0.1 MG TABLET PO ×3 (08:48→21:20)
[2024-07-31] MEDS: Lidocaine 4 % Patch ADH..PATCH 1 PATCH TRANSDERMA (08:49)
--- NOTE | 2024-07-31 09:12 | P.PNPSI_ITS ---
Subjective Subjective Date of Service: 07/31/24 Reason For Visit: Psychosis Subjective Notes: Conditional Voluntary Interim History: Patient was seen and discussed in rounds today. Records and plans were reviewed. He he has been doing generally better and is improved. He does have passive suicidal ideations. He is pleasant and interactive. Eating and sleeping adequately. He is going to be placed on a section 35 which he is not aware of, probably tomorrow. No changes were made today Review of Systems Review of Systems Yes all other systems are reviewed and are negative Mental Status Exam Mental Status Exam Narrative: In today's visit he is alert, oriented and pleasant. Normal speech. Moderate eye contact. Affect is constricted. No acute signs of psychosis. No delusions. Cognitively is grossly intact. Moves all limbs. No gait abnormalities. Judgment is intact Diagnostics Vital Signs (24Hr): Vital Signs - 24 hr 07/30/24 15:33 07/30/24 19:46 07/30/24 22:10 Temperature 98.5 F Pulse Rate 90 Respiratory Rate 16 Blood Pressure 107/60 116/56 L 119/65 Pulse Oximetry 97 Oxygen Delivery Method Room Air 07/31/24 07:47 07/31/24 08:48 Temperature 97.5 F Pulse Rate 73 Respiratory Rate 16 Blood Pressure 120/67 110/70 Pulse Oximetry 98 Oxygen Delivery Method Room Air BMI result Body Mass Index 27.5 Labs 07/26/24 11:11 07/26/24 11:11 Medications Medications Current Medications Acetaminophen (Acetaminophen 325 Mg Tablet) 650 mg PO Q6H PRN PRN Reason: Headache/Pain, Scale 1-10 Last Admin: 07/28/24 08:25 Dose: 650 mg Al Hydroxide/Mg Hydroxide (Magnesium Hydrox/Alum Hydrox 30 Ml Oral.Susp) 30 ml PO Q6H PRN PRN Reason: Heartburn/Nausea Clonidine HCl (Clonidine Hcl 0.1 Mg Tablet) 0.1 mg PO TID [facility]; Protocol Last Admin: 07/31/24 08:48 Dose: 0.1 mg Divalproex Sodium (Divalproex Sodium 500 Mg Tablet.) 500 mg PO BID [place] Last Admin: 07/31/24 08:48 Dose: 500 mg Hydroxyzine HCl (Hydroxyzine Hcl 50 Mg Tablet) 50 mg PO TID PRN PRN Reason: mild anxiety Last Admin: 07/30/24 11:26 Dose: 50 mg Hydroxyzine HCl (Hydroxyzine Hcl 25 Mg Tablet) 25 mg PO Q6H PRN PRN Reason: mild anxiety Lidocaine (Lidocaine 4 % Patch Adh..Patch) 1 patch TRANSDERMA DAILY [facility]; Protocol Last Admin: 07/31/24 08:49 Dose: 1 patch Magnesium Hydroxide (Milk Of Magnesia 30 Ml Oral.Susp) 30 ml PO DAILY PRN PRN Reason: Constipation Melatonin (Melatonin 3 Mg Tablet) 3 mg PO BEDTIME PRN PRN Reason: Insomnia Methadone HCl (Methadone Hcl 20 Mg/2 Ml Oral.Conc) 110 mg PO DAILY [facility] Last Admin: 07/31/24 07:53 Dose: 110 mg Naloxone HCl (Naloxone Hcl Nasal 4 Mg [place]) 4 mg NOSTRILALT Q2M PRN PRN Reason: opioid overdose Nicotine Polacrilex (Nicotine Polacrilex 2 Mg Gum) 4 mg BUCCAL Q1H PRN PRN Reason: Nicotine Cravings Last Admin: 07/31/24 08:48 Dose: 4 mg Olanzapine (Olanzapine 5 Mg Tablet) 5 mg PO BID [facility] Last Admin: 07/31/24 08:48 Dose: 5 mg Olanzapine (Olanzapine 5 Mg Tablet) 5 mg PO Q4H PRN PRN Reason: agitation or AH Last Admin: 07/30/24 18:37 Dose: 5 mg Trazodone HCl (Trazodone Hcl 50 Mg Tablet) 50 mg PO BEDTIME MRX1 PRN PRN Reason: Insomnia Last Admin: 07/31/24 02:14 Dose: 50 mg Allergies Allergies Allergy/AdvReac Type Severity Reaction Status Date / Time No Known Allergies Allergy Verified 07/25/24 09:04 [No Known Allergies*] Assessment & Plan Assessment & Plan (1) Schizoaffective disorder, depressive type: Status: Acute Code(s): F25.1 - Schizoaffective disorder, depressive type (2) PTSD (post-traumatic stress disorder): Status: Acute Code(s): F43.10 - Post-traumatic stress disorder, unspecified (3) Cocaine use disorder: Status: Acute Code(s): F14.10 - Cocaine abuse, uncomplicated (4) Opioid use disorder, severe, dependence: Status: Acute Code(s): F11.20 - Opioid dependence, uncomplicated Plan SI with plan to overdose or jump from 4th floor window of apartment. reported CAH to slit his own throat. superficially cur upper left arm with a knife. 07/27: methadone increased to 100 mg daily as of yesterday; increase again to 110 mg daily tomorrow as pt c/o cravings and does not appear sedated. asking for ensure TID due to weight loss; so ordered. c/o right costal pain, lidoderm ordered. otherwise continue/restart usual outpt medications. clearly unable to remain sober and engaging in risky self-harm behaviors in recent days with severe CAH to suicide. 07/28: affect full range and flexible, does continue to endorse SI and AH. no longer CAH, however. continue current mgmt. 07/29 Patient guarded. Polite but says does not really want to work with this blurb writer. He endorses AH and says that he is still depressed; he says he still has suicidal ideation but less. Orthodontic Technician inquired about medication changes however patient said he wanted to wait for Dr. Armendariz to return. -primary team considering section 35 . 07/30: Continue current regimen and plans 07/31: Continue current regimen and plans Reason for continued inpatient stay Substantial Risk for: med/psych decompensation Time Spent With Patient Time: Total time managing care of this patient today ____ minutes.
[2024-07-31] MEDS: hydrOXYzine HCL 50 MG TABLET PO ×2 (09:55→21:27)
[2024-07-31 16:00] VITALS: BP 102/62
[2024-07-31 20:00] VITALS: BP 112/64; PULSE 82; RESP 16; TEMP 36.6; O2SAT 98
[2024-07-31] MEDS: Melatonin 3 MG TABLET PO (21:27)
[2024-08-01] MEDS: Nicotine Polacrilex 2 MG GUM 4 MG BUCCAL ×5 (00:17→12:30)
[2024-08-01 07:30] VITALS: BP 110/69; PULSE 71; RESP 14; TEMP 36.6; O2SAT 98
[2024-08-01] MEDS: methADONE HCl 20 MG/2 ML ORAL.CONC 110 MG PO (07:48)
[2024-08-01 08:35] VITALS: BP 110/69
[2024-08-01] MEDS: Divalproex Sodium 500 MG TABLET.DR PO (08:35)
[2024-08-01] MEDS: OLANZapine 5 MG TABLET PO ×2 (08:35→12:07)
[2024-08-01] MEDS: cloNIDine HCL 0.1 MG TABLET PO (08:35)
[2024-08-01] MEDS: Lidocaine 4 % Patch ADH..PATCH 1 PATCH TRANSDERMA (10:47)
[2024-08-01] MEDS: hydrOXYzine HCL 50 MG TABLET PO (10:48)
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
== END 2024-08-01 12:35 | disposition other institution (70) | DRG 885 ==
LOC: HO.ED 21:39 → HO.PADLT16 07-26 15:21
PROVIDERS: Physician Assistant; Admitting Provider Psychiatry & Neurology Psychiatry; Emergency Provider Emergency Medicine; PCP Internal Medicine; Visit Provider Psychiatry & Neurology Psychiatry
DX: F25.1 Schizoaffective disorder, depressive type (principal); F11.20 Opioid dependence, uncomplicated; R45.851 Suicidal ideations; F43.10 Post-traumatic stress disorder, unspecified; F14.10 Cocaine abuse, uncomplicated; F17.210 Nicotine dependence, cigarettes, uncomplicated; F19.90 Other psychoactive substance use, unspecified, uncomplicated; Z71.6 Tobacco abuse counseling; Z79.899 Other long term (current) drug therapy
CPT/HCPCS: 36415; 80053; 80307; 85025; 93005; 99285; S9485

== ENCOUNTER → 2024-07-26 14:21 | Outpatient (BNV) | payer MEDICARE, MEDICAID, SELFPAY | PROVIDERS: Admitting Provider Psychiatry & Neurology Psychiatry; Emergency Provider Emergency Medicine; PCP Internal Medicine; Visit Provider Internal Medicine | DX: Z13.6 Encounter for screening for cardiovascular disorders (principal) | CPT/HCPCS: 93010 ==

== ENCOUNTER → 2024-07-26 15:03 | Outpatient (BNV) | payer MEDICARE, MEDICAID, SELFPAY | PROVIDERS: Admitting Provider Psychiatry & Neurology Psychiatry; Emergency Provider Emergency Medicine; PCP Internal Medicine; Visit Provider Psychiatry & Neurology Psychiatry | DX: F25.1 Schizoaffective disorder, depressive type (principal); F14.10 Cocaine abuse, uncomplicated; F11.20 Opioid dependence, uncomplicated; F43.11 Post-traumatic stress disorder, acute | CPT/HCPCS: 90792; 99231; 99232; 99239 ==

== ENCOUNTER 2024-09-19 14:27 | Outpatient (AMB) | payer MEDICARE, MEDICAID, SELFPAY ==
--- NOTE | 2024-09-19 14:08 | MHC.PC.OV ---
Vital Signs 09/19/24 14:09 Height 5 ft 8 in Weight 227 lb BMI 34.5 BP 122/76 Blood Pressure Location Lt brachial Position Sitting Pulse 90 Pulse Source Pulse Oximeter Temp 97 F Temp Source Axillary Pulse Oximetry (%) 96 Oxygen Delivery Method Room Air Intake Visit Reasons: Feet Retaining Fluid Disk Recoater Required: No Accompanied by: Self / Same As Patient Allergies No Known Allergies (No Known Allergies*) Allergy (Verified 09/19/24 14:09) Tobacco use date assessed: 09/19/24 Dental Screening Dental Screen Date: 09/19/24 Did you have a dental visit in the last 12 months?: Yes Did you have a dental problem in the last 6 months where you did not have access to dental care?: No PFSH Medical History Intentional self-harm Polysubstance (including opioids) dependence with physiol dependence Depression Deliberate self-cutting Suicide ideation Auditory hallucination PTSD (post-traumatic stress disorder) Schizoaffective disorder, depressive type Suicidal ideation Severe recurrent major depression with psychotic features Opioid use disorder Family History (Updated 09/19/24 @ 14:44 by Liliane Gibbons MA) Mother No problems noted. Father No problems noted. Other Mental health disorder Social History Household Members: None Household Members Other:: that he is homeless Housing: Apartment Do you presently have visiting nurse or other home services: No Unable to assess alcohol history related to: Refusing to respond Alcohol intake: current Alcohol intake frequency: holidays/special occasions only Alcohol type: hard liquor Patient Tobacco Use Status: Current everyday Tobacco user Tobacco use type: Cigarette Cigarette Packs Per Day: 1 Cigarettes Per Day: 20.0 Years Smoked: 23 years Packs Per Year: 0 Packs per year/per ci.00 e-Cigarette/Vaping Use: Currently Using Second Hand Smoke Exposure: No Substance Use Type: Crack/Cocaine and Marijuana service: No Current occupational status: unemployed Sexual orientation: Straight/Heterosexual Cognitive needs: No Hearing needs: No Vision needs: Yes (reading glasses) Questionnaire PHQ-9 Over the last 2 weeks, how often have you been bothered by any of the following problems? 1. Little interest or pleasure in doing things: not at all 2. Feeling down, depressed, or hopeless: not at all 3. Trouble falling or staying asleep, or sleeping too much: not at all 4. Feeling tired or having little energy: not at all 5. Poor appetite or overeating: not at all 6. Feeling bad about yourself - or that you are a failure or have let yourself or your family down: not at all 7. Trouble concentrating on things, such as reading the newspaper or watching television: not at all 8. Moving or speaking so slowly that other people could have noticed. Or the opposite - being so fidgety or restless that you have been moving around a lot more than usual: not at all 9. Thoughts that you would be better off or of hurting yourself in some way: not at all Total score: 0 Source: Developed by Drs. Arjun Schuster, Damaris Waters, Eulalio Lopez and colleagues, with an educational catalina from [employer]. Thrive Questionnaire Date Thrive assessed: 09/19/24 I am a: Patient Within the past 12 months, did the food you bought not last and you didn't have the money to get more?: Never true Within the past 12 months, did you worry whether your food would run out before you got money to buy more?: Never true Do you have trouble paying for medicines?: No Do you have trouble getting transportation to medical appointments?: No Do you have trouble paying your heating and electricity bill?: No Do you have trouble taking care of your child, family member or friend?: No Do you have trouble with day-to-day activities such as bathing, preparing meals, shopping, managing finances, etc.?: No Are you currently unemployed and looking for a job?: No Are you interested in more education?: No THRIVE Score: 0 AUDIT C Alcohol Use Questionnaire (AUDIT-C) 1. How often do you have a drink containing alcohol?: Never 3. How often do you have six or more drinks on one occasion?: Never Total Score: 0 EZEQUIEL-7 AMB Questionnaire EZEQUIEL-7 Date EZEQUIEL - 7 assessed: 09/19/24 Feeling nervous, anxious, or on edge: 0 = Not at all Not being able to stop or control worryin = Not at all Worrying too much about different things: 0 = Not at all Trouble relaxin = Not at all Being so restless that it is hard to sit still: 0 = Not at all Becoming easily annoyed or irritable: 0 = Not at all Feeling afraid as if something awful might happen: 0 = Not at all Total EZEQUIEL-7 score (0-4 normal; 5-9 mild; 10-14 moderate; 15-21 severe): 0 Source: Developed by Drs. Arjun Schuster, Damaris Waters, Eulalio Lopez and colleagues, with an educational catalina from [employer]. Physical exam (Primary Care) Vital Signs: Last Vital Signs Temp 97 F 09/19/24 14:09 Pulse 90 09/19/24 14:09 BP 122/76 09/19/24 14:09 Pulse Ox 96 09/19/24 14:09 Oxygen Delivery Method Room Air 09/19/24 14:09 BMI result Body Mass Index 34.5 Tobacco/Smoking Status: Tobacco use Status Tobacco use date assessed 09/19/24 09/19/24 14:10 Patient Tobacco Use Status Current everyday Tobacco 09/19/24 14:10 Tobacco use type Cigarette 09/19/24 14:10 e-Cigarette/Vaping Use Currently Using 09/19/24 14:44 PHQ-9: PHQ-9 Score PHQ-9: Total score 0 09/19/24 14:44 Thrive Assessment: Date of Thrive Assessment Date Thrive assessed 09/19/24 09/19/24 14:10 Coding Level of Care Code New Pt Level 4 (59090) Complex EM visit Add On G2211 Diagnoses Severe recurrent major depression with psychotic features F33.3 Edema of both feet R60.0 Assessment & Plan Assessment & Plan (1) Severe recurrent major depression with psychotic features: Code(s): F33.3 - Major depressive disorder, recurrent, severe with psychotic symptoms Category: Medical Plan: Continue current medications (2) Edema of both feet: Code(s): R60.0 - Localized edema Plan: Mostly due to medications along with current hot weather and poor exercise. 7 day of Furosemide added Plan History of Present Illness - The patient is a 34-year-old male presenting with swelling of the feet and shortness of breath. - Reports bilateral foot swelling for a couple of days. - Experiences mild dyspnea. - Recently started taking new medications, including hydroxyzine, approximately 40 days ago after joining a drug program. - Suspects medication is causing water retention. - Currently on methadone and has been off illicit drugs for 53 days. Social History - The patient is currently in a drug rehabilitation program and has been off illicit drugs for 53 days. Review of Systems - Cardiovascular: Reports peripheral edema. Denies chest pain. - Respiratory: Reports mild dyspnea. Denies cough or wheezing. Physical Exam General: Cooperative and healthy appearing Nutritional Appearance: Well nourished Orientation/consciousness: Patient oriented x3 Limitations: No limitations Head: Normal to inspection General: Appearance normal, both eyes and all related structures Neck: Normal visual inspection Chest: Normal palpation of entire chest wall Respiratory: Patient reports being a little bit short of breath ormal respiratory effort Neurology: Patient oriented x3 Results Plan 1. Peripheral Edema - Monitor swelling and adjust medications if necessary. 2. Dyspnea - Evaluate respiratory status and consider medication adjustment. 3. Medication Side Effects - Review current medications and assess for potential side effects. Discussion Notes I discussed with the patient the potential side effects of his current medications, including the possibility of water retention leading to swelling. We also talked about monitoring his symptoms and adjusting medications if necessary. I advised him to take the prescribed medication for a week and reassured him that his symptoms should improve. Patient Instructions - Take the prescribed medication for a week. - Monitor for any changes in swelling or breathing difficulties. - Follow up if symptoms persist or worsen.
[2024-09-19 14:09] VITALS: BP 122/76; PULSE 90; TEMP 36.1; O2SAT 96; BMI 34.5
--- OUTSIDE RECORDS SUMMARY | 2024-09-19 14:56 | XMS_ITS | Encounter Summary ---
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
== END 2024-09-19 15:04 | disposition home or self-care (01) ==
LOC: HO.HMCHD 14:27
PROVIDERS: PCP Internal Medicine; Visit Provider Internal Medicine
DX: F33.3 Major depressive disorder, recurrent, severe with psychotic symptoms (principal); R60.0 Localized edema

== ENCOUNTER → 2024-09-19 14:27 | Outpatient (BNVA) | payer MEDICARE, MEDICAID, SELFPAY | PROVIDERS: PCP Internal Medicine; Visit Provider Internal Medicine | DX: F33.3 Major depressive disorder, recurrent, severe with psychotic symptoms (principal); R60.0 Localized edema; F17.210 Nicotine dependence, cigarettes, uncomplicated; Z71.6 Tobacco abuse counseling | CPT/HCPCS: 99202 ==